=== PATIENT | female | born 1970 | race Caucasian/White ===

== ENCOUNTER 2017-05-25 14:56 | Emergency (ER) | payer MEDICARE, MEDICAID, SELFPAY ==
[2017-05-25 14:57] VITALS: BP 99/61; PULSE 74; RESP 14; TEMP 36.8; O2SAT 96; BMI 19.0
--- NOTE | 2017-05-25 15:33 | CT_ITS ---
STUDY: CT ABDOMEN AND PELVIS WITHOUT CONTRAST REASON FOR EXAM: Female, 46 years old. Constipation x1 week, neurogenic bladder RADIATION DOSAGE (If Supplied By Facility): CTDIvol = ( 9.38 ) mGy, DLP = ( 536.51 ) mGycm TECHNIQUE: Transaxial images were obtained from the dome of the diaphragm to the symphysis pubis without oral contrast, and without intravenous contrast. Sagittal and coronal images were reconstructed. Individualized dose optimization techniques were used for this CT. COMPARISON: Prior study of 02/29/2016 FINDINGS: There are gravity dependent atelectatic changes of the lung bases. The visualized portions of the heart are within normal limits. Normal liver. Normal gallbladder and extrahepatic biliary system. Normal spleen. Normal pancreas. Normal bilateral adrenal glands. There is a nonobstructing 3 mm calculus in lower pole of the right kidney. Normal left kidney. Normal visualized stomach. Normal small intestine. There is a large amount of gas and stool in the colon to the level of the rectosigmoid. There is non-visualization of the appendix. There are calcified plaques of the abdominal aorta. Normal inferior vena cava. Normal retroperitoneum. Normal urinary bladder. The uterus and adnexal structures are unremarkable. There is a small fat-containing helical hernia. Normal osseous structures. CT/Abdomen/Pelvis without Cont IMPRESSION: 1. There is a large amount of gas and stool in the colon to the level of the rectosigmoid. 2. Nonobstructing 3 mm calculus of the lower pole of the right kidney. 3. Small fat-containing umbilical hernia. 4. There is no evidence of free intra-abdominal or intrapelvic air, fluid, or inflammatory process. Electronically Signed: Deandre Peralta MD at 16:30 EDT , Service support ,
[2017-05-25] MEDS: Magnesium Citrate 300 ML PO (15:46)
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
[2017-05-25 18:05] VITALS: BP 98/64; PULSE 63; RESP 18; O2SAT 99
== END 2017-05-25 18:06 | disposition home or self-care (01) ==
PROVIDERS: Emergency Provider Emergency Medicine; Family Provider Family Medicine; PCP Family Medicine
DX: K59.09 Other constipation (principal); G81.00 Flaccid hemiplegia affecting unspecified side; K56.609 Unspecified intestinal obstruction, unspecified as to partial versus complete obstruction; Z87.820 Personal history of traumatic brain injury; Z79.891 Long term (current) use of opiate analgesic; Z79.02 Long term (current) use of antithrombotics/antiplatelets; Z79.899 Other long term (current) drug therapy
CPT/HCPCS: 74176; 99284

== ENCOUNTER 2017-06-02 10:19 | Day surgery (SDC) | payer MEDICARE, MEDICAID, SELFPAY ==
[2017-06-02] VITALS (8 sets, daily range): BP systolic 86–118; BP diastolic 59–74; PULSE 60–76; RESP 14–16; TEMP 36.4–36.8; O2SAT 97–100; BMI 23.6
--- NOTE | 2017-06-02 | IMM_PTH ---
PATIENT: JORDAN SCOTT LOC: EN U#:[id number] AGE/SX: 46/F ROOM: RE06/02/[address]: Dr. Oliverio Garcia MD : 1970 BED: DIS: 06/02/2017 SPEC #: [id number] RECD: 06/05/17 12:30 STATUS: CORRINE RERadha #: [id number] SANTI: 06/02/17 00:[address]: Oliverio Garcia DEPT: IMMUNOHISTOCHEMISTRY RECD BY: Adriana Kraft ENTERED: 06/05/17 12:31 SP TYPE: IMMUNO OTHR DR: Dr. Stu Calderon MD Tissues: Stomach, NOS Procedures: H Pylori (initial) PHYSICIAN & INSTITUTION [place] [id number] SPECIMEN INFORMATION: Tissue Source: Antrum biopsy Clinical Info: Iron deficiency anemia Specimen Number: [id number] CPT code: 34787 METHODOLOGY: Deparaffinized sections of prefer/formalin-fixed tissue or PAP/DQ stained slides are incubated with monoclonal/polyclonal antibodies/oligonucleotide probes. Localization is made via biotin free immunoperoxidase method. Appropriate controls are performed and reacted as expected. Results on target cell population are indicated in the following table: RESULTS: ANTIBODY / CLONE RESULT H Pylori (polyclonal) negative These tests were developed and their performance characteristics determined by [facility]. They may not have been cleared or approved by the U.S. Food and Drug Administration. The FDA has determined that such clearance or approval is not necessary. INTERPRETATION: Antrum, biopsy: Negative for Helicobacter pylori organisms. SJ:brandon 06/06/17
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
--- NOTE | 2017-06-02 11:48 | EGD_PTH ---
PATIENT: JORDAN SCOTT LOC: EN U#:[id number] AGE/SX: 46/F ROOM: RE06/02/[address]: Dr. Oliverio Garcia MD : 1970 BED: DIS: 06/02/2017 SPEC #: [id number] RECD: 06/02/17 13:15 STATUS: CORRINE JOAO #: [id number] SANTI: 06/02/17 11:[address]: Oliverio Garcia DEPT: SURGICAL PATHOLOGY RECD BY: Trev Pool ENTERED: 06/02/17 14:12 SP TYPE: EGD BIOPSY OTHR DR: Dr. Stu Calderon MD Tissues: Gastric mucous membrane Procedures: Surgery Specimen Level IV HEADER OPERATION: EGD with biopsy PRE-OP DIAGNOSIS: Iron deficiency anemia TISSUE SUBMITTED: Antrum biopsy for H. pylori and path MICROSCOPIC DIAGNOSIS Antral biopsy: Mild gastritis. SJ:brandon 06/05/17 COMMENT The results of immunohistochemistry for Helicobacter pylori will be reported separately ([id number]). MICROSCOPIC DESCRIPTION Slides are reviewed. The specimen shows fragments of gastric mucosa with chronic inflammatory cell infiltrates in the lamina propria consisting of lymphocytes and plasma cells, consistent with mild chronic gastritis. GROSS DESCRIPTION Received in fixative is one container labeled with the patient's name and designated antrum biopsy for H.?pylori and path. The specimen consists of one irregular fragment of light hudson soft tissue that measures 0.3 x 0.2 x 0.1 cm. The specimen is totally submitted in one cassette. / SJ:rg 06/02/17 TC:3 CPT: 97877
--- NOTE | 2017-06-02 14:03 | PCM.OPRPT ---
Report of Operation Date of Procedure: 06/02/17 Pre-Operative Diagnosis: anemia, constipation, black stools, fecal impaction, questionable Orlando syndrome Post-Operative Diagnosis: anemia, constipation, black stools, fecal impaction, questionable [place] syndrome - unremarkable upper endoscopy except for very mild gastritis, poor bowel prep with vegetable matter and very dark stools more consistent with iron, then melena Surgery/Procedure Performed:: EGD with biopsy, colonoscopy windlace machine operator: None Type of Anesthesia:: MAC Anesthesiologist: Navneet Hong - ASA3 Specimen's removed: gastric Description of Procedure: The patient was brought to the endoscopy suite. Sign in was performed verifying patient, site, planned procedure, critical nursing information, the patient was monitored with cardiac, pulse oximetric, and blood pressure monitoring devices. Monitored anesthetic care was provided for sedation. Following IV sedation and after the oropharynx was sprayed with Cetacaine spray, a video gastroscope was inserted in the oropharynx and advanced down the esophagus without difficulty. The scope was advanced through the stomach, through the pylorus through the duodenum to the proximal jejunum. the jejunum appeared unremarkable. The duodenum referred unremarkable. The stomach demonstrated very mild to minimal gastritis. A biopsy is taken for H. pylori and pathology. The scope was retroflexed. There were no proximal stomach abnormalities. As the scope was withdrawn, the esophagus appeared unremarkable. The patient was positioned for colonoscopy. A digital rectal exam was performed which revealedsignificant black liquid and vegetable matter material. This did not seem to be consistent with melena but more likely iron supplementation. A video colonoscope was inserted through dilated colon. The scope was advanced to 1.4 meters of some difficulty due to the degree of liquid and vegetable matter. As this was mostly liquid material. I attempted to aspirate as much as I could to try to complete the colonoscopy. spray, approximately 1.5 L of black liquid. I was unable to assure that I had debated to the cecal base. As the scope was withdrawn. No specific abnormalities were seen, but the endoscopist was quite limited. As much air and liquid was aspirated to hopefully help decompress the patient, who was still distended on a plain KUB from 3 days previously. The patient tolerated the procedure well and was brought to recovery in stable condition She was instructed to stay on a low residue diet to continue avoiding iron and calcium tablets. She is to follow-up with physician's medical billing assistant in 1 week with a KUB to see if she has decreased colonic distention and resolution of her previous fecal loading.
--- NOTE | 2017-06-02 14:09 | OP.PCM_ITS ---
Report of Operation Date of Procedure: 06/02/17 Pre-Operative Diagnosis: anemia, constipation, black stools, fecal impaction, questionable [place] syndrome Post-Operative Diagnosis: anemia, constipation, black stools, fecal impaction, questionable [place] syndrome - unremarkable upper endoscopy except for very mild gastritis, poor bowel prep with vegetable matter and very dark stools more consistent with iron, then melena Surgery/Procedure Performed:: EGD with biopsy, colonoscopy eyelet maker: None Type of Anesthesia:: MAC Anesthesiologist: Navneet Hong - ASA3 Specimen's removed: gastric Description of Procedure: The patient was brought to the endoscopy suite. Sign in was performed verifying patient, site, planned procedure, critical nursing information, the patient was monitored with cardiac, pulse oximetric, and blood pressure monitoring devices. Monitored anesthetic care was provided for sedation. Following IV sedation and after the oropharynx was sprayed with Cetacaine spray , a video gastroscope was inserted in the oropharynx and advanced down the esophagus without difficulty. The scope was advanced through the stomach, through the pylorus through the duodenum to the proximal jejunum. the jejunum appeared unremarkable. The duodenum referred unremarkable. The stomach demonstrated very mild to minimal gastritis. A biopsy is taken for H. pylori and pathology. The scope was retroflexed. There were no proximal stomach abnormalities. As the scope was withdrawn, the esophagus appeared unremarkable. The patient was positioned for colonoscopy. A digital rectal exam was performed which revealedsignificant black liquid and vegetable matter material. This did not seem to be consistent with melena but more likely iron supplementation. A video colonoscope was inserted through dilated colon. The scope was advanced to 1.4 meters of some difficulty due to the degree of liquid and vegetable matter. As this was mostly liquid material. I attempted to aspirate as much as I could to try to complete the colonoscopy. spray, approximately 1.5 L of black liquid. I was unable to assure that I had debated to the cecal base. As the scope was withdrawn. No specific abnormalities were seen, but the endoscopist was quite limited. As much air and liquid was aspirated to hopefully help decompress the patient, who was still distended on a plain KUB from 3 days previously. The patient tolerated the procedure well and was brought to recovery in stable condition She was instructed to stay on a low residue diet to continue avoiding iron and calcium tablets. She is to follow-up with physician's bilingual office assistant in 1 week with a KUB to see if she has decreased colonic distention and resolution of her previous fecal loading.
== END 2017-06-02 13:53 | disposition home or self-care (01) ==
LOC: EN 10:22 → AC 10:24
PROVIDERS: Family Provider Family Medicine; PCP Family Medicine; Visit Provider Surgery
PROC: 0DJD8ZZ Inspection of Lower Intestinal Tract, Via Natural or Artificial Opening Endoscopic (ICD-10-PCS; CPT 45378; principal; 2017-06-02 11:25)
DX: K29.70 Gastritis, unspecified, without bleeding (principal); D64.9 Anemia, unspecified; K59.00 Constipation, unspecified; K21.9 Gastro-esophageal reflux disease without esophagitis; F43.21 Adjustment disorder with depressed mood; F41.9 Anxiety disorder, unspecified; F10.11 Alcohol abuse, in remission; G81.00 Flaccid hemiplegia affecting unspecified side; N31.9 Neuromuscular dysfunction of bladder, unspecified; I10 Essential (primary) hypertension; E03.9 Hypothyroidism, unspecified; Z86.73 Personal history of transient ischemic attack (TIA), and cerebral infarction without residual deficits; Z79.02 Long term (current) use of antithrombotics/antiplatelets; Z79.891 Long term (current) use of opiate analgesic; Z79.899 Other long term (current) drug therapy; F17.210 Nicotine dependence, cigarettes, uncomplicated; Z86.718 Personal history of other venous thrombosis and embolism; Z86.711 Personal history of pulmonary embolism
CPT/HCPCS: 43239; 45378; 88305; 88342; J7120

== ENCOUNTER 2017-08-10 10:16 | Day surgery (SDC) | payer MEDICARE, MEDICAID, SELFPAY ==
[2017-08-10 10:31] VITALS: BP 91/56; PULSE 84; RESP 16; TEMP 36.7; O2SAT 100; BMI 22.4
--- NOTE | 2017-08-10 13:41 | OP.PCM_ITS ---
Report of Operation Date of Procedure: 08/10/17 Pre-Operative Diagnosis: anemia Post-Operative Diagnosis: grossly normal, limited prep Surgery/Procedure Performed:: colonoscopy hebrew teacher: None Type of Anesthesia:: MAC Anesthesiologist: Steve Rhodes - ASA3 Specimen's removed: none Description of Procedure: The patient was brought to the endoscopy suite. Sign in was performed verifying patient, site, planned procedure, critical nursing information, the patient was monitored with cardiac, pulse oximetric, and blood pressure monitoring devices. Monitored anesthetic care was provided for sedation. Following IV sedation the patient was positioned for colonoscopy. A digital rectal exam was performed which revealed The video colonoscope was inserted and advanced to the cecum as verified by the ileocecal valve, cecal base anatomic features and palpation. the prep was fair , much improved from last time. At the scope was withdrawn. There were a few small diverticula noted throughout the colon but no specific abnormalities. The scope was retroflexed and the internal anal verge appeared unremarkable. The patient tolerated the procedure well and was brought to recovery in stable condition
[2017-08-10 13:46] VITALS: BP 109/52; BP 91/56; PULSE 65; RESP 12; TEMP 36.6; O2SAT 100
[2017-08-10 13:51] VITALS: BP 91/56; BP 95/55; PULSE 62; RESP 14; O2SAT 100
[2017-08-10 13:56] VITALS: BP 91/56; BP 95/67; PULSE 65; RESP 16; O2SAT 98
[2017-08-10 14:02] VITALS: BP 91/56; BP 93/61; PULSE 59; RESP 16; TEMP 37.2; O2SAT 98
[2017-08-10 14:28] VITALS: BP 91/56
== END 2017-08-10 14:54 | disposition home or self-care (01) ==
LOC: EN 10:18 → ACINP 10:56 → AC 11:00
PROVIDERS: Family Provider Family Medicine; PCP Family Medicine; Visit Provider Surgery
PROC: 0DJD8ZZ Inspection of Lower Intestinal Tract, Via Natural or Artificial Opening Endoscopic (ICD-10-PCS; CPT 45378; principal; 2017-08-10 11:25)
DX: D50.9 Iron deficiency anemia, unspecified (principal); K21.9 Gastro-esophageal reflux disease without esophagitis; F17.200 Nicotine dependence, unspecified, uncomplicated; Z86.718 Personal history of other venous thrombosis and embolism; Z86.711 Personal history of pulmonary embolism
CPT/HCPCS: G0121; J7120

== ENCOUNTER 2018-02-15 11:31 | Emergency (ER) | payer MEDICARE, MEDICAID, SELFPAY ==
[2018-02-15 11:32] VITALS: BP 100/63; PULSE 80; RESP 18; TEMP 36.6; O2SAT 98; BMI 23.4
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
--- NOTE | 2018-02-15 13:08 | RAD_ITS ---
STUDY: X-RAY - ABDOMEN/PELVIS REASON FOR EXAM: Female, 47 years old. Abdominal pain and possible constipation. TECHNIQUE: Two AP supine views of the abdomen and pelvis. COMPARISON: Comparison is made with prior study dated March 07, 2016. FINDINGS: Normal visualized lung bases. There is an abundance of fecal material throughout the colon. The visualized liver, spleen and kidneys are grossly normal in size and morphology. There is evidence of prior tubal ligation. Normal visualized osseous structures. RAD/Abdomen Single View (Portable) IMPRESSION: Large amount of fecal material is seen in the colon. Electronically Signed: Fawad Bender MD at 13:33 EST Tel [phone], Service support ,
--- NOTE | 2018-02-15 14:26 | ED.DEP ---
ED Disposition - Plan for ED Patient: Disposition: Home or Assisted Living Chief Complaint: Abd Pain Instructions: ED Constipation Referrals: Stu Calderon MD [Primary Care Provider] - As Needed Additional Instructions: Drink all the magnesium citrate should have a bowel movement within 1-4 hours. Follow-up your doctor as needed.
[2018-02-15] MEDS: Magnesium Citrate 300 ML PO (14:33)
== END 2018-02-15 14:43 | disposition home or self-care (01) ==
PROVIDERS: Emergency Provider Emergency Medicine; Family Provider Family Medicine; PCP Family Medicine
DX: K59.00 Constipation, unspecified (principal); Z87.820 Personal history of traumatic brain injury; Z99.3 Dependence on wheelchair; Z72.0 Tobacco use; Z79.02 Long term (current) use of antithrombotics/antiplatelets; Z79.899 Other long term (current) drug therapy
CPT/HCPCS: 74018; 99282

== ENCOUNTER 2018-05-20 14:45 | Emergency (ER) | payer MEDICARE, MEDICAID, SELFPAY ==
[2018-05-20] VITALS (7 sets, daily range): BP systolic 90–112; BP diastolic 53–70; PULSE 52–69; RESP 16–18; TEMP 36.2–37; O2SAT 99–100; BMI 21.7
--- NOTE | 2018-05-20 15:31 | RAD_ITS ---
STUDY: X-RAY CHEST REASON FOR EXAM: Female, 47 years old. Cough TECHNIQUE: Frontal and lateral views of the chest COMPARISON: None. FINDINGS: The lungs are clear. There are no pleural effusions. There is no pneumothorax. The heart is normal in size. There is gaseous distention of the colon which is not significantly changed when compared with the abdominal radiograph dated 02/15/2018. The visualized osseous structures are within normal limits. RAD/Chest PA and Lateral IMPRESSION: No acute thoracic pathology. Electronically Signed: Mandeep Middleton, at 17:54 EDT Tel , Service support ,
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
[2018-05-20] MEDS: 0.9% Normal Saline 1,000 ML 1000 ML IV (16:10)
[2018-05-20 16:17] LABS: Absolute Lymphocyte Count 1.67 X10^3/ul (0.83-4.51); Absolute Neutrophil Count 3.3 X10^3/uL (2.0-7.7); Basophil# 0.01 X10^3/uL; Basophil% 0.2 % (0-1); Eosinophil# 0.15 X10^3/uL; Eosinophils% 2.6 % (0-5); Hematocrit 39.6 % (37-47); Hemoglobin 12.2 g/dl (12.0-15.0); Lymphocyte # 1.67 X10^3/ul (4.0); Lymphocyte % 29.3 % (19-41); Mean Corp Hgb Conc 30.8 g/gl (32-36); Mean Corpuscular Hgb 29.3 pg (27.0-32.0); Monocyte% 8.8 % (0-10); Neutrophil # 3.34 X10^3/uL (2.7-7.7); Neutrophil % 58.6 % (47-70); Platelet Count 296 K/mm3 (150-450); RBC Distribution Width CV 14.2 % (11.6-14.6); RBC Distribution Width SD 48.9 fl (35.1-43.9); Red Blood Count 4.17 M/mm3 (4.2-5.4); White Blood Count 5.7 K/mm3 (4.4-11.0)
[2018-05-20 16:18] LABS: POSITIVE COUNT NO; POSITIVE DIFFERENTIAL NO; POSITIVE MORPHOLOGY NO
[2018-05-20 16:35] LABS: ALB/GLOB Ratio 0.9 RATIO (0.9-2.4); AST(SGOT) 15 U/L (15-37); Alanine Aminotransfer ALT/SGPT 30 U/L (13-56); Albumin, Serum 3.6 g/dL (3.2-5.0); Alkaline Phosphatase 78 U/L (45-117); Anion Gap 6 (5-15); BUN 13 mg/dL (7-18); BUN/Creat Ratio 12.4 RATIO (10-20); CPK Total, Creatine Kinase 33 U/L (26-192); Calcium,Total 8.6 mg/dL (8.5-10.1); Chloride 115 mmol/L (98-107); Creatinine, Serum 1.05 mg/dL (0.55-1.02); EST Glomerular Filtration Rate 60 mL/min (>60); Est Glom Filt Rate - Afr Amer 72 mL/min (>60); Globulin 3.8 g/dL (2.2-4.2); Glucose 76 mg/dL (74-106); Potassium 3.8 mmol/L (3.5-5.1); Protein, Total 7.4 g/dL (6.4-8.2); Sodium Level 144 mmol/L (136-145)
[2018-05-20 16:49] LABS: Lactic Acid 1.7 mmol/L (0.4-2.0)
[2018-05-20 16:56] LABS: Bacteria 0 SEEN /hpf (None Seen); Mucous, Urine 0 SEEN /hpf (<or=2+); Red Blood Cells-Urine 0 SEEN /hpf (0-5); White Blood Cells 0 SEEN /hpf (0-5)
[2018-05-20 17:00] LABS: Color, Urine Yellow (Yellow); Glucose, Dipstick Normal (Normal); Ketone-Dipstick Negative (Negative); Leukocyte Esterase-Dipstick Negative /ul (Negative); Nitrite-Dipstick Negative (Negative); Occult Blood-Urine Negative /ul (Negative); Protein-Dipstick Negative (Negative); Urine Bilirubin Dipstick Negative (Negative); Urine Clarity Clear (Clear); Urine Urobilinogen Normal (Normal)
[2018-05-20 17:08] LABS: Squamous Epithelial Cells - UA 0-5 SEEN /hpf (5-10)
[2018-05-20 17:11] LABS: International Normalized Ratio 1.7; Prothrombin Time (Protime)PT. 19.9 SECONDS (11.7-14.9)
[2018-05-20 17:12] LABS: Partial Thromboplast Time 39.4 Seconds (24.1-36.2)
--- NOTE | 2018-05-20 18:21 | RAD_ITS ---
STUDY: X-RAY - ABDOMEN/PELVIS REASON FOR EXAM: Female, 47 years old. Abdominal distention TECHNIQUE: AP supine and decubitus views of the abdomen and pelvis. COMPARISON: CT dated 02/15/2018 FINDINGS: The small bowel is normal in caliber. There are multiple air-filled dilated loops of large bowel throughout the abdomen and pelvis. There is a large amount of stool, consistent with constipation. There is no definite free air. The visualized osseous structures are within normal limits. RAD/Abd Decub and/or Erect(Portabl IMPRESSION: No small bowel obstruction. Dilated large bowel with constipation. If indicated, further evaluation with CT can BE performed. No definite free air identified. Electronically Signed: Mandeep Middleton, at 19:27 EDT Tel , Service support ,
== END 2018-05-20 20:43 | disposition home or self-care (01) ==
PROVIDERS: Emergency Provider Emergency Medicine; Family Provider Family Medicine; PCP Family Medicine
DX: J22 Unspecified acute lower respiratory infection (principal); K59.00 Constipation, unspecified; R06.02 Shortness of breath; F17.200 Nicotine dependence, unspecified, uncomplicated; E03.9 Hypothyroidism, unspecified; Z87.820 Personal history of traumatic brain injury; Z99.3 Dependence on wheelchair; Z86.711 Personal history of pulmonary embolism; Z79.02 Long term (current) use of antithrombotics/antiplatelets; Z79.899 Other long term (current) drug therapy
CPT/HCPCS: 71046; 74019; 80053; 81001; 82550; 83605; 85025; 85610; 85730; 87040; 87086; 87088; 96360; 96361; 99283; J7030

== ENCOUNTER 2018-06-29 04:02 | Inpatient (IN) | payer MEDICARE, MEDICAID, SELFPAY ==
[2018-05-20 14:48] VITALS: BMI 21.7
[2018-06-29] VITALS (16 sets, daily range): BP systolic 95–129; BP diastolic 55–98; PULSE 65–85; RESP 16–22; TEMP 36.2–37.4; O2SAT 92–100; BMI 22.9; BMI 23.0
--- NOTE | 2018-06-29 | COL_PTH ---
PATIENT: JORDAN SCOTT LOC: MS3 U#:[id number] AGE/SX: 47/F ROOM: MS317 RE06/29/[address]: Dr. Theresa Soriano, : 1970 BED: 1 DIS: 07/03/2018 SPEC #: [id number] RECD: 06/29/18 13:35 STATUS: CORRINE RERadha #: [id number] SANTI: 06/29/18 00:[address]: Luz Hess DEPT: SURGICAL PATHOLOGY RECD BY: Cheng Orourke ENTERED: 06/29/18 13:35 SP TYPE: COLON OTHR DR: MD Dr. Stu Benoit MD Tissues: Colon, NOS Procedures: Surgery Specimen Level V HEADER OPERATION: Sigmoid colectomy, colostomy PRE-OP DIAGNOSIS: Sigmoid volvulus TISSUE SUBMITTED: Sigmoid colon MICROSCOPIC DIAGNOSIS Sigmoid colon, colectomy: Dilated and tortuous segment of colon, consistent with volvulus. Both segments of bowel (large and small) and one resection margin (largest segment of bowel) with mucosal ischemia, hemorrhage and transmural acute inflammation. One resection margin with focal hyperplastic polyp changes. JASWINDER:brandon 07/03/18 MICROSCOPIC DESCRIPTION Slides are reviewed. GROSS DESCRIPTION Received fresh in one container and then postfixed labeled with the patient's name is a specimen designated sigmoid colon. The specimen consists of a distended and tortuous large segment of colon measuring 86?cm in length and 9 cm in diameter. Both resection margins are stapled. The lumen contains blackish, liquified fecal material. The mucosa shows multiple areas of congestion. Mucosal folds are flattened. Also present in the container is a second segment of bowel measuring 3.5 cm in length and 5 cm in diameter. Both resection margins are stapled. The lumen contains hemorrhagic fecal material. No mucosal lesion is identified in both segments of colon. Sections will be submitted after overnight fixation. / JASWINDER:brandon 06/29/18 Sections of pericolonic adipose tissue do not reveal any obvious enlarged lymph nodes. Geric[employer] Aide Teacher sections are submitted in seven cassettes as follows: 1 & 2 - smaller segment of bowel, 3-7 - larger segment of bowel, sigmoid colon (3 - resection margin, 4 & 5 - congested mucosal area, 6 - other area of bowel, 7??pericolonic adipose tissue). / JASWINDER:brandon 07/02/18 TC:5 [facility]: [id number]
--- NOTE | 2018-06-29 04:36 | EKG12_ITS ---
Test Reason : Blood Pressure : / mmHG Vent. Rate : 088 BPM Atrial Rate : 088 BPM P-R Int : 158 ms QRS Dur : 082 ms QT Int : 368 ms P-R-T Axes : 047 -50 044 degrees QTc Int : 445 ms Normal sinus rhythm Possible Left atrial enlargement Left axis deviation Low voltage QRS Inferior infarct , age undetermined Poor R-Wave Progression Abnormal ECG Confirmed by JOCELYNE COREA, NESSA ([id number]), make up editor CORINNE MAC ([id number]) on 07/02/2018 10:38:20 AM Referred By: PETE Confirmed By:NESSA CASANOVA MD
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
[2018-06-29 05:14] LABS: Absolute Neutrophil Count 14.9 X10^3/uL (2.0-7.7); Hematocrit 40.4 % (37-47); Hemoglobin 13.1 g/dl (12.0-15.0); Lymphocyte % 4.1 % (19-41); Mean Corp Hgb Conc 32.4 g/gl (32-36); Mean Corpuscular Hgb 29.5 pg (27.0-32.0); Mean Platelet Vol. 9.3 fl (6.2-12.0); Monocyte# 1.45 X10^3/uL; Monocyte% 8.5 % (0-10); Neutrophil # 14.89 X10^3/uL (2.7-7.7); Neutrophil % 87.1 % (47-70); Platelet Count 194 K/mm3 (150-450); RBC Distribution Width CV 13.9 % (11.6-14.6); RBC Distribution Width SD 45.7 fl (35.1-43.9); Red Blood Count 4.44 M/mm3 (4.2-5.4); White Blood Count 17.1 K/mm3 (4.4-11.0)
[2018-06-29 05:15] LABS: POSITIVE COUNT NO; POSITIVE DIFFERENTIAL NO; POSITIVE MORPHOLOGY NO
--- NOTE | 2018-06-29 05:25 | RAD_ITS ---
HISTORY: altered LOC, patient unable to follow breathing instructions, Hx traumatic brain injury EXAM:XR Chest 1 View COMPARISON: 05/20/2018 FINDINGS: Marked distention of colon within the abdomen with secondary elevation of the right hemidiaphragm and bibasilar atelectatic changes, worse on the right. Normal heart size. No vascular congestion or definite pleural effusion. No pneumothorax. RAD/Chest 1 View (Portable) IMPRESSION: 1. Bibasilar atelectatic changes, worse on the right. 2. Pronounced distention of the colon within the upper abdomen and this appears the etiology for atelectasis. at 0605 Reported and signed by: Adan Chinchilla MD Electronically Signed: Adan Chinchilla, at 6:04 EDT Tel , Service support ,
[2018-06-29 05:37] LABS: AST(SGOT) 35 U/L (15-37); Alanine Aminotransfer ALT/SGPT 35 U/L (13-56); Albumin, Serum 3.6 g/dL (3.2-5.0); Alkaline Phosphatase 87 U/L (45-117); Anion Gap 7 (5-15); BUN 17 mg/dL (7-18); BUN/Creat Ratio 14.9 RATIO (10-20); Calcium,Total 8.6 mg/dL (8.5-10.1); Chloride 114 mmol/L (98-107); Creatinine, Serum 1.14 mg/dL (0.55-1.02); EST Glomerular Filtration Rate 54 mL/min (>60); Est Glom Filt Rate - Afr Amer 66 mL/min (>60); Estimated Creatinine Clearance 71.16 ml/min; Globulin 3.6 g/dL (2.2-4.2); Glucose 135 mg/dL (74-106); Lipase 88 U/L (73-393); Potassium 4.2 mmol/L (3.5-5.1); Protein, Total 7.2 g/dL (6.4-8.2); Sodium Level 141 mmol/L (136-145)
[2018-06-29 05:44] LABS: Mucous, Urine 0 SEEN /hpf (<or=2+); Red Blood Cells-Urine 0 SEEN /hpf (0-5)
[2018-06-29 05:57] LABS: Color, Urine Yellow (Yellow); Glucose, Dipstick Normal (Normal); Ketone-Dipstick 5 mg/dl (Negative); Leukocyte Esterase-Dipstick 100 /ul (Negative); Nitrite-Dipstick Negative (Negative); Occult Blood-Urine 50 /ul (Negative); Protein-Dipstick 30 mg/dl (Negative); Specific Gravity, Urine 1.015 (1.002-1.030); Urine Clarity Turbid (Clear); Urine Urobilinogen 1 mg/dl (Normal)
[2018-06-29 06:06] LABS: Urine Bilirubin Dipstick 1 mg/dL (Negative)
[2018-06-29 06:07] LABS: Amorphous Sediment 3+; Bacteria 2+ /hpf (None Seen)
[2018-06-29 06:08] LABS: Coarse Granular Cast 0-5 SEEN /lpf (0-5 /lpf); Squamous Epithelial Cells - UA 0-5 SEEN /hpf (5-10); Transitional Epithelial - Ur 0-5 SEEN /hpf (0-5); White Blood Cells 0-5 SEEN /hpf (0-5)
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
[2018-06-29] MEDS: Ondansetron 4 MG/2 ML Vial IV (06:22)
[2018-06-29] MEDS: Morphine 4 MG/ML Syringe IV ×3 (06:24→21:42)
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
[2018-06-29 08:01] LABS: Prothrombin Time Fingerstick 17.3 SEC (11.9-14.4)
--- NOTE | 2018-06-29 10:41 | OP.PCM_ITS ---
Report of Operation Date of Procedure: 06/29/18 Pre-Operative Diagnosis: sigmoid volvulus Post-Operative Diagnosis: same, sigmoid colon ischemic Surgery/Procedure Performed:: sigmoid colon resection, end descending colostomy Description of Surgical Findings:: twisted sigmoid colon at least two times at mesentery with ischemic appearing bowel, redundant sigmoid colon acquisitions analyst: Emily Zhou Type of Anesthesia:: General Anesthesiologist: Miriam Pulliam Specimen's removed: sigmoid colon Estimated Blood Loss (mL): 50 ml Fluids Replaced: see anesthesia note Description of Procedure: After informed consent was obtained, the patient was brought into the operating room and placed in the supine position on the operating table. Appropriate time out protocol was followed. The patient was then placed under general anesthesia. A Chappell catheter was placed using sterile technique. A nasogastric tube was placed. The patient?s abdomen was then prepped with a sterile surgical skin preparation and sterile surgical drapes were placed. A midline skin incision was made with a 10 blade scalpel and carried down to the fascia. Hemostasis was controlled with electrocautery. The fascia was divided along the lower midline and extended to the umbilical dimple. A Josesito retractor was placed for increased operative exposure. The sigmoid colon was noted - it was bluish in discoloration. It was redundant. The sigmoid colon was grossly distended and was twisted at its mesenteric base at least twice. The sigmoid colon was untwisted and bowel clamps were placed proximal and distal to the volvulus. The mesentery was incised and the vascular was clamped with hemostatic clamps. It was then incised and divided and the vasculature was ligated with 2-0 vicryl suture. The Covidien ligasure device was also used to divide the tissue. However, it was noted that the divided tissue continued to bleed (patient was on xarelto) and therefore suture ligature was used instead. A 75mm linear vasculature stapling device was fired across the proximal area of bowel to the volvulus and then at the distal aspect of the volvulus. Thus the entire sigmoid colon was and passed to the back table to be forwarded to pathology. Hemostasis was carefully checked. There was areas of oozing and these areas were controlled with vicryl figure-of-8 sutures that were placed. The rectal stump was marked with prolene suture at the corners. A colostomy site was chose in the left lower quadrant of the abdomen. A circular skin incision was made and a cruciate incision was made into the fascia within the left rectus abdominis musculature. The stapled end of the end descending colon was brought up through the ostomy opening. There was no tension noted on the end descending portion of the colon that was brought up through the abdominal wall opening. Once again, hemostasis was carefully checked and there was no evidence of active bleeding. The peritoneum was reapproximated with a running 3-0 vicryl suture. The fascia was reapproximated along the midline with a running #1 looped PDS suture. The wound was vigorously irrigated with normal saline. The incision was reapproximated with skin jayda. Sterile dressing was applied to the incisional wound. The colostomy was matured - the stapled end was excised sharply. The mucosa was then approximated to the circular skin opening using interrupted 3-0 vicryl suture. An ostomy appliance was fitted and placed over the colostomy. The patient was then extubated and brought to the Recovery Room in stable condition. - Complications none noted - Admit VTE Documentation VTE Present on Admission: Yes VTE Mechan Device Prophylaxis: SCD's
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
--- NOTE | 2018-06-29 13:40 | CASEMGMT ---
RN CM Face to Face with patient for initial transition planning/care coordination assessment. RN CM introduced self and role at [facility]. Patient lying in bed, sleeping, mother at bedside. Mother is patient's guardian and willing to participate in assessment and is able to answer all questions appropriately. Care providers, pharmacy, and demographics verified. Mother wishes to discharge home, may benefit from HHC at discharge. Mother states she has no further needs or concerns at this time. CM to follow for discharge planning needs that may arise. PCP: [facility] Specialists: [facility]; [place], BILL CLERK Preferred Pharmacy: [facility] Insurance: [email or web address] Prescription Benefit: yes Living Will/HPOA: None LNOK: Mother and father Living Arrangements: Patient lives alone in home with aide services setup through the [employer]. Aides services are from 9am-10pm 7 days per week [facility]: [facility] DME/HHC: Patient has shower chair, BSC, Raised toilet, hospital bed, grab bars, walker, w/c. Disposition Plan: Home with possible HHC, resumption of aides services, family support, and follow-up plans in place. Joana ALVARADON, RN, CM
[2018-06-29] MEDS: Lactated Ringers 1,000 ML 100 ML IV (17:59)
[2018-06-30] MEDS: Morphine 4 MG/ML Syringe IV ×7 (02:09→22:31)
[2018-06-30] MEDS: BENZOCAINE/MENTHOL 1 LOZENGE MUCOUS MEM ×5 (02:10→23:09)
[2018-06-30 02:11] VITALS: BP 115/63; PULSE 70; RESP 18; TEMP 36.8; O2SAT 96
[2018-06-30] MEDS: Lactated Ringers 1,000 ML 100 ML IV ×3 (04:01→23:51)
[2018-06-30] MEDS: guaiFENesin 10 ML UDC (200MG/10ML) PO (04:07)
[2018-06-30 08:00] VITALS: BP 104/71; PULSE 71; RESP 16; TEMP 36.8; O2SAT 96
[2018-06-30 08:17] LABS: Anion Gap 6 (5-15); BUN 16 mg/dL (7-18); BUN/Creat Ratio 18.4 RATIO (10-20); Calcium,Total 8.1 mg/dL (8.5-10.1); Chloride 117 mmol/L (98-107); Creatinine, Serum 0.87 mg/dL (0.55-1.02); EST Glomerular Filtration Rate 74 mL/min (>60); Est Glom Filt Rate - Afr Amer 90 mL/min (>60); Estimated Creatinine Clearance 93.24 ml/min; Glucose 83 mg/dL (74-106); Potassium 3.9 mmol/L (3.5-5.1); Sodium Level 143 mmol/L (136-145)
[2018-06-30 08:47] LABS: Absolute Lymphocyte Count 1.27 X10^3/ul (0.83-4.51); Absolute Neutrophil Count 12.4 X10^3/uL (2.0-7.7); Basophil# 0.01 X10^3/uL; Basophil% 0.1 % (0-1); Eosinophil# 0.02 X10^3/uL; Eosinophils% 0.1 % (0-5); Hematocrit 33.5 % (37-47); Hemoglobin 10.9 g/dl (12.0-15.0); Lymphocyte # 1.27 X10^3/ul (4.0); Lymphocyte % 8.5 % (19-41); Mean Corp Hgb Conc 32.5 g/gl (32-36); Mean Corpuscular Hgb 29.3 pg (27.0-32.0); Mean Corpuscular Volume 90.1 fL (81-99); Mean Platelet Vol. 9.8 fl (6.2-12.0); Monocyte% 7.4 % (0-10); Neutrophil # 12.42 X10^3/uL (2.7-7.7); Neutrophil % 83.6 % (47-70); Platelet Count 173 K/mm3 (150-450); RBC Distribution Width CV 14.3 % (11.6-14.6); RBC Distribution Width SD 45.8 fl (35.1-43.9); Red Blood Count 3.72 M/mm3 (4.2-5.4); White Blood Count 14.9 K/mm3 (4.4-11.0)
[2018-06-30 08:49] LABS: POSITIVE COUNT NO; POSITIVE DIFFERENTIAL NO; POSITIVE MORPHOLOGY NO
--- NOTE | 2018-06-30 09:41 | PN_ITS ---
Patient Problems: Active and Suspected Problems Sigmoid volvulus (Acute) Subjective: Chief complaint: Follow-up after consultation for postoperative medical management. Patient seen and examined. No acute events overnight. This morning, she is awake, using suction. Communication with the patient is limited because of her disability, not able to talk fluently. Her vitals are stable. - Physical Exam General: Alert, Cooperative, No apparent distress HEENT: Atraumatic, PERRLA, EOMI, Normocephalic Oral: Moist Mucosa, No Gingival or Mucosal Lesions/ Ulcerations Neck: Supple, No JVD, Negative Carotid Bruits, Trachea Midline, Thyroid Normal Size and Texture Lungs: Clear to auscultation, No rhonchi, No wheeze, No rales, Diminished Cardiovascular: Regular rate, Regular Rhythm, Normal S1, Normal S2, PMI Normal Abdomen: Bowel Sounds Present, Soft, No Hepato-splenomegaly, Distended, Tender, - - Colostomy bag in place. Extremities: No clubbing, No cyanosis, No edema Skin: No rashes, No breakdown Lymphatic: No Cervical, Supraclavicular, or Inguinal Adenopathy Neurological: Cranial nerves II-XII grossly intact, - - Paraplegia. Psych/Mental Status: Normal Affect, Appropriate Vital Signs Temp Pulse Resp BP Pulse Ox 98.3 F 70 18 115/63 96 06/30/18 02:11 06/30/18 02:11 06/30/18 02:11 06/30/18 02:11 06/30/18 02:11 Oxygen Flow Rate (L/min) 3 Oxygen Delivery Method Room Air Weight: 169 lb 5.04 oz Body Mass Index (BMI) 22.9 Intake and Output for Last 24 Hours 06/28/18 06/29/18 06/30/18 23:59 23:59 23:59 Intake Total 3162 / 3162 1299 / 1299 Output Total 725 / 725 450 / 450 Balance 2437 / 2437 849 / 849 Laboratory Tests Past 24 Hrs 06/30/18 06/30/18 06/30/18 07:25 07:25 08:25 WBC Cancelled 14.9 H Corrected WBC Cancelled RBC Cancelled 3.72 L Hgb Cancelled 10.9 L Hct Cancelled 33.5 L MCV Cancelled 90.1 MCH Cancelled 29.3 MCHC Cancelled 32.5 RDW Cancelled 14.3 RDW Differential Cancelled 45.8 H Plt Count Cancelled 173 MPV Cancelled 9.8 Immature Gran % (Auto) Cancelled 0.300 Neut % (Auto) Cancelled 83.6 H Lymph % (Auto) Cancelled 8.5 L [place] % (Auto) Cancelled 7.4 Eos % (Auto) Cancelled 0.1 Baso % (Auto) Cancelled 0.1 Absolute Neuts (auto) Cancelled 12.4 H Absolute Lymphs (auto) Cancelled 1.27 Total Counted Cancelled Not Reportable Neutrophils % (Manual) Cancelled Band Neutrophils % Cancelled Lymphocytes % (Manual) Cancelled Monocytes % (Manual) Cancelled Eosinophils % (Manual) Cancelled Basophils % (Manual) Cancelled Metamyelocytes % Cancelled Myelocytes % Cancelled Promyelocytes % Cancelled Blast Cells % Cancelled Plasma Cell % (Manual) Cancelled Other Cells % Cancelled Nucleated RBCs/100 WBC Cancelled Differential Comment Cancelled Diff Path Review Cancelled Hypersegmented Neuts Cancelled Atypical Lymphocytes Cancelled Reactive Lymphocytes Cancelled Smudge Cells Cancelled Toxic Granulation Cancelled Dohle Bodies Cancelled Idris Rods Cancelled Platelet Estimate Cancelled Plt Morphology Comment Cancelled RBC Morphology Cancelled Polychromasia Cancelled Hypochromasia Cancelled Poikilocytosis Cancelled Basophilic Stippling Cancelled Anisocytosis Cancelled Microcytosis Cancelled Macrocytosis Cancelled Spherocytes Cancelled Sickle Cells Cancelled Target Cells Cancelled Tear Drop Cells Cancelled Ovalocytes Cancelled Stomatocytes Cancelled [place] Bodies Cancelled Shelley Cells Cancelled Bite Cells Cancelled Acanthocytes (Spur) Cancelled Rouleaux Cancelled Schistocytes Cancelled Sodium 143 Potassium 3.9 Chloride 117 H Carbon Dioxide 20.0 L Anion Gap 6 BUN 16 Creatinine 0.87 Estim Creat Clear Calc 93.24 Est GFR (MDRD) Af Amer 90 Est GFR (MDRD) Non-Af 74 BUN/Creatinine Ratio 18.4 Glucose 83 Calcium 8.1 L Medical Necessity - Tobacco Use Tobacco Use: Non-smoker Assessment/Plan All Active Problems Sigmoid volvulus (Acute) This is a 47 years old female patient presented to the emergency room because of vague generalized pain, found to have sigmoid volvulus on CT scan abdomen and pelvis and she underwent urgent surgery with resection of the sigmoid colon and descending colostomy and I am seeing this patient in consultation for postoperative medical management. #1 sigmoid volvulus with ischemia: Status post sigmoid resection and end descending colostomy, postoperative day 2. Remains on n.p.o., on IV fluids. Hemodynamically stable. White blood cell count is trending down, hemoglobin is down to 10.9 g/dL which is likely because of hemodilution. BMP was unremarkable. General surgery on the case, plan to continue same treatment. #2 history of head injury/subdural hematoma/ paraplegia: Patient is bedridden for a long time, continue pain control and supportive measures. #3 hypothyroidism: Stable, continue levothyroxine. #4 history of pulmonary embolism: Patient has been on Xarelto which was held because of surgery. Xarelto held for surgery yesterday. Plan to restart Xarelto if patient allowed to take p.o. by surgery and if not, will start therapeutic Lovenox twice daily. #5 chronic back pain/chronic leg pain: Pain controlled with IV morphine. #6 DVT prophylaxis: SCDs. This note was generated with [employer] dictation software. It may contain incorrect words, spelling, and punctuation that were not noted in checking the note before signing. Code Visit Inpatient E&M: 15521 Subs Hosp L2
--- NOTE | 2018-06-30 12:07 | CASEMGMT ---
Dr Hess asked PAULA to talk with patient and her mom regarding SNF placement. PAULA spoke with patient's mom. Introduced self and role at [facility]. Discussed SNF and patient's mom was undecided. She did not know all the reasons the physician felt patient needs rehab. PAULA was able to bring Dr Hess back into the room and she answered questions. Patient's mom feels the aides would probably be able to care for the colostomy if they were trained. PAULA told them PAULA can call on Monday to make sure the aides can do this and if not we can look at SNF. Plan: If aides are able to be taught and can take care of colostomy for patient then patient's mom would prefer home. However, if this is not an option patient may need SNF. Nereyda BHAGAT MSW
--- NOTE | 2018-06-30 12:11 | PCM.PN.SRG ---
Patient Problems: Active and Suspected Problems Sigmoid volvulus (Acute) Subjective: patient under control with pain meds, notes no new problems - Physical Exam General: Alert Oral: Moist Mucosa Neck: Supple Abdomen: Bowel Sounds Present, Soft Vital Signs Temp Pulse Resp BP Pulse Ox 98.2 F 71 16 104/71 96 06/30/18 08:00 06/30/18 08:00 06/30/18 08:00 06/30/18 08:00 06/30/18 08:00 Oxygen Flow Rate (L/min) 3 Oxygen Delivery Method Room Air Weight: 76.8 kg Body Mass Index (BMI) 22.9 Intake and Output for Last 24 Hours 06/28/18 06/29/18 06/30/18 23:59 23:59 23:59 Intake Total 3162 / 3162 1329 / 1329 Output Total 725 / 725 450 / 450 Balance 2437 / 2437 879 / 879 Laboratory Tests Past 24 Hrs 06/30/18 06/30/18 06/30/18 07:25 07:25 08:25 WBC Cancelled 14.9 H Corrected WBC Cancelled RBC Cancelled 3.72 L Hgb Cancelled 10.9 L Hct Cancelled 33.5 L MCV Cancelled 90.1 MCH Cancelled 29.3 MCHC Cancelled 32.5 RDW Cancelled 14.3 RDW Differential Cancelled 45.8 H Plt Count Cancelled 173 MPV Cancelled 9.8 Immature Gran % (Auto) Cancelled 0.300 Neut % (Auto) Cancelled 83.6 H Lymph % (Auto) Cancelled 8.5 L [place] % (Auto) Cancelled 7.4 Eos % (Auto) Cancelled 0.1 Baso % (Auto) Cancelled 0.1 Absolute Neuts (auto) Cancelled 12.4 H Absolute Lymphs (auto) Cancelled 1.27 Total Counted Cancelled Not Reportable Neutrophils % (Manual) Cancelled Band Neutrophils % Cancelled Lymphocytes % (Manual) Cancelled Monocytes % (Manual) Cancelled Eosinophils % (Manual) Cancelled Basophils % (Manual) Cancelled Metamyelocytes % Cancelled Myelocytes % Cancelled Promyelocytes % Cancelled Blast Cells % Cancelled Plasma Cell % (Manual) Cancelled Other Cells % Cancelled Nucleated RBCs/100 WBC Cancelled Differential Comment Cancelled Diff Path Review Cancelled Hypersegmented Neuts Cancelled Atypical Lymphocytes Cancelled Reactive Lymphocytes Cancelled Smudge Cells Cancelled Toxic Granulation Cancelled Dohle Bodies Cancelled Idris Rods Cancelled Platelet Estimate Cancelled Plt Morphology Comment Cancelled RBC Morphology Cancelled Polychromasia Cancelled Hypochromasia Cancelled Poikilocytosis Cancelled Basophilic Stippling Cancelled Anisocytosis Cancelled Microcytosis Cancelled Macrocytosis Cancelled Spherocytes Cancelled Sickle Cells Cancelled Target Cells Cancelled Tear Drop Cells Cancelled Ovalocytes Cancelled Stomatocytes Cancelled [place] Bodies Cancelled [place] Cells Cancelled Bite Cells Cancelled Acanthocytes (Spur) Cancelled Rouleaux Cancelled Schistocytes Cancelled Sodium 143 Potassium 3.9 Chloride 117 H Carbon Dioxide 20.0 L Anion Gap 6 BUN 16 Creatinine 0.87 Estim Creat Clear Calc 93.24 Est GFR (MDRD) Af Amer 90 Est GFR (MDRD) Non-Af 74 BUN/Creatinine Ratio 18.4 Glucose 83 Calcium 8.1 L Medical Necessity - Tobacco Use Tobacco Use: Non-smoker Assessment/Plan All Active Problems Sigmoid volvulus (Acute) POD#1 s/p sigmoid resection for volvulus Plan: sips of clear liquids patient non ambulatory and has difficulty with IS Continue present care
[2018-06-30 14:00] VITALS: BP 109/70; PULSE 72; RESP 16; TEMP 36.9; O2SAT 94
[2018-06-30] MEDS: Gabapentin 300 MG Capsule PO (17:12)
[2018-06-30 20:24] VITALS: BP 118/74; PULSE 68; RESP 16; TEMP 37.4; O2SAT 96
[2018-06-30] MEDS: Topiramate 200 MG Tablet PO (21:07)
[2018-06-30] MEDS: Doxepin Hydrochloride 10 MG Capsule PO (21:07)
[2018-06-30] MEDS: fluvoxaMINE Maleate 50 MG Tablet PO (21:10)
[2018-06-30] MEDS: DiphenhydrAMINE 25 MG Capsule PO (23:10)
[2018-07-01] MEDS: BENZOCAINE/MENTHOL 1 LOZENGE MUCOUS MEM (02:00)
[2018-07-01 02:03] VITALS: BP 92/50; PULSE 64; RESP 16; TEMP 36.7; O2SAT 92
[2018-07-01] MEDS: Lactated Ringers 500 ML 999 ML IV (06:59)
[2018-07-01 08:14] VITALS: BP 110/64; PULSE 61; RESP 18; TEMP 37.1; O2SAT 95
[2018-07-01] MEDS: Rivaroxaban 20 MG Tablet PO (09:56)
[2018-07-01] MEDS: Gabapentin 300 MG Capsule PO ×3 (09:56→17:50)
[2018-07-01] MEDS: Loratadine 10 MG Tablet PO (09:56)
[2018-07-01] MEDS: Topiramate 200 MG Tablet PO ×2 (09:57→20:54)
[2018-07-01] MEDS: fluvoxaMINE Maleate 50 MG Tablet PO ×2 (10:02→20:53)
--- NOTE | 2018-07-01 10:51 | PCM.PN.SRG ---
Patient Problems: Active and Suspected Problems Sigmoid volvulus (Acute) Subjective: patient feeling well, feels hungry - Physical Exam General: Alert Oral: Moist Mucosa Neck: Supple Abdomen: Bowel Sounds Present, Soft, - - ostomy is pink and air and stool in bag Vital Signs Temp Pulse Resp BP Pulse Ox 98.8 F 61 18 110/64 95 07/01/18 08:14 07/01/18 08:14 07/01/18 08:14 07/01/18 08:14 07/01/18 08:14 Oxygen Flow Rate (L/min) 3 Oxygen Delivery Method Room Air Weight: 76.8 kg Body Mass Index (BMI) 22.9 Intake and Output for Last 24 Hours 06/29/18 06/30/18 07/01/18 23:59 23:59 23:59 Intake Total 3162 / 3162 2098 / 2098 652 / 652 Output Total 725 / 725 750 / 750 Balance 2437 / 2437 1348 / 1348 652 / 652 Microbiology Past 72 Hours 06/29/18 13:30 Urine Culture - Final Urine, Random Culture exhibits no growth. Medical Necessity - Tobacco Use Tobacco Use: Non-smoker Assessment/Plan All Active Problems Sigmoid volvulus (Acute) POD#2 s/p sigmoid resection for volvulus Plan: advance diet patient non ambulatory and has difficulty with IS Continue present care
--- NOTE | 2018-07-01 11:13 | PN_ITS ---
Patient Problems: Active and Suspected Problems Sigmoid volvulus (Acute) Subjective: Chief complaint: Follow-up after consultation for postoperative medical management. Patient seen and examined. No acute events overnight. She is feeling okay, no complaints. She has been passing gas. Her vital signs are stable. - Physical Exam General: Alert, Cooperative, No apparent distress HEENT: Atraumatic, PERRLA, EOMI, Normocephalic Oral: Moist Mucosa, No Gingival or Mucosal Lesions/ Ulcerations Neck: Supple, No JVD, Negative Carotid Bruits, Trachea Midline, Thyroid Normal Size and Texture Lungs: Clear to auscultation, No rhonchi, No wheeze, No rales, Diminished Cardiovascular: Regular rate, Regular Rhythm, Normal S1, Normal S2, PMI Normal Abdomen: Bowel Sounds Present, Soft, Non Tender, No Hepato-splenomegaly, Distended, - - Colostomy bag in place. Extremities: No clubbing, No cyanosis, No edema Skin: No rashes, No breakdown Lymphatic: No Cervical, Supraclavicular, or Inguinal Adenopathy Neurological: Cranial nerves II-XII grossly intact, - - Paraplegia. Psych/Mental Status: Normal Affect Vital Signs Temp Pulse Resp BP Pulse Ox 98.8 F 61 18 110/64 95 07/01/18 08:14 07/01/18 08:14 07/01/18 08:14 07/01/18 08:14 07/01/18 08:14 Oxygen Flow Rate (L/min) 3 Oxygen Delivery Method Room Air Weight: 169 lb 5.04 oz Body Mass Index (BMI) 22.9 Intake and Output for Last 24 Hours 06/29/18 06/30/18 07/01/18 23:59 23:59 23:59 Intake Total 3162 / 3162 2098 / 2098 652 / 652 Output Total 725 / 725 750 / 750 Balance 2437 / 2437 1348 / 1348 652 / 652 Microbiology Past 72 Hours 06/29/18 13:30 Urine Culture - Final Urine, Random Culture exhibits no growth. Medical Necessity - Tobacco Use Tobacco Use: Non-smoker Assessment/Plan All Active Problems Sigmoid volvulus (Acute) This is a 47 years old female patient presented to the emergency room because of vague generalized pain, found to have sigmoid volvulus on CT scan abdomen and pelvis and she underwent urgent surgery with resection of the sigmoid colon and descending colostomy and I am seeing this patient in consultation for postoperative medical management. #1 sigmoid volvulus with ischemia: Status post sigmoid resection and end descending colostomy, postoperative day 3. She is tolerating clear liquids.hemodynamically stable. She is passing gas. General surgery on the case. #2 history of head injury/subdural hematoma/ paraplegia: Patient is bedridden for a long time, continue pain control and supportive measures. #3 hypothyroidism: Stable, continue levothyroxine. #4 history of pulmonary embolism: Continue Xarelto. Respiratory status stable. #5 chronic back pain/chronic leg pain: Pain controlled with IV morphine. #6 DVT prophylaxis: SCDs. This note was generated with [employer] dictation software. It may contain incorrect words, spelling, and punctuation that were not noted in checking the note before signing. Code Visit Inpatient E&M: 74854 Subs Hosp L2
[2018-07-01] MEDS: Lactated Ringers 1,000 ML 100 ML IV ×2 (12:19→21:17)
[2018-07-01 14:04] VITALS: BP 100/61; PULSE 70; RESP 18; TEMP 37.1; O2SAT 94
[2018-07-01] MEDS: Morphine 4 MG/ML Syringe IV ×3 (14:11→20:55)
[2018-07-01 20:37] VITALS: BP 95/51; PULSE 68; RESP 16; TEMP 37.4; O2SAT 94
[2018-07-01] MEDS: Orphenadrine 100 MG Tablet PO (20:54)
[2018-07-01] MEDS: OLANZapine 2.5 MG Tablet 5 MG PO (20:54)
[2018-07-01] MEDS: Doxepin Hydrochloride 10 MG Capsule PO (20:54)
[2018-07-02 05:35] VITALS: BP 101/55; PULSE 58; RESP 14; TEMP 36.7; O2SAT 97
[2018-07-02 07:44] VITALS: BP 109/68; PULSE 71; RESP 18; TEMP 36.7; O2SAT 96
[2018-07-02] MEDS: Lactated Ringers 1,000 ML 100 ML IV ×2 (07:46→17:41)
[2018-07-02] MEDS: Gabapentin 300 MG Capsule PO ×3 (07:48→17:42)
[2018-07-02] MEDS: Rivaroxaban 20 MG Tablet PO (07:48)
[2018-07-02] MEDS: Topiramate 200 MG Tablet PO ×2 (07:48→22:00)
[2018-07-02] MEDS: fluvoxaMINE Maleate 50 MG Tablet PO ×2 (07:49→22:00)
[2018-07-02] MEDS: Fluticasone 0.05% 1 SPRAY NASAL.SRY 2 SPRAY NASAL (07:50)
[2018-07-02] MEDS: Pantoprazole Sodium 40 MG Tablet PO (07:50)
[2018-07-02] MEDS: Loratadine 10 MG Tablet PO (07:50)
[2018-07-02] MEDS: Pyridoxine HCl 100 MG Tablet PO (07:51)
[2018-07-02] MEDS: Orphenadrine 100 MG Tablet PO ×2 (07:51→22:00)
[2018-07-02 08:24] VITALS: PULSE 56
[2018-07-02] MEDS: Morphine 4 MG/ML Syringe IV ×3 (10:01→20:28)
[2018-07-02] MEDS: BENZOCAINE/MENTHOL 1 LOZENGE MUCOUS MEM ×2 (14:02→18:35)
[2018-07-02 14:05] VITALS: BP 106/66; PULSE 62; RESP 18; TEMP 36.9; O2SAT 97
--- NOTE | 2018-07-02 14:23 | CASEMGMT ---
Addendum entered by Joana Choi 07/02/18 16:46: PAULA spoke with RN TRUNG Bruno who states pt is able to go home with [facility] and nurses from [facility] will be able to assist aides with teaching and learning of Colostomy. NAVEED Jacobs also states that if a aide wants to come to [facility] tomorrow they are able to watch Arlene change Colostomy. PAULA placed a call to Toya Kc and updated her of this information. SW to continue to follow. Original Note: Social Work Note PAULA placed a call to [facility] and left message for Toya Kc ([phone]). PAULA placed a call to Toya and left message requesting to call this worker, PAULA provided direct number. PAULA received call from Toya Kc requesting documents be faxed [phone] including procedure that was done for pt, diagnosis, and training for Colostomy. Toya states she is trying to get Aides trained on how to assist with Colostomy. PAULA faxed documents to Toya Kc at [facility]. Joana Choi WATERWORKS CHIEF ENGINEER, BRAZING MACHINE TENDER
--- NOTE | 2018-07-02 18:43 | PCM.PROGNOTE ---
Patient Problems: Active and Suspected Problems Sigmoid volvulus (Acute) Subjective: There is gas and stool present in the colostomy today. She was advanced to a regular diet by Dr. Hess this morning. She is tolerating the advance without N/V/abd pain. She will be able to go home with aides to help with the colostomy once the aides have been trained. Afebrile Vital signs stable 96-97% saturated on room air Urine culture had no growth. - Physical Exam General: Alert, Cooperative, No apparent distress HEENT: Atraumatic, PERRLA, Normocephalic Oral: Moist Mucosa, No Gingival or Mucosal Lesions/ Ulcerations Neck: Supple, Trachea Midline Lungs: Clear to auscultation, Diminished Cardiovascular: Regular rate, Regular Rhythm, Normal S1, Normal S2, No Gallop Abdomen: Bowel Sounds Present, Soft, Non Tender Extremities: No clubbing, No cyanosis, No edema Skin: No rashes, No breakdown Neurological: Cranial nerves II-XII grossly intact, - - Paraplegic Psych/Mental Status: Normal Affect Vital Signs Temp Pulse Resp BP Pulse Ox 98.5 F 62 18 106/66 97 07/02/18 14:05 07/02/18 14:05 07/02/18 14:05 07/02/18 14:05 07/02/18 14:05 Oxygen Flow Rate (L/min) 3 Oxygen Delivery Method Room Air Weight: 169 lb 5.04 oz Body Mass Index (BMI) 22.9 Intake and Output for Last 24 Hours 06/30/18 07/01/18 07/02/18 23:59 23:59 23:59 Intake Total 2098 / 2098 3513 / 3513 1911 Output Total 750 / 750 Balance 1348 / 1348 3513 / 3513 1911 Microbiology Past 72 Hours 06/29/18 13:30 Urine Culture - Final Urine, Random Culture exhibits no growth. Medical Necessity - Tobacco Use Tobacco Use: Non-smoker Assessment/Plan All Active Problems Sigmoid volvulus (Acute) Impressions 1. Sigmoid volvulus-status post sigmoid resection colostomy -postop day #4. Advance to a regular diet and tolerating well. 2. History of head injury/subdural hematoma/paraplegia 3. Hypothyroidism 4. History of pulmonary embolus-on Xarelto 5. Chronic back pain/chronic leg pain Possible DC tomorrow if the arrangements for caretakers have been made Discussed with her mother Code Visit Inpatient E&M: 97379 Subs Hosp L2
[2018-07-02 20:05] VITALS: BP 101/62; PULSE 66; RESP 18; TEMP 37.2; O2SAT 100
[2018-07-02] MEDS: OLANZapine 2.5 MG Tablet 5 MG PO (22:00)
[2018-07-02] MEDS: Doxepin Hydrochloride 10 MG Capsule PO (22:00)
[2018-07-03] MEDS: Morphine 4 MG/ML Syringe IV (00:32)
[2018-07-03 02:30] VITALS: BP 101/63; PULSE 67; RESP 18; TEMP 37.2; O2SAT 96
[2018-07-03] MEDS: Lactated Ringers 1,000 ML 100 ML IV (05:31)
--- NOTE | 2018-07-03 08:51 | PCM.PN.SRG ---
Patient Problems: Active and Suspected Problems Sigmoid volvulus (Acute) Subjective: Patient doing well, awaiting disposition for discharge - Physical Exam General: Alert HEENT: Atraumatic Oral: Moist Mucosa Lungs: Normal air movement Abdomen: - - incision is dry and intact stoma site mucosa is viable Vital Signs Temp Pulse Resp BP Pulse Ox 98.9 F 67 18 101/63 96 07/03/18 02:30 07/03/18 02:30 07/03/18 02:30 07/03/18 02:30 07/03/18 02:30 Oxygen Flow Rate (L/min) 3 Oxygen Delivery Method Room Air Weight: 76.8 kg Body Mass Index (BMI) 22.9 Intake and Output for Last 24 Hours 07/01/18 07/02/18 07/03/18 23:59 23:59 23:59 Intake Total 3513 / 3513 1911 / 1911 1116 / 1116 Balance 3513 / 3513 1911 / 1911 1116 / 1116 Microbiology Past 72 Hours 06/29/18 13:30 Urine Culture - Final Urine, Random Culture exhibits no growth. Medical Necessity - Tobacco Use Tobacco Use: Non-smoker Assessment/Plan All Active Problems Sigmoid volvulus (Acute) POD#4 s/p sigmoid resection for volvulus Plan: tolerating diet patient non ambulatory and has difficulty with IS Continue present care awaiting discharge planning - probable d/c to home today.
[2018-07-03 09:27] VITALS: BP 104/67; PULSE 56; RESP 16; TEMP 37.2; O2SAT 94
[2018-07-03] MEDS: Rivaroxaban 20 MG Tablet PO (09:29)
[2018-07-03] MEDS: Orphenadrine 100 MG Tablet PO (09:29)
[2018-07-03] MEDS: Gabapentin 300 MG Capsule PO ×2 (09:29→13:14)
[2018-07-03] MEDS: Fluticasone 0.05% 1 SPRAY NASAL.SRY 2 SPRAY NASAL (09:30)
[2018-07-03] MEDS: Pantoprazole Sodium 40 MG Tablet PO (09:30)
[2018-07-03] MEDS: Loratadine 10 MG Tablet PO (09:30)
[2018-07-03] MEDS: fluvoxaMINE Maleate 50 MG Tablet PO (09:31)
[2018-07-03] MEDS: Pyridoxine HCl 100 MG Tablet PO (09:31)
[2018-07-03] MEDS: Topiramate 200 MG Tablet PO (09:31)
[2018-07-03 10:43] VITALS: BP 97/57; PULSE 72
--- NOTE | 2018-07-03 10:45 | CASEMGMT ---
Social Work Note SW received message from Toya Kc stating pt's aides Nereyda Perez and Jennifer Oconnor will be calling this worker to arrange training time for staff. PAULA spoke with Nereyda Perez ([phone]). Nereyda states she is unable to get aides out today for training and would like training to be arranged for 10:00am tomorrow. PAULA informed Nereyda that pt is medically ready for discharge and that they are holding up pt's discharge. PAULA explained that HHC can be out tomorrow for pt but not likely today. Nereyda again states she doesn't have any aides available today. PAULA placed a call to Toya Kc at [employer] and left message stating this worker spoke with Nereyda this morning who states they are unable to get aides to [facility] today. PAULA explained to Toya and Nereyda that not all of the aides have to be out today just a couple and then they can teach others. PAULA again reiterated that pt is medically ready for discharge today and that if possible, aides need to come to [facility] so pt is able to discharge today. PAULA waiting for call back from Toya. PAULA received call from Jennifer Oconnor asking for clarification about training. PAULA explained, again, that pt is medically cleared for discharge today and if possible an aide needs to come to [facility] today for teaching from RN. PAULA informed Jennifer that HHC will be out tomorrow to pt's house for additional training and teaching. PAULA explained that not every aide needs to come to [facility] and that the aide taking care of pt today should come to [facility] to watch RN and then that aide can teach others. Jennifer states she will call her staff to determine if anyone is able to come to [facility] today. PAULA informed Jennifer that RN leaves at 3:30pm today and an aide will need to be to [facility] before then. Per RN CM [facility]HC will be at pt's house tomorrow at 12:30pm DILIP Clifford
--- NOTE | 2018-07-03 11:18 | CASEMGMT ---
Social Work Note SW received call from Rogelio investigative administration at [facility], requesting discharge summary be faxed to [phone]. PAULA explained that discharge summary is not currently completed but once it is completed, this worker can fax documents. Rogelio states understanding. Joana hCoi HOOKER LASTER, ACTING MANAGER
--- NOTE | 2018-07-03 12:17 | PCM.DC.GS ---
Discharge Diet: No Restrictions - drink plenty of fluids Discharge Activity: Return to Normal Activity Call your doctor if your incision/area has: Continuous Slow Oozing Call your doctor if you observe: Fever of 101 or Higher Additional Dressing/Incision Instructions:: Sponge bathe only, avoid getting abdominal areas wet Allergies/Adverse Reactions: Allergies amoxicillin [Amoxicillin] Allergy (Verified 06/29/18 04:12) Unknown naproxen Allergy (Verified 06/29/18 04:12) Unknown NSAIDS (Non-Steroidal Anti-Inflamma Allergy (Verified 06/29/18 04:12) Unknown Penicillins Allergy (Verified 06/29/18 04:12) Unknown phenytoin Allergy (Verified 06/29/18 04:12) Unknown pineapple [Pineapple] Allergy (Verified 06/29/18 04:12) Unknown mold Allergy (Uncoded 06/29/18 04:12) Shortness of breath SEASONAL ALLERGIES Allergy (Uncoded 06/29/18 04:12) Unknown Medications to take at Discharge Cetirizine HCl [All Day Allergy] 10 mg PO DAILY 02/29/16 Docusate Sodium [Colace] 100 mg PO BID 02/29/16 Doxepin HCl 10 mg PO QHS 02/29/16 Fluticasone Propionate [Flonase Allergy Relief] 2 spray NS DAILY 02/29/16 Fluvoxamine Maleate [Luvox] 50 mg PO BID 02/29/16 Gabapentin [Neurontin] 300 mg PO TID 02/29/16 Levothyroxine [Synthroid] 137 mcg PO DAILY 02/29/16 Magnesium Oxide 400 mg PO DAILY 02/29/16 Olanzapine 5 mg PO QHS 02/29/16 Omeprazole [Prilosec] 40 mg PO DAILY 02/29/16 Orphenadrine [Norflex] 100 mg PO BID 02/29/16 proMETHazine tablet [Phenergan tablet] 12.5 mg PO BID PRN 02/29/16 Furosemide [Lasix] 20 mg PO DAILY 05/25/17 Iron Polysaccharide Complex [Ferrex 150] 150 mg PO BIDCM 05/25/17 Potassium Chloride [K-Dur] 20 meq PO 1600 05/25/17 Topiramate [Topamax] 200 mg PO BID 05/25/17 Lutein 6 mg PO DAILY 06/01/17 Multivitamin [Multiple Vitamins] 1 each PO DAILY 08/09/17 Rivaroxaban [Xarelto] 20 mg PO DAILY 08/09/17 Lactobacillus Acidophilus [Acidophilus] 1 tablet PO DAILY 02/15/18 Pyridoxine HCl [Vitamin B-6] 100 mg PO DAILY 02/15/18 Primary Care Physician: Stu Calderon MD [Primary Care Provider] - Test Results: Test results from this visit will be discussed in further detail at your follow-up appointment, if applicable. Please Follow Up With: Luz Hess MD - When: on July 06, at 2:20 pm
--- NOTE | 2018-07-03 12:20 | DCINST_ITS ---
Discharge Diet: No Restrictions - drink plenty of fluids Discharge Activity: Return to Normal Activity Call your doctor if your incision/area has: Continuous Slow Oozing Call your doctor if you observe: Fever of 101 or Higher Additional Dressing/Incision Instructions:: Sponge bathe only, avoid getting abdominal areas wet Allergies/Adverse Reactions: Allergies amoxicillin [Amoxicillin] Allergy (Verified 06/29/18 04:12) Unknown naproxen Allergy (Verified 06/29/18 04:12) Unknown NSAIDS (Non-Steroidal Anti-Inflamma Allergy (Verified 06/29/18 04:12) Unknown Penicillins Allergy (Verified 06/29/18 04:12) Unknown phenytoin Allergy (Verified 06/29/18 04:12) Unknown pineapple [Pineapple] Allergy (Verified 06/29/18 04:12) Unknown mold Allergy (Uncoded 06/29/18 04:12) Shortness of breath SEASONAL ALLERGIES Allergy (Uncoded 06/29/18 04:12) Unknown Medications to take at Discharge Cetirizine HCl [All Day Allergy] 10 mg PO DAILY 02/29/16 Docusate Sodium [Colace] 100 mg PO BID 02/29/16 Doxepin HCl 10 mg PO QHS 02/29/16 Fluticasone Propionate [Flonase Allergy Relief] 2 spray NS DAILY 02/29/16 Fluvoxamine Maleate [Luvox] 50 mg PO BID 02/29/16 Gabapentin [Neurontin] 300 mg PO TID 02/29/16 Levothyroxine [Synthroid] 137 mcg PO DAILY 02/29/16 Magnesium Oxide 400 mg PO DAILY 02/29/16 Olanzapine 5 mg PO QHS 02/29/16 Omeprazole [Prilosec] 40 mg PO DAILY 02/29/16 Orphenadrine [Norflex] 100 mg PO BID 02/29/16 proMETHazine tablet [Phenergan tablet] 12.5 mg PO BID PRN 02/29/16 Furosemide [Lasix] 20 mg PO DAILY 05/25/17 Iron Polysaccharide Complex [Ferrex 150] 150 mg PO BIDCM 05/25/17 Potassium Chloride [K-Dur] 20 meq PO 1600 05/25/17 Topiramate [Topamax] 200 mg PO BID 05/25/17 Lutein 6 mg PO DAILY 06/01/17 Multivitamin [Multiple Vitamins] 1 each PO DAILY 08/09/17 Rivaroxaban [Xarelto] 20 mg PO DAILY 08/09/17 Lactobacillus Acidophilus [Acidophilus] 1 tablet PO DAILY 02/15/18 Pyridoxine HCl [Vitamin B-6] 100 mg PO DAILY 02/15/18 Primary Care Physician: Stu Calderon MD [Primary Care Provider] - Test Results: Test results from this visit will be discussed in further detail at your follow- up appointment, if applicable. Please Follow Up With: Luz Hess MD - When: on July 06, at 2:20 pm
--- NOTE | 2018-07-03 12:21 | PCM.DC.BLA ---
Discharge Summary Date of Admission: 06/29/18 Date of Discharge: 07/03/18 Summary: Ofelia Bedoya is a 47 y/o WF with history of TBI, presents with sigmoid volvulus (has long history of constipation). Presented with acute abdomen and elevated WBC. Taken to OR for emergency surgery - sigmoid resection and end descending colostomy creation and Oneil's Patient tolerated procedure well. Return of bowel function within two days. Awaiting home health services planning for discharge. Discharged on POD#4, to be followed up as outpatient. Patient Problems: Active and Suspected Problems Sigmoid volvulus (Acute) - Physical Exam Vital Signs Temp Pulse Resp BP Pulse Ox 98.9 F 72 16 97/57 L 94 07/03/18 09:27 07/03/18 10:43 07/03/18 09:27 07/03/18 10:43 07/03/18 09:27 Oxygen Flow Rate (L/min) 3 Oxygen Delivery Method Room Air Weight: 76.8 kg Body Mass Index (BMI) 22.9 Intake and Output for Last 24 Hours 07/01/18 07/02/18 07/03/18 23:59 23:59 23:59 Intake Total 3513 / 3513 1911 1116 / 1116 Balance 3513 / 3513 1911 1116 / 1116 Microbiology Past 72 Hours 06/29/18 13:30 Urine Culture - Final Urine, Random Culture exhibits no growth.
--- NOTE | 2018-07-03 12:27 | PCM.PROGNOTE ---
Patient Problems: Active and Suspected Problems Sigmoid volvulus (Acute) Subjective: Afebrile Vital signs stable 94-96% saturated on room air Tolerating diet with no nausea/vomiting/increased abdominal pain There is gas and liquid stool in the colostomy bag. The aides came in today and were instructed by Arlene in how to care for the colostomy. Pt has not complaints. Her mother would like a note stating that Ofelia will need 24 hour supervision until the colostomy is reversed. Objective: - Physical Exam General: NAD, sleepy HEENT: Atraumatic, PERRLA, Normocephalic Oral: Moist Mucosa, No Gingival or Mucosal Lesions/ Ulcerations Neck: Supple, Trachea Midline Lungs: Clear to auscultation, Diminished Cardiovascular: Regular rate, Regular Rhythm, Normal S1, Normal S2, No Gallop Abdomen: Bowel Sounds Present, Soft, Non Tender Extremities: No clubbing, No cyanosis, No edema Skin: No rashes, No breakdown Neurological: Cranial nerves II-XII grossly intact, - - Paraplegic - Physical Exam Vital Signs Temp Pulse Resp BP Pulse Ox 98.9 F 72 16 97/57 L 94 07/03/18 09:27 07/03/18 10:43 07/03/18 09:27 07/03/18 10:43 07/03/18 09:27 Oxygen Flow Rate (L/min) 3 Oxygen Delivery Method Room Air Weight: 169 lb 5.04 oz Body Mass Index (BMI) 22.9 Intake and Output for Last 24 Hours 07/01/18 07/02/18 07/03/18 23:59 23:59 23:59 Intake Total 3513 / 3513 1911 1116 / 1116 Balance 3513 / 3513 1911 1116 / 1116 Microbiology Past 72 Hours 06/29/18 13:30 Urine Culture - Final Urine, Random Culture exhibits no growth. Medical Necessity - Tobacco Use Tobacco Use: Non-smoker Assessment/Plan All Active Problems Sigmoid volvulus (Acute) Impressions 1. Sigmoid volvulus-status post sigmoid resection colostomy -postop day #4. Advance to a regular diet and tolerating well. 2. History of head injury/subdural hematoma/paraplegia 3. Hypothyroidism 4. History of pulmonary embolus-on Xarelto 5. Chronic back pain/chronic leg pain The patient's mother was provided with a typed letter on hospital letterhead stating she needs 24 hour supervision until the colostomy is reversed. She is to be discharged today.
--- NOTE | 2018-07-03 13:08 | CASEMGMT ---
Social Work: Met with patient, patient's mother and patient's aides in room. Patient's aide states that a staff person from from [facility] will be transporting patient home. Patient's mother and aides state that all questions have been answered regarding colostomy care and they are aware that [facility] home health skilled nurse will be to patient's home tomorrow at 12:30. D/C summary faxed to Toya Kc at the [facility] board. PLAN: Patient to return to own home with 24 hour care and care home for colostomy teaching. DARRELL Jimenez
--- NOTE | 2018-07-03 13:11 | NURSING ---
In to do ostomy teaching with patient's mother and numerous caretakers. removed the ostomy appliance. there was an area of stool leakage on the midline abdominal dressing. the dressing was removed. incision is well approximated with jayda intact. minimal redness noted. no drainage noted. will leave LUPE. stoma sits just above skin level and measures approx 1 1/2. slightly edematous and pink. peristomal skin is intact. cleansed the skin with warm water. pat dry. reapplied a new flat 2 piece Fab appliance with a small amount of stoma paste. will send a [id number] instruction guide with patient as well as a few extra appliances until her supplies come in. supplies ordered through [employer]. Pt will also have Home health care for a while as well for further education for the caretakers. all very appreciative and deny further questions at this time.
[2018-07-03 13:24] VITALS: BP 102/59; PULSE 67; RESP 18; TEMP 37; O2SAT 96
[2018-07-03] MEDS: HYDROcodone Bitartrate/Apap 5/325 Tablet PO (13:26)
--- NOTE | 2018-07-04 16:33 | CASEMGMT ---
RN TRUNG Discharge Follow-Up Phone Call. Lace: 9 Strata: 3 Discharge Date: 07/03/18 Adm Dx: Colectomy w/Colostomy. Attempted discharge follow-up phone call to pt's parents. No answer. Message left for them to return call to MS3 NAVEED NINO if they have any questions about discharge instructions, medications, appts, or HHC. Phone number provided. Justice KRAUS RN CM
--- NOTE | 2018-09-18 14:04 | CASEMGMT ---
Chief Load Dispatcher: Met with patient and parents to discuss D/C planning. Patient lives in own home with 24 hour care provided by [facility]. Patient and parents verify that the plan will be for patient to return home with 24 hour care. Patient has all DME in the home already. Patient states that an aide from [employer] will transport patient home at D/C. PLAN: Patient to return home with 24 hour care at D/C. SW to follow to assist as needed with D/C planning. DARRELL Meléndez
== END 2018-07-03 14:40 | disposition home health service (06) | DRG 329 ==
LOC: ED 07:03 → SDC 07:09 → MS3 07:10 → SDC 10:31
PROVIDERS: Hospitalist; Admitting Provider Surgery; Emergency Provider Emergency Medicine; Family Provider Family Medicine; PCP Family Medicine; Visit Provider Internal Medicine
PROC: 0DTN0ZZ Resection of Sigmoid Colon, Open Approach (ICD-10-PCS; CPT 49000; principal; 2018-06-29 07:15)
DX: K56.2 Volvulus (principal); K55.039 Acute (reversible) ischemia of large intestine, extent unspecified; G82.20 Paraplegia, unspecified; K55.9 Vascular disorder of intestine, unspecified; Q43.8 Other specified congenital malformations of intestine; E03.9 Hypothyroidism, unspecified; N31.9 Neuromuscular dysfunction of bladder, unspecified; Z86.711 Personal history of pulmonary embolism; Z79.01 Long term (current) use of anticoagulants; Z74.01 Bed confinement status; G89.29 Other chronic pain; M54.9 Dorsalgia, unspecified; M79.606 Pain in leg, unspecified; Z87.820 Personal history of traumatic brain injury
CPT/HCPCS: 36415; 36416; 71045; 74176; 80048; 80053; 81001; 83690; 85025; 85610; 87086; 88307; 93005; 97163; 97166; 97530; 97802; 99285; J7030; J7120; P9612; A4216; J2405

== ENCOUNTER 2018-07-08 19:06 | Inpatient (IN) | payer MEDICARE, MEDICAID, SELFPAY ==
[2018-06-29 12:00] VITALS: BMI 22.9
[2018-07-08 19:08] VITALS: BP 108/63; PULSE 90; RESP 18; TEMP 36.8; O2SAT 96; BMI 20.3
[2018-07-08 20:09] VITALS: TEMP 37.2
--- NOTE | 2018-07-08 20:10 | RAD_ITS ---
STUDY: X-RAY - ACUTE ABDOMINAL SERIES REASON FOR EXAM: Female, 47 years old. Pain, nausea and vomiting. Recent colostomy. TECHNIQUE: Single view of the chest. Supine, and erect view(s) of the abdomen were obtained. COMPARISON: 06/29/2018. FINDINGS: The lungs are clear and expanded. Normal size heart. Normal mediastinum and glenis. Normal visualized pulmonary arteries. Normal visualized aortic arch and descending thoracic aorta. Surgical changes consistent with a left lower quadrant ostomy are seen. Air filled loops of large bowel are seen in the right upper quadrant, directly under the diaphragm, with some air-fluid levels. These loops are not distended beyond normal limits however. Additional air-filled loops of bowel in the midabdomen appear to represent combinations of small and large bowel and also are not distended. Fecal retention seen in the descending colon to the level of the ostomy bag. Findings are most suggestive of generalized ileus. The soft tissue structures of the abdomen and pelvis are unremarkable. Normal visualized osseous structures. RAD/Acute Abdomen Inc Chest IMPRESSION: No specific evidence for obstruction. No free air. Findings suggestive of generalized ileus. Electronically Signed: Perry Cuellar MD at 22:00 EDT , Service support ,
--- NOTE | 2018-07-08 20:36 | ED.VIS.GEN ---
History of Present Illness Chief Complaint: Nausea/Vomiting Informant: Patient, Family Onset: Today Context: Sudden Onset Quality: Abdominal bloating with emesis x1 Location: Generalized abdomen Current Severity: Mild Maximum Severity: Moderate Worsened by: Nothing Relieved by: Nothing Associated Symptoms: Nausea and vomiting x1 Narrative: Patient is postop day 10. She had a bowel obstruction. She has a colostomy. She emptied her colostomy bag at 1700. She had one episode of vomiting. There was no blood or coffee grounds in the emesis. 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 She spoke minimal. Family answered most questions for her. She had a document temperature 99.8. She did not have shaking chills. She denies ocular, visual auditory symptoms. She denies cardiac or respiratory symptoms. She denies urologic symptoms. Prior similar symptoms: No Recent Illness/Hospitalization: Yes - Past Medical History (1) Sigmoid volvulus Status: Acute (2) History of pulmonary embolism Status: Chronic (3) History of subdural hemorrhage Status: Chronic Comment: Following injury (4) Hypothyroidism Status: Chronic (5) Neurogenic bladder Status: Chronic (6) Tobacco abuse Status: Chronic Past Medical History - Allergies and Home Meds Allergies/Adverse Reactions: Allergies amoxicillin [Amoxicillin] Allergy (Verified 07/08/18 19:11) Unknown naproxen Allergy (Verified 07/08/18 19:11) Unknown NSAIDS (Non-Steroidal Anti-Inflamma Allergy (Verified 07/08/18 19:11) Unknown Penicillins Allergy (Verified 07/08/18 19:11) Unknown phenytoin Allergy (Verified 07/08/18 19:11) Unknown pineapple [Pineapple] Allergy (Verified 07/08/18 19:11) Unknown mold Allergy (Uncoded 07/08/18 19:11) Shortness of breath SEASONAL ALLERGIES Allergy (Uncoded 07/08/18 19:11) Unknown Primary Care Physician: Stu Calderon MD [Primary Care Provider] - Prior records reviewed: Yes Surgical History: - - hx of trach and peg, tubal ligation, RLQ baclofen pump placed and removed Lives: With Family Smoking Status: Current every day smoker Alcohol: None - Family History Paternal Family History: Reports: Stroke Maternal Family History: Reports: - - anemia Review of Systems General: Reports: Fever - 99.8 Eyes: Denies: Visual changes - bilaterally, Blurred Vision - bilaterally ENT: Denies: Bilateral ear pain, Rhinorrhea, Sore throat Cardiovascular: Denies: Chest pain, Palpitations, Heart racing, -, - Respiratory: Denies: Dyspnea, Cough, Dyspnea on exertion Gastrointestinal: Reports: Abdominal pain, Nausea, Vomiting. Denies: Diarrhea, Constipation, Melena, Hematochezia Genitourinary: Denies: Dysuria, Hematuria, Frequency Musculoskeletal: Denies: Myalgias, Arthralgias, Back pain, Extremity Pain Skin: Reports: - - Family reports drainage from inferior portion of incision site and increased redness.. Denies: Rash, Wounds Neurological: Denies: Headache, Weakness, Numbness Hematologic: Denies: Easy bruising, Easy bleeding Allergy: Denies: Uticaria Physical Exam Vital Signs/Narrative: Vital Signs Temp Pulse Resp BP Pulse Ox 07/08/18 20:09 99.0 F 07/08/18 19:08 98.3 F 90 18 108/63 96 General: Well nourished, Well developed, No Acute Distress Head: Normocephalic, Atraumatic Eyes: Perrl, EOMI ENT: No rhinorrhea Neck: Supple, Nontender Cardiovascular: Regular rate, Regular rhythm, No murmurs, Normal S1, Normal S2 Respiratory: No distress, CTA bilaterally, Chest nontender Abdomen: Soft, Nontender, No masses, Hypoactive bowel sounds - Abdomen is tympanitic to percussion., - - Dark green stool noted in colostomy bag. Incision site has appropriate redness near the jayda. There is minimal discharge from the inferior aspect of the wound i.e. last 2 jayda. Rectal: Deferred Back: Nontender, Normal Inspection Extremities: Nontender, No edema Skin: Normal color, No rash Neurological: Cranial nerves II-XII grossly intact, Normal Strength, Normal Sensation Psychological: Depressed Diagnostic/Tx/Re-eval Chest X-Ray - ED: Read by ED Physician, Read by Radiologist Impressions Acute Abdomen Series 07/08/18 20:10 IMPRESSION: No specific evidence for obstruction. No free air. Findings suggestive of generalized ileus. Electronically Signed: Perry Cuellar MD at 22:00 EDT , Service support , 07/08/18 20:10 Acute Abdomen Inc Chest [RAD] Stat Laboratory Results 07/08/18 07/08/18 20:44 21:00 WBC 11.9 H RBC 5.12 Hgb 14.8 Hct 45.3 MCV 88.5 MCH 28.9 MCHC 32.7 RDW 14.0 RDW Differential 45.6 H Plt Count 384 MPV 9.3 Immature Gran % (Auto) 0.400 Neut % (Auto) 90.1 H Lymph % (Auto) 5.0 L [place] % (Auto) 4.3 Eos % (Auto) 0.1 Baso % (Auto) 0.1 Absolute Neuts (auto) 10.8 H Absolute Lymphs (auto) 0.60 L Total Counted Not Reportable Differential Comment SCANNED Sodium 138 Potassium 3.8 Chloride 103 Carbon Dioxide 27.0 Anion Gap 8 BUN 14 Creatinine 1.30 H Estim Creat Clear Calc 58.08 Est GFR (MDRD) Af Amer 57 L Est GFR (MDRD) Non-Af 47 L BUN/Creatinine Ratio 10.8 Glucose 121 H Calcium 9.3 - Rhythm Strip Rhythm Strip: Sinus Rhythm Rate: 81 Ectopy: None - Medical Decision Making With complaint of abdominal distention nausea vomiting times once status post surgery for bowel obstruction will obtain abdominal film and appropriate blood work. She was treated with Zofran for her nausea. Patient's x-ray reveals evidence of ileus with significant amount of fecal material noted left side of the colon. Since she had surgery [address] Garcia was paged she is on-call for Dr. Luz Hess. He requested admission to medicine and he will follow in consultation. Will page hospitalist. ED Disposition - Plan for ED Patient: Disposition: Acute Care Hospital [facility] Diagnosis: Nausea & vomiting, Ileus following gastrointestinal surgery Referrals: Stu Calderon MD [Primary Care Provider] -
[2018-07-08 21:01] LABS: Absolute Neutrophil Count 10.8 X10^3/uL (2.0-7.7); Basophil# 0.01 X10^3/uL; Basophil% 0.1 % (0-1); Eosinophil# 0.01 X10^3/uL; Eosinophils% 0.1 % (0-5); Hematocrit 45.3 % (37-47); Hemoglobin 14.8 g/dl (12.0-15.0); Mean Corp Hgb Conc 32.7 g/gl (32-36); Mean Corpuscular Hgb 28.9 pg (27.0-32.0); Mean Corpuscular Volume 88.5 fL (81-99); Mean Platelet Vol. 9.3 fl (6.2-12.0); Monocyte# 0.51 X10^3/uL; Monocyte% 4.3 % (0-10); Neutrophil # 10.75 X10^3/uL (2.7-7.7); Neutrophil % 90.1 % (47-70); Platelet Count 384 K/mm3 (150-450); RBC Distribution Width SD 45.6 fl (35.1-43.9); Red Blood Count 5.12 M/mm3 (4.2-5.4); White Blood Count 11.9 K/mm3 (4.4-11.0)
[2018-07-08 21:02] LABS: Differential Indicated SCAN CRITERIA MET; POSITIVE COUNT NO; POSITIVE DIFFERENTIAL YES; POSITIVE MORPHOLOGY YES
[2018-07-08] MEDS: Ondansetron 4 MG/2 ML Vial IV (21:07)
[2018-07-08 21:18] LABS: Differential Comment SCANNED
[2018-07-08 21:19] LABS: Anion Gap 8 (5-15); BUN 14 mg/dL (7-18); BUN/Creat Ratio 10.8 RATIO (10-20); Calcium,Total 9.3 mg/dL (8.5-10.1); Chloride 103 mmol/L (98-107); EST Glomerular Filtration Rate 47 mL/min (>60); Est Glom Filt Rate - Afr Amer 57 mL/min (>60); Estimated Creatinine Clearance 58.08 ml/min; Glucose 121 mg/dL (74-106); Potassium 3.8 mmol/L (3.5-5.1); Sodium Level 138 mmol/L (136-145)
[2018-07-08 22:25] VITALS: BP 117/76; PULSE 85; RESP 17; O2SAT 97
--- NOTE | 2018-07-08 22:26 | ED.RN ---
COLOSTOMY CARE GIVEN.
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
[2018-07-08] MEDS: Metoclopramide 10 MG/2 ML Vial 5 MG IV (23:31)
[2018-07-08 23:35] VITALS: BP 111/76; TEMP 36.9
[2018-07-09] VITALS (7 sets, daily range): BP systolic 106–127; BP diastolic 58–78; PULSE 83–94; RESP 18; TEMP 37.3–38.2; O2SAT 93–95; BMI 20.3
[2018-07-09] MEDS: 0.9% NaCl Peripheral Flush Adult/Peds IV (00:55)
[2018-07-09] MEDS: proCHLORPERazine 10 MG/2 ML Vial 5 MG IV ×3 (00:56→15:25)
[2018-07-09] MEDS: 0.9% Normal Saline 1,000 ML 100 ML IV ×3 (00:56→23:46)
[2018-07-09] MEDS: Morphine 2 MG/ML Syringe IV ×6 (01:24→21:41)
[2018-07-09] MEDS: Ondansetron 4 MG/2 ML Vial IV ×4 (02:38→21:41)
[2018-07-09 06:22] LABS: Absolute Lymphocyte Count 1.05 X10^3/ul (0.83-4.51); Absolute Neutrophil Count 5.9 X10^3/uL (2.0-7.7); Basophil# 0.01 X10^3/uL; Basophil% 0.1 % (0-1); Eosinophil# 0.01 X10^3/uL; Eosinophils% 0.1 % (0-5); Hematocrit 40.1 % (37-47); Hemoglobin 13.3 g/dl (12.0-15.0); Lymphocyte # 1.05 X10^3/ul (4.0); Lymphocyte % 13.7 % (19-41); Mean Corp Hgb Conc 33.2 g/gl (32-36); Mean Corpuscular Hgb 28.9 pg (27.0-32.0); Mean Corpuscular Volume 87.2 fL (81-99); Mean Platelet Vol. 8.9 fl (6.2-12.0); Monocyte# 0.67 X10^3/uL; Monocyte% 8.8 % (0-10); Neutrophil # 5.88 X10^3/uL (2.7-7.7); Neutrophil % 76.9 % (47-70); Platelet Count 463 K/mm3 (150-450); RBC Distribution Width SD 44.8 fl (35.1-43.9); White Blood Count 7.7 K/mm3 (4.4-11.0)
[2018-07-09 06:26] LABS: Differential Indicated SCAN CRITERIA MET; POSITIVE COUNT NO; POSITIVE DIFFERENTIAL NO; POSITIVE MORPHOLOGY YES
[2018-07-09 06:29] LABS: Anion Gap 10 (5-15); BUN 18 mg/dL (7-18); BUN/Creat Ratio 14.9 RATIO (10-20); Calcium,Total 8.9 mg/dL (8.5-10.1); Chloride 102 mmol/L (98-107); Creatinine, Serum 1.21 mg/dL (0.55-1.02); EST Glomerular Filtration Rate 51 mL/min (>60); Est Glom Filt Rate - Afr Amer 61 mL/min (>60); Glucose 130 mg/dL (74-106); Sodium Level 142 mmol/L (136-145)
[2018-07-09 06:52] LABS: Differential Comment SCANNED; Toxic Granulation 2+
[2018-07-09 07:33] LABS: Magnesium 2.7 mg/dL (1.6-2.6); Phosphorus 4.5 mg/dL (2.5-4.9)
[2018-07-09] MEDS: Potassium Chloride 10mEq/100mL 10 MEQ/100 ML IV.SOLN. 100 MEQ IV BOLUS ×4 (07:47→14:32)
--- NOTE | 2018-07-09 08:29 | CT_ITS ---
STUDY: CT ABDOMEN AND PELVIS WITHOUT CONTRAST REASON FOR EXAM: Female, 47 years old. Neurogenic bladder. Spinal stimulator. History of traumatic brain injury. RADIATION DOSAGE (If Supplied By Facility): CTDIvol = ( 12.75 ) mGy, DLP = ( 761.61 ) mGycm TECHNIQUE: Transaxial images were obtained from the dome of the diaphragm to the symphysis pubis without oral contrast, and without intravenous contrast. Sagittal and coronal images were reconstructed. Individualized dose optimization techniques were used for this CT. COMPARISON: CT of the abdomen and pelvis, June 29, 2018. FINDINGS: There is atelectatic changes at the left lung base without acute infiltrate or mass. The visualized portions of the heart are within normal limits. Normal liver. And noncalcified gallstones dependently within the otherwise normal gallbladder. There is no biliary ductal dilatation. Normal spleen. Normal pancreas. Normal bilateral adrenal glands. There is a 1 mm calcification lower pole of an otherwise normal right kidney. Normal left kidney. There is no visualized ureteral dilatation. Stomach is markedly distended with fluid. There is fluid distention of the duodenum and multiple small bowel loops. Normal and is mildly distended with feces. There is no evidence of mass or stricture. There is no inflammatory change. There is evidence of a resection of the left colon with rectal stump and left lower quadrant colostomy. The appendix is visualized and appears normal. There is minimal atherosclerotic changes of the abdominal aorta without aneurysm. Normal inferior vena cava. Normal retroperitoneum. Normal urinary bladder. Normal uterus. There is an IUD in satisfactory position. There is evidence of tubal ligation. Normal adnexa. There is no pelvic lymphadenopathy. No free air seen within the abdominal cavity. Minimal free fluid in the right subphrenic space. There is midline surgical scar with overlying skin clips. There is a left lower quadrant colostomy. Normal osseous structures. CT/Abdomen/Pel W ORAL Cont Only IMPRESSION: 1. Dilatation of small bowel and colon markedly decreased when compared to the prior preop images. There is been interval left partial hemicolectomy with left lower quadrant colostomy. The dilatation on the current study may be residual from the marked dilatation on the prior study versus postop ileus. 2. Minimal free fluid in the right subphrenic space. 3. Dependent changes at both lung bases. 4. No other major interval change when compared to previous exam. Electronically Signed: Wilber William DO at 17:50 EDT Tel [phone], Service support ,
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
--- NOTE | 2018-07-09 09:54 | PN_ITS ---
Patient Problems: Active and Suspected Problems Nausea & vomiting (Acute) Ileus following gastrointestinal surgery (Acute) Subjective: Patient was seen and examined. She complained of abdominal discomfort as well as abdominal distension. She had a temperature 102.9 F last night. Vitals/I&O's: Vital Signs Temp Pulse Resp BP Pulse Ox 100.8 F H 91 18 106/58 L 95 07/09/18 04:43 07/09/18 04:43 07/09/18 04:43 07/09/18 04:43 07/09/18 04:43 Oxygen Delivery Method Room Air Weight: 68.039 kg Body Mass Index (BMI) 20.3 Intake and Output for Last 24 Hours 07/07/18 07/08/18 07/09/18 23:59 23:59 23:59 Intake Total 458 / 458 Output Total 450 / 450 Balance General: Alert, Oriented x3, Cooperative, - HEENT: Atraumatic, PERRLA, EOMI, Normocephalic Oral: Moist Mucosa - Mild discomforts, not on oxygen Neck: Supple Lungs: Clear to auscultation, Normal air movement Cardiovascular: Regular rate, Regular Rhythm, Normal S1, Normal S2, No murmurs Abdomen: Bowel Sounds Present, Soft, Distended, Tender, - - erythema at the incisional site with mucopurulent discharge at the lower end of incion, jayda in situ. Extremities: No edema, Capillary Refill Less than 3 Seconds Skin: - - surgical site infection Musculoskeletal: No Tenderness to Palpation of Joints or Extremities Lymphatic: No Cervical, Supraclavicular, or Inguinal Adenopathy Neurological: Cranial nerves II-XII grossly intact Psych/Mental Status: Normal Affect, Appropriate Laboratory Results 07/08/18 20:44: WBC 11.9 H, RBC 5.12, Hgb 14.8, Hct 45.3, MCV 88.5, MCH 28.9, MCHC 32.7, RDW 14.0, RDW Differential 45.6 H, Plt Count 384, MPV 9.3, Immature Gran % (Auto) 0.400, Neut % (Auto) 90.1 H, Lymph % (Auto) 5.0 L, [place] % (Auto) 4.3, Eos % (Auto) 0.1, Baso % (Auto) 0.1, Absolute Neuts (auto) 10.8 H, Absolute Lymphs (auto) 0.60 L, Total Counted Not Reportable, Differential Comment SCANNED 07/08/18 21:00: Sodium 138, Potassium 3.8, Chloride 103, Carbon Dioxide 27.0, Anion Gap 8, BUN 14, Creatinine 1.30 H, Estim Creat Clear Calc 58.08, Est GFR (MDRD) Af Amer 57 L, Est GFR (MDRD) Non-Af 47 L, BUN/Creatinine Ratio 10.8, Glucose 121 H, Calcium 9.3 07/09/18 05:30: WBC 7.7, RBC 4.60, Hgb 13.3, Hct 40.1, MCV 87.2, MCH 28.9, MCHC 33.2, RDW 14.0, RDW Differential 44.8 H, Plt Count 463 H, MPV 8.9, Immature Gran % (Auto) 0.400, Neut % (Auto) 76.9 H, Lymph % (Auto) 13.7 L, [place] % (Auto) 8.8, Eos % (Auto) 0.1, Baso % (Auto) 0.1, Absolute Neuts (auto) 5.9, Absolute Lymphs (auto) 1.05, Total Counted Not Reportable, Differential Comment SCANNED, Toxic Granulation 2+ 07/09/18 05:30: Sodium 142, Potassium 3.0 L, Chloride 102, Carbon Dioxide 30.0, Anion Gap 10, BUN 18, Creatinine 1.21 H, Estim Creat Clear Calc 62.40, Est GFR (MDRD) Af Amer 61, Est GFR (MDRD) Non-Af 51 L, BUN/Creatinine Ratio 14.9, Glucose 130 H, Calcium 8.9 07/09/18 05:30: Phosphorus 4.5, Magnesium 2.7 H Current Medications Doxepin HCl (Sinequan) 10 mg PO QHS [facility] Fluvoxamine Maleate (Luvox) 50 mg PO BID [facility] Gabapentin (Neurontin) 300 mg PO TID [facility] Last Admin: 07/09/18 05:17 Dose: Not Given Sodium Chloride () 1,000 mls @ 100 mls/hr IV .Q10H [facility] Last Admin: 07/09/18 00:56 Dose: 100 mls/hr Potassium Chloride () 10 meq in 100 mls @ 100 mls/hr IV BOLUS Q1H [facility] Stop: 07/09/18 10:59 Last Admin: 07/09/18 07:47 Dose: 100 mls/hr Levothyroxine Sodium (Synthroid) 137 mcg PO DAILY@0600 [facility] Last Admin: 07/09/18 05:17 Dose: Not Given Melatonin (Melatonin) 3 mg PO QHS PRN PRN PRN Reason: INSOMNIA Morphine Sulfate () 2 mg IV Q3H PRN PRN PRN Reason: SEVERE PAIN (6-10/10) Last Admin: 07/09/18 05:01 Dose: 2 mg Nicotine (Nicoderm Cq (Pbkc)) 14 mg TRANSDERM. DAILY [facility] Olanzapine (Zyprexa Zydis) 5 mg PO QHS [facility] Ondansetron HCl (Zofran) 4 mg IV Q8H PRN PRN PRN Reason: NAUSEA/VOMITING Last Admin: 07/09/18 02:38 Dose: 4 mg Orphenadrine Citrate (Norflex Er) 100 mg PO BID [facility] Pantoprazole Sodium (Protonix) 40 mg PO DAILY [facility] Polysaccharide Iron [facility] (Ferrex 150[facility] Last Admin: 07/09/18 07:23 Dose: Not Given Prochlorperazine Edisylate (Compazine Iv) 5 mg IV Q4H PRN PRN PRN Reason: Breakthrough nausea/vomiting Last Admin: 07/09/18 04:57 Dose: 5 mg Pyridoxine HCl (Vitamin B-6) 100 mg PO DAILY [facility] Rivaroxaban (Xarelto) 20 mg PO DAILY [facility] Sodium Chloride () 5 - 15 ml IV UD PRN PRN Reason: SALINE FLUSH Last Admin: 07/09/18 00:55 Dose: 10 ml Topiramate (Topamax) 200 mg PO BID [facility] Medical Necessity - Tobacco Use Smoking Status: Current every day smoker Tobacco Use: Cigarettes Assessment/Plan All Active Problems Nausea & vomiting (Acute) Ileus following gastrointestinal surgery (Acute) Sigmoid volvulus (Acute) 47-year-old female with past medical history of multiple comorbidities including closed head injury with hyperacusis syndrome, hypothyroidism, chronic back pain, neurogenic bladder, status post recent emergent exploratory laparotomy for sigmoid volvulus, with resultant sigmoid resection and descending colostomy comes in with abdominal pain, nausea, bloating 9 days post surgery. 1. Post-operative ileus versus bowel obstruction, status post recent sigmoid resection, colostomy for sigmoid volvulus Will be managed conservatively, good output from colostomy, general surgery following N.p.o.per General surgery Plan: Continue with n.p.o. status, IV fluids, continue per general surgery recommendations 2. Hypokalemia, replace, recheck in a.m. 3. Hypothyroidism, on replacement 4. History of traumatic brain injury/hyper acoustic syndrome/chronic back pain 5. Anxiety/depression, on doxepin, fluvoxamine, 6. History of PE, on Xarelto 7. GERD, on PPI 8. DVT PPx- On Xarelto Code Visit Inpatient E&M: 35720 Subs Hosp L2
--- NOTE | 2018-07-09 10:08 | NURSING ---
Pt is currently off the unit for CT scan. talked with mother who states that patient was having quite a bit of output from the colostomy. patinet was brought in d/t nausea and vomiting. will stop back in to assess stoma when patient returns from CT scan.
--- NOTE | 2018-07-09 12:01 | CASEMGMT ---
Social Work Note SW familiar with pt from previous visits. Pt was at [facility] 06/29/2018-07/03/2018. Pt has services through [facility] and has aide services. SW met with pt, pt soundly sleeping but pt's mother Leidy who is pt's guardian is present in room. PAULA introduced self and role at [facility]. Leidy states that pt will be returning home with her aide services. Leidy states that her aides were able to get training and has been doing really well with Colostomy for pt. Leidy denied any needs or concerns at this time. PAULA faxed updated clinicals to Toya Kc ([phone]) at [facility]. Plan: Pt to return home with aide services through [facility] Joana Choi [employer], COUNTERPERSON
--- NOTE | 2018-07-09 12:15 | CASEMGMT ---
NAVEED CM Readmission Note: Previous Admission: 06/29/18-07/03/18 Diagnosis: Sigmoid Volualus, sigmoid colon resection, end descending colostomy. DC Disposition: Home with Skilled Home care and resumption of Aide services Present Admission: 07/09/18 Diagnosis: Ileus following GI surgery SW referral: pt known to director social welfare, has aide services set up through the [facility], Mother is pt's guardian. DC PLAN: Return home with resumption of Home Health Services through [facility] and current aide services on dc. Nata ALVARADON RN ACM
[2018-07-09] MEDS: diazePAM 10 MG/2 ML Syringe 2 MG IV (14:10)
--- NOTE | 2018-07-09 14:33 | RAD_ITS ---
STUDY: X-RAY - ABDOMEN/PELVIS REASON FOR EXAM: Female, 47 years old. Nasogastric tube placement. TECHNIQUE: Single AP view of the abdomen / pelvis. COMPARISON: Comparison is made with prior examination dated July 08, 2018. FINDINGS: The tip of the nasogastric tube is in the body of the stomach. There are dilated loops of the small intestine with a non-distended colon consistent with a small bowel obstruction. RAD/Abdomen Single View (Portable) IMPRESSION: The tip of the nasogastric tube is in the body of the stomach. Electronically Signed: Fawad Bender, at 15:40 EDT , Service support ,
[2018-07-09] MEDS: Metoclopramide 10 MG/2 ML Vial 5 MG IV ×2 (18:00→23:43)
[2018-07-10] MEDS: Morphine 2 MG/ML Syringe IV ×3 (02:07→09:16)
[2018-07-10 02:16] VITALS: BP 108/49; PULSE 86; RESP 16; TEMP 37.5; O2SAT 94
--- NOTE | 2018-07-10 05:45 | RAD_ITS ---
STUDY: X-RAY - ABDOMEN/PELVIS REASON FOR EXAM: Female, 47 years old. Small bowel obstruction TECHNIQUE: AP supine and upright views of the abdomen and pelvis. COMPARISON: CT abdomen and pelvis July 09, 2018 FINDINGS: An NG tube is present the tip is in the stomach. There are multiple distended loops of small bowel present with a mild amount amount of stool within the visualized colon. There is postoperative change in the lower abdomen. There is a visualize IUD and tubal ligation clips. There is no demonstrated free abdominal air. Liver spleen and kidneys are obscured. RAD/Abd Decub and/or Erect(Portabl IMPRESSION: Findings are suspicious for small bowel obstruction. NG tube in satisfactory position.. Electronically Signed: Fiorella Yanez MD at 22:39 EDT Tel , Service support ,
[2018-07-10] MEDS: Metoclopramide 10 MG/2 ML Vial 5 MG IV ×4 (05:50→23:56)
[2018-07-10 07:09] LABS: Absolute Lymphocyte Count 0.94 X10^3/ul (0.83-4.51); Absolute Neutrophil Count 4.7 X10^3/uL (2.0-7.7); Basophil# 0.01 X10^3/uL; Basophil% 0.2 % (0-1); Eosinophil# 0.05 X10^3/uL; Eosinophils% 0.8 % (0-5); Hematocrit 39.7 % (37-47); Hemoglobin 12.5 g/dl (12.0-15.0); Lymphocyte # 0.94 X10^3/ul (4.0); Lymphocyte % 14.2 % (19-41); Mean Corp Hgb Conc 31.5 g/gl (32-36); Mean Corpuscular Hgb 27.7 pg (27.0-32.0); Mean Platelet Vol. 9.2 fl (6.2-12.0); Monocyte# 0.94 X10^3/uL; Monocyte% 14.2 % (0-10); Neutrophil # 4.65 X10^3/uL (2.7-7.7); Neutrophil % 70.1 % (47-70); Platelet Count 497 K/mm3 (150-450); RBC Distribution Width CV 14.2 % (11.6-14.6); RBC Distribution Width SD 45.3 fl (35.1-43.9); Red Blood Count 4.51 M/mm3 (4.2-5.4); White Blood Count 6.6 K/mm3 (4.4-11.0)
[2018-07-10 07:10] LABS: Differential Indicated SCAN CRITERIA MET; POSITIVE COUNT NO; POSITIVE DIFFERENTIAL NO; POSITIVE MORPHOLOGY YES
[2018-07-10 07:30] LABS: Anion Gap 10 (5-15); BUN 20 mg/dL (7-18); BUN/Creat Ratio 18.9 RATIO (10-20); Calcium,Total 8.4 mg/dL (8.5-10.1); Chloride 105 mmol/L (98-107); Creatinine, Serum 1.06 mg/dL (0.55-1.02); EST Glomerular Filtration Rate 59 mL/min (>60); Est Glom Filt Rate - Afr Amer 72 mL/min (>60); Estimated Creatinine Clearance 71.19 ml/min; Glucose 106 mg/dL (74-106); Potassium 2.8 mmol/L (3.5-5.1); Sodium Level 145 mmol/L (136-145)
[2018-07-10 07:35] LABS: Differential Comment SCANNED
[2018-07-10 08:00] VITALS: RESP 18; O2SAT 95
[2018-07-10] MEDS: 0.9% Normal Saline 1,000 ML 100 ML IV ×2 (08:14→16:50)
[2018-07-10 08:15] VITALS: BP 108/66; PULSE 74; RESP 18; TEMP 36.7; O2SAT 96
[2018-07-10] MEDS: Potassium Chloride 10mEq/100mL 10 MEQ/100 ML IV.SOLN. 100 MEQ IV BOLUS ×4 (08:27→11:23)
[2018-07-10 08:39] LABS: Magnesium 2.6 mg/dL (1.6-2.6)
--- NOTE | 2018-07-10 08:47 | PCM.PN.SRG ---
Patient Problems: Active and Suspected Problems Nausea & vomiting (Acute) Ileus following gastrointestinal surgery (Acute) Subjective: somewhat decreased abdominal discomfort, stool in bag - Physical Exam General: Alert, Oriented x3, Cooperative Lungs: Clear to auscultation, Normal air movement Cardiovascular: Regular rate, Regular Rhythm Abdomen: Bowel Sounds Present, Soft, Distended, Tender - mild diffusely tender Vital Signs Temp Pulse Resp BP Pulse Ox 98.1 F 74 18 108/66 96 07/10/18 08:15 07/10/18 08:15 07/10/18 08:15 07/10/18 08:15 07/10/18 08:15 Oxygen Delivery Method Room Air Weight: 68 kg Body Mass Index (BMI) 20.3 Intake and Output for Last 24 Hours 07/08/18 07/09/18 07/10/18 23:59 23:59 23:59 Intake Total 2295 / 2295 627 / 627 Output Total 4550 / 4550 725 / 725 Balance -2255 / -2255 -98 / -98 Laboratory Tests Past 24 Hrs 07/10/18 07/10/18 07/10/18 06:25 06:25 06:25 WBC 6.6 RBC 4.51 Hgb 12.5 Hct 39.7 MCV 88.0 MCH 27.7 MCHC 31.5 L RDW 14.2 RDW Differential 45.3 H Plt Count 497 H MPV 9.2 Immature Gran % (Auto) 0.500 Neut % (Auto) 70.1 H Lymph % (Auto) 14.2 L [place] % (Auto) 14.2 H Eos % (Auto) 0.8 Baso % (Auto) 0.2 Absolute Neuts (auto) 4.7 Absolute Lymphs (auto) 0.94 Total Counted Not Reportable Differential Comment SCANNED Sodium 145 Potassium 2.8 L Chloride 105 Carbon Dioxide 30.0 Anion Gap 10 BUN 20 H Creatinine 1.06 H Estim Creat Clear Calc 71.19 Est GFR (MDRD) Af Amer 72 Est GFR (MDRD) Non-Af 59 L BUN/Creatinine Ratio 18.9 Glucose 106 Calcium 8.4 L Magnesium 2.6 Medical Necessity - Tobacco Use Smoking Status: Current every day smoker Tobacco Use: Cigarettes Assessment/Plan All Active Problems Nausea & vomiting (Acute) Ileus following gastrointestinal surgery (Acute) Sigmoid volvulus (Acute) nausea, vomiting, abdominal pain 9 days status post sigmoid colectomy with end Oneil's for sigmoid volvulus Abdominal series was reviewed. yesterday. CT scan demonstrates more ileus than true obstructive picture with no signs of closed loop obstruction. CT scan reading was also equivocal. NG tube placed draining approximately 3+ liters of gastric contents. Patient's somewhat more comfortable today. Still stool in bag but not increasing flatus yet noted. KUB today demonstrates subjectively less air in small bowel and more air in colon. Hopefully this implies resolving ileus. We'll continue to watch the patient with serial exams and serial x-rays. Continue NG tube to suction.
--- NOTE | 2018-07-10 09:01 | PCM.PN.HOSP ---
Patient Problems: Active and Suspected Problems Nausea & vomiting (Acute) Ileus following gastrointestinal surgery (Acute) Subjective: Patient was seen and examined. Loss of GI output overnight. NG tube has coffee-ground to dark blood output, suggestive of possible GI bleed. Having a low-grade fever, no diarrhea, good output from colostomy. Objective: Physical exam: General: Alert, Oriented x3, Cooperative, non-verbal HEENT: Atraumatic, PERRLA, EOMI, Normocephalic, NG tube insitu, coffee grounds Oral: Moist Mucosa Neck: Supple Lungs: Clear to auscultation, Normal air movement Cardiovascular: Regular rate, Regular Rhythm, Normal S1, Normal S2, No murmurs Abdomen: Bowel Sounds Present, Soft, Distended, Tender, - - erythema at the incisional site with mucopurulent discharge at the lower end of incision, jayda in situ. Extremities: No edema, Capillary Refill Less than 3 Seconds Skin: - - surgical site infection Musculoskeletal: No Tenderness to Palpation of Joints or Extremities Lymphatic: No Cervical, Supraclavicular, or Inguinal Adenopathy Neurological: Cranial nerves II-XII grossly intact Psych/Mental Status: Normal Affect, Appropriate Vitals/I&O's: Vital Signs Temp Pulse Resp BP Pulse Ox 98.1 F 74 18 108/66 96 07/10/18 08:15 07/10/18 08:15 07/10/18 08:15 07/10/18 08:15 07/10/18 08:15 Oxygen Delivery Method Room Air Weight: 68 kg Body Mass Index (BMI) 20.3 Intake and Output for Last 24 Hours 07/08/18 07/09/18 07/10/18 23:59 23:59 23:59 Intake Total 2295 / 2295 627 / 627 Output Total 4550 / 4550 725 / 725 Balance -2255 / -2255 -98 / -98 Laboratory Results 07/10/18 06:25: Sodium 145, Potassium 2.8 L, Chloride 105, Carbon Dioxide 30.0, Anion Gap 10, BUN 20 H, Creatinine 1.06 H, Estim Creat Clear Calc 71.19, Est GFR (MDRD) Af Amer 72, Est GFR (MDRD) Non-Af 59 L, BUN/Creatinine Ratio 18.9, Glucose 106, Calcium 8.4 L 07/10/18 06:25: WBC 6.6, RBC 4.51, Hgb 12.5, Hct 39.7, MCV 88.0, MCH 27.7, MCHC 31.5 L, RDW 14.2, RDW Differential 45.3 H, Plt Count 497 H, MPV 9.2, Immature Gran % (Auto) 0.500, Neut % (Auto) 70.1 H, Lymph % (Auto) 14.2 L, [place] % (Auto) 14.2 H, Eos % (Auto) 0.8, Baso % (Auto) 0.2, Absolute Neuts (auto) 4.7, Absolute Lymphs (auto) 0.94, Total Counted Not Reportable, Differential Comment SCANNED 07/10/18 06:25: Magnesium 2.6 Current Medications Fluvoxamine Maleate (Luvox) 50 mg PO BID [facility] Last Admin: 07/10/18 08:15 Dose: Not Given Sodium Chloride () 1,000 mls @ 100 mls/hr IV .Q10H [facility] Last Admin: 07/10/18 08:14 Dose: 100 mls/hr Potassium Chloride () 10 meq in 100 mls @ 100 mls/hr IV BOLUS Q1H [facility] Stop: 07/10/18 12:29 Last Admin: 07/10/18 08:27 Dose: 100 mls/hr Levothyroxine Sodium (Synthroid) 137 mcg GT DAILY@0600 [facility] Metoclopramide HCl (Reglan) 5 mg IV Q6 [facility] Last Admin: 07/10/18 05:50 Dose: 5 mg Morphine Sulfate () 2 mg IV Q3H PRN PRN PRN Reason: SEVERE PAIN (6-10/10) Last Admin: 07/10/18 05:50 Dose: 2 mg Nicotine (Nicoderm Cq (Pbkc)) 14 mg TRANSDERM. DAILY [facility] Last Admin: 07/09/18 12:25 Dose: Not Given Olanzapine (Zyprexa Zydis) 5 mg PO QHS [facility] Ondansetron HCl (Zofran) 4 mg IV Q8H PRN PRN PRN Reason: NAUSEA/VOMITING Last Admin: 07/09/18 21:41 Dose: 4 mg Orphenadrine Citrate (Norflex Er) 100 mg PO BID [facility] Last Admin: 07/10/18 08:15 Dose: Not Given Prochlorperazine Edisylate (Compazine Iv) 5 mg IV Q4H PRN PRN PRN Reason: Breakthrough nausea/vomiting Last Admin: 07/09/18 15:25 Dose: 5 mg Pyridoxine HCl (Vitamin B-6) 100 mg PO DAILY [facility] Last Admin: 07/10/18 08:16 Dose: Not Given Rivaroxaban (Xarelto) 20 mg PO DAILY [facility] Last Admin: 07/10/18 08:16 Dose: Not Given Sodium Chloride () 5 - 15 ml IV UD PRN PRN Reason: SALINE FLUSH Last Admin: 07/09/18 00:55 Dose: 10 ml Topiramate (Topamax) 200 mg PO BID [facility] Last Admin: 07/10/18 08:15 Dose: Not Given Medical Necessity - Tobacco Use Smoking Status: Current every day smoker Tobacco Use: Cigarettes Assessment/Plan All Active Problems Nausea & vomiting (Acute) Ileus following gastrointestinal surgery (Acute) Sigmoid volvulus (Acute) 47-year-old female with past medical history of multiple comorbidities including 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 1. Acute GI bleed, likely upper GI bleed, coffee-ground NG aspirate, likely secondary to gastritis Switch p.o. pantoprazole to pantoprazole drip, type and cross against 2 units, H&H 2. Post-operative ileus versus bowel obstruction, status post recent sigmoid resection, colostomy for sigmoid volvulus Post NG tube, being managed conservatively, good output from colostomy, general surgery following Continue with IV fluids, continue per general surgery recommendations 2. Hypokalemia, replace, recheck in a.m. 3. Hypothyroidism, on replacement 4. History of traumatic brain injury/hyper acoustic syndrome/chronic back pain 5. Anxiety/depression, on doxepin, fluvoxamine, 6. History of PE, on Xarelto, will hold Xarelto because of GI Bleed 7. GERD, on PPI 8. DVT PPx- Xarelto on hold; pt refuses SCDS Code Visit Inpatient E&M: 78724 Subs Hosp L2
--- NOTE | 2018-07-10 09:07 | PN_ITS ---
Patient Problems: Active and Suspected Problems Nausea & vomiting (Acute) Ileus following gastrointestinal surgery (Acute) Subjective: Patient was seen and examined. Loss of GI output overnight. NG tube has coffee-ground to dark blood output, suggestive of possible GI bleed. Having a low-grade fever, no diarrhea, good output from colostomy. Objective: Physical exam: General: Alert, Oriented x3, Cooperative, non-verbal HEENT: Atraumatic, PERRLA, EOMI, Normocephalic, NG tube insitu, coffee grounds Oral: Moist Mucosa Neck: Supple Lungs: Clear to auscultation, Normal air movement Cardiovascular: Regular rate, Regular Rhythm, Normal S1, Normal S2, No murmurs Abdomen: Bowel Sounds Present, Soft, Distended, Tender, - - erythema at the incisional site with mucopurulent discharge at the lower end of incision, jayda in situ. Extremities: No edema, Capillary Refill Less than 3 Seconds Skin: - - surgical site infection Musculoskeletal: No Tenderness to Palpation of Joints or Extremities Lymphatic: No Cervical, Supraclavicular, or Inguinal Adenopathy Neurological: Cranial nerves II-XII grossly intact Psych/Mental Status: Normal Affect, Appropriate Vitals/I&O's: Vital Signs Temp Pulse Resp BP Pulse Ox 98.1 F 74 18 108/66 96 07/10/18 08:15 07/10/18 08:15 07/10/18 08:15 07/10/18 08:15 07/10/18 08:15 Oxygen Delivery Method Room Air Weight: 68 kg Body Mass Index (BMI) 20.3 Intake and Output for Last 24 Hours 07/08/18 07/09/18 07/10/18 23:59 23:59 23:59 Intake Total 2295 / 2295 627 / 627 Output Total 4550 / 4550 725 / 725 Balance -2255 / -2255 -98 / -98 Laboratory Results 07/10/18 06:25: Sodium 145, Potassium 2.8 L, Chloride 105, Carbon Dioxide 30.0, Anion Gap 10, BUN 20 H, Creatinine 1.06 H, Estim Creat Clear Calc 71.19, Est GFR (MDRD) Af Amer 72, Est GFR (MDRD) Non-Af 59 L, BUN/Creatinine Ratio 18.9, Glucose 106, Calcium 8.4 L 07/10/18 06:25: WBC 6.6, RBC 4.51, Hgb 12.5, Hct 39.7, MCV 88.0, MCH 27.7, MCHC 31.5 L, RDW 14.2, RDW Differential 45.3 H, Plt Count 497 H, MPV 9.2, Immature Gran % (Auto) 0.500, Neut % (Auto) 70.1 H, Lymph % (Auto) 14.2 L, [place] % (Auto) 14.2 H, Eos % (Auto) 0.8, Baso % (Auto) 0.2, Absolute Neuts (auto) 4.7, Absolute Lymphs (auto) 0.94, Total Counted Not Reportable, Differential Comment SCANNED 07/10/18 06:25: Magnesium 2.6 Current Medications Fluvoxamine Maleate (Luvox) 50 mg PO BID [facility] Last Admin: 07/10/18 08:15 Dose: Not Given Sodium Chloride () 1,000 mls @ 100 mls/hr IV .Q10H [facility] Last Admin: 07/10/18 08:14 Dose: 100 mls/hr Potassium Chloride () 10 meq in 100 mls @ 100 mls/hr IV BOLUS Q1H [facility] Stop: 07/10/18 12:29 Last Admin: 07/10/18 08:27 Dose: 100 mls/hr Levothyroxine Sodium (Synthroid) 137 mcg GT DAILY@0600 [facility] Metoclopramide HCl (Reglan) 5 mg IV Q6 [facility] Last Admin: 07/10/18 05:50 Dose: 5 mg Morphine Sulfate () 2 mg IV Q3H PRN PRN PRN Reason: SEVERE PAIN (6-10/10) Last Admin: 07/10/18 05:50 Dose: 2 mg Nicotine (Nicoderm Cq (Pbkc)) 14 mg TRANSDERM. DAILY [facility] Last Admin: 07/09/18 12:25 Dose: Not Given Olanzapine (Zyprexa Zydis) 5 mg PO QHS [facility] Ondansetron HCl (Zofran) 4 mg IV Q8H PRN PRN PRN Reason: NAUSEA/VOMITING Last Admin: 07/09/18 21:41 Dose: 4 mg Orphenadrine Citrate (Norflex Er) 100 mg PO BID [facility] Last Admin: 07/10/18 08:15 Dose: Not Given Prochlorperazine Edisylate (Compazine Iv) 5 mg IV Q4H PRN PRN PRN Reason: Breakthrough nausea/vomiting Last Admin: 07/09/18 15:25 Dose: 5 mg Pyridoxine HCl (Vitamin B-6) 100 mg PO DAILY [facility] Last Admin: 07/10/18 08:16 Dose: Not Given Rivaroxaban (Xarelto) 20 mg PO DAILY [facility] Last Admin: 07/10/18 08:16 Dose: Not Given Sodium Chloride () 5 - 15 ml IV UD PRN PRN Reason: SALINE FLUSH Last Admin: 07/09/18 00:55 Dose: 10 ml Topiramate (Topamax) 200 mg PO BID [facility] Last Admin: 07/10/18 08:15 Dose: Not Given Medical Necessity - Tobacco Use Smoking Status: Current every day smoker Tobacco Use: Cigarettes Assessment/Plan All Active Problems Nausea & vomiting (Acute) Ileus following gastrointestinal surgery (Acute) Sigmoid volvulus (Acute) 47-year-old female with past medical history of multiple comorbidities including 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 1. Acute GI bleed, likely upper GI bleed, coffee-ground NG aspirate, likely secondary to gastritis Switch p.o. pantoprazole to pantoprazole drip, type and cross against 2 units, H&H 2. Post-operative ileus versus bowel obstruction, status post recent sigmoid resection, colostomy for sigmoid volvulus Post NG tube, being managed conservatively, good output from colostomy, general surgery following Continue with IV fluids, continue per general surgery recommendations 2. Hypokalemia, replace, recheck in a.m. 3. Hypothyroidism, on replacement 4. History of traumatic brain injury/hyper acoustic syndrome/chronic back pain 5. Anxiety/depression, on doxepin, fluvoxamine, 6. History of PE, on Xarelto, will hold Xarelto because of GI Bleed 7. GERD, on PPI 8. DVT PPx- Xarelto on hold; pt refuses SCDS Code Visit Inpatient E&M: 67621 Subs Hosp L2
--- NOTE | 2018-07-10 09:08 | NURSING ---
called managing attorney for line placement. will call back with a time.
[2018-07-10] MEDS: proCHLORPERazine 10 MG/2 ML Vial 5 MG IV (09:17)
[2018-07-10 09:29] LABS: Hemoglobin 12.3 g/dl (12.0-15.0)
--- NOTE | 2018-07-10 11:38 | NURSING ---
In to assess abdominal incision and colostomy appliance. the midline abdominal incision is slightly reddened. jayda are in place. some drainage noted at the distal end. abdomen shearing machine tender. NG tube is in place. colostomy appliance is intact to the left lower abdomen. LILIYA Wilkerson states she just emptied the appliance for thick very dark brown/black stool. there is coffee ground appearing drainage from the NG tube. mother is present at bedside. will monitor. plan to change ostomy appliance tomorrow.
--- NOTE | 2018-07-10 12:47 | NURSING ---
CHG dressing applied, but became saturated with blood. removed it and replaced with gauze/pressure bandage. RN notified.
[2018-07-10 13:40] VITALS: BP 107/65; PULSE 72; RESP 18; TEMP 36.8; O2SAT 96
[2018-07-10 15:17] LABS: Hematocrit 37.3 % (37-47); Hemoglobin 11.8 g/dl (12.0-15.0)
[2018-07-10 20:06] VITALS: BP 104/49; PULSE 71; RESP 18; TEMP 37.8; O2SAT 94
--- NOTE | 2018-07-10 21:52 | RAD_ITS ---
STUDY: X-RAY - ABDOMEN/PELVIS REASON FOR EXAM: Female, 47 years old. NG tube placement. TECHNIQUE: A single AP semierect view of the lower chest and upper abdomen. COMPARISON: Abdomen, July 10, 2018) 0544 hours. FINDINGS: Normal visualized lung bases. There is now an NG tube with its tip overlying left upper quadrant in expected position of the stomach. There is a nonspecific bowel gas pattern. There is air in colon and small bowel although the small bowel dilatation appears decreased when compared to prior study. There is no demonstrated free abdominal air. The visualized liver, spleen and kidneys are grossly normal in size and morphology. No visualized osseous changes. RAD/Abdomen Single View (Portable) IMPRESSION: NG tube as described overall decreased small bowel dilatation when compared to prior study. Electronically Signed: Wilber William DO at 23:28 EDT Tel [phone], Service support ,
[2018-07-10] MEDS: Ondansetron 4 MG/2 ML Vial IV (22:13)
[2018-07-10] MEDS: 0.9% NaCl Peripheral Flush Adult/Peds IV (22:31)
[2018-07-10] MEDS: LORazepam 2 MG/ML Syringe 1 MG IV (22:31)
--- NOTE | 2018-07-10 23:13 | NURSING ---
xray notified ng is in and can come up to do placement xray
[2018-07-11] MEDS: Morphine 2 MG/ML Syringe IV (00:12)
--- NOTE | 2018-07-11 00:53 | NURSING ---
This RN was in room medicating patient. NG canister noted to be full. RN left to get new canister when returned pt had removed colostomy bag and smeared feces over bed and abdomen. NG canister exchanged. Abdomen wound clean along with patient and new colostomy appliance applied. IV in left upper arm noted to be striking into shoulder. IV removed. Pt tolerated well.
[2018-07-11 01:52] VITALS: BP 111/59; PULSE 81; RESP 18; TEMP 37.8; O2SAT 96
[2018-07-11] MEDS: 0.9% NaCl Peripheral Flush Adult/Peds IV ×2 (05:43→05:44)
[2018-07-11] MEDS: Metoclopramide 10 MG/2 ML Vial 5 MG IV ×2 (05:43→12:51)
[2018-07-11] MEDS: 0.9% Normal Saline 1,000 ML 100 ML IV (05:47)
[2018-07-11 06:06] LABS: Absolute Neutrophil Count 3.8 X10^3/uL (2.0-7.7); Basophil# 0.01 X10^3/uL; Basophil% 0.2 % (0-1); Eosinophil# 0.12 X10^3/uL; Eosinophils% 1.9 % (0-5); Hematocrit 32.9 % (37-47); Hemoglobin 10.1 g/dl (12.0-15.0); Lymphocyte % 19.4 % (19-41); Mean Corp Hgb Conc 30.7 g/gl (32-36); Mean Corpuscular Hgb 27.8 pg (27.0-32.0); Mean Corpuscular Volume 90.6 fL (81-99); Mean Platelet Vol. 8.6 fl (6.2-12.0); Monocyte# 0.99 X10^3/uL; Neutrophil # 3.84 X10^3/uL (2.7-7.7); Platelet Count 399 K/mm3 (150-450); RBC Distribution Width CV 14.3 % (11.6-14.6); RBC Distribution Width SD 46.1 fl (35.1-43.9); Red Blood Count 3.63 M/mm3 (4.2-5.4); White Blood Count 6.2 K/mm3 (4.4-11.0)
[2018-07-11 06:08] LABS: POSITIVE COUNT NO; POSITIVE DIFFERENTIAL NO; POSITIVE MORPHOLOGY NO
[2018-07-11 06:32] LABS: Anion Gap 7 (5-15); BUN 18 mg/dL (7-18); Calcium,Total 7.6 mg/dL (8.5-10.1); Chloride 116 mmol/L (98-107); Creatinine, Serum 0.69 mg/dL (0.55-1.02); EST Glomerular Filtration Rate 97 mL/min (>60); Est Glom Filt Rate - Afr Amer 117 mL/min (>60); Estimated Creatinine Clearance 109.36 ml/min; Glucose 76 mg/dL (74-106); Sodium Level 146 mmol/L (136-145)
[2018-07-11 07:22] VITALS: BP 112/64; PULSE 72; RESP 18; TEMP 35.9; O2SAT 96
--- NOTE | 2018-07-11 08:23 | PN_ITS ---
Patient Problems: Active and Suspected Problems Nausea & vomiting (Acute) Ileus following gastrointestinal surgery (Acute) Subjective: Patient was seen and examined. Pulled NG tube out and removed colostomy bag. Mother at the bedside. Having low-grade fevers. Objective: Physical exam: General: Alert, Oriented x3, Cooperative, non-verbal HEENT: Atraumatic, PERRLA, EOMI, Normocephalic Oral: Moist Mucosa Neck: Supple Lungs: Clear to auscultation, Normal air movement Cardiovascular: Regular rate, Regular Rhythm, Normal S1, Normal S2, No murmurs Abdomen: Bowel Sounds Present, Soft, Distended, Tender, - - erythema at the incisional site with mucopurulent discharge at the lower end of incision, jayda in situ. Extremities: No edema, Capillary Refill Less than 3 Seconds Skin: - - surgical site infection Musculoskeletal: No Tenderness to Palpation of Joints or Extremities Lymphatic: No Cervical, Supraclavicular, or Inguinal Adenopathy Neurological: Cranial nerves II-XII grossly intact Psych/Mental Status: Normal Affect, Appropriate Vitals/I&O's: Vital Signs Temp Pulse Resp BP Pulse Ox 96.6 F L 72 18 112/64 96 07/11/18 07:22 07/11/18 07:22 07/11/18 07:22 07/11/18 07:22 07/11/18 07:22 Oxygen Delivery Method Room Air Weight: 68 kg Body Mass Index (BMI) 20.3 Intake and Output for Last 24 Hours 07/09/18 07/10/18 07/11/18 23:59 23:59 23:59 Intake Total 2295 / 2295 2564 / 2564 1277 / 1277 Output Total 4550 / 4550 1800 / 1800 350 / 350 Balance -2255 / -2255 764 / 764 927 / 927 Laboratory Results 07/10/18 06:25: Magnesium 2.6 07/10/18 09:18: Blood Type O POSITIVE, Antibody Screen NEGATIVE, Crossmatch See Detail 07/10/18 09:18: Hgb 12.3, Hct 38.0 07/10/18 15:03: Hgb 11.8 L, Hct 37.3 07/11/18 05:25: WBC 6.2, RBC 3.63 L, Hgb 10.1 L, Hct 32.9 L, MCV 90.6, MCH 27.8, MCHC 30.7 L, RDW 14.3, RDW Differential 46.1 H, Plt Count 399, MPV 8.6, Immature Gran % (Auto) 0.500, Neut % (Auto) 62.0, Lymph % (Auto) 19.4, Garrett % (Auto) 16.0 H, Eos % (Auto) 1.9, Baso % (Auto) 0.2, Absolute Neuts (auto) 3.8, Absolute Lymphs (auto) 1.20, Total Counted Not Reportable 07/11/18 05:25: Sodium 146 H, Potassium 3.0 L, Chloride 116 H, Carbon Dioxide 23.0, Anion Gap 7, BUN 18, Creatinine 0.69, Estim Creat Clear Calc 109.36, Est GFR (MDRD) Af Amer 117, Est GFR (MDRD) Non-Af 97, BUN/Creatinine Ratio 26.0 H, Glucose 76, Calcium 7.6 L Current Medications Sodium Chloride () 1,000 mls @ 100 mls/hr IV .Q10H [facility] Last Admin: 07/11/18 05:47 Dose: 100 mls/hr Pantoprazole Sodium 80 mg/ (Sodium Chloride) 100 mls @ 10 mls/hr CONT INF Q10H [facility] Last Admin: 07/11/18 07:27 Dose: 10 mls/hr Levothyroxine Sodium (Synthroid) 137 mcg GT DAILY@0600 [facility] Last Admin: 07/11/18 01:56 Dose: Not Given Metoclopramide HCl (Reglan) 5 mg IV Q6 [facility] Last Admin: 07/11/18 05:43 Dose: 5 mg Morphine Sulfate () 2 mg IV Q3H PRN PRN PRN Reason: SEVERE PAIN (6-12/20) Last Admin: 07/11/18 00:12 Dose: 2 mg Nicotine (Nicoderm Cq (Pbkc)) 14 mg TRANSDERM. DAILY [facility] Last Admin: 07/11/18 07:26 Dose: Not Given Olanzapine (Zyprexa Zydis) 5 mg PO QHS [facility] Last Admin: 07/10/18 21:29 Dose: Not Given Ondansetron HCl (Zofran) 4 mg IV Q8H PRN PRN PRN Reason: NAUSEA/VOMITING Last Admin: 07/10/18 22:13 Dose: 4 mg Orphenadrine Citrate (Norflex Er) 100 mg PO BID [facility] Last Admin: 07/11/18 07:26 Dose: Not Given Prochlorperazine Edisylate (Compazine Iv) 5 mg IV Q4H PRN PRN PRN Reason: Breakthrough nausea/vomiting Last Admin: 07/10/18 09:17 Dose: 5 mg Pyridoxine HCl (Vitamin B-6) 100 mg PO DAILY [facility] Last Admin: 07/11/18 07:27 Dose: Not Given Sodium Chloride () 5 - 15 ml IV UD PRN PRN Reason: SALINE FLUSH Last Admin: 07/11/18 05:44 Dose: 10 ml Topiramate (Topamax) 200 mg PO BID [facility] Last Admin: 07/11/18 07:26 Dose: Not Given Medical Necessity - Tobacco Use Smoking Status: Current every day smoker Tobacco Use: Cigarettes Assessment/Plan All Active Problems Nausea & vomiting (Acute) Ileus following gastrointestinal surgery (Acute) Sigmoid volvulus (Acute) 47-year-old female with past medical history of multiple comorbidities including 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 1. Acute GI bleed, likely upper GI bleed, coffee-ground NG aspirate, likely secondary to gastritis, improving No drop in hemoglobin, will switch from pantoprazole drip to pantoprazole IV twice daily, continue to monitor 2. Post-operative ileus, status post recent sigmoid resection, colostomy for sigmoid volvulus Discussed with general surgery, will check abdominal KUB, possible start of liquid diet and advance 2. Hypokalemia, replace, recheck in a.m. 3. Hypothyroidism, on replacement 4. History of traumatic brain injury/hyper acoustic syndrome/chronic back pain 5. Anxiety/depression, on doxepin, fluvoxamine, 6. History of PE, on Xarelto, will still hold Xarelto because of GI Bleed 7. GERD, on PPI 8. DVT PPx- Xarelto on hold; pt refuses SCDS Code Visit Inpatient E&M: 09177 Subs Hosp L2
[2018-07-11] MEDS: Dext 5%-0.45% NS 1,000 ML 100 ML IV ×2 (09:03→20:11)
--- NOTE | 2018-07-11 09:19 | NURSING ---
Colostomy appliance is intact. appliance had been changed twice yesterday, once because patient had pulled appliance off. no signs of leakage at this time. there is a small amount of soft thick dark brown stool noted in the appliance.
[2018-07-11] MEDS: Potassium Chloride 10mEq/100mL 10 MEQ/100 ML IV.SOLN. 100 MEQ IV BOLUS ×4 (10:22→13:28)
--- NOTE | 2018-07-11 10:49 | PN.SURG_ITS ---
Patient Problems: Active and Suspected Problems Nausea & vomiting (Acute) Ileus following gastrointestinal surgery (Acute) Subjective: Patient pulled out NG tube last night, no emesis Will check KUB patient denies abdominal pain, stool coming out of stoma - Physical Exam General: Alert HEENT: Atraumatic Oral: Moist Mucosa Neck: Supple Abdomen: Soft, - - wound with erythema and drainage per lower aspect - but no induration Vital Signs Temp Pulse Resp BP Pulse Ox 96.6 F L 72 18 112/64 96 07/11/18 07:22 07/11/18 07:22 07/11/18 07:22 07/11/18 07:22 07/11/18 07:22 Oxygen Delivery Method Room Air Weight: 68 kg Body Mass Index (BMI) 20.3 Intake and Output for Last 24 Hours 07/09/18 07/10/18 07/11/18 23:59 23:59 23:59 Intake Total 2295 / 2295 2564 / 2564 1277 / 1277 Output Total 4550 / 4550 1800 / 1800 350 / 350 Balance -2255 / -2255 764 / 764 927 / 927 Laboratory Tests Past 24 Hrs 07/10/18 07/10/18 07/10/18 06:25 09:18 15:03 WBC RBC Hgb 11.8 L Hct 37.3 MCV MCH MCHC RDW RDW Differential Plt Count MPV Immature Gran % (Auto) Neut % (Auto) Lymph % (Auto) Sharkey % (Auto) Eos % (Auto) Baso % (Auto) Absolute Neuts (auto) Absolute Lymphs (auto) Total Counted Sodium Potassium Chloride Carbon Dioxide Anion Gap BUN Creatinine Estim Creat Clear Calc Est GFR (MDRD) Af Amer Est GFR (MDRD) Non-Af BUN/Creatinine Ratio Glucose Calcium Magnesium 2.6 Blood Type O POSITIVE Antibody Screen NEGATIVE Crossmatch See Detail 07/11/18 07/11/18 05:25 05:25 WBC 6.2 RBC 3.63 L Hgb 10.1 L Hct 32.9 L MCV 90.6 MCH 27.8 MCHC 30.7 L RDW 14.3 RDW Differential 46.1 H Plt Count 399 MPV 8.6 Immature Gran % (Auto) 0.500 Neut % (Auto) 62.0 Lymph % (Auto) 19.4 Sharkey % (Auto) 16.0 H Eos % (Auto) 1.9 Baso % (Auto) 0.2 Absolute Neuts (auto) 3.8 Absolute Lymphs (auto) 1.20 Total Counted Not Reportable Sodium 146 H Potassium 3.0 L Chloride 116 H Carbon Dioxide 23.0 Anion Gap 7 BUN 18 Creatinine 0.69 Estim Creat Clear Calc 109.36 Est GFR (MDRD) Af Amer 117 Est GFR (MDRD) Non-Af 97 BUN/Creatinine Ratio 26.0 H Glucose 76 Calcium 7.6 L Magnesium Blood Type Antibody Screen Crossmatch Medical Necessity - Tobacco Use Smoking Status: Current every day smoker Tobacco Use: Cigarettes Assessment/Plan All Active Problems Nausea & vomiting (Acute) Ileus following gastrointestinal surgery (Acute) Sigmoid volvulus (Acute) Impression: about two weeks s/p sigmoid resection and end colostomy for sigmoid volvulus Plan: will check KUB if OK will start clear liquids, and stop reglan
--- NOTE | 2018-07-11 10:52 | RAD_ITS ---
STUDY: X-RAY - ABDOMEN/PELVIS REASON FOR EXAM: Female, 47 years old. Vomiting. TECHNIQUE: Two AP supine views of the abdomen and pelvis. COMPARISON: July 10, 2018 and July 09, 2018. FINDINGS: Normal visualized lung bases. There is slight elevation right hemidiaphragm. The NG tube and the prior study is no longer present. There is distended small bowel loops in the mid abdomen is appear decreased from the July 09 exam. Minimal air is seen in the colon. There is no demonstrated free abdominal air. The visualized liver, spleen and kidneys are grossly normal in size and morphology. There is midline surgical clips over the palpable mass. An IUD is tubal ligation clips are also noted in the mid pelvis. No visualized osseous changes. RAD/Abdomen Single View IMPRESSION: 1. Removal of the NG tube seen on the earlier exam. 2. Decreasing small bowel dilatation with increasing colonic air suggesting resolving ileus. 3. Surgical clips in the lower midline abdomen. Electronically Signed: Wilber William DO at 16:51 EDT Tel [phone], Service support ,
--- NOTE | 2018-07-11 11:32 | CASEMGMT ---
Addendum entered by Marialuisa Moreno 07/11/18 12:16: MICHELLE faxed over the guardianship form for pt, showing her mother, Leidy Santoyo, is guardian. Form placed in chart. DARRELL Lora Original Note: LW/POA or guardianship papers not in chart. SW called [employer], they will look to see what papers they may have and will fax them over. DARRELL Lora
[2018-07-11 13:30] VITALS: BP 99/54; PULSE 76; RESP 16; TEMP 36.8; O2SAT 93
[2018-07-11 20:24] VITALS: BP 113/67; PULSE 65; RESP 18; TEMP 36.6; O2SAT 98
[2018-07-11] MEDS: Topiramate 200 MG Tablet PO (22:08)
[2018-07-11] MEDS: OLANZapine 5 MG/TAB TAB.RAPDIS PO (22:08)
[2018-07-11] MEDS: Orphenadrine 100 MG Tablet PO (22:08)
[2018-07-12 03:55] VITALS: BP 102/58; PULSE 66; RESP 16; TEMP 36.6; O2SAT 98
[2018-07-12] MEDS: Dext 5%-0.45% NS 1,000 ML 100 ML IV (05:28)
[2018-07-12] MEDS: Levothyroxine 137 MCG Tablet GT (05:29)
[2018-07-12 06:06] LABS: Anion Gap 6 (5-15); BUN 10 mg/dL (7-18); BUN/Creat Ratio 15.3 RATIO (10-20); Calcium,Total 7.6 mg/dL (8.5-10.1); Chloride 117 mmol/L (98-107); Creatinine, Serum 0.66 mg/dL (0.55-1.02); EST Glomerular Filtration Rate 103 mL/min (>60); Est Glom Filt Rate - Afr Amer 125 mL/min (>60); Estimated Creatinine Clearance 114.34 ml/min; Glucose 86 mg/dL (74-106); Potassium 3.1 mmol/L (3.5-5.1); Sodium Level 144 mmol/L (136-145)
--- NOTE | 2018-07-12 08:37 | PCM.PN.SRG ---
Patient Problems: Active and Suspected Problems Nausea & vomiting (Acute) Ileus following gastrointestinal surgery (Acute) Subjective: patient's ileus has resolved - Physical Exam General: Alert Oral: Moist Mucosa Neck: Supple Lungs: Normal air movement Abdomen: Bowel Sounds Present, Soft Vital Signs Temp Pulse Resp BP Pulse Ox 97.8 F 66 16 102/58 L 98 07/12/18 03:55 07/12/18 03:55 07/12/18 03:55 07/12/18 03:55 07/12/18 03:55 Oxygen Delivery Method Room Air Weight: 68 kg Body Mass Index (BMI) 20.3 Intake and Output for Last 24 Hours 07/10/18 07/11/18 07/12/18 23:59 23:59 23:59 Intake Total 2564 / 2564 2631 / 2631 1284 / 1284 Output Total 1800 / 1800 350 / 350 50 / 50 Balance 764 / 764 2281 / 2281 1234 / 1234 Microbiology Past 72 Hours 07/10/18 09:18 Blood Culture - Preliminary Blood Culture (Wb) - Left Wrist No growth in 48 hours. Laboratory Tests Past 24 Hrs 07/12/18 05:15 Sodium 144 Potassium 3.1 L Chloride 117 H Carbon Dioxide 21.0 Anion Gap 6 BUN 10 Creatinine 0.66 Estim Creat Clear Calc 114.34 Est GFR (MDRD) Af Amer 125 Est GFR (MDRD) Non-Af 103 BUN/Creatinine Ratio 15.3 Glucose 86 Calcium 7.6 L Medical Necessity - Tobacco Use Smoking Status: Current every day smoker Tobacco Use: Cigarettes Assessment/Plan All Active Problems Nausea & vomiting (Acute) Ileus following gastrointestinal surgery (Acute) Sigmoid volvulus (Acute) Impression: about two weeks s/p sigmoid resection and end colostomy for sigmoid volvulus - readmitted for ileus Plan: if OK will start regular diet - encourage ensure/boost, and stop reglan can be d/c'd to home
[2018-07-12 09:50] VITALS: BP 93/56; PULSE 65; RESP 16; TEMP 36.6; O2SAT 100
[2018-07-12] MEDS: Orphenadrine 100 MG Tablet PO (09:58)
[2018-07-12] MEDS: Pyridoxine HCl 100 MG Tablet PO (09:58)
[2018-07-12] MEDS: Topiramate 200 MG Tablet PO (09:59)
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
--- NOTE | 2018-07-12 10:32 | DCINST_ITS ---
- Discharge Diagnoses Current Active Problems: Current Active and Chronic Problems Nausea & vomiting (Acute) Ileus following gastrointestinal surgery (Acute) Reason(s) for Visit for Discharge Instructions: Abdominal pain You will use the following diet at home:: Regular Your food should be the consistency of: Regular Your liquids should be the consistency of: Regular/Thin Discharge Activity: Return to Normal Activity Call your doctor if you observe: Fever of 101 or Higher, Coldness, Increased Pain, Numbness or Tingling, Change in Color, Inability to have a bowel movement, Shortness of breath, Dizziness Allergies/Adverse Reactions: Allergies amoxicillin [Amoxicillin] Allergy (Verified 07/08/18 19:11) Unknown naproxen Allergy (Verified 07/08/18 19:11) Unknown NSAIDS (Non-Steroidal Anti-Inflamma Allergy (Verified 07/08/18 19:11) Unknown Penicillins Allergy (Verified 07/08/18 19:11) Unknown phenytoin Allergy (Verified 07/08/18 19:11) Unknown pineapple [Pineapple] Allergy (Verified 07/08/18 19:11) Unknown mold Allergy (Uncoded 07/08/18 19:11) Shortness of breath SEASONAL ALLERGIES Allergy (Uncoded 07/08/18 19:11) Unknown Medications to take at Discharge Cetirizine HCl [All Day Allergy] 10 mg PO DAILY 02/29/16 Docusate Sodium [Colace] 100 mg PO BID 02/29/16 Doxepin HCl 10 mg PO QHS 02/29/16 Fluticasone Propionate [Flonase Allergy Relief] 2 spray NS DAILY 02/29/16 Fluvoxamine Maleate [Luvox] 50 mg PO BID 02/29/16 Gabapentin [Neurontin] 300 mg PO TID 02/29/16 Levothyroxine [Synthroid] 137 mcg PO DAILY 02/29/16 Magnesium Oxide 400 mg PO DAILY 02/29/16 Olanzapine 5 mg PO QHS 02/29/16 Omeprazole [Prilosec] 40 mg PO DAILY 02/29/16 Orphenadrine [Norflex] 100 mg PO BID 02/29/16 proMETHazine tablet [Phenergan tablet] 12.5 mg PO BID PRN 02/29/16 Iron Polysaccharide Complex [Ferrex 150] 150 mg PO BIDCM 05/25/17 Potassium Chloride [K-Dur] 20 meq PO 1600 05/25/17 Topiramate [Topamax] 200 mg PO BID 05/25/17 Lutein 6 mg PO DAILY 06/01/17 Multivitamin [Multiple Vitamins] 1 each PO DAILY 08/09/17 Rivaroxaban [Xarelto] 20 mg PO DAILY 08/09/17 Lactobacillus Acidophilus [Acidophilus] 1 tablet PO DAILY 02/15/18 Pyridoxine HCl [Vitamin B-6] 100 mg PO DAILY 02/15/18 Ensure Enlive 120 ml PO 4X/DAY #120 liquid 07/12/18 The following prescriptions were given: Ensure Enlive 120 ml PO 4X/DAY #120 liquid Primary Care Physician: Stu Calderon MD [Primary Care Provider] - Please follow up with your Primary Care Physician in: within 2 weeks Test Results: Test results from this visit will be discussed in further detail at your follow- up appointment, if applicable. Please Follow Up With: Luz Hess MD When: on Monday as scheduled Proposed Discharge Date: 07/12/18
--- NOTE | 2018-07-12 10:39 | CASEMGMT ---
Pt is discharged home today. Order to resume home care has been placed, PAULA called [facility] and let Cassie know pt is going home today. PAULA called [facility]a [facility]c at [facility] , let her know pt is going home today, faxed her discharge instructions and summary. She or pt's mother will be in touch w/pt's aides. SW spoke w/pt's mother in the room, pt in wheelchair with a sheet over her head. Pt's mother states she is depressed, has been off of her antidepressants while here. She states she will start them again when home and it should take 4-5 days for the medication to have an effect. SW let pt's mother know that SW called [facility] as well as Toya Kc at the [employer] [facility] and let them know pt is going home today, and faxed instructions and summary to Toya. Pt's mother states her aide is coming to pick her up, no further needs anticipated. DARRELL Lora
[2018-07-12] MEDS: Potassium Chloride 10mEq/100mL 10 MEQ/100 ML IV.SOLN. 100 MEQ IV BOLUS ×2 (12:13→13:13)
== END 2018-07-12 15:40 | disposition home or self-care (01) | DRG 388 ==
LOC: ED 23:09 → MS2 23:36
PROVIDERS: Surgery; Admitting Provider Family Medicine; Emergency Provider Emergency Medicine; Family Provider Family Medicine; PCP Family Medicine; Visit Provider Internal Medicine
DX: K56.7 Ileus, unspecified (principal); K29.71 Gastritis, unspecified, with bleeding; E03.9 Hypothyroidism, unspecified; K21.9 Gastro-esophageal reflux disease without esophagitis; E87.6 Hypokalemia; N31.9 Neuromuscular dysfunction of bladder, unspecified; H93.239 Hyperacusis, unspecified ear; G89.29 Other chronic pain; Z93.3 Colostomy status; M54.9 Dorsalgia, unspecified; Z90.49 Acquired absence of other specified parts of digestive tract; F17.210 Nicotine dependence, cigarettes, uncomplicated; Z87.820 Personal history of traumatic brain injury; Z79.01 Long term (current) use of anticoagulants; Z86.711 Personal history of pulmonary embolism; F32.9 Major depressive disorder, single episode, unspecified; F41.9 Anxiety disorder, unspecified; V49.9XXS Car occupant (driver) (passenger) injured in unspecified traffic accident, sequela
CPT/HCPCS: 36415; 74018; 74019; 74022; 74176; 80048; 83735; 84100; 85014; 85018; 85025; 86850; 86900; 86920; 86922; 87040; 97162; 97166; 97530; 99284; J7030; A4216; J2405; J7799

== ENCOUNTER 2018-07-17 13:25 | Emergency (ER) | payer MEDICARE, MEDICAID, SELFPAY ==
[2018-07-09 00:09] VITALS: BMI 20.3
[2018-07-17 13:26] VITALS: BP 99/56; PULSE 72; RESP 18; TEMP 36.3; O2SAT 98; BMI 20.3
--- NOTE | 2018-07-17 13:54 | RAD_ITS ---
STUDY: X-RAY - ACUTE ABDOMINAL SERIES REASON FOR EXAM: Female, 47 years old. Constipation. Colostomy. TECHNIQUE: Single view of the chest. Supine, and decubitus view(s) of the abdomen were obtained. COMPARISON: Comparison is made with prior study dated July 11, 2018. FINDINGS: The lungs are clear and expanded. Normal size heart. Normal mediastinum and glenis. Normal visualized pulmonary arteries. Normal visualized aortic arch and descending thoracic aorta. There is an abundance of fecal material throughout the colon. The soft tissue structures of the abdomen and pelvis are unremarkable. There are degenerative changes of the visualized lumbar spine. A colostomy seen in the left upper quadrant. 9 as directed is seen within the pelvis and evidence of bilateral tubal ligation. RAD/Acute Abdomen Inc Chest IMPRESSION: Large amount of fecal material is seen in the colon. Electronically Signed: Fawad Bender, at 15:29 EDT , Service support ,
[2018-07-17 14:33] LABS: Differential Indicated MANUAL DIFF; Hematocrit 35.2 % (37-47); Hemoglobin 11.1 g/dl (12.0-15.0); Mean Corp Hgb Conc 31.5 g/gl (32-36); Mean Corpuscular Hgb 28.2 pg (27.0-32.0); Mean Corpuscular Volume 89.3 fL (81-99); Mean Platelet Vol. 8.9 fl (6.2-12.0); POSITIVE COUNT YES; POSITIVE DIFFERENTIAL NO; POSITIVE MORPHOLOGY YES; Platelet Count 409 K/mm3 (150-450); RBC Distribution Width CV 14.6 % (11.6-14.6); RBC Distribution Width SD 47.8 fl (35.1-43.9); Red Blood Count 3.94 M/mm3 (4.2-5.4); White Blood Count 8.5 K/mm3 (4.4-11.0)
[2018-07-17 14:40] LABS: Anion Gap 4 (5-15); BUN 13 mg/dL (7-18); BUN/Creat Ratio 14.3 RATIO (10-20); Chloride 109 mmol/L (98-107); Creatinine, Serum 0.91 mg/dL (0.55-1.02); EST Glomerular Filtration Rate 71 mL/min (>60); Est Glom Filt Rate - Afr Amer 86 mL/min (>60); Estimated Creatinine Clearance 82.97 ml/min; Glucose 86 mg/dL (74-106); Potassium 3.5 mmol/L (3.5-5.1); Sodium Level 140 mmol/L (136-145)
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
[2018-07-17 15:16] LABS: Eosinophil 6 % (0-5); Lymphocyte 35 % (19-41); Monocyte 7 % (0-10); Myelocyte 1 (0-0); Neutrophil-Band 2 % (0-5); Neutrophil-Segmented 49 % (47-70); Platelet Estimate ADEQUATE (ADEQ); Red Cell Morphology NORM C+C NORMAL (NORM C&C); Total Cells Counted 100 (MANUAL DIFF)
[2018-07-17 15:17] LABS: Absolute Neutrophil Count 4.3 X10^3/uL (2.0-7.7)
[2018-07-17 16:16] VITALS: BP 98/54; PULSE 67; RESP 14
== END 2018-07-17 16:17 | disposition home or self-care (01) ==
PROVIDERS: Emergency Provider Emergency Medicine; Family Provider Family Medicine; PCP Family Medicine
DX: K56.7 Ileus, unspecified (principal); Z90.49 Acquired absence of other specified parts of digestive tract; Z98.890 Other specified postprocedural states; Z86.711 Personal history of pulmonary embolism; F17.200 Nicotine dependence, unspecified, uncomplicated
CPT/HCPCS: 74022; 80048; 85025; 99284; A4216

== ENCOUNTER 2018-09-17 12:44 | Inpatient (IN) | payer MEDICARE, MEDICAID, SELFPAY ==
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
[2018-09-17] VITALS (9 sets, daily range): BP systolic 83–108; BP diastolic 47–71; PULSE 53–77; RESP 16; TEMP 35.6–37.1; O2SAT 94–100; BMI 21.5; BMI 22.3
[2018-09-17] MEDS: levoFLOXacin IV 500 MG/100 ML BAG 100 MG IV (14:05)
--- NOTE | 2018-09-17 14:35 | APP_PTH ---
PATIENT: JORDAN SCOTT LOC: MS3 U#:[id number] AGE/SX: 47/F ROOM: MS316 RE09/17/[address]: Dr. Flo Leon MD : 1970 BED: 1 DIS: 09/25/2018 SPEC #: [id number] RECD: 09/18/18 08:29 STATUS: CORRINE JOAO #: [id number] SANTI: 09/17/18 14:[address]: Oliverio Garcia DEPT: SURGICAL PATHOLOGY RECD BY: Thiago Fine ENTERED: 09/18/18 14:15 SP TYPE: APPENDIX OTHR DR: Dr. Stu Calderon MD Tissues: A - Appendix, NOS B - Descending colon C - Colon Donuts D - Colon Donuts Procedures: Surgery Specimen Level III Surgery Specimen Level IV HEADER OPERATION: Laparoscopic colostomy PRE-OP DIAGNOSIS: Sigmoid volvulus TISSUE SUBMITTED: A - Appendix, right ovary, rectal stump, B - Descending colon stump, C - Distal donut, D - Proximal donut MICROSCOPIC DIAGNOSIS A. Appendix, right ovary and rectal stump: Appendix - no pathologic diagnosis. - Periappendiceal adipose tissue with acute and chronic inflammation, congestion and hemorrhage. Ovary - hemorrhagic corpus luteal cyst (2 cm in greatest dimension). Rectal stump - pericolonic adipose tissue with congestion and hemorrhage. B. Descending colon stump: Consistent with colostomy stoma with chronic inflammation. C. Distal donut: Colonic donut with mucosal congestion and hemorrhage. D. Proximal donut: Colonic donut with pericolonic adipose tissue with congestion and hemorrhage. SJ:brandon 09/19/18 COMMENT Please make reference to previous specimen ([id number]) sigmoid colon, colectomy with diagnosis of consistent with volvulus. MICROSCOPIC DESCRIPTION Slides are reviewed. GROSS DESCRIPTION A - Received in fixative is one container labeled with the patient's name and designated appendix, right ovary, rectal stump. The specimen consists of an appendix, ovary and stump consistent with rectal stump. The appendix measures 6 cm in length and 0.6 cm in diameter. The attached periappendiceal adipose tissue measures up to 2 cm in width. No obvious perforation is identified. The appendicular lumen is pinpoint. No fecalith is identified. The serosa is focally congested. The ovary measures 3.5 x 3 x 1.5 cm. A hemorrhagic cyst is noted also protruding at the surface measuring 2 cm in greatest dimension. A few smaller cysts filled with clear fluid are also present. The colonic segment consistent with rectal stump measures 5 x 4 x 3 cm. One resection margin is stapled. No mucosal lesion is identified. Sutures are noted at the opposite resection margin. Learning Engineer sections are submitted in five cassettes as follows: 1 - appendix, 2 & 3 - ovary, 4 & 5 - rectal stump. B - Received in fixative is one container labeled with the patient's name and designated descending colon stump. The specimen consists of a segment of colon measuring 5 cm in length with attached pericolonic adipose tissue. A piece of skin is also noted at one resection margin. No jayda are noted at either end. No mucosal lesion is identified. Learning Engineer sections are submitted in two cassettes. C - Received in fixative is one container labeled with the patient's name and designated distal donut. The specimen consists of a donut-shaped piece of colonic tissue measuring 1.5 x 1.5 x 0.5 cm. The mucosa shows focal congestion. The entire specimen is submitted in one cassette. D - Received in fixative is one container labeled with the patient's name and designated proximal donut. The specimen consists of a donut-shaped piece of colonic tissue measuring 2 x 1.5 x 0.5 cm. Multiple sutures are noted. Learning Engineer sections are submitted in one cassette. / JASWINDER:brandon 09/18/18 TC:5 CPT: 09517, 35096 x5
[2018-09-17] MEDS: Bupivacaine 0.25% 30 ML Vial (19:20)
--- NOTE | 2018-09-17 19:30 | PCM.OPRPT ---
Report of Operation Date of Procedure: 09/17/18 Pre-Operative Diagnosis: colostomy following sigmoid volvulus Post-Operative Diagnosis: colostomy following sigmoid volvulus, right hemorrhagic ovarian cyst, normal appendix. intact anastomosis Surgery/Procedure Performed:: laparoscopic colostomy takedown with partial colectomy, laparoscpopic right oopherectomy, lapaorascopic appendectomy health center associate: Uday Lewis Type of Anesthesia:: General Anesthesiologist: Marcio Mi ASA3 Specimen's removed: right ovary, appendix, rectal stump, descending colon, proximal and distal donuts Drains: licona Estimated Blood Loss (mL): 100 Fluids Replaced: 1500 Description of Procedure: The patient was brought to the operating suite. Sign in was performed verifying patient, site, procedure, position, and DVT prophylaxis with SCDs. Patient received of a Brice-500 mg. Preoperative bowel prep of mechanical and antibiotic comprised of GoLYTELY and then neomycin and Flagyl 1 g 3 doses evening before was given. Following induction of general anesthetic, the patient was placed in a modified lithotomy position and care being taken to or by pressure points in the legs and arms. An upper body strap was placed and a upper body warmer was placed. A Licona catheter was placed. A rectal washout was performed with dilute Betadine solution. the stoma bag was removed. And the stoma oversewn with a running 0 Vicryl suture. The patient?s abdomen and perineal area were then prepped and draped in the usual fashion. Timeout was performed verifying patient, site, position. Local anesthetic was injected above the umbilicus. Incision made and dissection carried down to the umbilical root fascia. 2 stay sutures were placed. Incision made in the fascia, the peritoneum entered under direct visualization. A 10 mm Levy trocar was inserted and secured with the stay sutures. Pneumoperitoneum to 15 mmHg was insufflated. 2 5mm ports were placed in the upper and lower right paramedian position and a 10/12 port was later upsized in the right lower quadrant inferior laterally. Adhesions were taken down using Harmonic scalpel. Visual inspection revealed a normal-appearing liver with no significant abnormalities. the descending colon sigmoid junction was brought up in a well perfused colostomy. The rectal stump had Prolenes to andi the stump but had adhesions of loops of small bowel in the right and left tube and ovaries were both adherent to the rectal stump. Adhesions between the small bowel and the colon were taken down sharply initially using Metzenbaum scissors. These adhesions were taken down sharply and using the Harmonic scalpel. as the right ovary was removed from its adhesed portion there was noted to be a hemorrhagic ovarian cyst. As this was removed hemorrhagic cyst or history of bleeding. A right nephrectomy was then performed. Once the bowel was mobilized off of the rectal stump, a Harmonic scalpel was used to divide the mesentery for approximately 6 inches below the stapled anastomosis to have a clean staple margin. Once this was fully mobilized, an echelon 60 cm thick load stapler was used to transect to a shorter rectal stump. The appendix earlier been noted to be adherent to the rectal stump. I therefore elected to perform an appendectomy area did the mesenteric of the appendix was divided with Harmonic scalpel and the base of the appendix transected with an intestinal thickness echelon stapler. the descending colon and adhesions lateral to the stoma were mobilized sharply and using Harmonic scalpel. at this point, an elliptical incision was made around the stoma and the colon was dissected from the subcutaneous fat to the level of the fascial defect. Adhesions were taken down sharply and the colon was freed up circumferentially. Once the colon was fully freed, it was brought up through the stoma site further to a clean margin. At this point the colon was transected at an appropriate location. A 29 mm CEA circular stapler anvil was then placed in the descending colon region and a 2-0 Prolene pursestring suture was used to close the bowel around the anvil. the bowel was returned to the stoma site to the abdominal cavity. In attempting to mobilize the posterior sheath behind the rectus muscle, there was noted to be then bleeding from the inferior epigastric in the mid aspect of the stoma site. This was controlled with a 0 Vicryl [id number]-pi-[id number] suture. At this point the posterior sheath and rectum are closed in a running fashionwith 0 Vicryl in a craniocaudal direction. The anterior sheath closed with 0 PDS in a transverse fashion. At this point, I proceeded down to the rectum. Rigid proctoscopy was performed after flooding the pelvis with saline. Insufflation demonstrated no leak at the rectal staple line. The staple line was felt to be approximately 19 cm. Next the 29 CEA stapler was lubricated and placed through the rectum up to the staple line. The spike was then opened just anterior to the previous echelon stapler line and the anvil properly seated onto the stapler and brought down to mid gap. The stapler was fired released and withdrawn from the rectum. The proximal and distal doughnuts were noted to be intact. Repeat proctoscopy was again performed again with the pelvis being flooded with saline. Air left in the rectum with insufflation and there was no intra-abdominal leakage noted. Pneumoperitoneum was released and the umbilical and right lower quadrant incisions were closed with an 0 PDS [id number]-xa-[id number] suture. Visual inspection revealed no material adhered to the midline closure. The 5mm and 10mm ports were removed under direct visualization with no signs of bleeding. Pneumoperitoneum was released. Right lower quadrant fascial suture was secured. Subcutaneous tissue at the level of the umbilicus reapproximated with interrupted 3-0 Vicryl sutures. Skin was closed with interrupted and running 4-0 Monocryl subcuticular sutures. Steri-Strips and bandages were applied. the colostomy sites I was approximated with 3-0 Vicryl suture and closed with jayda The patient was taken from lithotomy position and placed in the standard supine position. The Licona was removed. All sponge and instrument counts were correct. The patient was extubated. The patient was brought to recovery room in stable condition.
[2018-09-17] MEDS: Ondansetron ODT 4 MG Tablet PO (21:32)
[2018-09-17] MEDS: Lactated Ringers 1,000 ML 40 ML IV (21:33)
[2018-09-17] MEDS: oxyCODONE 5 MG Tablet PO (22:49)
[2018-09-17] MEDS: Gabapentin 300 MG Capsule PO (22:52)
[2018-09-17] MEDS: Topiramate 200 MG Tablet PO (22:52)
[2018-09-17] MEDS: Orphenadrine 100 MG Tablet PO (22:52)
[2018-09-17] MEDS: OLANZapine 5 MG/TAB TAB.RAPDIS PO (22:53)
[2018-09-17] MEDS: Doxepin Hydrochloride 10 MG Capsule PO (22:53)
[2018-09-18 00:55] VITALS: BP 103/64; PULSE 72; RESP 17; TEMP 36.9; O2SAT 97
[2018-09-18] MEDS: Acetaminophen 500 MG Tablet 1000 MG PO ×4 (01:00→18:24)
[2018-09-18] MEDS: proMETHazine 25 MG Tablet 12.5 MG PO (01:10)
[2018-09-18] MEDS: Lactated Ringers 1,000 ML 75 ML IV ×2 (03:29→16:46)
[2018-09-18] MEDS: oxyCODONE 5 MG Tablet PO ×5 (03:40→22:18)
[2018-09-18 05:19] VITALS: BP 110/67; PULSE 79; RESP 18; TEMP 38; O2SAT 97
[2018-09-18] MEDS: Gabapentin 300 MG Capsule PO ×3 (05:27→22:14)
[2018-09-18] MEDS: Levothyroxine 137 MCG Tablet PO (05:27)
--- NOTE | 2018-09-18 05:43 | PCM.PN.SRG ---
Subjective: incisional pain - Physical Exam General: Alert, Oriented x3, Cooperative Lungs: Clear to auscultation, Normal air movement Cardiovascular: Regular rate, Regular Rhythm Abdomen: Soft, Hypoactive Bowel Sounds, Tender - at incisions Vital Signs Temp Pulse Resp BP Pulse Ox 100.4 F H 79 18 110/67 97 09/18/18 05:19 09/18/18 05:19 09/18/18 05:19 09/18/18 05:19 09/18/18 05:19 Oxygen Delivery Method Room Air Weight: 70.6 kg Body Mass Index (BMI) 22.3 Intake and Output for Last 24 Hours 09/16/18 09/17/18 09/18/18 23:59 23:59 23:59 Intake Total 1500 / 1659 480 / 480 Output Total 325 / 425 400 / 400 Balance 1175 / 1234 80 / 80 Laboratory Tests Past 24 Hrs 09/18/18 09/18/18 05:20 05:20 WBC Pending RBC Pending Hgb Pending Hct Pending MCV Pending MCH Pending MCHC Pending RDW Pending RDW Differential Pending Plt Count Pending Sodium Pending Potassium Pending Chloride Pending Carbon Dioxide Pending Anion Gap Pending BUN Pending Creatinine Pending Est GFR (MDRD) Af Amer Pending Est GFR (MDRD) Non-Af Pending BUN/Creatinine Ratio Pending Glucose Pending Calcium Pending Medical Necessity - Tobacco Use Smoking Status: Current every day smoker Assessment/Plan All Active Problems Nausea & vomiting (Acute) Ileus following gastrointestinal surgery (Acute) Sigmoid volvulus (Acute) POD # 1 s/p laparoscopic colostomy takedown with short segment resections of the proximal and distal margins OK with sips of clears until return of bowel function. SCD's encourage deep breathing will add lovenox
[2018-09-18 05:46] LABS: Hematocrit 39.8 % (37-47); Hemoglobin 12.4 g/dl (12.0-15.0); Mean Corp Hgb Conc 31.2 g/gl (32-36); Mean Corpuscular Hgb 28.5 pg (27.0-32.0); Mean Corpuscular Volume 91.5 fL (81-99); Platelet Count 169 K/mm3 (150-450); RBC Distribution Width CV 16.5 % (11.6-14.6); RBC Distribution Width SD 55.7 fl (35.1-43.9); Red Blood Count 4.35 M/mm3 (4.2-5.4); White Blood Count 8.7 K/mm3 (4.4-11.0)
[2018-09-18 05:53] LABS: Scan Indicated on CBC? Y/N NO
[2018-09-18 06:13] LABS: Anion Gap 7 (5-15); BUN 10 mg/dL (7-18); BUN/Creat Ratio 12.8 RATIO (10-20); Chloride 114 mmol/L (98-107); Creatinine, Serum 0.78 mg/dL (0.55-1.02); EST Glomerular Filtration Rate 84 mL/min (>60); Est Glom Filt Rate - Afr Amer 101 mL/min (>60); Estimated Creatinine Clearance 97.46 ml/min; Glucose 107 mg/dL (74-106); Potassium 3.8 mmol/L (3.5-5.1); Sodium Level 142 mmol/L (136-145)
[2018-09-18 10:08] VITALS: BP 101/61; PULSE 74; RESP 18; TEMP 37.7; O2SAT 95
--- NOTE | 2018-09-18 10:12 | CASEMGMT ---
RN CM Note: Intro role of CM to patient's mother in room. Pt is sleeping. Demographics verified, Pt does not have [facility] currently- they were active after past surgery. SW referral for dc planning. Pt is active with board of [facility]. Nata BSN RN ACM
[2018-09-18] MEDS: fluvoxaMINE Maleate 50 MG Tablet PO ×2 (10:21→22:14)
[2018-09-18] MEDS: Enoxaparin 40 MG/0.4 ML Syringe SC (10:22)
[2018-09-18] MEDS: Fluticasone 0.05% 1 SPRAY NASAL.SRY 2 SPRAY NASAL (10:22)
[2018-09-18] MEDS: Loratadine 10 MG Tablet PO (10:22)
[2018-09-18] MEDS: Docusate Sodium 100 MG Capsule PO ×2 (10:22→22:14)
[2018-09-18] MEDS: Pantoprazole Sodium 40 MG Tablet PO (10:23)
[2018-09-18] MEDS: Orphenadrine 100 MG Tablet PO ×2 (10:23→22:14)
[2018-09-18] MEDS: Topiramate 200 MG Tablet PO ×2 (10:23→22:14)
--- NOTE | 2018-09-18 15:07 | CHAPLAIN ---
patient was sleeping; family member in room and indicated that sleep was preferred
--- NOTE | 2018-09-18 15:40 | CASEMGMT ---
Social Work: TC to DILIP Winchester (patient's case finisher) at [facility] with patient's permission. Voice mail message left for Toya to return this SW call. to update Toya on D/C planning. DARRELL Meléndez
[2018-09-18 16:05] VITALS: BP 90/52; PULSE 70; RESP 18; TEMP 37.1; O2SAT 96
[2018-09-18 22:05] VITALS: BP 131/82; PULSE 78; RESP 16; TEMP 37.4; O2SAT 98
[2018-09-18] MEDS: OLANZapine 5 MG/TAB TAB.RAPDIS PO (22:13)
[2018-09-18] MEDS: Doxepin Hydrochloride 10 MG Capsule PO (22:14)
[2018-09-19] MEDS: Acetaminophen 500 MG Tablet 1000 MG PO ×4 (01:34→18:45)
[2018-09-19] MEDS: oxyCODONE 5 MG Tablet PO ×5 (02:22→19:32)
[2018-09-19 04:05] VITALS: BP 115/71; PULSE 77; RESP 16; TEMP 37.4; O2SAT 99
[2018-09-19] MEDS: Levothyroxine 137 MCG Tablet PO (06:47)
[2018-09-19] MEDS: Gabapentin 300 MG Capsule PO ×3 (06:47→20:02)
[2018-09-19 09:57] VITALS: BP 91/51; PULSE 67; RESP 18; TEMP 37.2; O2SAT 96
[2018-09-19] MEDS: Loratadine 10 MG Tablet PO (10:03)
[2018-09-19] MEDS: Enoxaparin 40 MG/0.4 ML Syringe SC (10:04)
[2018-09-19] MEDS: Docusate Sodium 100 MG Capsule PO ×2 (10:04→20:02)
[2018-09-19] MEDS: Fluticasone 0.05% 1 SPRAY NASAL.SRY 2 SPRAY NASAL (10:04)
[2018-09-19] MEDS: Orphenadrine 100 MG Tablet PO ×2 (10:05→20:02)
[2018-09-19] MEDS: fluvoxaMINE Maleate 50 MG Tablet PO ×2 (10:05→20:01)
[2018-09-19] MEDS: Pantoprazole Sodium 40 MG Tablet PO (10:05)
[2018-09-19] MEDS: Topiramate 200 MG Tablet PO ×2 (10:05→20:03)
--- NOTE | 2018-09-19 15:10 | CHAPLAIN ---
patient sleeping; family members say that they are doing fine and pt just needs rest; no concerns
[2018-09-19 15:28] VITALS: BP 103/58; PULSE 76; RESP 18; TEMP 37.2; O2SAT 94
--- NOTE | 2018-09-19 17:45 | PCM.PN.SRG ---
Subjective: complaint of abdominal pain - Physical Exam General: Cooperative Lungs: Clear to auscultation, Normal air movement Cardiovascular: Regular rate, Regular Rhythm Abdomen: Bowel Sounds Present, Soft, Hypoactive Bowel Sounds, Tender - that incisions, scant drainage from ostomy closure site Vital Signs Temp Pulse Resp BP Pulse Ox 99.0 F 76 18 103/58 L 94 09/19/18 15:28 09/19/18 15:28 09/19/18 15:28 09/19/18 15:28 09/19/18 15:28 Oxygen Delivery Method Room Air Weight: 70.6 kg Body Mass Index (BMI) 22.3 Intake and Output for Last 24 Hours 09/17/18 09/18/18 09/19/18 23:59 23:59 23:59 Intake Total 1500 / 1659 1751 / 2627 1743 / 1743 Output Total 325 / 425 750 / 750 Balance 1175 / 1234 1001 / 1877 1743 / 1743 Medical Necessity - Tobacco Use Smoking Status: Current every day smoker Assessment/Plan All Active Problems Nausea & vomiting (Acute) Ileus following gastrointestinal surgery (Acute) Sigmoid volvulus (Acute) POD # 2 s/p laparoscopic colostomy takedown with short segment resections of the proximal and distal margins OK with sips of clears until return of bowel function. SCD's encourage deep breathing will add lovenox
[2018-09-19] MEDS: Doxepin Hydrochloride 10 MG Capsule PO (20:01)
[2018-09-19] MEDS: OLANZapine 5 MG/TAB TAB.RAPDIS PO (20:02)
[2018-09-19 20:34] VITALS: BP 99/58; PULSE 88; RESP 16; TEMP 37.6; O2SAT 95
[2018-09-19 22:53] VITALS: TEMP 37.5
[2018-09-20] VITALS (9 sets, daily range): BP systolic 99–107; BP diastolic 58–62; PULSE 76–92; RESP 16–18; TEMP 36.3–37.6; O2SAT 85–97
[2018-09-20] MEDS: Acetaminophen 500 MG Tablet 1000 MG PO ×4 (01:45→23:03)
[2018-09-20] MEDS: oxyCODONE 5 MG Tablet PO ×4 (06:08→21:02)
[2018-09-20] MEDS: Levothyroxine 137 MCG Tablet PO (06:12)
[2018-09-20] MEDS: Gabapentin 300 MG Capsule PO ×3 (06:13→21:03)
--- NOTE | 2018-09-20 06:51 | PCM.PN.SRG ---
Subjective: no flatus, no nausea, coughing with phlegm per mother - Physical Exam General: Cooperative Lungs: Diminished, - - few coarse breath sounds bibasilarly Cardiovascular: Regular rate, Regular Rhythm Abdomen: Bowel Sounds Present, Soft, Non Tender, Hypoactive Bowel Sounds Vital Signs Temp Pulse Resp BP Pulse Ox 99.2 F H 80 16 107/62 96 09/20/18 03:28 09/20/18 03:28 09/20/18 03:28 09/20/18 03:28 09/20/18 03:28 Oxygen Delivery Method Room Air Weight: 70.6 kg Body Mass Index (BMI) 22.3 Intake and Output for Last 24 Hours 09/18/18 09/19/18 09/20/18 23:59 23:59 23:59 Intake Total 1751 / 2627 1982 340 / 340 Output Total 750 / 750 Balance 1001 / 1877 1982 340 / 340 Medical Necessity - Tobacco Use Smoking Status: Current every day smoker Assessment/Plan All Active Problems Nausea & vomiting (Acute) Ileus following gastrointestinal surgery (Acute) Sigmoid volvulus (Acute) POD # 3 s/p laparoscopic colostomy takedown with short segment resections of the proximal and distal margins OK with sips of clears until return of bowel function. SCD's encourage deep breathing will add lovenox we'll add nebulized treatments see if this improves her ability to clear her secretions. We'll plan to have her out of bed in chair.
[2018-09-20] MEDS: fluvoxaMINE Maleate 50 MG Tablet PO ×2 (10:57→21:03)
[2018-09-20] MEDS: Pantoprazole Sodium 40 MG Tablet PO (10:57)
[2018-09-20] MEDS: Docusate Sodium 100 MG Capsule PO ×2 (10:57→21:03)
[2018-09-20] MEDS: Orphenadrine 100 MG Tablet PO ×2 (10:57→21:02)
[2018-09-20] MEDS: Enoxaparin 40 MG/0.4 ML Syringe SC (10:58)
[2018-09-20] MEDS: Fluticasone 0.05% 1 SPRAY NASAL.SRY 2 SPRAY NASAL (10:58)
[2018-09-20] MEDS: Loratadine 10 MG Tablet PO (10:58)
[2018-09-20] MEDS: Topiramate 200 MG Tablet PO ×2 (10:58→21:03)
[2018-09-20] MEDS: BENZOCAINE/MENTHOL 1 LOZENGE MUCOUS MEM (12:36)
[2018-09-20] MEDS: Albuterol 2.5 MG/3 ML VIAL.NEB. INHALATION ×3 (15:02→23:16)
[2018-09-20] MEDS: Lactated Ringers 1,000 ML 60 ML IV (20:48)
[2018-09-20] MEDS: OLANZapine 5 MG/TAB TAB.RAPDIS PO (21:03)
[2018-09-20] MEDS: Doxepin Hydrochloride 10 MG Capsule PO (21:03)
--- NOTE | 2018-09-20 23:11 | NURSING ---
pt has not voided. pt straight cath for 275cc of dark chaka urine
--- NOTE | 2018-09-20 23:55 | RAD_ITS ---
STUDY: X-RAY CHEST REASON FOR EXAM: Female, 47 years old. Shortness of breath TECHNIQUE: Single AP portable view of the chest. COMPARISON: 06/29/2018 FINDINGS: There is persistent elevation of right hemidiaphragm with marked gaseous distention of the colon, unchanged from prior imaging. Bibasilar atelectasis versus infiltrate, unchanged. No pleural effusion or pneumothorax. Normal size heart. Normal mediastinum and glenis. Normal visualized pulmonary arteries. There is atherosclerotic calcification of the aortic arc . There are diffuse degenerative changes of the visualized thoracic spine. Normal visualized ribs, clavicles, and shoulders. There is no demonstrated abnormality of the visualized soft tissue structures of the upper abdomen. RAD/Chest 1 View (Portable) IMPRESSION: Bibasilar atelectasis versus infiltrate, unchanged. Electronically Signed: Cheng Carmen MD at 1:34 EDT Tel , Service support ,
[2018-09-21] VITALS (16 sets, daily range): BP systolic 105–114; BP diastolic 54–65; PULSE 76–103; RESP 16–24; TEMP 37.2–39.1; O2SAT 93–97
[2018-09-21] MEDS: Albuterol 2.5 MG/3 ML VIAL.NEB. INHALATION ×5 (00:53→19:14)
[2018-09-21] MEDS: Acetylcysteine 800 MG/4 ML VIAL.NEB. INHALATION (00:54)
[2018-09-21] MEDS: Ipratropium 0.5 MG/2.5 ML SOLUTION INHALATION (00:54)
[2018-09-21] MEDS: Morphine 2 MG/ML Syringe 1 MG IV ×5 (01:27→18:15)
[2018-09-21] MEDS: 0.9% NaCl Peripheral Flush Adult/Peds IV ×7 (01:27→18:15)
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
[2018-09-21] MEDS: 0.9% NaCl IVPB Med Flush (250 mL) 15 ML IV (06:43)
[2018-09-21] MEDS: Acetaminophen 650 MG/20 ML UDC PO (07:02)
--- NOTE | 2018-09-21 07:26 | PCM.PN.SRG ---
Subjective: no complaints - Physical Exam General: Cooperative Lungs: Diminished, - - bases Cardiovascular: Regular rate, Regular Rhythm Abdomen: Soft - mildly distended - tense, Hypoactive Bowel Sounds Vital Signs Temp Pulse Resp BP Pulse Ox 102.3 F H 99 20 H 113/65 93 09/21/18 07:01 09/21/18 07:01 09/21/18 07:01 09/21/18 07:01 09/21/18 07:01 Oxygen Flow Rate (L/min) 5 Oxygen Delivery Method Nasal Cannula Weight: 70.6 kg Body Mass Index (BMI) 22.3 Intake and Output for Last 24 Hours 09/19/18 09/20/18 09/21/18 23:59 23:59 23:59 Intake Total 1982 / 2092 142 / 142 Output Total 275 / 275 Balance 1982 1818 / 181 142 / 142 Medical Necessity - Tobacco Use Smoking Status: Current every day smoker Assessment/Plan All Active Problems Nausea & vomiting (Acute) Ileus following gastrointestinal surgery (Acute) Sigmoid volvulus (Acute) POD # 4 s/p laparoscopic colostomy takedown with short segment resections of the proximal and distal margins OK with sips of clears until return of bowel function. Will check abd multiview today SCD's Patient with decreased Sa02 overnight and fever to 101 - likely hypoventilation from colon distention and mucous plugging. Will start antibiotics, out of bed, in chair, mucomyst and percussion vest. encourage deep breathing will add lovenox
--- NOTE | 2018-09-21 08:16 | NURSING ---
pt off unit to radiology
--- NOTE | 2018-09-21 08:30 | RAD_ITS ---
STUDY: X-RAY - ABDOMEN/PELVIS REASON FOR EXAM: Female, 47 years old. Abdominal distention. TECHNIQUE: AP supine and decubitus views of the abdomen and pelvis. COMPARISON: None. FINDINGS: Elevation of the right hemidiaphragm. Increased markings at the lung bases suggestive of atelectasis and/or infiltrate. Surgical clips are seen in the left lower quadrant. There is gaseous distention of the colon. Small amount of bowel gas is seen in the small bowel. There is evidence of a small amount of free intra-abdominal air most likely secondary to the recent surgical intervention. The visualized liver, spleen and kidneys are grossly normal in size and morphology. An IUD is seen within the pelvis as well as tubal ligation clips. Normal visualized osseous structures. RAD/Abd Inc Decub and/or Erect IMPRESSION: Gaseous dilatation of the colon with small amount of air in the small bowel loops. Free intraperitoneal air most likely postsurgical in nature. Clinical correlation is recommended. Electronically Signed: Fawad Bender, at 12:39 EDT , Service support ,
[2018-09-21 08:37] LABS: Absolute Lymphocyte Count 0.45 X10^3/ul (0.83-4.51); Absolute Neutrophil Count 5.4 X10^3/uL (2.0-7.7); Eosinophil# 0.02 X10^3/uL; Eosinophils% 0.3 % (0-5); Hematocrit 37.9 % (37-47); Hemoglobin 11.8 g/dl (12.0-15.0); Lymphocyte # 0.45 X10^3/ul (4.0); Lymphocyte % 7.1 % (19-41); Mean Corp Hgb Conc 31.1 g/gl (32-36); Mean Corpuscular Hgb 28.5 pg (27.0-32.0); Mean Corpuscular Volume 91.5 fL (81-99); Mean Platelet Vol. 9.8 fl (6.2-12.0); Monocyte% 7.9 % (0-10); Neutrophil # 5.37 X10^3/uL (2.7-7.7); Neutrophil % 84.5 % (47-70); Platelet Count 146 K/mm3 (150-450); RBC Distribution Width CV 16.9 % (11.6-14.6); RBC Distribution Width SD 55.5 fl (35.1-43.9); Red Blood Count 4.14 M/mm3 (4.2-5.4); White Blood Count 6.4 K/mm3 (4.4-11.0)
[2018-09-21 08:40] LABS: ALB/GLOB Ratio 0.7 RATIO (0.9-2.4); AST(SGOT) 15 U/L (15-37); Alanine Aminotransfer ALT/SGPT 12 U/L (13-56); Albumin, Serum 2.7 g/dL (3.2-5.0); Alkaline Phosphatase 92 U/L (45-117); Anion Gap 5 (5-15); BUN 10 mg/dL (7-18); BUN/Creat Ratio 11.8 RATIO (10-20); Calcium,Total 8.3 mg/dL (8.5-10.1); Chloride 113 mmol/L (98-107); Creatinine, Serum 0.85 mg/dL (0.55-1.02); EST Glomerular Filtration Rate 76 mL/min (>60); Est Glom Filt Rate - Afr Amer 92 mL/min (>60); Estimated Creatinine Clearance 89.43 ml/min; Globulin 3.7 g/dL (2.2-4.2); Glucose 98 mg/dL (74-106); Protein, Total 6.4 g/dL (6.4-8.2); Sodium Level 140 mmol/L (136-145)
[2018-09-21 08:44] LABS: Differential Indicated SCAN CRITERIA MET; POSITIVE COUNT NO; POSITIVE DIFFERENTIAL YES; POSITIVE MORPHOLOGY YES
[2018-09-21 09:06] LABS: BNP,B-Type NATRIURETIC PEPTIDE 121.7 pg/mL (0-100)
[2018-09-21 09:29] LABS: Mucous, Urine 0 SEEN /hpf (<or=2+); White Blood Cells 0 SEEN /hpf (0-5)
[2018-09-21 10:01] LABS: Color, Urine Yellow (Yellow); Glucose, Dipstick Normal (Normal); Ketone-Dipstick Negative (Negative); Leukocyte Esterase-Dipstick Negative /ul (Negative); Nitrite-Dipstick Negative (Negative); Occult Blood-Urine 50 /ul (Negative); Protein-Dipstick 30 mg/dl (Negative); Specific Gravity, Urine 1.015 (1.002-1.030); Urine Bilirubin Dipstick Negative (Negative); Urine Clarity Cloudy (Clear); Urine Urobilinogen Normal (Normal)
[2018-09-21 10:07] LABS: Amorphous Sediment 3+ PHOS; Bacteria 1+ /hpf (None Seen); Red Blood Cells-Urine 0-5 SEEN /hpf (0-5); Squamous Epithelial Cells - UA 0-5 SEEN /hpf (5-10)
[2018-09-21] MEDS: Fluticasone 0.05% 1 SPRAY NASAL.SRY 2 SPRAY NASAL (11:06)
[2018-09-21] MEDS: Enoxaparin 40 MG/0.4 ML Syringe SC (11:06)
--- NOTE | 2018-09-21 11:18 | CASEMGMT ---
Social Work Note Green sheet placed on pt's chart with instructions to let Toya Kc at [facility] know when pt is being discharged. Plan: Home with resumption of aide services through [facility]. Joana Choi CARDIAC REHABILITATION PROGRAM DIRECTOR, HAND PLEATER
[2018-09-21] MEDS: fluvoxaMINE Maleate 50 MG Tablet PO ×2 (12:25→21:55)
[2018-09-21] MEDS: Orphenadrine 100 MG Tablet PO ×2 (12:25→21:53)
[2018-09-21] MEDS: Loratadine 10 MG Tablet PO (12:47)
[2018-09-21] MEDS: Acetaminophen 500 MG Tablet 1000 MG PO ×3 (12:47→23:05)
[2018-09-21] MEDS: Docusate Sodium 100 MG Capsule PO ×2 (12:48→21:53)
[2018-09-21] MEDS: Topiramate 200 MG Tablet PO ×2 (12:48→21:54)
[2018-09-21] MEDS: Pantoprazole Sodium 40 MG Tablet PO (12:52)
[2018-09-21] MEDS: Gabapentin 300 MG Capsule PO ×2 (12:53→21:54)
--- NOTE | 2018-09-21 12:54 | PN_ITS ---
Patient Problems: Active and Suspected Problems Sepsis (Acute) Aspiration pneumonia (Acute) Sigmoid volvulus (Acute) Subjective: Indicates she is still having abdominal pain. Vitals/I&O's: Vital Signs Temp Pulse Resp BP Pulse Ox 38.7 C H 88 18 105/54 L 93 09/21/18 09:23 09/21/18 11:23 09/21/18 11:23 09/21/18 09:23 09/21/18 11:23 Oxygen Flow Rate (L/min) 3 Oxygen Delivery Method Nasal Cannula Weight: 70.6 kg Body Mass Index (BMI) 22.3 Intake and Output for Last 24 Hours 09/19/18 09/20/18 09/21/18 23:59 23:59 23:59 Intake Total 1982 / 2092 142 / 142 Output Total 275 / 275 Balance 1982 1818 / 181 142 / 142 General: Alert, No apparent distress HEENT: Atraumatic, Normocephalic Oral: Moist Mucosa, No Gingival or Mucosal Lesions/ Ulcerations Neck: No Nodes, Thyroid Normal Size and Texture Lungs: Clear to auscultation, Normal air movement, No rhonchi, No wheeze, No rales Cardiovascular: Regular rate, Regular Rhythm, Normal S1, Normal S2 Abdomen: Hypoactive Bowel Sounds, Distended Extremities: No edema, No Calf Tenderness Psych/Mental Status: Normal Affect, Appropriate Laboratory Results 09/21/18 07:20: Sodium 140, Potassium 4.0, Chloride 113 H, Carbon Dioxide 22.0, Anion Gap 5, BUN 10, Creatinine 0.85, Estim Creat Clear Calc 89.43, Est GFR (MDRD) Af Amer 92, Est GFR (MDRD) Non-Af 76, BUN/Creatinine Ratio 11.8, Glucose 98, Calcium 8.3 L, Total Bilirubin 0.40, AST 15, ALT 12 L, Alkaline Phosphatase 92, Total Protein 6.4, Albumin 2.7 L, Globulin 3.7, Albumin/Globulin Ratio 0.7 L 09/21/18 07:43: WBC 6.4, RBC 4.14 L, Hgb 11.8 L, Hct 37.9, MCV 91.5, MCH 28.5, MCHC 31.1 L, RDW 16.9 H, RDW Differential 55.5 H, Plt Count 146 L, MPV 9.8, Immature Gran % (Auto) 0.200, Neut % (Auto) 84.5 H, Lymph % (Auto) 7.1 L, [place] % (Auto) 7.9, Eos % (Auto) 0.3, Baso % (Auto) 0.0, Absolute Neuts (auto) 5.4, Absolute Lymphs (auto) 0.45 L, Total Counted Not Reportable, Differential Comment COMMENT 09/21/18 07:43: B-Natriuretic Peptide 121.7 H 09/21/18 09:15: Urine Color Yellow, Urine Clarity Cloudy, Urine pH 8.0, Ur Specific [place] 1.015, Urine Protein 30 H, Urine Glucose (UA) Normal, Urine Ketones Negative, Urine Occult Blood 50 H, Urine Nitrite Negative, Urine Bilirubin Negative, Urine Urobilinogen Normal, Ur Leukocyte Esterase Negative, Urine RBC 0-5 SEEN, Urine WBC 0 SEEN, Ur Squamous Epith Cells 0-5 SEEN, Amorphous Sediment 3+ PHOS, Urine Bacteria 1+, Urine Mucus 0 SEEN Current Medications Acetaminophen (Tylenol) 1,000 mg PO Q6 [facility] Last Admin: 09/21/18 05:17 Dose: Not Given Documented by: Acetaminophen (Tylenol Liquid) 650 mg PO Q6H PRN PRN PRN Reason: FEVER Last Admin: 09/21/18 07:02 Dose: 650 mg Documented by: Albuterol Sulfate (Ventolin Aerosols) 2.5 mg INHALATION Q4HWA.RT [facility] Last Admin: 09/21/18 11:25 Dose: 2.5 mg Documented by: Docusate Sodium (Colace) 100 mg PO BID [facility] Last Admin: 09/20/18 21:03 Dose: 100 mg Documented by: Doxepin HCl (Sinequan) 10 mg PO QHS [facility] Last Admin: 09/20/18 21:03 Dose: 10 mg Documented by: Enoxaparin Sodium (Lovenox) 40 mg SC DAILY [facility] Last Admin: 09/21/18 11:06 Dose: 40 mg Documented by: Fluticasone Propionate (Flonase Nasal [place]) 2 spray NASAL DAILY [facility] Last Admin: 09/21/18 11:06 Dose: 2 spray Documented by: Fluvoxamine Maleate (Luvox) 50 mg PO BID [facility] Last Admin: 09/20/18 21:03 Dose: 50 mg Documented by: Gabapentin (Neurontin) 300 mg PO TID [facility] Last Admin: 09/21/18 05:16 Dose: Not Given Documented by: Sodium Chloride () 250 mls @ 15 mls/hr IV .[id number] PRN PRN Reason: SALINE FLUSH Last Admin: 09/21/18 06:43 Dose: 15 mls/hr Documented by: Lactated Ringer's () 1,000 mls @ 60 mls/hr IV .[id number] [facility] Last Admin: 09/20/18 20:48 Dose: 60 mls/hr Documented by: Piperacillin Sod/Tazobactam (Sod 3.375 gm/ Sodium Chloride) 50 mls @ 12.5 mls/hr IV Q8 [facility] Last Admin: 09/21/18 06:42 Dose: 12.5 mls/hr Documented by: Levothyroxine Sodium (Synthroid) 137 mcg PO DAILY@0600 [facility] Last Admin: 09/21/18 05:17 Dose: Not Given Documented by: Loratadine (Claritin) 10 mg PO DAILY [facility] Last Admin: 09/20/18 10:58 Dose: 10 mg Documented by: Magnesium Oxide (Mag-Ox 400) 400 mg PO DAILY PRN PRN PRN Reason: Constipation Metoclopramide HCl (Reglan) 10 mg IV Q6 [facility] Morphine Sulfate () 1 mg IV Q4H PRN PRN PRN Reason: SEVERE PAIN (6-10/10) Last Admin: 09/21/18 11:25 Dose: 1 mg Documented by: Nutritional Formula (Lactose Free) (Ensure Enlive) 120 ml PO 4X/DAY [facility] Last Admin: 09/20/18 20:50 Dose: 120 ml Documented by: Olanzapine (Zyprexa Zydis) 5 mg PO QHS [facility] Last Admin: 09/20/18 21:03 Dose: 5 mg Documented by: Ondansetron HCl (Zofran Odt) 4 mg PO Q6H PRN PRN PRN Reason: NAUSEA Last Admin: 09/17/18 21:32 Dose: 4 mg Documented by: Orphenadrine Citrate (Norflex Er) 100 mg PO BID [facility] Last Admin: 09/20/18 21:02 Dose: 100 mg Documented by: Oxycodone HCl (Oxyir) 5 - 10 mg PO Q4H PRN PRN PRN Reason: MOD-SEVERE PAIN (4-10) Last Admin: 09/20/18 21:02 Dose: 5 mg Documented by: Pantoprazole Sodium (Protonix) 40 mg PO DAILY [facility] Last Admin: 09/20/18 10:57 Dose: 40 mg Documented by: Potassium Chloride (K-Dur) 20 meq PO 1600 [facility] Last Admin: 09/20/18 17:03 Dose: 20 meq Documented by: Promethazine HCl (Phenergan Tablet) 12.5 mg PO BID PRN PRN Reason: NAUSEA Last Admin: 09/18/18 01:10 Dose: 12.5 mg Documented by: Sodium Chloride () 10 - 40 ml IV UD PRN PRN Reason: SALINE FLUSH Last Admin: 09/21/18 11:25 Dose: 10 ml Documented by: Throat Lozenges (Cepacol Sore Throat Lozenge) 1 - 2 lozenge MUCOUS MEM Q2H PRN PRN PRN Reason: SORE THROAT Last Admin: 09/20/18 12:36 Dose: 1 lozenge Documented by: Topiramate (Topamax) 200 mg PO BID [facility] Last Admin: 09/20/18 21:03 Dose: 200 mg Documented by: Medical Necessity - Tobacco Use Smoking Status: Current every day smoker Assessment/Plan All Active Problems Nausea & vomiting (Acute) Ileus following gastrointestinal surgery (Acute) Sepsis (Acute) Aspiration pneumonia (Acute) Sigmoid volvulus (Acute) 1. sepsis: * likely d/t aspiration pneumonia * follow up cultures 2. aspiration pneumonia * continue zosyn 3. volvulus * mgmt per general surgery. * s/sp colostomy 4. paraplegia/TBI * complicates care 5. VTE proph: LMWH. DW patient's mother at bedside Code Visit Inpatient E&M: 02904 Subs Hosp L2
--- NOTE | 2018-09-21 13:30 | NURSING ---
IV dressing changed do to leaking from site. flushed with 10cc more leaking noted. DC IV. Primary RN and cracking machine operator attempted IV starts. House charge called to attempt. Speech therapy evaluate pt swallowing, Oral pills given at this time. pt tolerated well.
[2018-09-21] MEDS: Metoclopramide 10 MG/2 ML Vial IV ×3 (13:50→23:05)
[2018-09-21] MEDS: BENZOCAINE/MENTHOL 1 LOZENGE MUCOUS MEM (21:50)
[2018-09-21] MEDS: Doxepin Hydrochloride 10 MG Capsule PO (21:52)
[2018-09-21] MEDS: OLANZapine 5 MG/TAB TAB.RAPDIS PO (21:55)
[2018-09-21] MEDS: Ondansetron ODT 4 MG Tablet PO (22:20)
[2018-09-22] VITALS (10 sets, daily range): BP systolic 97–109; BP diastolic 50–61; PULSE 70–82; RESP 16–20; TEMP 37.2–37.4; O2SAT 94–99
[2018-09-22] MEDS: Morphine 2 MG/ML Syringe 1 MG IV (02:37)
[2018-09-22] MEDS: Acetaminophen 500 MG Tablet 1000 MG PO ×3 (05:35→18:31)
[2018-09-22] MEDS: Metoclopramide 10 MG/2 ML Vial IV ×3 (05:36→18:32)
[2018-09-22] MEDS: Levothyroxine 137 MCG Tablet PO (05:36)
[2018-09-22] MEDS: Gabapentin 300 MG Capsule PO ×3 (05:37→21:51)
[2018-09-22] MEDS: oxyCODONE 5 MG Tablet PO ×4 (05:39→21:51)
[2018-09-22] MEDS: Albuterol 2.5 MG/3 ML VIAL.NEB. INHALATION ×3 (07:11→19:30)
[2018-09-22 07:22] LABS: Absolute Lymphocyte Count 0.83 X10^3/ul (0.83-4.51); Basophil# 0.01 X10^3/uL; Basophil% 0.1 % (0-1); Eosinophil# 0.27 X10^3/uL; Eosinophils% 3.1 % (0-5); Hematocrit 32.8 % (37-47); Hemoglobin 10.4 g/dl (12.0-15.0); Lymphocyte # 0.83 X10^3/ul (4.0); Lymphocyte % 9.5 % (19-41); Mean Corp Hgb Conc 31.7 g/gl (32-36); Mean Corpuscular Hgb 29.1 pg (27.0-32.0); Mean Corpuscular Volume 91.6 fL (81-99); Mean Platelet Vol. 9.2 fl (6.2-12.0); Monocyte# 0.63 X10^3/uL; Monocyte% 7.2 % (0-10); Neutrophil # 7.01 X10^3/uL (2.7-7.7); Platelet Count 148 K/mm3 (150-450); RBC Distribution Width CV 16.8 % (11.6-14.6); RBC Distribution Width SD 56.3 fl (35.1-43.9); Red Blood Count 3.58 M/mm3 (4.2-5.4); White Blood Count 8.8 K/mm3 (4.4-11.0)
[2018-09-22 07:23] LABS: Differential Indicated SCAN CRITERIA MET; POSITIVE COUNT NO; POSITIVE DIFFERENTIAL NO; POSITIVE MORPHOLOGY YES
[2018-09-22 07:40] LABS: Anion Gap 3 (5-15); BUN 17 mg/dL (7-18); BUN/Creat Ratio 21.7 RATIO (10-20); Chloride 114 mmol/L (98-107); Creatinine, Serum 0.78 mg/dL (0.55-1.02); EST Glomerular Filtration Rate 84 mL/min (>60); Est Glom Filt Rate - Afr Amer 101 mL/min (>60); Estimated Creatinine Clearance 97.46 ml/min; Glucose 108 mg/dL (74-106); Potassium 3.7 mmol/L (3.5-5.1); Sodium Level 142 mmol/L (136-145)
[2018-09-22] MEDS: Fluticasone 0.05% 1 SPRAY NASAL.SRY 2 SPRAY NASAL (09:49)
[2018-09-22] MEDS: Enoxaparin 40 MG/0.4 ML Syringe SC (09:52)
[2018-09-22] MEDS: Pantoprazole Sodium 40 MG Tablet PO (09:52)
[2018-09-22] MEDS: Orphenadrine 100 MG Tablet PO ×2 (09:52→21:51)
[2018-09-22] MEDS: Docusate Sodium 100 MG Capsule PO ×2 (09:53→21:51)
[2018-09-22] MEDS: fluvoxaMINE Maleate 50 MG Tablet PO ×2 (09:53→21:51)
[2018-09-22] MEDS: Loratadine 10 MG Tablet PO (09:53)
[2018-09-22] MEDS: Topiramate 200 MG Tablet PO ×2 (09:54→21:56)
--- NOTE | 2018-09-22 12:01 | PN_ITS ---
Patient Problems: Active and Suspected Problems Aspiration pneumonia (Acute) Sepsis (Acute) Sigmoid volvulus (Acute) Subjective: Feeling better. No further fever. Vitals/I&O's: Vital Signs Temp Pulse Resp BP Pulse Ox 37.2 C 78 18 99/50 L 98 09/22/18 09:40 09/22/18 10:43 09/22/18 10:43 09/22/18 09:40 09/22/18 09:40 Oxygen Flow Rate (L/min) 1 Oxygen Delivery Method Room Air Weight: 70.6 kg Body Mass Index (BMI) 22.3 Intake and Output for Last 24 Hours 09/20/18 09/21/18 09/22/18 23:59 23:59 23:59 Intake Total 2093 / 2093 342 / 542 277 / 277 Output Total 275 / 275 Balance 1818 / 1818 342 / 542 277 / 277 General: Alert, - - non-verbal. communicates minimal with hand gestures. HEENT: Atraumatic, Normocephalic Oral: Moist Mucosa, No Gingival or Mucosal Lesions/ Ulcerations Neck: No Nodes, Thyroid Normal Size and Texture Lungs: Clear to auscultation, Normal air movement, No rhonchi, No wheeze, No rales, Diminished Cardiovascular: Regular rate, Regular Rhythm, Normal S1, Normal S2, No murmurs Abdomen: Bowel Sounds Present, Soft, Non Tender, Non-Distended, No Hepato- splenomegaly Extremities: No edema, No Calf Tenderness Skin: No rashes, No breakdown Psych/Mental Status: Normal Affect, Appropriate Laboratory Results 09/22/18 06:50: WBC 8.8, RBC 3.58 L, Hgb 10.4 L, Hct 32.8 L, MCV 91.6, MCH 29.1, MCHC 31.7 L, RDW 16.8 H, RDW Differential 56.3 H, Plt Count 148 L, MPV 9.2, Immature Gran % (Auto) 0.100, Neut % (Auto) 80.0 H, Lymph % (Auto) 9.5 L, [place] % (Auto) 7.2, Eos % (Auto) 3.1, Baso % (Auto) 0.1, Absolute Neuts (auto) 7.0, Abso lute Lymphs (auto) 0.83, Total Counted Not Reportable 09/22/18 06:50: Sodium 142, Potassium 3.7, Chloride 114 H, Carbon Dioxide 25.0, Anion Gap 3 L, BUN 17, Creatinine 0.78, Estim Creat Clear Calc 97.46, Est GFR (MDRD) Af Amer 101, Est GFR (MDRD) Non-Af 84, BUN/Creatinine Ratio 21.7 H, Glucose 108 H, Calcium 8.0 L Current Medications Acetaminophen (Tylenol) 1,000 mg PO Q6 [facility] Last Admin: 09/22/18 05:35 Dose: 1,000 mg Documented by: Acetaminophen (Tylenol Liquid) 650 mg PO Q6H PRN PRN PRN Reason: FEVER Last Admin: 09/21/18 07:02 Dose: 650 mg Documented by: Albuterol Sulfate (Ventolin Aerosols) 2.5 mg INHALATION Q4HWA.RT [facility] Last Admin: 09/22/18 10:43 Dose: 2.5 mg Documented by: Docusate Sodium (Colace) 100 mg PO BID [facility] Last Admin: 09/22/18 09:53 Dose: 100 mg Documented by: Doxepin HCl (Sinequan) 10 mg PO QHS [facility] Last Admin: 09/21/18 21:52 Dose: 10 mg Documented by: Enoxaparin Sodium (Lovenox) 40 mg SC DAILY [facility] Last Admin: 09/22/18 09:52 Dose: 40 mg Documented by: Fluticasone Propionate (Flonase Nasal [place]) 2 spray NASAL DAILY [facility] Last Admin: 09/22/18 09:49 Dose: 2 spray Documented by: Fluvoxamine Maleate (Luvox) 50 mg PO BID [facility] Last Admin: 09/22/18 09:53 Dose: 50 mg Documented by: Gabapentin (Neurontin) 300 mg PO TID [facility] Last Admin: 09/22/18 05:37 Dose: 300 mg Documented by: Sodium Chloride () 250 mls @ 15 mls/hr IV .[id number] PRN PRN Reason: SALINE FLUSH Last Admin: 09/21/18 06:43 Dose: 15 mls/hr Documented by: Lactated Ringer's () 1,000 mls @ 60 mls/hr IV .[id number] [facility] Last Admin: 09/20/18 20:48 Dose: 60 mls/hr Documented by: Piperacillin Sod/Tazobactam (Sod 3.375 gm/ Sodium Chloride) 50 mls @ 12.5 mls/hr IV Q8 [facility] Last Admin: 09/22/18 05:36 Dose: 12.5 mls/hr Documented by: Levothyroxine Sodium (Synthroid) 137 mcg PO DAILY@0600 [facility] Last Admin: 09/22/18 05:36 Dose: 137 mcg Documented by: Loratadine (Claritin) 10 mg PO DAILY [facility] Last Admin: 09/22/18 09:53 Dose: 10 mg Documented by: Magnesium Oxide (Mag-Ox 400) 400 mg PO DAILY PRN PRN PRN Reason: Constipation Metoclopramide HCl (Reglan) 10 mg IV Q6 [facility] Last Admin: 09/22/18 05:36 Dose: 10 mg Documented by: Morphine Sulfate () 1 mg IV Q4H PRN PRN PRN Reason: SEVERE PAIN (6-1010) Last Admin: 09/22/18 02:37 Dose: 1 mg Documented by: Nutritional Formula (Lactose Free) (Ensure Enlive) 120 ml PO 4X/DAY [facility] Last Admin: 09/22/18 09:53 Dose: Not Given Documented by: Olanzapine (Zyprexa Zydis) 5 mg PO QHS [facility] Last Admin: 09/21/18 21:55 Dose: 5 mg Documented by: Ondansetron HCl (Zofran Odt) 4 mg PO Q6H PRN PRN PRN Reason: NAUSEA Last Admin: 09/21/18 22:20 Dose: 4 mg Documented by: Orphenadrine Citrate (Norflex Er) 100 mg PO BID [facility] Last Admin: 09/22/18 09:52 Dose: 100 mg Documented by: Oxycodone HCl (Oxyir) 5 - 10 mg PO Q4H PRN PRN PRN Reason: MOD-SEVERE PAIN (4-1010) Last Admin: 09/22/18 10:09 Dose: 5 mg Documented by: Pantoprazole Sodium (Protonix) 40 mg PO DAILY [facility] Last Admin: 09/22/18 09:52 Dose: 40 mg Documented by: Potassium Chloride (K-Dur) 20 meq PO 1600 [facility] Last Admin: 09/21/18 16:51 Dose: 20 meq Documented by: Promethazine HCl (Phenergan Tablet) 12.5 mg PO BID PRN PRN Reason: NAUSEA Last Admin: 09/18/18 01:10 Dose: 12.5 mg Documented by: Sodium Chloride () 10 - 40 ml IV UD PRN PRN Reason: SALINE FLUSH Last Admin: 09/21/18 18:15 Dose: 10 ml Documented by: Throat Lozenges (Cepacol Sore Throat Lozenge) 1 - 2 lozenge MUCOUS MEM Q2H PRN PRN PRN Reason: SORE THROAT Last Admin: 09/21/18 21:50 Dose: 1 lozenge Documented by: Topiramate (Topamax) 200 mg PO BID [facility] Last Admin: 09/22/18 09:54 Dose: 200 mg Documented by: Medical Necessity - Tobacco Use Smoking Status: Current every day smoker Assessment/Plan All Active Problems Aspiration pneumonia (Acute) Sepsis (Acute) Nausea & vomiting (Acute) Ileus following gastrointestinal surgery (Acute) Sigmoid volvulus (Acute) 1. sepsis: * improved * likely d/t aspiration pneumonia * follow up cultures, so far negative 2. aspiration pneumonia * DC Zosyn and change to amp/sulbactam 3. volvulus * mgmt per general surgery. * s/sp colostomy * on CLD 4. paraplegia/TBI * complicates care 5. VTE proph: LMWH. DW patient's mother at bedside Code Visit Inpatient E&M: 82067 Subs Hosp L2
--- NOTE | 2018-09-22 14:23 | PCM.PN.SRG ---
Subjective: Patient with less pain today, feeling improved passing flatus, no bowel movement - Physical Exam General: Alert, Oriented x3 Oral: Moist Mucosa Neck: Supple Lungs: Normal air movement Abdomen: Soft, - - dressings intact, minimal seepage Vital Signs Temp Pulse Resp BP Pulse Ox 98.9 F 78 18 99/50 L 98 09/22/18 09:40 09/22/18 10:43 09/22/18 10:43 09/22/18 09:40 09/22/18 09:40 Oxygen Flow Rate (L/min) 1 Oxygen Delivery Method Room Air Weight: 70.6 kg Body Mass Index (BMI) 22.3 Intake and Output for Last 24 Hours 09/20/18 09/21/18 09/22/18 23:59 23:59 23:59 Intake Total 2093 / 2093 342 / 542 725 / 725 Output Total 275 / 275 Balance 1818 / 1818 342 / 542 725 / 725 Laboratory Tests Past 24 Hrs 09/22/18 09/22/18 06:50 06:50 WBC 8.8 RBC 3.58 L Hgb 10.4 L Hct 32.8 L MCV 91.6 MCH 29.1 MCHC 31.7 L RDW 16.8 H RDW Differential 56.3 H Plt Count 148 L MPV 9.2 Immature Gran % (Auto) 0.100 Neut % (Auto) 80.0 H Lymph % (Auto) 9.5 L [place] % (Auto) 7.2 Eos % (Auto) 3.1 Baso % (Auto) 0.1 Absolute Neuts (auto) 7.0 Absolute Lymphs (auto) 0.83 Total Counted Not Reportable Sodium 142 Potassium 3.7 Chloride 114 H Carbon Dioxide 25.0 Anion Gap 3 L BUN 17 Creatinine 0.78 Estim Creat Clear Calc 97.46 Est GFR (MDRD) Af Amer 101 Est GFR (MDRD) Non-Af 84 BUN/Creatinine Ratio 21.7 H Glucose 108 H Calcium 8.0 L Medical Necessity - Tobacco Use Smoking Status: Current every day smoker Assessment/Plan All Active Problems Aspiration pneumonia (Acute) Sepsis (Acute) Nausea & vomiting (Acute) Ileus following gastrointestinal surgery (Acute) Sigmoid volvulus (Acute) Impression: POD#5 s/p colostomy take down Plan: continue present therapy fever curve is decreasing, and left shift of differential is less patient is clinically improving
[2018-09-22] MEDS: Ondansetron ODT 4 MG Tablet PO (15:14)
[2018-09-22] MEDS: Doxepin Hydrochloride 10 MG Capsule PO (21:51)
[2018-09-22] MEDS: OLANZapine 5 MG/TAB TAB.RAPDIS PO (21:55)
[2018-09-23] VITALS (7 sets, daily range): BP systolic 93–113; BP diastolic 50–60; PULSE 66–77; RESP 16–18; TEMP 36.7–37; O2SAT 93–97
[2018-09-23] MEDS: 0.9% NaCl Peripheral Flush Adult/Peds IV ×3 (00:55→11:16)
[2018-09-23] MEDS: Metoclopramide 10 MG/2 ML Vial IV ×4 (00:55→16:57)
[2018-09-23] MEDS: Acetaminophen 500 MG Tablet 1000 MG PO ×3 (00:57→13:30)
[2018-09-23] MEDS: Levothyroxine 137 MCG Tablet PO (06:37)
[2018-09-23] MEDS: Gabapentin 300 MG Capsule PO ×3 (06:37→22:31)
[2018-09-23] MEDS: Albuterol 2.5 MG/3 ML VIAL.NEB. INHALATION ×3 (07:17→19:09)
--- NOTE | 2018-09-23 10:06 | PN_ITS ---
Patient Problems: Active and Suspected Problems Aspiration pneumonia (Acute) Sepsis (Acute) Sigmoid volvulus (Acute) Subjective: No further fevers. No abdominal pain. Vitals/I&O's: Vital Signs Temp Pulse Resp BP Pulse Ox 36.9 C 66 16 93/50 L 96 09/23/18 03:00 09/23/18 07:17 09/23/18 07:17 09/23/18 03:00 09/23/18 07:17 Oxygen Flow Rate (L/min) 1 Oxygen Delivery Method Room Air Weight: 70.6 kg Body Mass Index (BMI) 22.3 Intake and Output for Last 24 Hours 09/21/18 09/22/18 09/23/18 23:59 23:59 23:59 Intake Total 342 / 542 725 / 1272 735 / 735 Balance 342 / 542 725 / 1272 735 / 735 General: Alert, - - aphasic. nontoxic. afebrile. HEENT: Atraumatic, Normocephalic Oral: Moist Mucosa, No Gingival or Mucosal Lesions/ Ulcerations Neck: No Nodes, Thyroid Normal Size and Texture Lungs: Clear to auscultation, Normal air movement, No rhonchi, No wheeze, No rales Cardiovascular: Regular rate, Regular Rhythm, Normal S1, Normal S2, No murmurs Abdomen: Bowel Sounds Present, Soft, Non Tender, Non-Distended, No Hepato- splenomegaly Extremities: No edema, No Calf Tenderness Skin: No rashes, No breakdown Current Medications Acetaminophen (Tylenol) 1,000 mg PO Q6 [facility] Last Admin: 09/23/18 06:45 Dose: 1,000 mg Documented by: Acetaminophen (Tylenol Liquid) 650 mg PO Q6H PRN PRN PRN Reason: FEVER Last Admin: 09/21/18 07:02 Dose: 650 mg Documented by: Albuterol Sulfate (Ventolin Aerosols) 2.5 mg INHALATION Q4HWA.RT [facility] Last Admin: 09/23/18 07:17 Dose: 2.5 mg Documented by: Docusate Sodium (Colace) 100 mg PO BID [facility] Last Admin: 09/22/18 21:51 Dose: 100 mg Documented by: Doxepin HCl (Sinequan) 10 mg PO QHS [facility] Last Admin: 09/22/18 21:51 Dose: 10 mg Documented by: Enoxaparin Sodium (Lovenox) 40 mg SC DAILY [facility] Last Admin: 09/22/18 09:52 Dose: 40 mg Documented by: Fluticasone Propionate (Flonase Nasal [place]) 2 spray NASAL DAILY [facility] Last Admin: 09/22/18 09:49 Dose: 2 spray Documented by: Fluvoxamine Maleate (Luvox) 50 mg PO BID [facility] Last Admin: 09/22/18 21:51 Dose: 50 mg Documented by: Gabapentin (Neurontin) 300 mg PO TID [facility] Last Admin: 09/23/18 06:37 Dose: 300 mg Documented by: Sodium Chloride () 250 mls @ 15 mls/hr IV .[id number] PRN PRN Reason: SALINE FLUSH Last Admin: 09/21/18 06:43 Dose: 15 mls/hr Documented by: Lactated Ringer's () 1,000 mls @ 60 mls/hr IV .[id number] [facility] Last Admin: 09/20/18 20:48 Dose: 60 mls/hr Documented by: Ampicillin Sodium/Sulbactam (Sodium 3 gm/ Sodium Chloride) 112 mls @ 150 mls/hr IV Q8 [facility] Last Admin: 09/23/18 06:38 Dose: 150 mls/hr Documented by: Levothyroxine Sodium (Synthroid) 137 mcg PO DAILY@0600 [facility] Last Admin: 09/23/18 06:37 Dose: 137 mcg Documented by: Loratadine (Claritin) 10 mg PO DAILY [facility] Last Admin: 09/22/18 09:53 Dose: 10 mg Documented by: Magnesium Oxide (Mag-Ox 400) 400 mg PO DAILY PRN PRN PRN Reason: Constipation Metoclopramide HCl (Reglan) 10 mg IV Q6 [facility] Last Admin: 09/23/18 06:37 Dose: 10 mg Documented by: Morphine Sulfate () 1 mg IV Q4H PRN PRN PRN Reason: SEVERE PAIN (6-10/10) Last Admin: 09/22/18 02:37 Dose: 1 mg Documented by: Nutritional Formula (Lactose Free) (Ensure Enlive) 120 ml PO 4X/DAY [facility] Last Admin: 09/22/18 22:01 Dose: Not Given Documented by: Olanzapine (Zyprexa Zydis) 5 mg PO QHS [facility] Last Admin: 09/22/18 21:55 Dose: 5 mg Documented by: Ondansetron HCl (Zofran Odt) 4 mg PO Q6H PRN PRN PRN Reason: NAUSEA Last Admin: 09/22/18 15:14 Dose: 4 mg Documented by: Orphenadrine Citrate (Norflex Er) 100 mg PO BID [facility] Last Admin: 09/22/18 21:51 Dose: 100 mg Documented by: Oxycodone HCl (Oxyir) 5 - 10 mg PO Q4H PRN PRN PRN Reason: MOD-SEVERE PAIN (4-10/10) Last Admin: 09/22/18 21:51 Dose: 10 mg Documented by: Pantoprazole Sodium (Protonix) 40 mg PO DAILY [facility] Last Admin: 09/22/18 09:52 Dose: 40 mg Documented by: Potassium Chloride (K-Dur) 20 meq PO 1600 [facility] Last Admin: 09/22/18 17:41 Dose: 20 meq Documented by: Promethazine HCl (Phenergan Tablet) 12.5 mg PO BID PRN PRN Reason: NAUSEA Last Admin: 09/18/18 01:10 Dose: 12.5 mg Documented by: Sodium Chloride () 10 - 40 ml IV UD PRN PRN Reason: SALINE FLUSH Last Admin: 09/23/18 06:38 Dose: 10 ml Documented by: Throat Lozenges (Cepacol Sore Throat Lozenge) 1 - 2 lozenge MUCOUS MEM Q2H PRN PRN PRN Reason: SORE THROAT Last Admin: 09/21/18 21:50 Dose: 1 lozenge Documented by: Topiramate (Topamax) 200 mg PO BID [facility] Last Admin: 09/22/18 21:56 Dose: 200 mg Documented by: Medical Necessity - Tobacco Use Smoking Status: Current every day smoker Assessment/Plan All Active Problems Aspiration pneumonia (Acute) Sepsis (Acute) Nausea & vomiting (Acute) Ileus following gastrointestinal surgery (Acute) Sigmoid volvulus (Acute) 1. sepsis: * resolved * likely d/t aspiration pneumonia * cultures so far negative 2. aspiration pneumonia * DC Zosyn and change to amp/sulbactam * can change to amox/clauv acid when taking more adequate PO, would treat through the . 3. volvulus * mgmt per general surgery. * s/sp colostomy * on CLD 4. paraplegia/TBI * complicates care 5. VTE proph: LMWH. DW patient's mother at bedside Code Visit Inpatient E&M: [id number] Subs Hosp L2
[2018-09-23] MEDS: Enoxaparin 40 MG/0.4 ML Syringe SC (11:14)
[2018-09-23] MEDS: Orphenadrine 100 MG Tablet PO ×2 (11:14→22:31)
[2018-09-23] MEDS: Topiramate 200 MG Tablet PO ×2 (11:14→22:43)
[2018-09-23] MEDS: Pantoprazole Sodium 40 MG Tablet PO (11:14)
[2018-09-23] MEDS: Loratadine 10 MG Tablet PO (11:15)
[2018-09-23] MEDS: Docusate Sodium 100 MG Capsule PO ×2 (11:15→22:31)
[2018-09-23] MEDS: Fluticasone 0.05% 1 SPRAY NASAL.SRY 2 SPRAY NASAL (11:15)
[2018-09-23] MEDS: oxyCODONE 5 MG Tablet PO ×2 (11:46→16:55)
--- NOTE | 2018-09-23 11:50 | NURSING ---
feli in pharmacy aware luvox med is not on unit
[2018-09-23] MEDS: fluvoxaMINE Maleate 50 MG Tablet PO ×2 (11:59→22:31)
--- NOTE | 2018-09-23 13:32 | PCM.PN.SRG ---
Subjective: patient complaint of left side abdominal pain and flank pain remains afebrile, she states that she is passing flatus, but no BM - Physical Exam General: Alert, Oriented x3 Oral: Moist Mucosa Neck: Supple Abdomen: Soft - dressings intact Vital Signs Temp Pulse Resp BP Pulse Ox 98.5 F 66 16 93/50 L 96 09/23/18 03:00 09/23/18 11:08 09/23/18 11:08 09/23/18 03:00 09/23/18 07:17 Oxygen Flow Rate (L/min) 1 Oxygen Delivery Method Room Air Weight: 70.6 kg Body Mass Index (BMI) 22.3 Intake and Output for Last 24 Hours 09/21/18 09/22/18 09/23/18 23:59 23:59 23:59 Intake Total 342 / 542 725 / 1272 735 / 735 Balance 342 / 542 725 / 1272 735 / 735 Microbiology Past 72 Hours 09/21/18 07:43 Blood Culture - Preliminary Blood Culture (Wb) - Left Wrist No growth in 48 hours. 09/21/18 07:28 Blood Culture - Preliminary Blood Culture (Wb) - Anticubital Right No growth in 48 hours. 09/21/18 09:15 Urine Culture - Preliminary Urine Catheter - Catheter Gram positive ivy Medical Necessity - Tobacco Use Smoking Status: Current every day smoker Assessment/Plan All Active Problems Aspiration pneumonia (Acute) Sepsis (Acute) Nausea & vomiting (Acute) Ileus following gastrointestinal surgery (Acute) Sigmoid volvulus (Acute) Impression: POD#6 s/p colostomy take down Plan: continue present therapy will obtain KUB for am pain may be due gas pain/distention
[2018-09-23] MEDS: Magnesium Oxide 400 MG Tablet PO (16:55)
--- NOTE | 2018-09-23 18:45 | NURSING ---
MOM CALLED IN AROUND 1500ISH TO CHECK ON PT. TOLD HER ABOUT NEW C/O LT FLANK PAIN, DR HUDSON IS AWARE AND GLENYS ORDERED FOR AM. MOM STATES THIS IS NOT NEW FOR PT, PROBABLY NEW FOR THE NURSES BECAUSE SHE HASNT SAID ANYTHING TO THE NURSES BEFORE.
[2018-09-23] MEDS: OLANZapine 5 MG/TAB TAB.RAPDIS PO (22:31)
[2018-09-23] MEDS: Doxepin Hydrochloride 10 MG Capsule PO (22:31)
[2018-09-23] MEDS: 0.9% NaCl IVPB Med Flush (250 mL) 15 ML IV (22:44)
[2018-09-24] VITALS (8 sets, daily range): BP systolic 94–119; BP diastolic 49–82; PULSE 65–78; RESP 16–18; TEMP 36.5–37.1; O2SAT 93–99
[2018-09-24] MEDS: 0.9% NaCl Peripheral Flush Adult/Peds IV ×2 (00:31→06:03)
[2018-09-24] MEDS: Metoclopramide 10 MG/2 ML Vial IV ×5 (00:32→23:54)
[2018-09-24] MEDS: Acetaminophen 500 MG Tablet 1000 MG PO ×4 (00:35→17:09)
[2018-09-24] MEDS: Gabapentin 300 MG Capsule PO ×3 (05:50→21:23)
[2018-09-24] MEDS: Levothyroxine 137 MCG Tablet PO (05:50)
--- NOTE | 2018-09-24 05:55 | RAD_ITS ---
STUDY: X-RAY - ABDOMEN/PELVIS REASON FOR EXAM: Female, 47 years old. Colostomy takedown. TECHNIQUE: AP supine and decubitus views of the abdomen and pelvis. COMPARISON: None. FINDINGS: Increased markings at the lung bases suggestive of atelectasis with elevation of the right hemidiaphragm. There is gaseous distention of the colon, most compatible with a colonic ileus. There is no demonstrated free abdominal air. The visualized liver, spleen and kidneys are grossly normal in size and morphology. Surgical clips are seen in the left lower quadrant. Evidence of prior bilateral tubal ligation. Normal visualized osseous structures. RAD/Abdomen Single View IMPRESSION: Findings suggestive of a colonic ileus. Electronically Signed: Fawad Bender, at 10:22 EDT , Service support ,
[2018-09-24] MEDS: Albuterol 2.5 MG/3 ML VIAL.NEB. INHALATION ×3 (07:14→15:03)
[2018-09-24] MEDS: Ensure Clear 120 ML Liquid PO ×3 (09:00→17:07)
[2018-09-24] MEDS: Loratadine 10 MG Tablet PO (09:01)
[2018-09-24] MEDS: Docusate Sodium 100 MG Capsule PO ×2 (09:01→21:22)
[2018-09-24] MEDS: Fluticasone 0.05% 1 SPRAY NASAL.SRY 2 SPRAY NASAL (09:01)
[2018-09-24] MEDS: fluvoxaMINE Maleate 50 MG Tablet PO ×2 (09:02→21:21)
[2018-09-24] MEDS: Pantoprazole Sodium 40 MG Tablet PO (09:02)
[2018-09-24] MEDS: Enoxaparin 40 MG/0.4 ML Syringe SC (09:02)
[2018-09-24] MEDS: Topiramate 200 MG Tablet PO ×2 (09:03→21:21)
[2018-09-24] MEDS: Orphenadrine 100 MG Tablet PO ×2 (09:03→21:32)
[2018-09-24] MEDS: oxyCODONE 5 MG Tablet PO ×2 (09:14→21:21)
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
--- NOTE | 2018-09-24 13:30 | RAD_ITS ---
STUDY: SWALLOWING STUDY REASON FOR EXAM: Female, 47 years old. Dysphagia. TECHNIQUE: The examination was performed with Speech Pathology in attendance. Under fluoroscopic observation, the patient ingested thin barium, thick barium, barium pudding, and barium coated cracker. FLUOROSCOPY TIME: 3:13 minutes/seconds. 1939 images were obtained. RADIOLOGIST INVOLVEMENT: Radiologist was present and providing direct supervision. COMPARISON: None. FINDINGS: The following was observed during swallowing of the various mixtures of barium: Thin Barium: Aspiration with ingestion of thin liquids. Thick Barium: There was no evidence of aspiration or laryngeal penetration. Barium Pudding: There was no evidence of aspiration or laryngeal penetration. Barium Coated Cracker: There was no evidence of aspiration or laryngeal penetration. RAD/Swallowing Function w/Video IMPRESSION: Aspiration with ingestion of thin liquids. The swallow study findings were discussed with the patient by the speech pathologist at the conclusion of the examination. Please see speech pathology report for more information and recommendations. Electronically Signed: Fawad Bender, at 15:12 EDT , Service support ,
[2018-09-24] MEDS: Ondansetron ODT 4 MG Tablet PO (17:07)
[2018-09-24] MEDS: OLANZapine 5 MG/TAB TAB.RAPDIS PO (21:21)
[2018-09-24] MEDS: Doxepin Hydrochloride 10 MG Capsule PO (21:21)
[2018-09-24] MEDS: Nystatin Powder 15gm Bottle 1 APPLIC TOPICAL (21:22)
[2018-09-24] MEDS: 0.9% NaCl IVPB Med Flush (250 mL) 15 ML IV (23:54)
[2018-09-25] MEDS: Levothyroxine 137 MCG Tablet PO (05:42)
[2018-09-25] MEDS: Acetaminophen 500 MG Tablet 1000 MG PO ×2 (05:43→12:40)
[2018-09-25] MEDS: Gabapentin 300 MG Capsule PO (05:43)
[2018-09-25] MEDS: Metoclopramide 10 MG/2 ML Vial IV ×2 (05:43→12:38)
--- NOTE | 2018-09-25 06:58 | DCINST_ITS ---
Discharge Diet: - - recommended diet Discharge Activity: May Not Drive - for 1 week or while taking narcotic pain meds. May shower in (days): 1 Lifting Restrictions: 10 pounds Call your doctor if your incision/area has: Continuous Slow Oozing, Sudden Increased Bleeding, Increased Pain/ Swelling, Increased Redness, Foul Smelling Discharge Call your doctor if you observe: Fever of 101 or Higher Suture Line Care: Avoid Pulling/Pushing, Avoid Pinching/Bending Additional Dressing/Incision Instructions:: Change or remove dressing in 4 days. Leave steri-strips in place for 1 week. Allergies/Adverse Reactions: Allergies amoxicillin [Amoxicillin] Allergy (Verified 09/17/18 13:37) Unknown naproxen Allergy (Verified 09/17/18 13:37) Unknown NSAIDS (Non-Steroidal Anti-Inflamma Allergy (Verified 09/17/18 13:37) Unknown phenytoin Allergy (Verified 09/17/18 13:37) Unknown pineapple [Pineapple] Allergy (Verified 09/17/18 13:37) Unknown mold Allergy (Uncoded 09/17/18 13:37) Shortness of breath SEASONAL ALLERGIES Allergy (Uncoded 09/17/18 13:37) Unknown Medications to take at Discharge Cetirizine HCl [All Day Allergy] 10 mg PO DAILY 02/29/16 Docusate Sodium [Colace] 100 mg PO BID PRN 02/29/16 Doxepin HCl 10 mg PO QHS 02/29/16 Fluvoxamine Maleate [Luvox] 50 mg PO BID 02/29/16 Gabapentin [Neurontin] 300 mg PO TID 02/29/16 Levothyroxine [Synthroid] 137 mcg PO DAILY 02/29/16 Magnesium Oxide 400 mg PO DAILY 02/29/16 Olanzapine 5 mg PO QHS 02/29/16 Omeprazole [Prilosec] 40 mg PO DAILY 02/29/16 Orphenadrine [Norflex] 100 mg PO BID 02/29/16 Iron Polysaccharide Complex [Ferrex 150] 150 mg PO BIDCM 05/25/17 Potassium Chloride [K-Dur] 20 meq PO 1600 05/25/17 Topiramate [Topamax] 200 mg PO BID 05/25/17 Lutein 6 mg PO DAILY 06/01/17 Multivitamin [Multiple Vitamins] 1 each PO DAILY 05/30/18 Rivaroxaban [Xarelto] 20 mg PO DAILY 08/09/17 Lactobacillus Acidophilus [Acidophilus] 1 tablet PO DAILY 02/15/18 Pyridoxine HCl [Vitamin B-6] 100 mg PO DAILY 02/15/18 Ensure Enlive 120 ml PO 4X/DAY #120 liquid 07/12/18 Acetaminophen Liquid [Tylenol Liquid] 650 mg PO Q6H PRN PRN udc 09/25/18 Acetaminophen [Tylenol] 1,000 mg PO Q6 tab 09/25/18 Docusate Sodium [Colace] 100 mg PO BID cap 09/25/18 Fluticasone 0.05% [Flonase Nasal [place]] 2 spray NASAL DAILY nasal.sry 09/25/18 Magnesium Oxide [Mag-Ox 400] 400 mg PO DAILY PRN PRN tab 09/25/18 Nystatin Powder [Mycostatin Powder] 1 applic TOPICAL BID bottle 09/25/18 Primary Care Physician: Stu Calderon MD [Primary Care Provider] - Test Results: Test results from this visit will be discussed in further detail at your follow- up appointment, if applicable. Please Follow Up With: Oliverio Garcia MD - [phone] When: Call to make an appointment to be seen in about 7-10 days.
[2018-09-25 07:10] LABS: Anion Gap 5 (5-15); BUN 11 mg/dL (7-18); Chloride 116 mmol/L (98-107); Creatinine, Serum 0.69 mg/dL (0.55-1.02); EST Glomerular Filtration Rate 97 mL/min (>60); Est Glom Filt Rate - Afr Amer 118 mL/min (>60); Estimated Creatinine Clearance 110.17 ml/min; Glucose 87 mg/dL (74-106); Potassium 3.9 mmol/L (3.5-5.1); Sodium Level 141 mmol/L (136-145)
[2018-09-25 07:11] VITALS: PULSE 64; RESP 20; O2SAT 92
[2018-09-25] MEDS: Albuterol 2.5 MG/3 ML VIAL.NEB. INHALATION ×2 (07:11→11:03)
[2018-09-25 08:19] VITALS: BP 95/54; PULSE 63; RESP 16; TEMP 37.1; O2SAT 92
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
[2018-09-25 09:32] LABS: Hematocrit 33.6 % (37-47); Hemoglobin 10.5 g/dL (12.0-15.0); Lymphocyte % 27.3 % (19-41); Mean Corp Hgb Conc 31.3 g/gl (32-36); Mean Corpuscular Hgb 28.7 pg (27.0-32.0); Mean Corpuscular Volume 91.8 fL (81-99); Mean Platelet Vol. 11.2 fl (6.2-12.0); Monocyte% 9.8 % (0-10); Neutrophil % 54.9 % (47-70); Platelet Count 136 K/mm3 (150-450); RBC Distribution Width CV 17.2 % (11.6-14.6); RBC Distribution Width SD 58.4 fl (35.1-43.9); Red Blood Count 3.66 M/mm3 (4.2-5.4); White Blood Count 4.1 K/mm3 (4.4-11.0)
[2018-09-25 09:33] LABS: Absolute Lymphocyte Count 1.11 X10^3/ul (0.83-4.51); Absolute Neutrophil Count 2.2 X10^3/uL (2.0-7.7); Basophil# 0.03 X10^3/uL; Basophil% 0.7 % (0-1); Differential Indicated SCAN CRITERIA MET; Eosinophil# 0.27 X10^3/uL; Eosinophils% 6.6 % (0-5); Lymphocyte # 1.11 X10^3/ul (4.0); POSITIVE COUNT YES; POSITIVE DIFFERENTIAL NO; POSITIVE MORPHOLOGY YES
[2018-09-25] MEDS: Orphenadrine 100 MG Tablet PO (10:22)
[2018-09-25] MEDS: Loratadine 10 MG Tablet PO (10:22)
[2018-09-25] MEDS: Pantoprazole Sodium 40 MG Tablet PO (10:22)
[2018-09-25] MEDS: fluvoxaMINE Maleate 50 MG Tablet PO (10:22)
[2018-09-25] MEDS: Fluticasone 0.05% 1 SPRAY NASAL.SRY 2 SPRAY NASAL (10:22)
[2018-09-25] MEDS: Topiramate 200 MG Tablet PO (10:22)
[2018-09-25] MEDS: Enoxaparin 40 MG/0.4 ML Syringe SC (10:22)
[2018-09-25] MEDS: Docusate Sodium 100 MG Capsule PO (10:22)
[2018-09-25] MEDS: Nystatin Powder 15gm Bottle 1 APPLIC TOPICAL (10:23)
[2018-09-25 10:25] VITALS: PULSE 68
[2018-09-25 11:03] VITALS: RESP 18
--- NOTE | 2018-09-25 12:04 | PN.SURG_ITS ---
Subjective: some distention, passing flatus - Physical Exam General: Cooperative Lungs: - - decreased bases Cardiovascular: Regular rate, Regular Rhythm Abdomen: Bowel Sounds Present, Soft, - - mildly distended Vital Signs Temp Pulse Resp BP Pulse Ox 98.7 F 68 18 95/54 L 92 09/25/18 08:19 09/25/18 10:25 09/25/18 11:03 09/25/18 08:19 09/25/18 08:19 Oxygen Flow Rate (L/min) 1 Oxygen Delivery Method Room Air Weight: 70.6 kg Body Mass Index (BMI) 22.3 Intake and Output for Last 24 Hours 09/23/18 09/24/18 09/25/18 23:59 23:59 23:59 Intake Total 1035 / 1749 1602 / 1602 86 / 86 Output Total 275 / 275 Balance 1035 / 1749 1327 / 1327 86 / 86 Microbiology Past 72 Hours 09/21/18 09:15 Urine Culture - Final Urine Catheter - Catheter Turicella otitidis 09/21/18 07:43 Blood Culture - Preliminary Blood Culture (Wb) - Left Wrist No growth in 48 hours. 09/21/18 07:28 Blood Culture - Preliminary Blood Culture (Wb) - Anticubital Right No growth in 48 hours. Laboratory Tests Past 24 Hrs 09/25/18 09/25/18 09/25/18 06:23 06:23 08:30 WBC Cancelled 4.1 L Corrected WBC Cancelled RBC Cancelled 3.66 L Hgb Cancelled 10.5 L Hct Cancelled 33.6 L MCV Cancelled 91.8 MCH Cancelled 28.7 MCHC Cancelled 31.3 L RDW Pending RDW Differential Pending RDW Std Deviation Cancelled 58.4 H RDW Coeff of Tracy Cancelled 17.2 H Plt Count Cancelled 136 L MPV Cancelled 11.2 Immature Gran % (Auto) Cancelled 0.500 Neut % (Auto) Cancelled 54.9 Lymph % (Auto) Cancelled 27.3 [place] % (Auto) Cancelled 9.8 Eos % (Auto) Cancelled 6.6 H Baso % (Auto) Cancelled 0.7 Absolute Neuts (auto) Cancelled 2.2 Absolute Lymphs (auto) Cancelled 1.11 Total Counted Cancelled Neutrophils % (Manual) Cancelled Band Neutrophils % Cancelled Lymphocytes % (Manual) Cancelled Monocytes % (Manual) Cancelled Eosinophils % (Manual) Cancelled Basophils % (Manual) Cancelled Metamyelocytes % Cancelled Myelocytes % Cancelled Promyelocytes % Cancelled Blast Cells % Cancelled Plasma Cell % (Manual) Cancelled Other Cells % Cancelled Nucleated RBCs/100 WBC Cancelled Differential Comment Cancelled COMMENT Diff Path Review Cancelled Hypersegmented Neuts Cancelled Atypical Lymphocytes Cancelled Reactive Lymphocytes Cancelled Smudge Cells Cancelled Toxic Granulation Cancelled Toxic Vacuolation Cancelled Dohle Bodies Cancelled Idris Rods Cancelled Platelet Estimate Cancelled Plt Morphology Comment Cancelled RBC Morphology Cancelled Polychromasia Cancelled Hypochromasia Cancelled Poikilocytosis Cancelled Basophilic Stippling Cancelled Anisocytosis Cancelled Microcytosis Cancelled Macrocytosis Cancelled Spherocytes Cancelled Sickle Cells Cancelled Target Cells Cancelled Tear Drop Cells Cancelled Ovalocytes Cancelled Stomatocytes Cancelled [place] Bodies Cancelled [place] Cells Cancelled Bite Cells Cancelled Crenated Cell Cancelled Acanthocytes (Spur) Cancelled Rouleaux Cancelled Schistocytes Cancelled Sodium 141 Potassium 3.9 Chloride 116 H Carbon Dioxide 20.0 L Anion Gap 5 BUN 11 Creatinine 0.69 Estim Creat Clear Calc 110.17 Est GFR (MDRD) Af Amer 118 Est GFR (MDRD) Non-Af 97 BUN/Creatinine Ratio 16.0 Glucose 87 Calcium 8.0 L Medical Necessity - Tobacco Use Smoking Status: Current every day smoker Assessment/Plan All Active Problems Aspiration pneumonia (Acute) Sepsis (Acute) Nausea & vomiting (Acute) Ileus following gastrointestinal surgery (Acute) Sigmoid volvulus (Acute) POD # 7 s/p laparoscopic colostomy takedown with short segment resections of the proximal and distal margins patient for swallowing study today. SCD's Patient with decreased Sa02 overnight and fever to 101 - likely hypoventilation from colon distention and mucous plugging. Will start antibiotics, out of bed, in chair, mucomyst and percussion vest.- pulmonary status improving. flatus and bowel movement. Last but still mildly distended. encourage deep breathing will add lovenox
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
[2018-09-25 12:46] VITALS: BP 90/45; PULSE 70; RESP 16; TEMP 36.8; O2SAT 98
--- NOTE | 2018-09-26 08:05 | CASEMGMT ---
Social Work: TC to Toya Kc at the [employer] ext# [phone]. Toya aware of patient D/C yesterday back home with continued aid services. DARRELL Turcios
== END 2018-09-25 13:30 | disposition home or self-care (01) | DRG 330 ==
LOC: ACINP 15:48 → MS2 20:51 → MS3 09-22 14:07
PROVIDERS: Internal Medicine; Admitting Provider Surgery; Family Provider Family Medicine; PCP Family Medicine; Referring Provider Surgery; Visit Provider Family Medicine
PROC: 0D1E4Z4 Bypass Large Intestine to Cutaneous, Percutaneous Endoscopic Approach (ICD-10-PCS; CPT 44188; principal; 2018-09-17 14:15)
DX: Z43.3 Encounter for attention to colostomy (principal); G82.20 Paraplegia, unspecified; K56.7 Ileus, unspecified; N83.201 Unspecified ovarian cyst, right side; E03.9 Hypothyroidism, unspecified; N31.9 Neuromuscular dysfunction of bladder, unspecified; D50.9 Iron deficiency anemia, unspecified; Z86.711 Personal history of pulmonary embolism; Z79.01 Long term (current) use of anticoagulants; S09.90XS Unspecified injury of head, sequela; V89.2XXS Person injured in unspecified motor-vehicle accident, traffic, sequela; M54.9 Dorsalgia, unspecified; G89.29 Other chronic pain; M79.606 Pain in leg, unspecified
CPT/HCPCS: 36415; 71045; 74018; 74019; 74230; 80048; 80053; 81001; 83880; 85025; 85027; 87040; 87077; 87086; 87088; 88304; 88305; 92526; 92610; 92611; 94640; 94667; 94668; 94762; 97110; 97162; 97165; 97530; 97803; J7050; J7120; A4216; J0295; J2405

== ENCOUNTER 2018-10-08 17:52 | Emergency (ER) | payer MEDICARE, MEDICAID, SELFPAY ==
[2018-09-17 20:55] VITALS: BMI 22.3
[2018-10-08 17:55] VITALS: BP 101/54; PULSE 84; RESP 16; TEMP 36.9; O2SAT 98; BMI 22.3
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
[2018-10-08] MEDS: Morphine 4 MG/ML Syringe IV ×2 (18:48→21:28)
[2018-10-08] MEDS: Ondansetron 4 MG/2 ML Vial IV (18:48)
[2018-10-08] MEDS: 0.9% Normal Saline 1,000 ML 1000 ML IV (18:48)
--- NOTE | 2018-10-08 18:50 | RAD_ITS ---
STUDY: X-RAY - ABDOMEN/PELVIS REASON FOR EXAM: Female, 47 years old. Pain TECHNIQUE: Frontal views of the abdomen obtained COMPARISON: X-ray abdomen September 24, 2017 FINDINGS: There is no bowel obstruction. There is moderate gaseous distention of the small and large bowel. There is air and stool to the level of the rectum. The visualized osseous structures are within normal limits. An IUD is noted. RAD/Abdomen Single View (Portable) IMPRESSION: No bowel obstruction. Gaseous distention of the small and large bowel, suggesting ileus. Electronically Signed: Ildefonso Abdi, at 19:12 EDT Tel , Service support ,
[2018-10-08 18:57] LABS: Absolute Lymphocyte Count 1.11 X10^3/uL (0.83-4.51); Absolute Neutrophil Count 8.3 X10^3/uL (2.0-7.7); Basophil# 0.03 X10^3/uL; Basophil% 0.3 % (0-1); Eosinophil# 0.04 X10^3/uL; Eosinophils% 0.4 % (0-5); Hematocrit 39.7 % (37-47); Hemoglobin 12.5 g/dL (12.0-15.0); Lymphocyte # 1.11 X10^3/ul (4.0); Mean Corp Hgb Conc 31.5 g/dL (32-36); Mean Corpuscular Hgb 29.6 pg (27.0-32.0); Mean Corpuscular Volume 94.1 fL (81-99); Mean Platelet Vol. 9.8 fl (6.2-12.0); Monocyte# 1.57 X10^3/uL; Monocyte% 14.2 % (0-10); NRBC Flagged by Analyzer 0 % (0-5); Neutrophil # 8.27 X10^3/uL (2.7-7.7); Neutrophil % 74.6 % (47-70); POSITIVE DIFFERENTIAL YES; Platelet Count 322 K/mm3 (150-450); RBC Distribution Width CV 17.1 % (11.6-14.6); RBC Distribution Width SD 59.4 fl (35.1-43.9); Red Blood Count 4.22 M/mm3 (4.2-5.4); White Blood Count 11.1 K/mm3 (4.4-11.0)
[2018-10-08 19:05] LABS: Differential Indicated SCAN CRITERIA MET
[2018-10-08 19:08] LABS: Internal QC Validated? YES +Cl - CLEAR BKGD; Pregnancy, Serum, hCG Quali. NEGATIVE Negative
[2018-10-08 19:24] LABS: Anisocytosis 1+; Macrocytosis 1+; Platelet Estimate ADEQUATE (ADEQ)
[2018-10-08 19:29] LABS: AST(SGOT) 59 U/L (15-37); Alanine Aminotransfer ALT/SGPT 85 U/L (13-56); Albumin, Serum 3.4 g/dL (3.2-5.0); Alkaline Phosphatase 121 U/L (45-117); Anion Gap 9 (5-15); BUN 17 mg/dL (7-18); Bilirubin, Direct 0.22 mg/dL (0.00-0.30); Calcium,Total 8.8 mg/dL (8.5-10.1); Chloride 107 mmol/L (98-107); Creatinine, Serum 1.06 mg/dL (0.55-1.02); EST Glomerular Filtration Rate 59 mL/min (>60); Est Glom Filt Rate - Afr Amer 72 mL/min (>60); Estimated Creatinine Clearance 74.12 ml/min; Globulin 4.3 g/dL (2.2-4.2); Glucose 98 mg/dL (74-106); Lipase 85 U/L (73-393); Potassium 3.6 mmol/L (3.5-5.1); Protein, Total 7.7 g/dL (6.4-8.2); Sodium Level 141 mmol/L (136-145)
[2018-10-08 19:47] LABS: Bacteria 0 SEEN /hpf (None Seen); Mucous, Urine 0 SEEN /hpf (<or=2+); Squamous Epithelial Cells - UA 0 SEEN /hpf (5-10); White Blood Cells 0 SEEN /hpf (0-5)
[2018-10-08 20:44] LABS: Color, Urine Yellow (Yellow); Glucose, Dipstick Normal (Normal); Ketone-Dipstick Negative (Negative); Leukocyte Esterase-Dipstick 25 /ul (Negative); Nitrite-Dipstick Negative (Negative); Occult Blood-Urine 10 /ul (Negative); Protein-Dipstick Negative (Negative); Specific Gravity, Urine 1.015 (1.002-1.030); Urine Bilirubin Dipstick Negative (Negative); Urine Clarity Clear (Clear); Urine Urobilinogen Normal (Normal)
[2018-10-08 20:48] LABS: Amorphous Sediment 1+; Red Blood Cells-Urine 0-5 SEEN /hpf (0-5)
--- NOTE | 2018-10-08 21:18 | ED.DEP ---
ED Disposition - Plan for ED Patient: Disposition: Home or Assisted Living Instructions: ABDOMINAL PAIN, Unknown Cause, (Female) Prescriptions: Simethicone [Gas-X] 125 mg PO 4X/DAY PRN PRN #20 tab.chew PRN Reason: Gas Prescription Printed Referrals: Stu Calderon MD [Primary Care Provider] - 3-5 Days if not improving Additional Instructions: Follow-up with primary care physician. Gas-X as needed for excessive gas. Return for fever, intractable vomiting or worsening
[2018-10-08 21:32] VITALS: PULSE 82; RESP 18; O2SAT 92
[2018-10-08 21:33] VITALS: BP 92/58; PULSE 81; RESP 18; O2SAT 92
[2018-10-10 15:41] LABS: Pathologist Review Reviewed
== END 2018-10-08 21:34 | disposition home or self-care (01) ==
PROVIDERS: Emergency Provider Emergency Medicine; Family Provider Family Medicine; PCP Family Medicine
DX: R14.1 Gas pain (principal); R10.9 Unspecified abdominal pain; D64.9 Anemia, unspecified; Z87.820 Personal history of traumatic brain injury; Z86.718 Personal history of other venous thrombosis and embolism; Z79.02 Long term (current) use of antithrombotics/antiplatelets; Z72.0 Tobacco use; Z79.899 Other long term (current) drug therapy
CPT/HCPCS: 74018; 80048; 80076; 81001; 83690; 84703; 85025; 96361; 96374; 96375; 96376; 99285; J7030; P9612; A4216; J2405

== ENCOUNTER 2018-10-13 23:27 | Emergency (ER) | payer MEDICARE, MEDICAID, SELFPAY ==
[2018-10-13 23:30] VITALS: BP 105/71; PULSE 56; RESP 14; TEMP 36.9; O2SAT 98; BMI 21.4
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
[2018-10-14 00:22] LABS: Absolute Lymphocyte Count 2.04 X10^3/uL (0.83-4.51); Basophil# 0.02 X10^3/uL; Basophil% 0.3 % (0-1); Eosinophil# 0.39 X10^3/uL; Eosinophils% 6.3 % (0-5); Hematocrit 35.6 % (37-47); Hemoglobin 11.5 g/dL (12.0-15.0); Lymphocyte # 2.04 X10^3/ul (4.0); Lymphocyte % 32.8 % (19-41); Mean Corp Hgb Conc 32.3 g/dL (32-36); Mean Corpuscular Hgb 29.6 pg (27.0-32.0); Mean Corpuscular Volume 91.5 fL (81-99); Mean Platelet Vol. 9.2 fl (6.2-12.0); Monocyte# 0.71 X10^3/uL; Monocyte% 11.4 % (0-10); NRBC Flagged by Analyzer 0 % (0-5); Neutrophil # 3.04 X10^3/uL (2.7-7.7); Neutrophil % 48.9 % (47-70); Platelet Count 231 K/mm3 (150-450); RBC Distribution Width SD 54.1 fl (35.1-43.9); Red Blood Count 3.89 M/mm3 (4.2-5.4); White Blood Count 6.2 K/mm3 (4.4-11.0)
[2018-10-14 00:41] LABS: ALB/GLOB Ratio 0.7 RATIO (0.9-2.4); AST(SGOT) 77 U/L (15-37); Alanine Aminotransfer ALT/SGPT 140 U/L (13-56); Albumin, Serum 2.8 g/dL (3.2-5.0); Alkaline Phosphatase 108 U/L (45-117); Anion Gap 6 (5-15); BUN 13 mg/dL (7-18); BUN/Creat Ratio 16.3 RATIO (10-20); CPK Total, Creatine Kinase 20 U/L (26-192); Calcium,Total 8.5 mg/dL (8.5-10.1); Chloride 113 mmol/L (98-107); EST Glomerular Filtration Rate 82 mL/min (>60); Est Glom Filt Rate - Afr Amer 100 mL/min (>60); Estimated Creatinine Clearance 99.41 ml/min; Globulin 4.2 g/dL (2.2-4.2); Glucose 93 mg/dL (74-106); Potassium 3.5 mmol/L (3.5-5.1); Sodium Level 141 mmol/L (136-145)
--- NOTE | 2018-10-14 00:54 | ED.DEP ---
ED Disposition - Plan for ED Patient: Instructions: ED Chronic Pain Referrals: Stu Calderon MD [Primary Care Provider] -
[2018-10-14 01:10] VITALS: BP 111/75; PULSE 50; RESP 15; O2SAT 95
[2018-10-14 01:43] VITALS: BP 111/75; PULSE 50; RESP 15; O2SAT 95
== END 2018-10-14 01:44 | disposition home or self-care (01) ==
PROVIDERS: Emergency Provider Emergency Medicine; Family Provider Family Medicine; PCP Family Medicine
DX: G89.29 Other chronic pain (principal); Z87.820 Personal history of traumatic brain injury
CPT/HCPCS: 36415; 80053; 82550; 85025; 99283

== ENCOUNTER 2018-12-17 09:54 | Day surgery (SDC) | payer MEDICARE, MEDICAID, SELFPAY ==
[2018-12-17] VITALS (7 sets, daily range): BP systolic 85–98; BP diastolic 55–67; PULSE 48–52; RESP 16–18; TEMP 36.2–36.7; O2SAT 98–100; BMI 20.9
[2018-12-17] MEDS: Lactated Ringers 1,000 ML 100 ML IV (10:44)
--- NOTE | 2018-12-17 11:10 | RAD_ITS ---
PROCEDURE: DATE OF EXAMINATION: 12/17/2018 INDICATION: Female, 48 years old. PHYSICIAN: Jhonatan FLUOROSCOPY TIME (if supplied): (0:29) minutes/seconds RADIATION DOSAGE (If Supplied By Facility): CTDIvol = ( 3.66 ) mGy, DLP = ( ) mGycm 3 fluoroscopic images were taken RAD/Fluor Guidance for Spine Inj IMPRESSION: 3 fluoroscopic images were obtained Electronically Signed: Josh Chandra, at 14:21 EDT Tel , Service support ,
[2018-12-17] MEDS: Bupivacaine 0.25% 30 ML Vial (11:11)
[2018-12-17] MEDS: MethylPREDNISolone Acetate 80 MG/ML Vial (11:11)
--- NOTE | 2018-12-17 12:37 | PCM.OPRPT ---
Report of Operation Date of Procedure: 12/17/18 Description of Surgical Findings:: PREOPERATIVE DIAGNOSIS: Lumbosacral radiculopathy, lumbosacral degenerative disc disease, lumbosacral spinal stenosis POSTOPERATIVE DIAGNOSIS: Lumbar sacral radiculopathy, lumbosacral degenerative disc disease, lumbosacral spinal stenosis PROCEDURE PERFORMED: Diagnostic/therapeutic caudal epidural steroid injection. ANESTHESIA: MAC. BLOOD LOSS: Minimal. COMPLICATIONS: None. DESCRIPTION OF PROCEDURE: History and physical of today was reviewed. Risks and benefits of the procedure were explained. The patient understood and agreed to proceed. Informed consent was obtained. IV inserted per routine protocol. The patient was taken to the operating room and placed in the prone position with a pillow positioned underneath the abdomen. The lower back and tailbone area was prepped and draped in a sterile fashion using iodine x3. Under fluoroscopy guidance on a lateral view, the caudal space was identified. The skin and subcutaneous tissue was anesthetized with approximately 3 mL of 1% lidocaine using a 25-gauge regular needle. Under direct visualization with fluoroscopy, using a 22-gauge 3-1/2-inch spinal needle, the needle was advanced via the skin through the sacral hiatus. The tip of the needle was passed through the sacrococcygeal ligament and advanced to approximately S4 area. After negative aspiration of blood or CSF, a total of 3 mL of contrast was injected to confirm correct placement of the needle as well as cephalad spread. The spread was followed to approximately L5 area. After confirmation on AP as well as lateral view and repeated negative aspiration, a total of 15 mL of preservative-free 0.125% Marcaine with 80 mg of Depo-Medrol was injected easily. The needle was then removed intact. The patient experienced no sign or symptoms of intrathecal or intravascular injection. The patient experienced no paresthesia. The procedure was completed without any apparent difficulty or any complications. The patient appeared to tolerate it well. ASSESSMENT AND PLAN: This is an 48-year-old female with lumbosacral radiculopathy, lumbosacral degenerative disc disease, lumbosacral spinal stenosis status post diagnostic/therapeutic caudal epidural steroid injection patient will continue her current medications patient found approximately 2 weeks for reevaluation.
== END 2018-12-17 12:49 | disposition home or self-care (01) ==
LOC: SDC 09:55 → AC 09:57
PROVIDERS: Family Provider Family Medicine; PCP Family Medicine; Referring Provider Anesthesiology Pain Medicine; Visit Provider Anesthesiology Pain Medicine
PROC: 3E0S3BZ Introduction of Anesthetic Agent into Epidural Space, Percutaneous Approach (ICD-10-PCS; CPT 62282; principal; 2018-12-17 11:05)
DX: M48.07 Spinal stenosis, lumbosacral region (principal); M51.17 Intervertebral disc disorders with radiculopathy, lumbosacral region; M96.1 Postlaminectomy syndrome, not elsewhere classified; E03.9 Hypothyroidism, unspecified; D64.9 Anemia, unspecified; M19.90 Unspecified osteoarthritis, unspecified site; F42.9 Obsessive-compulsive disorder, unspecified; K29.70 Gastritis, unspecified, without bleeding; F10.11 Alcohol abuse, in remission; G81.01 Flaccid hemiplegia affecting right dominant side; K21.9 Gastro-esophageal reflux disease without esophagitis; E78.00 Pure hypercholesterolemia, unspecified; F41.9 Anxiety disorder, unspecified; F32.9 Major depressive disorder, single episode, unspecified; F17.210 Nicotine dependence, cigarettes, uncomplicated; Z87.820 Personal history of traumatic brain injury; Z86.711 Personal history of pulmonary embolism; Z86.718 Personal history of other venous thrombosis and embolism; Z79.02 Long term (current) use of antithrombotics/antiplatelets; Z79.899 Other long term (current) drug therapy; Z79.891 Long term (current) use of opiate analgesic; R07.9 Chest pain, unspecified
CPT/HCPCS: 01992; 62323; 64520; 36415; 64483; 71046; 77003; 80048; 84484; 85025; 93005; 96361; 96374; J7040; J7120; A4216; J3490

== ENCOUNTER 2018-12-17 23:49 | Emergency (ER) | payer MEDICARE, MEDICAID, SELFPAY ==
[2018-12-17 10:28] VITALS: BMI 20.9
[2018-12-17 23:50] VITALS: BP 88/55; PULSE 61; RESP 14; TEMP 36.8; O2SAT 98; BMI 34.0
--- NOTE | 2018-12-18 00:16 | EKG12_ITS ---
Test Reason : DYSRHYTHMIA Blood Pressure : / mmHG Vent. Rate : 059 BPM Atrial Rate : 059 BPM P-R Int : 160 ms QRS Dur : 082 ms QT Int : 442 ms P-R-T Axes : 046 -24 019 degrees QTc Int : 437 ms Sinus bradycardia Inferior infarct (cited on or before 29-JUN-2018) Cannot rule out Anterior infarct , age undetermined Abnormal ECG Confirmed by JOCELYNE COREA, NESSA ([id number]), graphic editor RY BURCIAGA ([id number]) on 12/19/2018 1:35:46 PM Referred By: MANA Confirmed By:NESSA CASANOVA MD
--- NOTE | 2018-12-18 00:16 | RAD_ITS ---
STUDY: X-RAY CHEST REASON FOR EXAM: Female, 48 years old. Chest pain TECHNIQUE: 1 view COMPARISON: September 20, 2018 FINDINGS: There is a thoracic scoliosis with convexity to the right. The heart is at the upper limits of normal in size. The lungs are clear. Normal visualized thoracic spine. Normal visualized ribs, clavicles, and shoulders. The splenic flexure is moderately distended RAD/Chest PA and Lateral IMPRESSION: No acute findings in the lungs. A slightly distended splenic flexure Electronically Signed: Hadley Otto MD at 0:47 EDT Tel , Service support ,
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
[2018-12-18 00:35] VITALS: O2SAT 97
[2018-12-18 00:40] LABS: Anion Gap 6 (5-15); BUN 15 mg/dL (7-18); BUN/Creat Ratio 16.3 RATIO (10-20); Chloride 113 mmol/L (98-107); Creatinine, Serum 0.92 mg/dL (0.55-1.02); EST Glomerular Filtration Rate 70 mL/min (>60); Est Glom Filt Rate - Afr Amer 84 mL/min (>60); Estimated Creatinine Clearance 73.51 ml/min; Glucose 100 mg/dL (74-106); Potassium 3.8 mmol/L (3.5-5.1); Sodium Level 144 mmol/L (136-145)
[2018-12-18 00:46] LABS: Absolute Lymphocyte Count 2.13 X10^3/uL (0.83-4.51); Absolute Neutrophil Count 4.3 X10^3/uL (2.0-7.7); Basophil# 0.02 X10^3/uL; Basophil% 0.3 % (0-1); Eosinophil# 0.14 X10^3/uL; Hemoglobin 14.1 g/dL (12.0-15.0); Lymphocyte # 2.13 X10^3/ul (4.0); Lymphocyte % 30.4 % (19-41); Mean Corpuscular Hgb 29.9 pg (27.0-32.0); Mean Corpuscular Volume 93.2 fL (81-99); Monocyte# 0.45 X10^3/uL; Monocyte% 6.4 % (0-10); NRBC Flagged by Analyzer 0 % (0-5); Neutrophil # 4.25 X10^3/uL (2.7-7.7); Neutrophil % 60.6 % (47-70); Platelet Count 220 K/mm3 (150-450); RBC Distribution Width CV 14.3 % (11.6-14.6); RBC Distribution Width SD 49.1 fl (35.1-43.9); Red Blood Count 4.72 M/mm3 (4.2-5.4)
[2018-12-18] MEDS: fentaNYL 100 MCG/2 ML Ampul 25 MCG IV (00:52)
[2018-12-18 00:53] VITALS: BP 89/54; PULSE 52; RESP 13; O2SAT 93
[2018-12-18 02:06] VITALS: BP 83/50; PULSE 51; RESP 13
[2018-12-18 02:57] VITALS: BP 88/57; PULSE 52; RESP 12; O2SAT 95
--- NOTE | 2018-12-18 02:58 | ED.RN ---
DR ESCALERA MADE AWARE OF PATIENT'S BP RUNNING LOW SINCE SHE HAS BEEN HERE. LAST BP OF 88/57. HE ORDERED A 500 CC'S BOLUS WHICH THIS NURSE HUNG.
[2018-12-18 03:50] VITALS: BP 83/49; PULSE 50; RESP 13; O2SAT 94
--- NOTE | 2018-12-18 03:51 | ED.RN ---
DR. ESCALERA IS OK FOR PATIENT TO BE DISCHARGED HOME WITH A BP OF 83/49 AND A PULSE OF 50. IN PATIENT' PREVIOUS VISITS HER BP AND PULSE WERE ABOUT IN THIS RANGE WHEN DR. ESCALERA LOOKED IN HER RECORDS. PATIENT IS TO BE DISCHARGED HOME WITH [facility].
--- NOTE | 2018-12-18 04:22 | ED.RN ---
INCONTINENCE CARE DONE PRIOR TO PATIENT BEING DISCHARGED. SHE WAS COMPLETELY DRESSED PRIOR TO DISCHARGE. JUSTIN TORREZ TOOK HER BACK HOME.
== END 2018-12-18 04:20 | disposition home or self-care (01) ==
PROVIDERS: Emergency Provider Emergency Medicine; Family Provider Family Medicine; PCP Family Medicine
DX: R07.9 Chest pain, unspecified (principal); F17.200 Nicotine dependence, unspecified, uncomplicated; Z86.711 Personal history of pulmonary embolism; Z87.820 Personal history of traumatic brain injury; Z79.02 Long term (current) use of antithrombotics/antiplatelets
CPT/HCPCS: 36415; 71046; 80048; 84484; 85025; 93005; 99285; J7040; A4216

== ENCOUNTER 2019-01-14 07:05 | Day surgery (SDC) | payer MEDICARE, MEDICAID, SELFPAY ==
[2019-01-14] VITALS (7 sets, daily range): BP systolic 91–96; BP diastolic 54–65; PULSE 51–56; RESP 16–18; TEMP 36.4–36.8; O2SAT 96–100; BMI 24.0
[2019-01-14] MEDS: Lactated Ringers 1,000 ML 100 ML IV (07:45)
[2019-01-14] MEDS: Bupivacaine 0.25% 30 ML Vial (08:36)
[2019-01-14] MEDS: MethylPREDNISolone Acetate 80 MG/ML Vial (08:36)
--- NOTE | 2019-01-14 08:40 | RAD_ITS ---
STUDY: LUMBAR FACET BLOCK REASON FOR EXAM: Female, 48 years old. Chronic low back pain. FLUOROSCOPY TIME (if supplied): ( 16.2 seconds ) minutes/seconds. 6 images were obtained. TECHNIQUE: Intraoperative imaging provided for bilateral L4-S1 lumbar facet joint injection. COMPARISON: None. FINDINGS: Intraoperative imaging provided for bilateral L4-S1 facet joint injection. RAD/L/S Spine Min 4 Views IMPRESSION: Intraoperative fluoroscopic services provided for bilateral L4-S1 facet joint injection. Electronically Signed: Fawad Bender, at 10:17 EST , Service support ,
--- NOTE | 2019-01-14 09:09 | PCM.OPRPT ---
Report of Operation Date of Procedure: 01/14/19 Description of Surgical Findings:: PREOPERATIVE DIAGNOSIS: Lumbosacral spondylosis, lumbosacral degenerative disc disease, and lumbar facet arthropathy POSTOPERATIVE DIAGNOSIS: Lumbosacral spondylosis, lumbosacral degenerative disc disease, and lumbar facet arthropathy PROCEDURE PERFORMED: Bilateral lumbar facet steroid injection, L4, L5, and S1. ANESTHESIA: MAC. BLOOD LOSS: Minimal. COMPLICATIONS: None. DESCRIPTION OF PROCEDURE: History and physical of today was reviewed. Risks and benefits of the procedure were explained. The patient understood and agreed to proceed. Informed consent was obtained. IV inserted per routine protocol. The patient was taken to the operating room and placed in the prone position with a pillow positioned underneath the abdomen. The lower back area was prepped and draped in a sterile fashion using iodine x3. Under fluoroscopy guidance on AP view, the L4 through S1 vertebral bodies were visualized. The skin and subcutaneous tissue was anesthetized with approximately 5 mL of 1% lidocaine using a 25-gauge regular needle. Under direct visualization with fluoroscopy, at approximately 25-degree angle, starting on the left L4, ending on the right L4, passing through the L5 and S1 bilaterally, using a 22-gauge 3-1/2-inch spinal needle, the needle was advanced via the skin. The tip of the needle was maneuvered and directed towards the superior medial gutter of the transverse process at the vicinity of the medial branch. Once tip of the needle was in contact with the bone, the needle was pulled approximately 2 mm off the bone. After negative aspiration for blood or CSF and confirmation on AP, oblique as well as lateral view, a total of 12 mL of preservative-free 0.25% Marcaine with 80 mg of Depo-Medrol was injected in divided doses between those six levels. The needles were then removed intact. The patient experienced no sign or symptoms of intrathecal or intravascular injection. The patient experienced no paresthesia. The procedure was completed without any apparent difficulty or any complications. The patient appeared to tolerate it well. ASSESSMENT AND PLAN: This is a 48-year-old Female with lumbosacral spondylosis, lumbosacral degenerative disc disease, and lumbar facet arthropathy, status post bilateral lumbar facet steroid injection L4 through S1. The patient will continue her current medications. The patient will follow in approximately 2 weeks for evaluation.
== END 2019-01-14 09:55 | disposition home or self-care (01) ==
LOC: SDC 07:06 → AC 07:07
PROVIDERS: Family Provider Family Medicine; PCP Family Medicine; Referring Provider Anesthesiology Pain Medicine; Visit Provider Anesthesiology Pain Medicine
PROC: 3E0T3BZ Introduction of Anesthetic Agent into Peripheral Nerves and Plexi, Percutaneous Approach (ICD-10-PCS; CPT 64493; principal; 2019-01-14 08:35)
DX: M47.27 Other spondylosis with radiculopathy, lumbosacral region (principal); M51.17 Intervertebral disc disorders with radiculopathy, lumbosacral region; M96.1 Postlaminectomy syndrome, not elsewhere classified; F32.9 Major depressive disorder, single episode, unspecified; G81.01 Flaccid hemiplegia affecting right dominant side; E03.9 Hypothyroidism, unspecified; D64.9 Anemia, unspecified; M19.90 Unspecified osteoarthritis, unspecified site; F17.200 Nicotine dependence, unspecified, uncomplicated; K21.9 Gastro-esophageal reflux disease without esophagitis; E78.5 Hyperlipidemia, unspecified; F41.9 Anxiety disorder, unspecified; Z86.718 Personal history of other venous thrombosis and embolism; Z87.820 Personal history of traumatic brain injury; Z86.711 Personal history of pulmonary embolism; Z99.3 Dependence on wheelchair; Z79.02 Long term (current) use of antithrombotics/antiplatelets; Z79.891 Long term (current) use of opiate analgesic; Z79.899 Other long term (current) drug therapy
CPT/HCPCS: 64493; 64494; 64483; 72110; J7120

== ENCOUNTER 2019-02-11 07:08 | Day surgery (SDC) | payer MEDICARE, MEDICAID, SELFPAY ==
[2019-01-14 07:36] VITALS: BMI 24.0
[2019-02-11] VITALS (9 sets, daily range): BP systolic 84–100; BP diastolic 56–66; PULSE 50–56; RESP 14–16; TEMP 36.6–37.6; O2SAT 95–99; BMI 24.0
[2019-02-11] MEDS: Lactated Ringers 1,000 ML 100 ML IV (07:54)
--- NOTE | 2019-02-11 08:52 | RAD_ITS ---
PROCEDURE: Left L3-S1 facet joint block. DATE OF EXAMINATION: February 11, 2019. INDICATION: Female, 48 years old. Chronic low back pain. FLUOROSCOPY TIME (if supplied): (15.3 seconds) minutes/seconds. 4 images. Intraoperative imaging was provided for left L3-S1 facet block. RAD/L/S Spine Min 4 Views IMPRESSION: Intraoperative imaging was provided for left L3-S1 facet block. Electronically Signed: Fawad Bender, at 15:30 EST , Service support ,
[2019-02-11] MEDS: Bupivacaine 0.25% 30 ML Vial (09:02)
[2019-02-11] MEDS: MethylPREDNISolone Acetate 80 MG/ML Vial (09:02)
--- NOTE | 2019-02-11 11:07 | OP.PCM_ITS ---
Report of Operation Date of Procedure: 02/11/19 Description of Surgical Findings:: PROCEDURE: Left-sided lumbar facet steroid injection L3, L4, L5, S1 PREOPERATIVE DIAGNOSIS: Lumbosacral spondylosis, lumbosacral degenerative disc disease, and lumbar facet arthropathy POSTOPERATIVE DIAGNOSIS: Lumbosacral spondylosis, lumbosacral degenerative disc disease, and lumbar facet arthropathy ANESTHESIA: MAC COMPLICATIONS: None BLOOD LOSS: Minimal PROCEDURE IN DETAIL: History and physical today was reviewed. Risks and benefits of the procedure were explained. The patient understood, agreed to our procedure, and informed consent was obtained. IV inserted per routine protocol. The patient was taken to the operating room, placed in a prone position with a pillow positioned underneath the abdomen. The left side of the lower back was prepped and draped in a sterile fashion using iodine x3. Under fluoroscopy guidance, on AP view, L3 through S1 vertebral bodies were visualized. Skin and subcutaneous tissues were anesthetized with approximately 5 mL of 1% lidocaine using a 25-gauge regular needle. Under direct visualization with fluoroscopy at approximately 25-degree angle, starting on the left L3, ending on the left S1, passing through the L4-L5 using a 22-gauge 3 1/2-inch spinal needle, the needle was advanced via the skin. The tip of the needle was maneuvered and directed towards the superior and medial gutter of the transverse process at the vicinity of the medial branch. Once the tip of the needle was in contact with the bone, the needle pulled approximately 2 mm off the bone. After negative aspiration of blood with CSF and confirmation of AP as well as oblique view, a total of 8 mL of preservative-free 0.25% Marcaine with 80 mg of Depo- Medrol was injection in divided doses between those 4 levels. The needles were then removed intact. The patient experienced no signs or symptoms intrathecal, intravascular injection. The patient experienced no paraesthesia. The procedure was completed without any apparent difficult, any complication. The patient appeared to tolerate well. ASSESSMENT AND PLAN: This is a 48-year-old Female with Lumbosacral spondylosis, lumbosacral degenerative disc disease, and lumbar facet arthropathy, status post left-sided lumbar facet steroid injection L3 through S1. The patient will continue her current medications. The patient will follow in approximately 2 weeks for reevaluation.
== END 2019-02-11 11:07 | disposition home or self-care (01) ==
LOC: SDC 07:09 → AC 07:10
PROVIDERS: Family Provider Family Medicine; PCP Family Medicine; Referring Provider Anesthesiology Pain Medicine; Visit Provider Anesthesiology Pain Medicine
PROC: 3E0T3BZ Introduction of Anesthetic Agent into Peripheral Nerves and Plexi, Percutaneous Approach (ICD-10-PCS; CPT 64493; principal; 2019-02-11 08:35)
DX: M47.27 Other spondylosis with radiculopathy, lumbosacral region (principal); M51.17 Intervertebral disc disorders with radiculopathy, lumbosacral region; M96.1 Postlaminectomy syndrome, not elsewhere classified; F32.9 Major depressive disorder, single episode, unspecified; G81.01 Flaccid hemiplegia affecting right dominant side; E03.9 Hypothyroidism, unspecified; Z87.820 Personal history of traumatic brain injury; D64.9 Anemia, unspecified; R13.10 Dysphagia, unspecified; K21.9 Gastro-esophageal reflux disease without esophagitis; E78.00 Pure hypercholesterolemia, unspecified; F41.9 Anxiety disorder, unspecified; Z86.711 Personal history of pulmonary embolism; Z86.718 Personal history of other venous thrombosis and embolism; F17.200 Nicotine dependence, unspecified, uncomplicated; Z79.02 Long term (current) use of antithrombotics/antiplatelets; Z79.891 Long term (current) use of opiate analgesic; Z79.899 Other long term (current) drug therapy
CPT/HCPCS: 64493; 64494; 64483; 72110; J7120

== ENCOUNTER 2019-03-18 07:20 | Day surgery (SDC) | payer MEDICARE, MEDICAID, SELFPAY ==
[2019-02-11 07:32] VITALS: BMI 24.0
[2019-03-18] VITALS (8 sets, daily range): BP systolic 89–100; BP diastolic 57–70; PULSE 51–61; RESP 15–16; TEMP 36.5–37.1; O2SAT 98–99; BMI 24.0
[2019-03-18] MEDS: Lactated Ringers 1,000 ML 100 ML IV (07:58)
--- NOTE | 2019-03-18 08:45 | RAD_ITS ---
STUDY: X-RAY - LUMBAR SPINE REASON FOR EXAM: Female, 48 years old. RADIO FREQ ABLATION L3-S1 TECHNIQUE: 6 coned-down intraoperative view(s) of the lumbar spine were obtained. COMPARISON: None FINDINGS: Intraoperative imaging provided for left L3-S1 facet joint block. RAD/Lumbar Spine 2 or 3 Views IMPRESSION: Intraoperative imaging provided for left L3-S1 radiofrequency ablation. Electronically Signed: Fawad Bender, at 11:13 EST , Service support ,
[2019-03-18] MEDS: Bupivacaine 0.25% 30 ML Vial (08:54)
[2019-03-18] MEDS: MethylPREDNISolone Acetate 80 MG/ML Vial (08:55)
--- NOTE | 2019-03-18 09:15 | PCM.OPRPT ---
Report of Operation Date of Procedure: 03/18/19 Description of Surgical Findings:: PROCEDURE: Left-sided radiofrequency ablation of the medial branch L3, L4, L5, S1 PREOPERATIVE DIAGNOSES: Lumbosacral spondylosis, lumbosacral degenerative disc disease, lumbar facet arthropathy POSTOPERATIVE DIAGNOSES: Lumbosacral spondylosis, lumbosacral degenerative disc disease, lumbar facet arthropathy ANESTHESIA: MAC COMPLICATIONS: None BLOOD LOSS: Minimal PROCEDURE IN DETAIL: History and physical today was reviewed. Risks and benefits of procedure explained. The patient understood, agreed to the procedure and informed consent was obtained. IV inserted per routine protocol. The patient was taken to the operating room, placed in the prone position with a pillow positioned underneath the abdomen. The left side of the lower back was prepped and draped in a sterile fashion using iodine x 3. Under fluoroscopy guidance, on an oblique view, the L3 through S1 vertebral bodies were visualized. The skin and subcutaneous tissue was anesthetized with approximately 10 mL of 1% lidocaine using a 25-gauge regular needle. Under direct visualization with fluoroscopy at approximately 25-degree angle, starting on the left L3, ending on the left S1 passing through the L4-L5 using a 20-gauge 15 cm with a 10 mm curved active tip radiofrequency ablation needle the needle passed through the skin. The tip of the needle was maneuvered and directed towards the superior and medial gutter of the transverse process at the vicinity of the medial branch. Once the tip of the needle was in contact with the bone, the needle pulled approximately 2 mm up the bone. The stylet of each needle was then removed. After negative aspiration of blood with CSF and confirmation of AP as well as oblique view, radiofrequency ablation probe was then inserted at each level. Impedance was then recorded at L3 to be 330, at L4 246, at L5 216, at S1 268 ohm. Motor-evoked potential was then initiated to 1.5 volt without any motor response at each corresponding level. The probe was then removed intact and a total of 6 mL preservative-free 1% lidocaine was injected in divided doses between those 4 levels after negative aspiration of blood with CSF. The radiofrequency ablation probe was then reinserted after confirmation of AP, oblique as well as lateral view. Radiofrequency ablation was then initiated to 80 degrees Celsius for 90 seconds at each level. Once concluded, the probe was then removed intact and a total of 6 mL of preservative-free 0.25% Marcaine with 40 mg Depo-Medrol was injected in divided doses between those 4 levels. The needles were then removed intact. The patient experienced no signs or symptoms of intrathecal, intravascular injection. The patient experienced no paraesthesia. The procedure was completed without any apparent difficulty, any complication. The patient appeared to tolerate well. Sensory as well as motor exam was unchanged from prior to procedure. ASSESSMENT AND PLAN: This is a 48-year-old female with lumbosacral spondylosis, lumbosacral degenerative disc disease, lumbar facet arthropathy, status post left-sided radiofrequency ablation of the medial branch L3 through S1. The patient will continue her current medications. The patient will follow up in approximately 2 weeks for reevaluation.
== END 2019-03-18 10:32 | disposition home or self-care (01) ==
LOC: SDC 07:23 → AC 07:24
PROVIDERS: Family Provider Family Medicine; PCP Family Medicine; Referring Provider Anesthesiology Pain Medicine; Visit Provider Anesthesiology Pain Medicine
PROC: (CPT 64635; principal; 2019-03-18 08:35)
DX: M47.27 Other spondylosis with radiculopathy, lumbosacral region (principal); M51.17 Intervertebral disc disorders with radiculopathy, lumbosacral region; M96.1 Postlaminectomy syndrome, not elsewhere classified; F32.9 Major depressive disorder, single episode, unspecified; D64.9 Anemia, unspecified; E03.9 Hypothyroidism, unspecified; K21.9 Gastro-esophageal reflux disease without esophagitis; E78.00 Pure hypercholesterolemia, unspecified; F41.9 Anxiety disorder, unspecified; F17.200 Nicotine dependence, unspecified, uncomplicated; Z86.711 Personal history of pulmonary embolism; Z86.718 Personal history of other venous thrombosis and embolism; Z87.820 Personal history of traumatic brain injury; Z79.02 Long term (current) use of antithrombotics/antiplatelets; Z79.891 Long term (current) use of opiate analgesic; Z79.899 Other long term (current) drug therapy
CPT/HCPCS: 64635; 64636; 72100; 72110; 76000; J7120

== ENCOUNTER 2019-07-15 10:01 | Emergency (ER) | payer MEDICARE, MEDICAID, SELFPAY ==
[2019-03-18 07:47] VITALS: BMI 24.0
[2019-07-15 10:02] VITALS: BP 115/81; PULSE 55; RESP 16; TEMP 36.4; O2SAT 97; BMI 20.3
--- NOTE | 2019-07-15 10:04 | EKG12_ITS ---
Test Reason : Blood Pressure : / mmHG Vent. Rate : 051 BPM Atrial Rate : 051 BPM P-R Int : 162 ms QRS Dur : 082 ms QT Int : 466 ms P-R-T Axes : 048 -55 021 degrees QTc Int : 429 ms Sinus bradycardia Left axis deviation Inferior infarct (cited on or before 29-JUN-2018) Abnormal ECG Confirmed by RAHEEM WORTHY ([id number]), staff editor RY BURCIAGA ([id number]) on 07/18/2019 3:10:42 PM Referred By: MARILY Confirmed By:RAHEEM WORTHY
--- NOTE | 2019-07-15 10:04 | CT_ITS ---
STUDY: CT BRAIN WITHOUT CONTRAST REASON FOR EXAM: Female, 48 years old. CONFUSION/AGITATION -- HX-TBI,SDH -- ON XARELTO RADIATION DOSAGE (If Supplied By Facility): CTDIvol = ( 44.99 ) mGy, DLP = ( 779.24 ) mGycm TECHNIQUE: Transaxial CT imaging of the brain was performed without administration of intravenous contrast material. Individualized dose optimization techniques were used for this CT. COMPARISON: Comparison is made with prior study dated April 14, 2014. FINDINGS: Normal soft tissue structures. Prior left parietal craniotomy. There is mild cerebral atrophy with widening of the extra-axial spaces and ventricular dilatation. There is evidence of a encephalomalacia in the convexity of the left frontal parietal lobes. This is unchanged. There is also evidence of encephalomalacia in the posterior right occipital lobe. Normal basal ganglia and thalami. Normal brainstem. There is mild cerebellar atrophy. There is no intracranial hemorrhage. There are no findings of an acute ischemic infarction. Normal visualized paranasal sinuses. CT/Brain/Head without Contrast IMPRESSION: Stable examination. Electronically Signed: Fawad Bender, at 11:22 EDT , Service support ,
--- NOTE | 2019-07-15 10:12 | ED.VIS.GEN ---
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 Care provider at the bedside states that over the past 3 days, she has been more agitated than her baseline. She is still eating and drinking without issue. She has not been overly violent. She is not had fever or chills. They were concerned that she may have an infection that is causing her to act different than her normal. She has been compliant with her medications. She is otherwise been in her normal state of health. Prior similar symptoms: No Recent Illness/Hospitalization: No Past Medical History - Allergies and Home Meds Allergies/Adverse Reactions: Allergies amoxicillin [Amoxicillin] Allergy (Verified 07/15/19 10:08) Unknown naproxen Allergy (Verified 07/15/19 10:08) Unknown NSAIDS (Non-Steroidal Anti-Inflamma Allergy (Verified 07/15/19 10:08) Unknown phenytoin Allergy (Verified 07/15/19 10:08) Unknown pineapple [Pineapple] Allergy (Verified 07/15/19 10:08) Unknown mold Allergy (Uncoded 07/15/19 10:08) Shortness of breath SEASONAL ALLERGIES Allergy (Uncoded 07/15/19 10:08) Unknown Primary Care Physician: Stu Calderon MD [Primary Care Provider] - Prior records reviewed: Yes Past Medical History: - - Prior stroke with TBI, behavioral disturbance Surgical History: colectomy - 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, - - hx of trach and peg, tubal ligation, RLQ baclofen pump placed and removed Smoking Status: Current every day smoker - Family History Paternal Family History: Reports: Stroke Maternal Family History: Reports: - - anemia Review of Systems General: Denies: Chills, Fever, Sweats Eyes: Denies: Visual changes - bilaterally, Diplopia ENT: Denies: Rhinorrhea, Sore throat Cardiovascular: Denies: Chest pain, Palpitations Respiratory: Denies: Dyspnea, Cough, Dyspnea on exertion Gastrointestinal: Denies: Abdominal pain, Nausea, Vomiting, Diarrhea, Melena, Hematochezia Genitourinary: Denies: Dysuria, Hematuria, Frequency Musculoskeletal: Denies: Back pain, Extremity Pain Skin: Denies: Rash, Wounds Neurological: Denies: Headache, Weakness, Numbness Physical Exam Vital Signs/Narrative: Vital Signs Temp Pulse Resp BP Pulse Ox 07/15/19 10:02 97.6 F L 55 L 16 115/81 H 97 Inital Vital Signs reviewed: Yes General: Well nourished, Well developed, No Acute Distress Head: Normocephalic, Atraumatic Eyes: Perrl, EOMI ENT: Moist mucous membranes, No rhinorrhea Neck: Supple, Nontender Cardiovascular: Regular rate, Regular rhythm, No murmurs Respiratory: No distress, CTA bilaterally, Chest nontender Abdomen: Soft, Nontender, Nondistended, Normal bowel sounds Back: Nontender, Normal Inspection Extremities: Nontender, No edema Skin: Normal color, No rash Neurological: Alert, Cranial nerves II-XII grossly intact, Normal Strength, Normal Sensation Psychological: Normal affect, Normal Mood Diagnostic/Tx/Re-eval Clinical Impression(s) from Imaging Studies Brain CT 07/15/19 10:04 IMPRESSION: Stable examination. Electronically Signed: Fawad Bender, at 11:22 EDT , Service support , Abnormal Lab Results 07/15/19 07/15/19 07/15/19 11:25 11:25 12:30 WBC 4.3 L RBC 4.65 Hgb 14.2 Hct 45.8 MCV 98.5 MCH 30.5 MCHC 31.0 L RDW Std Deviation 50.4 H RDW Coeff of [place] 13.9 Plt Count 152 MPV 9.4 Immature Gran % (Auto) 0.500 Neut % (Auto) 49.9 Lymph % (Auto) 37.2 [place] % (Auto) 8.6 Eos % (Auto) 3.3 Baso % (Auto) 0.5 Absolute Neuts (auto) 2.2 Absolute Lymphs (auto) 1.60 Nucleated RBC % 0 Sodium 143 Potassium 3.9 Chloride 115 H Carbon Dioxide 26.0 Anion Gap 2 L BUN 20 H Creatinine 1.02 Estim Creat Clear Calc 73.19 Est GFR (MDRD) Af Amer 75 Est GFR (MDRD) Non-Af 62 BUN/Creatinine Ratio 19.6 Glucose 77 Calcium 8.9 Urine Color Yellow Urine Clarity Cloudy Urine pH 7.0 Ur Specific [place] 1.010 Urine Protein 15 H Urine Glucose (UA) Normal Urine Ketones Negative Urine Occult Blood 250 H Urine Nitrite Negative Urine Bilirubin Negative Urine Urobilinogen Normal Ur Leukocyte Esterase 25 H Urine RBC 50-100 SEEN Urine WBC 0-5 SEEN Ur Squamous Epith Cells 5-10 SEEN Urine Bacteria 2+ Urine Mucus 0 SEEN - Medical Decision Making The patient presents with increasing agitation over her baseline. She is alert and does answer some questions appropriately. She is in no distress. She is not combative or agitated here in the emergency department. Metabolic work-up was pursued. Head CT was unchanged. Labs are unremarkable. Urine does show some evidence of hemorrhagic cystitis. Culture was added. I do feel that the patient is safe for discharge back to her facility. She will be started on Bactrim. Impression 1. Cystitis ED Disposition - Plan for ED Patient: Instructions: ED CYSTITIS Female Adult Prescriptions: Smz/Tmp Ds [Bactrim Ds] 1 tab PO BID #14 tab Prescription Printed Referrals: Stu Calderon MD [Primary Care Provider] -
[2019-07-15 11:35] LABS: Absolute Neutrophil Count 2.2 X10^3/uL (2.0-7.7); Basophil# 0.02 X10^3/uL; Basophil% 0.5 % (0-1); Eosinophil# 0.14 X10^3/uL; Eosinophils% 3.3 % (0-5); Hematocrit 45.8 % (37-47); Hemoglobin 14.2 g/dL (12.0-15.0); Lymphocyte % 37.2 % (19-41); Mean Corpuscular Hgb 30.5 pg (27.0-32.0); Mean Corpuscular Volume 98.5 fL (81-99); Mean Platelet Vol. 9.4 fl (6.2-12.0); Monocyte# 0.37 X10^3/uL; Monocyte% 8.6 % (0-10); NRBC Flagged by Analyzer 0 % (0-5); Neutrophil # 2.15 X10^3/uL (2.7-7.7); Neutrophil % 49.9 % (47-70); Platelet Count 152 K/mm3 (150-450); RBC Distribution Width CV 13.9 % (11.6-14.6); RBC Distribution Width SD 50.4 fl (35.1-43.9); Red Blood Count 4.65 M/mm3 (4.2-5.4); White Blood Count 4.3 K/mm3 (4.4-11.0)
[2019-07-15 11:47] LABS: Anion Gap 2 (5-15); BUN 20 mg/dL (7-18); BUN/Creat Ratio 19.6 RATIO (10-20); Calcium,Total 8.9 mg/dL (8.5-10.1); Chloride 115 mmol/L (98-107); Creatinine, Serum 1.02 mg/dL (0.55-1.02); EST Glomerular Filtration Rate 62 mL/min (>60); Est Glom Filt Rate - Afr Amer 75 mL/min (>60); Estimated Creatinine Clearance 73.19 ml/min; Glucose 77 mg/dL (74-106); Potassium 3.9 mmol/L (3.5-5.1); Sodium Level 143 mmol/L (136-145)
[2019-07-15 12:37] VITALS: BP 125/71; PULSE 50; RESP 12; O2SAT 98
[2019-07-15 12:39] LABS: Mucous, Urine 0 SEEN /hpf (<or=2+)
[2019-07-15 12:43] LABS: Color, Urine Yellow (Yellow); Glucose, Dipstick Normal (Normal); Ketone-Dipstick Negative (Negative); Leukocyte Esterase-Dipstick 25 /ul (Negative); Nitrite-Dipstick Negative (Negative); Occult Blood-Urine 250 /ul (Negative); Protein-Dipstick 15 mg/dl (Negative); Urine Bilirubin Dipstick Negative (Negative); Urine Clarity Cloudy (Clear); Urine Urobilinogen Normal (Normal)
[2019-07-15 12:55] LABS: Bacteria 2+ /hpf (None Seen); Red Blood Cells-Urine 50-100 SEEN /hpf (0-5); Squamous Epithelial Cells - UA 5-10 SEEN /hpf (5-10); White Blood Cells 0-5 SEEN /hpf (0-5)
[2019-07-15 13:41] VITALS: BP 111/69; PULSE 54; RESP 14; O2SAT 95
== END 2019-07-15 13:59 | disposition home or self-care (01) ==
PROVIDERS: Emergency Provider Emergency Medicine; PCP Family Medicine
DX: N30.90 Cystitis, unspecified without hematuria (principal); F17.200 Nicotine dependence, unspecified, uncomplicated; Z86.73 Personal history of transient ischemic attack (TIA), and cerebral infarction without residual deficits
CPT/HCPCS: 36415; 70450; 80048; 81001; 85025; 87077; 87086; 87088; 87186; 93005; 99285

== ENCOUNTER 2019-08-03 05:31 | Emergency (ER) | payer MEDICARE, MEDICAID, SELFPAY ==
[2019-08-03 05:38] VITALS: BP 106/51; PULSE 54; RESP 15; TEMP 36.4; O2SAT 96; BMI 21.4
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
[2019-08-03 05:57] LABS: Absolute Lymphocyte Count 2.09 X10^3/uL (0.83-4.51); Basophil# 0.01 X10^3/uL; Basophil% 0.2 % (0-1); Eosinophil# 0.19 X10^3/uL; Eosinophils% 3.3 % (0-5); Hematocrit 41.3 % (37-47); Hemoglobin 13.7 g/dL (12.0-15.0); Lymphocyte # 2.09 X10^3/ul (4.0); Lymphocyte % 36.3 % (19-41); Mean Corp Hgb Conc 33.2 g/dL (32-36); Mean Corpuscular Hgb 31.1 pg (27.0-32.0); Mean Corpuscular Volume 93.9 fL (81-99); Mean Platelet Vol. 9.5 fl (6.2-12.0); Monocyte# 0.49 X10^3/uL; Monocyte% 8.5 % (0-10); NRBC Flagged by Analyzer 0 % (0-5); Neutrophil # 2.96 X10^3/uL (2.7-7.7); Neutrophil % 51.4 % (47-70); Platelet Count 178 K/mm3 (150-450); RBC Distribution Width CV 13.4 % (11.6-14.6); White Blood Count 5.8 K/mm3 (4.4-11.0)
[2019-08-03] MEDS: 0.9% Normal Saline 1,000 ML 1000 ML IV (05:57)
[2019-08-03] MEDS: Ondansetron 4 MG/2 ML Vial IV ×2 (05:59→08:07)
[2019-08-03] MEDS: Morphine 4 MG/ML Syringe IV (06:00)
[2019-08-03 06:11] LABS: Internal QC Validated? YES +Cl - CLEAR BKGD; Pregnancy, Serum, hCG Quali. NEGATIVE Negative
--- NOTE | 2019-08-03 06:15 | RAD_ITS ---
STUDY: X-RAY - ACUTE ABDOMINAL SERIES REASON FOR EXAM: Female, 48 years old. ABD PAIN, CONSTIPATION TECHNIQUE: Single view of the chest. Supine, 3 view(s) of the abdomen were obtained. COMPARISON: 09/24/2018 FINDINGS: There are infiltrates at the RIGHT lung base. There are NO effusions or pneumothoraces. Normal size heart. Normal mediastinum and glenis. Normal visualized pulmonary arteries. Normal visualized aortic arch and descending thoracic aorta. There is a large amount of stool in the colon. There is NO obstruction or bowel wall thickening. There is NO pneumoperitoneum. The soft tissue structures of the abdomen and pelvis are unremarkable. There is an IUD in uterus. There are bilateral tubal ligation clips. Bony structures are intact. RAD/Acute Abdomen Inc Chest IMPRESSION: There are infiltrates at the RIGHT lung base. There are NO effusions or pneumothoraces. Normal size heart. There is a large amount of stool in the colon. There is NO obstruction or bowel wall thickening. Electronically Signed: Felipe Mehta MD at 6:52 EDT , Service support ,
[2019-08-03 06:19] LABS: ALB/GLOB Ratio 1.1 RATIO (0.9-2.4); AST(SGOT) 13 U/L (15-37); Alanine Aminotransfer ALT/SGPT 22 U/L (13-56); Albumin, Serum 3.6 g/dL (3.2-5.0); Alkaline Phosphatase 74 U/L (45-117); Anion Gap 5 (5-15); BUN 22 mg/dL (7-18); BUN/Creat Ratio 21.6 RATIO (10-20); Calcium,Total 8.8 mg/dL (8.5-10.1); Chloride 112 mmol/L (98-107); Creatinine, Serum 1.02 mg/dL (0.55-1.02); EST Glomerular Filtration Rate 62 mL/min (>60); Est Glom Filt Rate - Afr Amer 75 mL/min (>60); Estimated Creatinine Clearance 70.72 ml/min; Globulin 3.2 g/dL (2.2-4.2); Glucose 91 mg/dL (74-106); Lipase 172 U/L (73-393); Potassium 3.7 mmol/L (3.5-5.1); Protein, Total 6.8 g/dL (6.4-8.2); Sodium Level 143 mmol/L (136-145)
--- NOTE | 2019-08-03 07:45 | NURSING ---
[id number] CALLED [facility] FOR TRANSPORT, NO AVAILABLITY CALLED [facility], NONE AVAILABLE CALLED [facility], ETA IS 2 HRS
--- NOTE | 2019-08-03 09:46 | ED.DCSUM_ITS ---
- ER Visit Summary Date of Service: 08/03/19 Chief Complaint: [] History of Present Illness: The patient is a 48 F [] Physical Examination: [] Test Results: [] Emergency Department Course and Treatment: [] Treatment Plan: [] Disposition: [] Impression: [] Patient was seen and evaluated by Dr. Barfield. She was waiting for a ride home. Dr. Barfield. regarding left the patient is requesting a prescription for Pepcid. Patient is on Pepcid but needs a new prescription. She is given this prescription per her request. She is discharged home per initial plan with Dr. Barfield. This note was generated with [employer] dictation software. It may contain incorrect words, spelling, and punctuation that were not noted in review of the chart prior to signing ED Disposition - Plan for ED Patient: Disposition: Home or Assisted Living Diagnosis: Abdominal pain Instructions: ED Abdominal Pain Unkn Cause Fem Prescriptions: Famotidine [Pepcid] 20 mg PO DAILY #30 tab Prescription Printed Ondansetron [Zofran Odt] 8 mg PO Q8H PRN PRN #20 tab PRN Reason: Nausea Prescription Printed Referrals: Stu Calderon MD [Primary Care Provider] -
[2019-08-03 09:59] VITALS: BP 110/76; PULSE 69; RESP 18; O2SAT 98
--- NOTE | 2019-08-03 09:59 | ED.RN ---
THIS NURSE REVIEWED D/C INSTRUCTIONS WITH PT AND HOME HEALTH STAFF. PT AND STAFF VERBALIZED UNDERSTANDING OF INSTRUCTIONS. PT REQUESTED SOMETHING FOR THE PAIN IN HER STOMACH. DR ZHENG WROTE A PRESCRIPTION FOR PEPCID. IV D/C. IV CATHETER INTACT. PT TOLERATED WELL. PT AND WORKER DENY FURTHER NEEDS OR QUESTIONS AT THIS TIME
== END 2019-08-03 10:07 | disposition home or self-care (01) ==
PROVIDERS: Emergency Provider Emergency Medicine; PCP Family Medicine
DX: R10.9 Unspecified abdominal pain (principal); R11.2 Nausea with vomiting, unspecified; E03.9 Hypothyroidism, unspecified; N31.9 Neuromuscular dysfunction of bladder, unspecified; F17.210 Nicotine dependence, cigarettes, uncomplicated
CPT/HCPCS: 74022; 80053; 83690; 84703; 85025; 96361; 96374; 96375; 96376; 99284; J7030; A4216; J2405

== ENCOUNTER 2019-10-14 10:31 | Day surgery (SDC) | payer MEDICARE, MEDICAID, SELFPAY ==
[2019-10-14] VITALS (7 sets, daily range): BP systolic 74–105; BP diastolic 40–74; PULSE 50–63; RESP 15–16; TEMP 36.3–36.8; O2SAT 97–100; BMI 20.3
[2019-10-14] MEDS: Lactated Ringers 1,000 ML 100 ML IV (11:18)
--- NOTE | 2019-10-14 11:25 | RAD_ITS ---
STUDY: CAUDAL BLOCK. REASON FOR EXAM: Female, 48 years old. CAUDAL BLOCK FLUOROSCOPY TIME (if supplied): ( 12.7 seconds ) minutes/seconds. 2 intraoperative images were obtained. TECHNIQUE: Caudal block was performed. COMPARISON: None. FINDINGS: Spinal needle is seen within the mid posterior aspect of the sacrum. RAD/OR-Steroi/Epid Inj/Lum Sac/1st IMPRESSION: Intraoperative imaging provided for caudal block. Electronically Signed: Fawad Bender, at 13:15 EDT , Service support ,
[2019-10-14] MEDS: 0.9% Normal Saline (Pres. free 10 ML Vial (11:30)
[2019-10-14] MEDS: Bupivacaine 0.25% 30 ML Vial (11:30)
[2019-10-14] MEDS: MethylPREDNISolone Acetate 80 MG/ML Vial (11:30)
--- NOTE | 2019-10-14 15:18 | PCM.OPRPT ---
Report of Operation Date of Procedure: 10/14/19 Description of Surgical Findings:: PREOPERATIVE DIAGNOSIS: Lumbosacral radiculopathy, lumbosacral degenerative disc disease, lumbosacral spinal stenosis POSTOPERATIVE DIAGNOSIS: Lumbosacral radiculopathy, lumbosacral degenerative disc disease, lumbosacral spinal stenosis PROCEDURE PERFORMED: Caudal epidural steroid injection. ANESTHESIA: MAC. BLOOD LOSS: Minimal. COMPLICATIONS: None. DESCRIPTION OF PROCEDURE: History and physical of today was reviewed. Risks and benefits of the procedure were explained. The patient understood and agreed to proceed. Informed consent was obtained. IV inserted per routine protocol. The patient was taken to the operating room and placed in the prone position with a pillow positioned underneath the abdomen. The lower back and tailbone area was prepped and draped in a sterile fashion using iodine x3. Under fluoroscopy guidance on a lateral view, the caudal space was identified. The skin and subcutaneous tissue was anesthetized with approximately 3 mL of 1% lidocaine using a 25-gauge regular needle. Under direct visualization with fluoroscopy, using a 22-gauge 3-1/2-inch spinal needle, the needle was advanced via the skin through the sacral hiatus. The tip of the needle was passed through the sacrococcygeal ligament and advanced to approximately S4 area. After negative aspiration of blood or CSF, a total of 3 mL of contrast was injected to confirm correct placement of the needle as well as cephalad spread. The spread was followed to approximately L5 area. After confirmation on AP as well as lateral view and repeated negative aspiration, a total of 15 mL of preservative-free 0.125% Marcaine with 80 mg of Depo-Medrol was injected easily. The needle was then removed intact. The patient experienced no sign or symptoms of intrathecal or intravascular injection. The patient experienced no paresthesia. The procedure was completed without any apparent difficulty or any complications. The patient appeared to tolerate it well. ASSESSMENT AND PLAN: This is a 48-year-old female with lumbosacral radiculopathy, lumbosacral disc disease, lumbosacral spinal stenosis status post caudal flow steroid injection patient will continue current medications patient found approximately 2 weeks for reevaluation.
== END 2019-10-14 12:59 | disposition home or self-care (01) ==
LOC: SDC 10:32 → AC 10:34
PROVIDERS: PCP Family Medicine; Referring Provider Anesthesiology Pain Medicine; Visit Provider Anesthesiology Pain Medicine
PROC: 3E0S3BZ Introduction of Anesthetic Agent into Epidural Space, Percutaneous Approach (ICD-10-PCS; CPT 62282; principal; 2019-10-14 11:35)
DX: M51.17 Intervertebral disc disorders with radiculopathy, lumbosacral region (principal); M48.07 Spinal stenosis, lumbosacral region; M47.27 Other spondylosis with radiculopathy, lumbosacral region; M96.1 Postlaminectomy syndrome, not elsewhere classified; G81.01 Flaccid hemiplegia affecting right dominant side; D64.9 Anemia, unspecified; E03.9 Hypothyroidism, unspecified; Z87.820 Personal history of traumatic brain injury; Z86.711 Personal history of pulmonary embolism; Z79.02 Long term (current) use of antithrombotics/antiplatelets; Z79.891 Long term (current) use of opiate analgesic; Z79.899 Other long term (current) drug therapy
CPT/HCPCS: 01992; 62323; 64520; 64483; J7120; J3490

== ENCOUNTER 2019-10-19 12:15 | Emergency (ER) | payer MEDICARE, MEDICAID, SELFPAY ==
[2019-10-14 11:11] VITALS: BMI 20.3
[2019-10-19 12:16] VITALS: BP 100/57; PULSE 92; RESP 16; TEMP 36.1; O2SAT 97; BMI 20.3
--- NOTE | 2019-10-19 12:24 | ED.DCSUM_ITS ---
History of Present Illness Chief Complaint: Rash Narrative: 48-year-old female presenting with her caregiver who states that she had a rash on her leg earlier which resolved on its own. She states she had the rash last week on her face. She describes it as red with multiple lines of locations. She states that the only thing that coincides with the 2 rashes is cinnamon and she thinks she may have food allergies. The patient states it is because she slaps herself in those places demonstrates this will I am interviewing her. Patient also complains of a mild headache, nausea, abdominal pain. She is unsure when this started. She is not had any diarrhea but has had some constipation. There is been no fevers noted. Caregiver then stated that she thought that the patient was more congested than usual. She noted that she did not have any COVID?19 exposure or any other exposure to ill people. She has not been short of breath or coughing. Past Medical History - Allergies and Home Meds Allergies/Adverse Reactions: Allergies amoxicillin [Amoxicillin] Allergy (Verified 10/14/19 10:46) Unknown naproxen Allergy (Verified 10/14/19 10:46) Unknown NSAIDS (Non-Steroidal Anti-Inflamma Allergy (Verified 10/14/19 10:46) Unknown phenytoin Allergy (Verified 10/14/19 10:46) Unknown pineapple [Pineapple] Allergy (Verified 10/14/19 10:46) Unknown mold Allergy (Uncoded 10/14/19 10:46) Shortness of breath SEASONAL ALLERGIES Allergy (Uncoded 10/14/19 10:46) Unknown Primary Care Physician: Stu Calderon MD [Primary Care Provider] - Prior records reviewed: Yes Surgical History: colectomy - 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, - - hx of trach and peg, tubal ligation, RLQ baclofen pump placed and removed Lives: [place] Smoking Status: Unknown if ever smoked - Family History Paternal Family History: Reports: Stroke Maternal Family History: Reports: - - anemia Review of Systems General: Denies: Chills, Fever, Sweats Eyes: Denies: Visual changes - bilaterally, Diplopia ENT: Reports: - - No congestion Cardiovascular: Denies: Chest pain Respiratory: Denies: Dyspnea, Cough Gastrointestinal: Reports: Abdominal pain, Nausea Genitourinary: Denies: Dysuria Musculoskeletal: Denies: Myalgias Skin: Reports: Rash Neurological: Reports: Headache Psych: Reports: Depression Physical Exam Vital Signs/Narrative: Vital Signs Temp Pulse Resp BP Pulse Ox 10/19/19 12:16 97 F L 92 16 100/57 L 97 General: No Acute Distress Head: Normocephalic Eyes: Perrl, EOMI ENT: Moist mucous membranes, No rhinorrhea Cardiovascular: Regular rate, Regular rhythm Respiratory: No distress Extremities: Nontender, No edema Skin: - - No visualized rash in the portion of the leg previously noted to have a rash. Neurological: Alert Diagnostic/Tx/Re-eval Clinical Impression(s) from Imaging Studies Chest X-Ray 10/19/19 12:30 IMPRESSION: Increased left lung opacity, nonspecific, possibly atelectatic and artifactual. Recommend repeating with improved technique. Electronically Signed: Mahi Almendarez, at 14:22 EDT Tel , Service support , Abdomen/Pelvis CT 10/19/19 12:41 IMPRESSION: 1. Bladder lesion, urology and cystoscopy referral are advised. 2. Massive amount of colonic stool without intestinal obstruction. Electronically Signed: Mahi Almendarez, at 14:19 EDT Tel , Service support , Chest X-Ray 10/19/19 16:30 IMPRESSION: Left lower lobe atelectasis. Electronically Signed: Mahi Almendarez at 16:52 EDT Tel , Service support , Laboratory Data 10/19/19 10/19/19 10/19/19 11:50 12:50 15:20 WBC 10.8 RBC 4.17 L Hgb 13.2 Hct 41.5 MCV 99.5 H MCH 31.7 MCHC 31.8 L RDW Std Deviation 53.1 H RDW Coeff of [place] 14.6 Plt Count 191 MPV 10.1 Immature Gran % (Auto) 0.400 Neut % (Auto) 67.2 Lymph % (Auto) 19.7 [place] % (Auto) 10.8 H Eos % (Auto) 1.6 Baso % (Auto) 0.3 Absolute Neuts (auto) 7.3 Absolute Lymphs (auto) 2.12 Nucleated RBC % 0 Sodium 147 H Potassium 3.5 Chloride 120 H Carbon Dioxide 24.0 Anion Gap 3 L BUN 13 Creatinine 1.01 Estim Creat Clear Calc 73.96 Est GFR (MDRD) Af Amer 75 Est GFR (MDRD) Non-Af 62 BUN/Creatinine Ratio 12.9 Glucose 57 L Calcium 8.2 L Total Bilirubin 0.20 AST 13 L ALT 26 Alkaline Phosphatase 73 Total Protein 6.5 Albumin 3.5 Globulin 3.0 Albumin/Globulin Ratio 1.2 Urine Color Yellow Urine Clarity Clear Urine pH 7.0 Ur Specific [place] 1.010 Urine Protein Negative Urine Glucose (UA) Normal Urine Ketones Negative Urine Occult Blood Negative Urine Nitrite Negative Urine Bilirubin Negative Urine Urobilinogen Normal Ur Leukocyte Esterase 100 H Urine RBC 0 SEEN Urine WBC 5-10 SEEN Ur Squamous Epith Cells 0-5 SEEN Urine Bacteria RARE Urine Mucus 0 SEEN - Medical Decision Making Seen and evaluated on arrival initially for a rash which is resolved. I am unsure if this is allergic in nature or not. She was complaining of headache, nausea, abdominal pain. I did obtain lab work which was fairly normal with exception of her urinalysis which is slightly contaminated but given that she has nausea and abdominal pain as well as a headache I will treat it. CT abdomen pelvis does not show any acute process however it does show severe constipation. Patient's caregiver is counseled to give her laxatives when she gets home for the next 3 days. Does identify also a bladder lesion which I do not think the patient needs to be admitted for. They will follow-up outpatient with urology for evaluation of this. Urine culture was sent. Keflex was given in the ED. Chest x-ray initially showed concern for abnormality and the radiologist requested repeat chest x-ray which then demonstrated just atelectasis. The patient's vital signs are stable and she is afebrile. I feel she is safe to be discharged home. They are counseled on follow-up and return precautions. Impression: 1. Rash resolved on arrival 2. Abdominal pain 3. Constipation 4. Lesion on bladder 5. UTI 6. Headache ED Disposition - Plan for ED Patient: Disposition: Home or Assisted Living Instructions: Understanding Urinary Tract Infections (UTIs), ED Constipation, ED Erythema Prescriptions: Cephalexin [Keflex] 500 mg PO Q6 #40 cap Cephalexin [Keflex] 500 mg PO Q12 #14 cap Transmission Status: Received by [facility] Cephalexin [Keflex] 500 mg PO Q12 #14 cap Prescription Printed Referrals: Stu Calderon MD [Primary Care Provider] -
--- NOTE | 2019-10-19 12:30 | RAD_ITS ---
STUDY: X-RAY CHEST REASON FOR EXAM: Female, 48 years old. CONGESTION. PT IS WHEELCHAIR BOUND. HX OF TRAUMATIC BRAIN INJURY 1991 TECHNIQUE: Frontal view of the chest COMPARISON: September 20 2018, December 18, 2018 FINDINGS: Examination is moderately technically suboptimal due to patient rotation to the left. There is diffuse increased left lung opacity, possibly artifactual. Right lung is clear. There is no pneumothorax, pulmonary edema or pleural effusions. Cardiac size is normal. Osseous structures are intact. RAD/Chest 1 View (Portable) IMPRESSION: Increased left lung opacity, nonspecific, possibly atelectatic and artifactual. Recommend repeating with improved technique. Electronically Signed: Mahi Almendarez, at 14:22 EDT Tel , Service support ,
[2019-10-19 12:31] VITALS: TEMP 37.2
--- NOTE | 2019-10-19 12:41 | CT_ITS ---
STUDY: CT ABDOMEN AND PELVIS WITH CONTRAST REASON FOR EXAM: Female, 48 years old. Abdominal pain, neurogenic bladder spinal stimulator device RADIATION DOSAGE (If Supplied By Facility): CTDIvol = ( 18.44 ) mGy, DLP = ( 805.78 ) mGycm TECHNIQUE: CT images were obtained from the dome of the diaphragm to the symphysis pubis without oral contrast. IV 100mL Isovue-300 was administered. Sagittal and coronal images were reconstructed. Individualized dose optimization techniques were used for this CT. COMPARISON: June 30 FINDINGS: There are presumed bilateral atelectatic opacities. Inferior mediastinum is normal. Solid organs are normal. There is no intestinal obstruction. There is massive amount of colonic stool. There is a hyperdense, possibly enhancing focus in the posterior bladder wall/base. There are no urinary calculi. Uterus contains an IUD and fallopian tubes are surgically occluded. Osseous structures are intact. Canal is widely patent. CT/Abdomen/Pelvis W IV Cont ONLY IMPRESSION: 1. Bladder lesion, urology and cystoscopy referral are advised. 2. Massive amount of colonic stool without intestinal obstruction. Electronically Signed: Mahi Amlendarez, at 14:19 EDT Tel , Service support ,
[2019-10-19 13:15] LABS: ALB/GLOB Ratio 1.2 RATIO (0.9-2.4); AST(SGOT) 13 U/L (15-37); Alanine Aminotransfer ALT/SGPT 26 U/L (13-56); Albumin, Serum 3.5 g/dL (3.2-5.0); Alkaline Phosphatase 73 U/L (45-117); Anion Gap 3 (5-15); BUN 13 mg/dL (7-18); BUN/Creat Ratio 12.9 RATIO (10-20); Calcium,Total 8.2 mg/dL (8.5-10.1); Chloride 120 mmol/L (98-107); Creatinine, Serum 1.01 mg/dL (0.55-1.02); EST Glomerular Filtration Rate 62 mL/min (>60); Est Glom Filt Rate - Afr Amer 75 mL/min (>60); Estimated Creatinine Clearance 73.96 ml/min; Glucose 57 mg/dL (74-106); Potassium 3.5 mmol/L (3.5-5.1); Protein, Total 6.5 g/dL (6.4-8.2); Sodium Level 147 mmol/L (136-145)
[2019-10-19 15:04] LABS: Absolute Lymphocyte Count 2.12 X10^3/uL (0.83-4.51); Absolute Neutrophil Count 7.3 X10^3/uL (2.0-7.7); Basophil# 0.03 X10^3/uL; Basophil% 0.3 % (0-1); Eosinophil# 0.17 X10^3/uL; Eosinophils% 1.6 % (0-5); Hematocrit 41.5 % (37-47); Hemoglobin 13.2 g/dL (12.0-15.0); Lymphocyte # 2.12 X10^3/ul (4.0); Lymphocyte % 19.7 % (19-41); Mean Corp Hgb Conc 31.8 g/dL (32-36); Mean Corpuscular Hgb 31.7 pg (27.0-32.0); Mean Corpuscular Volume 99.5 fL (81-99); Mean Platelet Vol. 10.1 fl (6.2-12.0); Monocyte# 1.16 X10^3/uL; Monocyte% 10.8 % (0-10); NRBC Flagged by Analyzer 0 % (0-5); Neutrophil # 7.25 X10^3/uL (2.7-7.7); Neutrophil % 67.2 % (47-70); Platelet Count 191 K/mm3 (150-450); RBC Distribution Width CV 14.6 % (11.6-14.6); RBC Distribution Width SD 53.1 fl (35.1-43.9); Red Blood Count 4.17 M/mm3 (4.2-5.4); White Blood Count 10.8 K/mm3 (4.4-11.0)
[2019-10-19 15:29] LABS: Mucous, Urine 0 SEEN /hpf (<or=2+); Red Blood Cells-Urine 0 SEEN /hpf (0-5)
[2019-10-19 15:31] LABS: Glucose, Dipstick Normal (Normal); Ketone-Dipstick Negative (Negative); Leukocyte Esterase-Dipstick 100 /ul (Negative); Nitrite-Dipstick Negative (Negative); Occult Blood-Urine Negative /ul (Negative); Protein-Dipstick Negative (Negative); Urine Bilirubin Dipstick Negative (Negative); Urine Urobilinogen Normal (Normal)
[2019-10-19 15:34] LABS: Color, Urine Yellow (Yellow); Urine Clarity Clear (Clear)
[2019-10-19 15:44] LABS: White Blood Cells 5-10 SEEN /hpf (0-5)
[2019-10-19 15:45] LABS: Bacteria RARE /hpf (None Seen); Squamous Epithelial Cells - UA 0-5 SEEN /hpf (5-10)
[2019-10-19] MEDS: Cephalexin 250 MG Capsule 500 MG PO (16:30)
--- NOTE | 2019-10-19 16:30 | RAD_ITS ---
STUDY: X-RAY CHEST REASON FOR EXAM: Female, 48 years old. RASH, CHEST PAIN AND ABD PAIN TECHNIQUE: Frontal and lateral views of the chest COMPARISON: Chest x-ray earlier same day, 18 December 2018 FINDINGS: Lateral view is nondiagnostic. There is ill-defined left lower lobe opacity with elevation of the left hemidiaphragm, likely scarring and atelectasis. Right lung is clear. There is no pneumothorax, pulmonary edema or pleural effusions. Cardiac size is normal. RAD/Chest PA and Lateral IMPRESSION: Left lower lobe atelectasis. Electronically Signed: Mahi Almendarez, at 16:52 EDT Tel , Service support ,
[2019-10-19] MEDS: Rivaroxaban 20 MG Tablet PO (16:36)
[2019-10-19] MEDS: Gabapentin 600 MG Tablet PO (16:36)
[2019-10-19 16:41] VITALS: BP 103/69; PULSE 54; RESP 18; O2SAT 99
== END 2019-10-19 17:25 | disposition home or self-care (01) ==
PROVIDERS: Emergency Provider Student in an Organized Health Care Education/Training Program; PCP Family Medicine
DX: R21 Rash and other nonspecific skin eruption (principal); R10.9 Unspecified abdominal pain; K59.00 Constipation, unspecified; N32.9 Bladder disorder, unspecified; N39.0 Urinary tract infection, site not specified; R51 Headache; Z79.899 Other long term (current) drug therapy
CPT/HCPCS: 71045; 71046; 74177; 80048; 80053; 81001; 85025; 87086; 96361; 96374; 99285; J7030; P9612; Q9967; A4216

== ENCOUNTER 2019-12-30 09:13 | Day surgery (SDC) | payer MEDICARE, MEDICAID, SELFPAY ==
[2019-12-30] VITALS (7 sets, daily range): BP systolic 96–120; BP diastolic 55–78; PULSE 47–56; RESP 16; TEMP 36.6; O2SAT 94–98; BMI 20.3
[2019-12-30] MEDS: Lactated Ringers 1,000 ML 100 ML IV (10:27)
--- NOTE | 2019-12-30 10:38 | RAD_ITS ---
PROCEDURE: Caudal block. DATE OF EXAMINATION: 12/30/2019. INDICATION: Female, 49 years old. Low back pain. FLUOROSCOPY TIME (if supplied): (4 seconds) minutes/seconds. 2 images were provided. Intraoperative imaging provided for caudal block. RAD/Fluor Guidance for Spine Inj IMPRESSION: Intraoperative imaging provided for caudal block. Electronically Signed: Fawad Bender, at 14:22 EDT , Service support ,
[2019-12-30] MEDS: Bupivacaine 0.25% 30 ML Vial (10:42)
[2019-12-30] MEDS: MethylPREDNISolone Acetate 80 MG/ML Vial (10:42)
[2019-12-30] MEDS: 0.9% Normal Saline (Pres. free 10 ML Vial (10:42)
--- NOTE | 2019-12-30 16:35 | PCM.OPRPT ---
Report of Operation Date of Procedure: 12/30/19 Description of Surgical Findings:: PREOPERATIVE DIAGNOSIS: Lumbosacral radiculopathy, lumbosacral degenerative disc disease, lumbosacral spinal stenosis POSTOPERATIVE DIAGNOSIS: Lumbosacral radiculopathy, lumbosacral degenerative disc disease, lumbosacral spinal stenosis PROCEDURE PERFORMED: Caudal epidural steroid injection. ANESTHESIA: MAC. BLOOD LOSS: Minimal. COMPLICATIONS: None. DESCRIPTION OF PROCEDURE: History and physical of today was reviewed. Risks and benefits of the procedure were explained. The patient understood and agreed to proceed. Informed consent was obtained. IV inserted per routine protocol. The patient was taken to the operating room and placed in the prone position with a pillow positioned underneath the abdomen. The lower back and tailbone area was prepped and draped in a sterile fashion using iodine x3. Under fluoroscopy guidance on a lateral view, the caudal space was identified. The skin and subcutaneous tissue was anesthetized with approximately 3 mL of 1% lidocaine using a 25-gauge regular needle. Under direct visualization with fluoroscopy, using a 22-gauge 3-1/2-inch spinal needle, the needle was advanced via the skin through the sacral hiatus. The tip of the needle was passed through the sacrococcygeal ligament and advanced to approximately S4 area. After negative aspiration of blood or CSF, a total of 3 mL of contrast was injected to confirm correct placement of the needle as well as cephalad spread. The spread was followed to approximately L5 area. After confirmation on AP as well as lateral view and repeated negative aspiration, a total of 15 mL of preservative-free 0.125% Marcaine with 80 mg of Depo-Medrol was injected easily. The needle was then removed intact. The patient experienced no sign or symptoms of intrathecal or intravascular injection. The patient experienced no paresthesia. The procedure was completed without any apparent difficulty or any complications. The patient appeared to tolerate it well. ASSESSMENT AND PLAN: This is a 49-year-old female with lumbosacral radiculopathy, lumbosacral disc disease, lumbosacral spinal stenosis status post caudal flow steroid injection patient will continue current medications patient found approximately 2 weeks for reevaluation.
== END 2019-12-30 12:02 | disposition home or self-care (01) ==
LOC: SDC 09:13 → AC 09:34
PROVIDERS: PCP Family Medicine; Referring Provider Anesthesiology Pain Medicine; Visit Provider Anesthesiology Pain Medicine
PROC: 3E0S3BZ Introduction of Anesthetic Agent into Epidural Space, Percutaneous Approach (ICD-10-PCS; CPT 62282; principal; 2019-12-30 10:35)
DX: M51.17 Intervertebral disc disorders with radiculopathy, lumbosacral region (principal); M48.07 Spinal stenosis, lumbosacral region; M96.1 Postlaminectomy syndrome, not elsewhere classified; M47.27 Other spondylosis with radiculopathy, lumbosacral region; F32.9 Major depressive disorder, single episode, unspecified; E03.9 Hypothyroidism, unspecified; D64.9 Anemia, unspecified; F17.200 Nicotine dependence, unspecified, uncomplicated; G83.9 Paralytic syndrome, unspecified; K21.9 Gastro-esophageal reflux disease without esophagitis; E78.00 Pure hypercholesterolemia, unspecified; F41.9 Anxiety disorder, unspecified; Z86.718 Personal history of other venous thrombosis and embolism; Z86.711 Personal history of pulmonary embolism; Z79.891 Long term (current) use of opiate analgesic; Z79.899 Other long term (current) drug therapy
CPT/HCPCS: 01992; 62323; 64520; 64483; 77003; J7120; J3490

== ENCOUNTER 2020-05-25 10:54 | Day surgery (SDC) | payer MEDICARE, MEDICAID, SELFPAY ==
[2019-12-30 10:07] VITALS: BMI 20.3
[2020-05-25] VITALS (8 sets, daily range): BP systolic 99–122; BP diastolic 53–73; PULSE 47–109; RESP 16; TEMP 36.2–36.5; O2SAT 99–100; BMI 20.3
[2020-05-25] MEDS: Lactated Ringers 1,000 ML 100 ML IV (12:29)
--- NOTE | 2020-05-25 12:55 | RAD_ITS ---
PROCEDURE: Caudal block. DATE OF EXAMINATION: 05/25/2020. INDICATION: Female, 49 years old. Chronic low back pain. FLUOROSCOPY TIME (if supplied): (5 seconds) minutes/seconds. Single lateral view was obtained. RAD/Fluor Guidance for Spine Inj IMPRESSION: Intraoperative images are provided for caudal block. Electronically Signed: Fawad Bender MD at 15:36 EDT , Service support ,
--- NOTE | 2020-05-25 12:55 | PCM.OPRPT ---
Report of Operation Date of Procedure: 05/25/20 Description of Surgical Findings:: PREOPERATIVE DIAGNOSIS: Lumbosacral radiculopathy, lumbosacral degenerative disc disease, lumbosacral spinal stenosis POSTOPERATIVE DIAGNOSIS: Lumbosacral radiculopathy, lumbosacral degenerative disc disease, lumbosacral spinal stenosis PROCEDURE PERFORMED: Diagnostic/therapeutic caudal epidural steroid injection. ANESTHESIA: MAC. BLOOD LOSS: Minimal. COMPLICATIONS: None. DESCRIPTION OF PROCEDURE: History and physical of today was reviewed. Risks and benefits of the procedure were explained. The patient understood and agreed to proceed. Informed consent was obtained. IV inserted per routine protocol. The patient was taken to the operating room and placed in the prone position with a pillow positioned underneath the abdomen. The lower back and tailbone area was prepped and draped in a sterile fashion using iodine x3. Under fluoroscopy guidance on a lateral view, the caudal space was identified. The skin and subcutaneous tissue was anesthetized with approximately 3 mL of 1% lidocaine using a 25-gauge regular needle. Under direct visualization with fluoroscopy, using a 22-gauge 3-1/2-inch spinal needle, the needle was advanced via the skin through the sacral hiatus. The tip of the needle was passed through the sacrococcygeal ligament and advanced to approximately S4 area. After negative aspiration of blood or CSF, a total of 3 mL of contrast was injected to confirm correct placement of the needle as well as cephalad spread. The spread was followed to approximately L5 area. After confirmation on AP as well as lateral view and repeated negative aspiration, a total of 15 mL of preservative-free 0.125% Marcaine with 80 mg of Depo-Medrol was injected easily. The needle was then removed intact. The patient experienced no sign or symptoms of intrathecal or intravascular injection. The patient experienced no paresthesia. The procedure was completed without any apparent difficulty or any complications. The patient appeared to tolerate it well. ASSESSMENT AND PLAN: This is a 49-year-old female with lumbosacral radiculopathy, lumbosacral degenerative disc disease, lumbosacral spinal stenosis status post diagnostic/therapeutic caudal epidural steroid injection patient will continue her current medications, patient will follow in approximately 2 weeks for reevaluation.
[2020-05-25] MEDS: 0.9% Normal Saline (Pres. free 10 ML Vial (13:01)
[2020-05-25] MEDS: MethylPREDNISolone Acetate 80 MG/ML Vial (13:01)
[2020-05-25] MEDS: Lidocaine 1% (5 ml sdv) 5 ML Vial (13:01)
[2020-05-25] MEDS: Bupivacaine 0.25% 30 ML Vial (13:01)
== END 2020-05-25 14:56 | disposition home or self-care (01) ==
LOC: SDC 10:57 → AC 10:57
PROVIDERS: PCP Family Medicine; Referring Provider Anesthesiology Pain Medicine; Visit Provider Anesthesiology Pain Medicine
PROC: 3E0S3BZ Introduction of Anesthetic Agent into Epidural Space, Percutaneous Approach (ICD-10-PCS; CPT 62282; principal; 2020-05-25 12:05)
DX: M51.17 Intervertebral disc disorders with radiculopathy, lumbosacral region (principal); M48.07 Spinal stenosis, lumbosacral region; M47.27 Other spondylosis with radiculopathy, lumbosacral region; F32.9 Major depressive disorder, single episode, unspecified; E03.9 Hypothyroidism, unspecified; D64.9 Anemia, unspecified; Z86.711 Personal history of pulmonary embolism; F17.200 Nicotine dependence, unspecified, uncomplicated; Z79.899 Other long term (current) drug therapy; Z79.891 Long term (current) use of opiate analgesic
CPT/HCPCS: 62323; 64520; 64483; 77003; J7120; J3490

== ENCOUNTER 2020-08-04 22:25 | Inpatient (IN) | payer MEDICARE, MEDICAID, SELFPAY ==
[2020-05-25 11:57] VITALS: BMI 20.3
[2020-08-04 22:27] VITALS: BP 89/65; PULSE 55; RESP 18; TEMP 36.6; O2SAT 97; BMI 21.6
--- NOTE | 2020-08-04 22:45 | ED.RN ---
PER PATIENT, IT IS OK TO GIVE MOTHER TAMAR JOHN PAUL [phone], MEDICAL INFORMATION OVER THE PHONE
--- NOTE | 2020-08-04 22:49 | EDS_ITS ---
HPI History of Present Illness Chief Complaint: Back Informant: patient and EMS Narrative Narrative: 49-year-old female presenting with back and leg pain. Patient has a history of chronic back and leg pain. She is in pain management. She has a aircraft motor mechanic who gave her a muscle relaxer this evening. She has a history of traumatic brain injury. She denies recent injury or fall. She also complains of headache. No fever. Prior similar symptoms: Yes Recent Illness/Hospitalization: No PFSH PFS Medical History (Updated 08/05/20 @ 01:[address] Trinity Albrecht MD) Arthritis TBI (traumatic brain injury) Home Medications cetirizine [All Day Allergy (cetirizine)] 10 mg PO DAILY 02/29/16 [History Last Taken Unknown] docusate sodium [DOK] 100 mg PO BID PRN 02/29/16 [History Last Taken Unknown] fluvoxamine 50 mg PO BID 02/29/16 [History Last Taken Unknown] gabapentin [Neurontin] 300 mg PO TID 02/29/16 [History Last Taken 12/17/18 09:00] levothyroxine 137 mcg PO DAILY 02/29/16 [History Last Taken 12/17/18 09:00] magnesium oxide 400 mg PO DAILY 02/29/16 [History Last Taken Unknown] olanzapine 5 mg PO QHS 02/29/16 [History Last Taken Unknown] orphenadrine citrate 100 mg PO BID 02/29/16 [History Last Taken Unknown] potassium chloride [Klor-Con M20] 20 meq PO 1600 05/25/17 [History Last Taken Unknown] topiramate 200 mg PO BID 05/25/17 [History Last Taken 12/17/18 09:00] multivitamin [Multiple Vitamins] 1 ea PO DAILY 08/09/17 [History Last Taken Unknown] rivaroxaban [Xarelto] 20 mg PO DAILY 08/09/17 [History Last Taken 05/22/20] acidophilus-pectin, citrus 1 tab PO DAILY 02/15/18 [History Last Taken Unknown] famotidine 20 mg PO DAILY 12/14/18 [History Last Taken 12/17/18 09:00] furosemide 20 mg PO DAILY 12/14/18 [History Last Taken Unknown] polyethylene glycol 3350 17 gm PO DAILY 12/14/18 [History Last Taken Unknown] polysaccharide iron complex 150 mg PO BID 12/14/18 [History Last Taken Unknown] ondansetron 8 mg PO Q8H PRN PRN #20 tab 08/03/19 [Rx Last Taken Unknown] acetaminophen 325 mg PO Q6H PRN 10/19/19 [History Last Taken Unknown] clonidine HCl 0.1 mg PO DAILY 12/30/19 [History Last Taken Unknown] omeprazole 40 mg PO DAILY 05/25/20 [History Last Taken Unknown] Allergy/AdvReac Type Severity Reaction Status Date / Time amoxicillin [Amoxicillin] Allergy Unknown Verified 08/04/20 22:27 naproxen Allergy Unknown Verified 08/04/20 22:27 NSAIDS (Non-Steroidal Allergy Unknown Verified 08/04/20 22:27 Anti-Inflamma phenytoin Allergy Unknown Verified 08/04/20 22:27 pineapple [Pineapple] Allergy Unknown Verified 08/04/20 22:27 mold Allergy Shortness Uncoded 08/04/20 22:27 of breath SEASONAL ALLERGIES Allergy Unknown Uncoded 08/04/20 22:27 Social History Smoking Status: Current every day smoker tobacco type: cigarettes ROS ROS ED Constitutional Constitutional ED: Denies fever(s) Eyes Eyes: Denies change in vision ENT ENT ED: Denies rhinorrhea or sore throat Cardiovascular Cardiovascular: Denies chest pain or palpitations Respiratory/Chest Respiratory/Chest: Denies cough or dyspnea Gastrointestinal Gastrointestinal: Denies abdominal pain, diarrhea, nausea or vomiting Genitourinary Genitourinary ED: Denies dysuria Musculoskeletal Musculoskeletal: Reports back pain; Denies myalgias Integumentary Denies rash Neurologic Neurologic: Reports headache(s) Psychiatric Psychiatric: Denies suicidal thoughts EXAM Physical Exam Const Vital Signs: 08/04/20 22:27 08/04/20 23:00 08/04/20 23:22 Temperature 98 F Temperature Source Temporal Pulse Rate 55 L 47 L Respiratory Rate 18 Blood Pressure 89/65 L 90/62 93/61 Blood Pressure Mean 73 71 71 Pulse Ox 97 Oxygen Delivery Method Room Air 08/05/20 00:02 08/05/20 00:20 Temperature Temperature Source Pulse Rate 49 L Respiratory Rate 10 L Blood Pressure 101/56 L 94/60 Blood Pressure Mean 71 71 Pulse Ox 95 Oxygen Delivery Method Room Air Positive well nourished and well developed General Appearance ED: well developed HEENT Reports normocephalic and head/scalp atraumatic Eyes PERRL and EOMs intact bilaterally Neck supple General: Negative for tenderness Chest Wall inspection of chest normal Resp normal respiratory effort and clear to auscultation bilaterally Cardio regular rate and regular rhythm GI non-tender and non-distended Palpation: soft; Negative for guarding or rebound tenderness present no CVA tenderness Extremity normal to inspection Neuro Neuro Narrative: moves all extremities, chronic speech difficulty Sensorium / Orientation: alert Psych mental status grossly normal Skin no rashes or lesions noted MDM MDM MDM Narrative Medical decision making narrative: Covid negative. Lumbar spine xray read by myself and radiology shows mild degenerative changes with scoliosis. She was initially hypotensive and was given IV fluids, Fentanyl, Zofran IV. Repeat BP 94/60. Patient continues to complain of significant low back pain. She has a caregiver who stays with her for a few hours per day. Discussed with hospitalist for admission. Lab Data Attestation: I reviewed the patient's lab results. Labs: Laboratory Results - last 24 hr 08/04/20 08/04/20 08/04/20 23:00 23:00 23:43 WBC 6.4 RBC 4.35 Hgb 13.7 Hct 42.3 MCV 97.2 MCH 31.5 MCHC 32.4 RDW Std Deviation 47.9 H RDW Coeff of [place] 13.4 Plt Count 170 MPV 9.9 Immature Gran % (Auto) 0.300 Neut % (Auto) 50.7 Lymph % (Auto) 37.1 [place] % (Auto) 9.1 Eos % (Auto) 2.5 Baso % (Auto) 0.3 Absolute Neuts (auto) 3.2 Absolute Lymphs (auto) 2.36 Nucleated RBC % 0 Sodium 142 Potassium 3.4 L Chloride 113 H Carbon Dioxide 25.0 Anion Gap 4 L BUN 17 Creatinine 1.02 Estim Creat Clear Calc 72.73 Est GFR (MDRD) Af Amer 74 Est GFR (MDRD) Non-Af 61 BUN/Creatinine Ratio 16.7 Glucose 95 Lactic Acid 0.7 Calcium 8.4 L Total Bilirubin 0.20 AST 13 L ALT 29 Alkaline Phosphatase 78 Total Protein 6.7 Albumin 3.6 Globulin 3.1 Albumin/Globulin Ratio 1.2 Urine Color Urine Clarity Urine pH Ur Specific [place] Urine Protein Urine Glucose (UA) Urine Ketones Urine Occult Blood Urine Nitrite Urine Bilirubin Urine Urobilinogen Ur Leukocyte Esterase Urine RBC Urine WBC Ur Squamous Epith Cells Amorphous Sediment Urine Bacteria Urine Mucus 08/04/20 23:58 WBC RBC Hgb Hct MCV MCH MCHC RDW Std Deviation RDW Coeff of [place] Plt Count MPV Immature Gran % (Auto) Neut % (Auto) Lymph % (Auto) [place] % (Auto) Eos % (Auto) Baso % (Auto) Absolute Neuts (auto) Absolute Lymphs (auto) Nucleated RBC % Sodium Potassium Chloride Carbon Dioxide Anion Gap BUN Creatinine Estim Creat Clear Calc Est GFR (MDRD) Af Amer Est GFR (MDRD) Non-Af BUN/Creatinine Ratio Glucose Lactic Acid Calcium Total Bilirubin AST ALT Alkaline Phosphatase Total Protein Albumin Globulin Albumin/Globulin Ratio Urine Color Yellow Urine Clarity Sl. Cloudy Urine pH 7.0 Ur Specific [place] 1.015 Urine Protein 15 H Urine Glucose (UA) Normal Urine Ketones Negative Urine Occult Blood 10 H Urine Nitrite Negative Urine Bilirubin Negative Urine Urobilinogen Normal Ur Leukocyte Esterase 25 H Urine RBC 0 SEEN Urine WBC 0-5 SEEN Ur Squamous Epith Cells 0 SEEN Amorphous Sediment 1+ Urine Bacteria 2+ Urine Mucus 0 SEEN Radiography Chest X-Ray - ED: 1 View, Read by ED Physician and Read by Radiologist Diagnostic Testing: Radiology Impression Brain CT 08/04/20 23:14 IMPRESSION: No acute intracranial pathology. 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 Electronically Signed: Salbador Thomas DO at 23:45 EDT Tel , Service support , Lumbar Spine X-Ray 08/04/20 23:14 IMPRESSION: Mild degenerative changes with scoliosis. Electronically Signed: Salbador Thomas DO at 23:45 EDT Tel , Service support , Chest X-Ray 08/04/20 23:15 IMPRESSION: Normal x-ray examination of the chest. Electronically Signed: Salbador Thomas DO at 23:44 EDT Tel , Service support , Discharge Plan Triage Chief Complaint: Back ED Provider: Trinity Albrecht Dx/Rx/DC Orders Clinical Impression: Intractable back pain Prescriptions: No Action olanzapine 5 MG tablet 5 mg PO QHS RF: 0 levothyroxine 100 MCG tablet 137 mcg PO DAILY RF: 0 magnesium oxide 400 MG tablet 400 mg PO DAILY RF: 0 orphenadrine citrate 100 MG tablet 100 mg PO BID RF: 0 docusate sodium [DOK] 100 MG capsule 100 mg PO BID PRN (Reason: stool softener) RF: 0 gabapentin [Neurontin] 300 MG capsule 300 mg PO TID RF: 0 fluvoxamine 50 MG tablet 50 mg PO BID RF: 0 cetirizine [All Day Allergy (cetirizine)] 10 MG capsule 10 mg PO DAILY RF: 0 potassium chloride [Klor-Con M20] 20 MEQ tablet 20 meq PO 1600 RF: 0 topiramate 200 MG tablet 200 mg PO BID RF: 0 multivitamin [Multiple Vitamins] 1 EACH tablet 1 ea PO DAILY RF: 0 rivaroxaban [Xarelto] 20 MG tablet 20 mg PO DAILY RF: 0 acidophilus-pectin, citrus 1 TABLET tablet 1 tab PO DAILY RF: 0 polysaccharide iron complex 150 MG capsule 150 mg PO BID RF: 0 famotidine 20 MG tablet 20 mg PO DAILY RF: 0 furosemide 20 MG tablet 20 mg PO DAILY RF: 0 polyethylene glycol 3350 238 GM powder 17 gm PO DAILY RF: 0 ondansetron 4 MG tablet 8 mg PO Q8H PRN PRN (Reason: Nausea) Qty: 20 RF: 0 acetaminophen 325 MG tablet 325 mg PO Q6H PRN (Reason: Pain Or Fever) RF: 0 clonidine HCl 0.1 MG tablet 0.1 mg PO DAILY RF: 0 omeprazole 40 MG capsule,delayed release(DR/EC) 40 mg PO DAILY RF: 0 Primary Care Provider: Stu Calderon Referrals: Stu Calderon MD [Primary Care Provider] - Disposition Disposition: Acute Care Hospital [facility]
[2020-08-04 23:00] VITALS: BP 90/62
[2020-08-04] MEDS: 0.9% Normal Saline 1,000 ML 1000 ML IV (23:02)
--- NOTE | 2020-08-04 23:14 | RAD_ITS ---
STUDY: X-RAY - LUMBAR SPINE REASON FOR EXAM: Female, 49 years old. pain TECHNIQUE: 4 view(s) of the lumbar spine were obtained. COMPARISON: None FINDINGS: Normal lumbar lordosis. There is a dextroscoliosis of the lumbar spine. There is a normal alignment of the vertebrae. There is multilevel endplate spondylosis of the lumbar vertebrae. There is multi-level degenerative disc disease with multi-level disc space narrowing. There is no demonstrated fracture. The soft tissue structures are unremarkable. RAD/Lumbar Spine 2 or 3 Views IMPRESSION: Mild degenerative changes with scoliosis. Electronically Signed: Salbador Thomas DO at 23:45 EDT Tel , Service support ,
--- NOTE | 2020-08-04 23:14 | CT_ITS ---
STUDY: CT BRAIN WITHOUT CONTRAST REASON FOR EXAM: Female, 49 years old. headache RADIATION DOSAGE (If Supplied By Facility): CTDIvol = ( 44.99 ) mGy, DLP = ( 846.73 ) mGycm TECHNIQUE: Transaxial CT imaging of the brain was performed without administration of intravenous contrast material. Individualized dose optimization techniques were used for this CT. COMPARISON: 07/15/2019 FINDINGS: Normal soft tissue structures. There is mild cerebral atrophy with widening of the extra-axial spaces and ventricular dilatation. There are areas of decreased attenuation within the white matter tracts of the supratentorial brain, consistent with microvascular disease changes. Normal basal ganglia and thalami. Normal brainstem. Normal cerebellum. Stable encephalomalacia in the left cerebral hemisphere with left craniotomy. There is no intracranial hemorrhage. There are no findings of an acute ischemic infarction. Normal visualized paranasal sinuses. CT/Brain/Head without Contrast IMPRESSION: No acute intracranial pathology. 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 Electronically Signed: Salbador Thomas DO at 23:45 EDT Tel , Service support ,
--- NOTE | 2020-08-04 23:15 | RAD_ITS ---
STUDY: X-RAY CHEST REASON FOR EXAM: Female, 49 years old. back and leg pain TECHNIQUE: Single AP portable view of the chest. COMPARISON: 10/19/2019 FINDINGS: The lungs are clear and expanded. There is no demonstrated pleural abnormality. Normal size heart. Normal mediastinum and glenis. Normal visualized pulmonary arteries. Normal visualized aortic arch and descending thoracic aorta. Normal visualized thoracic spine. Normal visualized ribs, clavicles, and shoulders. There is no demonstrated abnormality of the visualized soft tissue structures of the upper abdomen. RAD/Chest 1 View (Portable) IMPRESSION: Normal x-ray examination of the chest. Electronically Signed: Salbador Thomas DO at 23:44 EDT Tel , Service support ,
[2020-08-04 23:22] VITALS: BP 93/61; PULSE 47
[2020-08-04 23:23] LABS: ALB/GLOB Ratio 1.2 RATIO (0.9-2.4); AST(SGOT) 13 U/L (15-37); Alanine Aminotransfer ALT/SGPT 29 U/L (13-56); Albumin, Serum 3.6 g/dL (3.2-5.0); Alkaline Phosphatase 78 U/L (45-117); Anion Gap 4 (5-15); BUN 17 mg/dL (7-18); BUN/Creat Ratio 16.7 RATIO (10-20); Calcium,Total 8.4 mg/dL (8.5-10.1); Chloride 113 mmol/L (98-107); Creatinine, Serum 1.02 mg/dL (0.55-1.02); EST Glomerular Filtration Rate 61 mL/min (>60); Est Glom Filt Rate - Afr Amer 74 mL/min (>60); Estimated Creatinine Clearance 72.73 ml/min; Globulin 3.1 g/dL (2.2-4.2); Glucose 95 mg/dL (74-106); Potassium 3.4 mmol/L (3.5-5.1); Protein, Total 6.7 g/dL (6.4-8.2); Sodium Level 142 mmol/L (136-145)
[2020-08-04 23:24] LABS: Absolute Lymphocyte Count 2.36 X10^3/uL (0.83-4.51); Absolute Neutrophil Count 3.2 X10^3/uL (2.0-7.7); Basophil# 0.02 X10^3/uL; Basophil% 0.3 % (0-1); Eosinophil# 0.16 X10^3/uL; Eosinophils% 2.5 % (0-5); Hematocrit 42.3 % (37-47); Hemoglobin 13.7 g/dL (12.0-15.0); Lymphocyte # 2.36 X10^3/ul (0.83-4.51); Lymphocyte % 37.1 % (19-41); Mean Corp Hgb Conc 32.4 g/dL (32-36); Mean Corpuscular Hgb 31.5 pg (27.0-32.0); Mean Corpuscular Volume 97.2 fL (81-99); Mean Platelet Vol. 9.9 fl (6.2-12.0); Monocyte# 0.58 X10^3/uL; Monocyte% 9.1 % (0-10); NRBC Flagged by Analyzer 0 % (0-5); Neutrophil # 3.22 X10^3/uL (2.7-7.7); Neutrophil % 50.7 % (47-70); Platelet Count 170 K/mm3 (150-450); RBC Distribution Width CV 13.4 % (11.6-14.6); RBC Distribution Width SD 47.9 fl (35.1-43.9); Red Blood Count 4.35 M/mm3 (4.2-5.4); White Blood Count 6.4 K/mm3 (4.4-11.0)
[2020-08-04] MEDS: fentaNYL 100 MCG/2 ML Ampul 50 MCG IV (23:47)
[2020-08-04] MEDS: Ondansetron 4 MG/2 ML Vial IV (23:47)
[2020-08-05] VITALS (15 sets, daily range): BP systolic 90–101; BP diastolic 43–60; PULSE 40–69; RESP 10–18; TEMP 36.1–36.9; O2SAT 95–100; BMI 19.6
[2020-08-05 00:04] LABS: Mucous, Urine 0 SEEN /hpf (<or=2+); Red Blood Cells-Urine 0 SEEN /hpf (0-5); Squamous Epithelial Cells - UA 0 SEEN /hpf (5-10)
[2020-08-05 00:05] LABS: Color, Urine Yellow (Yellow); Glucose, Dipstick Normal (Normal); Ketone-Dipstick Negative (Negative); Leukocyte Esterase-Dipstick 25 /ul (Negative); Nitrite-Dipstick Negative (Negative); Occult Blood-Urine 10 /ul (Negative); Protein-Dipstick 15 mg/dl (Negative); Specific Gravity, Urine 1.015 (1.002-1.030); Urine Bilirubin Dipstick Negative (Negative); Urine Clarity Sl. Cloudy (Clear); Urine Urobilinogen Normal (Normal)
[2020-08-05 00:11] LABS: Lactic Acid 0.7 mmol/L (0.4-1.9)
[2020-08-05 00:17] LABS: Amorphous Sediment 1+; Bacteria 2+ /hpf (None Seen); White Blood Cells 0-5 SEEN /hpf (0-5)
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
[2020-08-05] MEDS: 0.9% Normal Saline 1,000 ML 75 ML IV (03:24)
--- NOTE | 2020-08-05 09:15 | CASEMGMT ---
Addendum entered by Monica Verdugo 08/05/20 14:24: Dr Leon made aware of pt's current home/living situation as stated below. Dr Leon also made aware that pt's mother is pt's legal guardian and that message has been left w/her today for return call, but she has not called back to this RN CM yet. Dr Leon inquiring if shelter may be an option for pt. , Joana Reyes, made aware. Addendum entered by Monica Vedrugo 08/05/20 10:37: Call received from Noemi Oconnor, Director of Care Services through [employer]. She confirms pt has caregivers through [employer] from 9 AM until 10PM and then pt is alone during the night. She confirms pt is active w/[place] [facility] and that the state is who has determined pt does not need overnight services. Per Noemi, it is not unusual for pt to call 911 after the caregivers have left for the day and states, This is her usual behavior. She states pt's legal guardian is her mother, Leidy Santoyo. (Copy of legal guardianship is on e-file @ [facility]). Chino Santoyo, also listed on demographics, is pt's step-father. Noemi was made aware that pt told this RN CM that she would like a new bed. Per Noemi, pt has a brand new W/C and a brand new bed and states it is common for pt to request this and states, I can guarantee you she has everything she needs. Noemi Oconnor: Director of Care Services @ [employer] DDS: [phone]. She requests that she be contacted when pt is ready for discharge and she will make arrangements for pt to be transported home. Call placed to pt's mom/legal guardian, Leidy,@ [phone] at this time. No answer. VM left for Leidy to return call to this RN CM. Original Note: RN CM NOTE: Call received from Anders, who states she is an aide through [employer]. She states pt Has caregivers from 9AM through 10 PM daily who do ADL's and IADL's for pt. She states they assist pt to bed prior to leaving @ [address] pt's phone beside her to call for help if needed through the night. She states pt typically sleeps most of the night and then they get her back up in the morning when they arrive @ 9AM. She states pt is W/C bound. Anders states it will either be herself or pt's health professional development manager, Nereyda, who will take pt home @ discharge and provided their contact #'s as follows: Anders: [phone] (she will be available to take pt home until 3 PM today if pt is d/c'd by then). Nereyda: Health Molder Machine Tender/caregiver through [employer]: [phone] (will be available tomorrow 08/06 to transport pt home) [employer] DDS: [phone]. RN CM to room to talk w/pt. Pt resting in bed. Awake/alert. Pt states she wishes to return home @ discharge w/resumption of caregivers she currently has. Pt did state she would like a new bed and states she has informed her caregivers of same. Justice KRAUS RN CM
[2020-08-05] MEDS: Potassium Chloride Oral Tablet 20 MEQ 40 MEQ PO (09:29)
[2020-08-05] MEDS: dexAMETHasone 4 MG Tablet PO ×2 (09:29→16:34)
--- NOTE | 2020-08-05 09:53 | CASEMGMT ---
Addendum entered by Joana Choi 08/05/20 14:17: SW received call from Toya De stating she is still pt's CM through [facility] of [facility]. Toya confirms pt has services through [facility] and coordinator is Noemi Oconnor. Toya states to just have staff call Noemi when pt is medically ready for discharge and they will send someone to [facility] to transport pt. Toya states she doesn't need to be called when pt is discharged, just requests discharge paperwork to be faxed to her ([phone]). Toya also confirms pt has legal guardian, pt's mother Leidy. Original Note: Social Work Note SW reviewed chart. Pt with CM Toya De ( ext# [phone]) through [facility] of DD. SW placed a call to Toya and left message. Joana Choi AIRCRAFT COMMUNICATOR, BUSINESS ADVISOR
[2020-08-05] MEDS: cycloBENZAPRine HCl 5 MG TABLET PO (13:54)
--- NOTE | 2020-08-05 14:30 | CASEMGMT ---
Addendum entered by Joana Choi 08/05/20 16:51: SW received message from Toya Kc stating Detention has been discussed with pt's family and pt and at this time, pt and pt's family are not agreeable to Detention placement. Toya states pt has been made aware she can call her providers at night for any issues. Toya states pt probably didn't like the answers that the providers gave her and that is why she called the squad. Original Note: Social Work Note SW updated that physician is inquiring if pt is appropriate for half-way. Pt is already active with Board of DD who arranges Detention placements. SW unable to arrange Detention placements. SW placed a call to pt's CM Toya Kc through [facility] of DD and left message inquiring if pt has been evaluated for a Detention or if a Detention has been discussed for pt. SW waiting for call back. Joana Choi BARRATTE OPERATOR, SERVICE INSPECTOR
[2020-08-05] MEDS: oxyCODONE 5 MG Tablet PO ×2 (16:34→21:33)
[2020-08-05] MEDS: Iron Polysaccharide Complex 150 MG CAPSULE PO (21:21)
[2020-08-05] MEDS: fluvoxaMINE Maleate 50 MG Tablet PO (21:21)
[2020-08-05] MEDS: OLANZapine 5 MG/TAB TAB.RAPDIS PO (21:21)
[2020-08-05] MEDS: Orphenadrine 100 MG Tablet PO (21:21)
[2020-08-05] MEDS: Doxepin Hydrochloride 10 MG Capsule PO (21:21)
[2020-08-05] MEDS: Gabapentin 300 MG Capsule PO (21:22)
[2020-08-05] MEDS: guaiFENesin 1,200 MG Tablet 1200 MG PO (21:22)
[2020-08-05] MEDS: Topiramate 200 MG Tablet PO (21:22)
[2020-08-05] MEDS: MELATONIN 3 MG TABLET PO (23:16)
[2020-08-06] VITALS (8 sets, daily range): BP systolic 86–101; BP diastolic 49–58; PULSE 48–65; RESP 16–18; TEMP 36.1–37; O2SAT 94–97
[2020-08-06] MEDS: Levothyroxine 137 MCG Tablet PO (06:11)
[2020-08-06] MEDS: Gabapentin 300 MG Capsule PO ×2 (06:11→13:48)
[2020-08-06 07:29] LABS: Anion Gap 6 (5-15); BUN 18 mg/dL (7-18); Calcium,Total 8.3 mg/dL (8.5-10.1); Chloride 117 mmol/L (98-107); Creatinine, Serum 0.82 mg/dL (0.55-1.02); EST Glomerular Filtration Rate 79 mL/min (>60); Est Glom Filt Rate - Afr Amer 96 mL/min (>60); Estimated Creatinine Clearance 82.25 ml/min; Glucose 126 mg/dL (74-106); Potassium 4.1 mmol/L (3.5-5.1); Sodium Level 143 mmol/L (136-145)
[2020-08-06] MEDS: Magnesium Chloride 64 MG Delay Rel.Tablet 128 MG PO (09:23)
[2020-08-06] MEDS: Loratadine 10 MG Tablet PO (09:24)
[2020-08-06] MEDS: Orphenadrine 100 MG Tablet PO (09:24)
[2020-08-06] MEDS: fluvoxaMINE Maleate 50 MG Tablet PO (09:25)
[2020-08-06] MEDS: Pantoprazole Sodium 40 MG Tablet PO (09:25)
[2020-08-06] MEDS: guaiFENesin 1,200 MG Tablet 1200 MG PO (09:25)
[2020-08-06] MEDS: Fluticasone 0.05% 1 SPRAY NASAL.SRY 2 SPRAY NASAL (09:25)
[2020-08-06] MEDS: Calcium Carb/Vitamin D 1 TABLET Tablet PO (09:25)
[2020-08-06] MEDS: Famotidine 20 MG Tablet PO (09:25)
[2020-08-06] MEDS: Iron Polysaccharide Complex 150 MG CAPSULE PO (09:25)
[2020-08-06] MEDS: Topiramate 200 MG Tablet PO (09:27)
[2020-08-06] MEDS: Multivitamins,Ther W-Minerals Tablet 1 TABLET PO (09:27)
[2020-08-06] MEDS: Acetaminophen 325 MG Tablet 650 MG PO (09:42)
[2020-08-06] MEDS: dexAMETHasone 4 MG Tablet PO (09:47)
--- NOTE | 2020-08-06 09:53 | CASEMGMT ---
Addendum entered by Joana Choi 08/06/20 15:15: PAULA faxed discharge paperwork to Toya Kc at [facility]. Addendum entered by Joana Choi 08/06/20 14:32: PAULA placed a call to Noemi Elvin and updated her that pt is discharging home today. Noemi states she will send someone to [facility] to transport pt home today. PAULA updated RN. Original Note: Social Work Note Pt to likely discharge home today. PAULA placed a call to pt's mother and guardian Leidy. Leidy confirms plan is for pt to return home with resumption of her aide services at discharge. Leidy confirms to call Noemi Oconnor who will arrange transportation home for pt. Leidy states Noemi will just call her when pt is returned home, states she doesn't need to be called by SW when pt leaves [facility]. Joana Choi CASE MONITOR, IN FLIGHT REFUELING SYSTEM REPAIRER
--- NOTE | 2020-08-06 13:52 | DCINST_ITS ---
Discharge Instructions Diet Discharge Diet: No restrictions Activity Discharge Activity: Return to Normal Activity Dressing / Incision Call your doctor if you observe: Fever of 101 or Higher, Shortness of breath, Dizziness, Fainting spells, Swelling in the ankles, Chest pain and Increased palpitations (irregular heartbeat) Follow Up Care Test Results: Test results from this visit will be discussed in further detail at your follow-up appointment, if applicable. Discharge Plan Admission Admit Date/Time: 08/05/20 15:30 Attending Provider: Flo Leon Primary Care Provider: Stu Calderon Instructions Patient Instructions: Causes of Lumbar (Low Back) Pain, ED Back Pain (Acute or Chronic) Discharge Orders/Prescriptions Prescriptions: Continued olanzapine 5 MG tablet 5 mg PO QHS RF: 0 levothyroxine 100 MCG tablet 137 mcg PO DAILY RF: 0 magnesium oxide 400 MG tablet 400 mg PO DAILY RF: 0 orphenadrine citrate 100 MG tablet 100 mg PO BID RF: 0 docusate sodium [DOK] 100 MG capsule 100 mg PO BID PRN (Reason: stool softener) RF: 0 gabapentin [Neurontin] 300 MG capsule 300 mg PO TID RF: 0 fluvoxamine 50 MG tablet 50 mg PO BID RF: 0 All Day Allergy (cetirizine) 10 MG capsule 10 mg PO DAILY RF: 0 potassium chloride [Klor-Con M20] 20 MEQ tablet 20 meq PO 1600 RF: 0 topiramate 200 MG tablet 200 mg PO BID RF: 0 multivitamin [Multiple Vitamins] 1 EACH tablet 1 ea PO DAILY RF: 0 Xarelto 20 MG tablet 20 mg PO DAILY RF: 0 acidophilus-pectin, citrus 1 TABLET tablet 1 tab PO DAILY RF: 0 polysaccharide iron complex 150 MG capsule 150 mg PO BID RF: 0 famotidine 20 MG tablet 20 mg PO DAILY RF: 0 furosemide 20 MG tablet 20 mg PO DAILY RF: 0 polyethylene glycol 3350 238 GM powder 17 gm PO DAILY PRN (Reason: Constipation) RF: 0 ondansetron 4 MG tablet 8 mg PO Q8H PRN PRN (Reason: Nausea) Qty: 20 RF: 0 acetaminophen 325 MG tablet 325 mg PO Q6H PRN (Reason: Pain Or Fever) RF: 0 clonidine HCl 0.1 MG tablet 0.1 mg PO DAILY RF: 0 omeprazole 40 MG capsule,delayed release(DR/EC) 40 mg PO DAILY RF: 0 doxepin 10 mg Capsule 10 mg PO QHS RF: 0 fluticasone propionate 50 mcg/actuation [place],Suspension 2 spray INTRANASAL DAILY RF: 0 guaifenesin 600 mg Tablet Extended Release 12hr 1,200 mg PO BID RF: 0 calcium carbonate-vitamin D3 [Calcium 600 + D(3)] 600 mg(1,500mg) -200 unit Tablet 1 tab PO BID RF: 0 simethicone [Gas Relief (simethicone)] 125 mg Capsule 125 mg PO ACHS RF: 0 CertaVite Senior 0.4-300-250 mg-mcg-mcg Tablet 1 tab PO DAILY RF: 0 Referrals / Follow Up: Jori Israel DO [NON-STAFF] - Within 3 Months Sut Calderon MD [Primary Care Provider] - Within 2 Weeks Disposition Disposition (needs filled in before D/C Order can be placed): Home, self care
[2020-08-06] MEDS: oxyCODONE 5 MG Tablet PO (13:57)
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
== END 2020-08-06 14:55 | disposition home or self-care (01) | DRG 552 ==
LOC: ED 08-05 01:10 → MS3 08-05 01:32
PROVIDERS: Admitting Provider Hospitalist; Emergency Provider Emergency Medicine; PCP Family Medicine; Visit Provider Family Medicine
DX: M54.5 Low back pain (principal); G81.01 Flaccid hemiplegia affecting right dominant side; M48.07 Spinal stenosis, lumbosacral region; R07.9 Chest pain, unspecified; M54.17 Radiculopathy, lumbosacral region; E03.9 Hypothyroidism, unspecified; Z86.711 Personal history of pulmonary embolism; F17.210 Nicotine dependence, cigarettes, uncomplicated; S06.5X9S Traumatic subdural hemorrhage with loss of consciousness of unspecified duration, sequela; F79 Unspecified intellectual disabilities; V89.2XXS Person injured in unspecified motor-vehicle accident, traffic, sequela
CPT/HCPCS: 36415; 70450; 71045; 72100; 80048; 80053; 81001; 83605; 84484; 85025; 87426; 97162; 97166; 97802; 99285; J7030; P9612; J2405

== ENCOUNTER 2020-10-26 09:07 | Day surgery (SDC) | payer MEDICARE, MEDICAID, SELFPAY ==
[2020-08-05 02:10] VITALS: BMI 19.6
[2020-10-26] VITALS (9 sets, daily range): BP systolic 88–113; BP diastolic 45–69; PULSE 44–55; RESP 16; TEMP 36.6–36.8; O2SAT 98–100; BMI 20.3
--- NOTE | 2020-10-26 10:30 | RAD_ITS ---
PROCEDURE: Caudal block. DATE OF EXAMINATION: 10/26/2020. INDICATION: Female, 49 years old. Chronic low back pain. FLUOROSCOPY TIME (if supplied): (1 seconds) minutes/seconds. One image was submitted. RAD/Fluor Guidance for Spine Inj IMPRESSION: Intraoperative imaging provided for caudal block. Electronically Signed: Fawad Bender MD at 15:54 EDT , Service support ,
[2020-10-26] MEDS: Lactated Ringers 1,000 ML 100 ML IV (10:35)
--- NOTE | 2020-10-26 12:25 | OP.PCM_ITS ---
Report of Operation Date of Procedure: 10/26/20 Pre-Operative Diagnosis: Lumbosacral radiculopathy, lumbosacral degenerative di sc disease, lumbosacral spinal stenosis Post-Operative Diagnosis: Lumbosacral radiculopathy, lumbosacral degenerative disc disease, lumbosacral spinal stenosis Surgery/Procedure Performed:: Caudal epidural steroid injection under fluoroscopic guidance Type of Anesthesia: MAC Estimated Blood Loss (mL): Minimal Description of Procedure: DESCRIPTION OF PROCEDURE: History and physical of today was reviewed. Risks and benefits of the procedure were explained. The patient understood and agreed to proceed. Informed consent was obtained. IV inserted per routine protocol. The patient was taken to the operating room and placed in the prone position with a pillow positioned underneath the abdomen. The lower back and tailbone area was prepped and draped in a sterile fashion using iodine x3. Under fluoroscopy guidance on a lateral view, the caudal space was identified. The skin and subcutaneous tissue was anesthetized with approximately 3 mL of 1% lidocaine using a 25-gauge regular needle. Under direct visualization with fluoroscopy, using a 22-gauge 3-1/2-inch spinal needle, the needle was advanced via the skin through the sacral hiatus. The tip of the needle was passed through the sacrococcygeal ligament and advanced to approximately S4 area. After negative aspiration of blood or CSF, a total of 3 mL of contrast was injected to confirm correct placement of the needle as well as cephalad spread. The spread was followed to approximately L5 area. After confirmation on AP as well as lateral view and repeated negative aspiration, a total of 15 mL of preservative-free 0.125% Marcaine with 80 mg of Depo-Medrol was injected easily. The needle was then removed intact. The patient experienced no sign or symptoms of intrathecal or intravascular injection. The patient experienced no paresthesia. The procedure was completed without any apparent difficulty or any complications. The patient appeared to tolerate it well. ASSESSMENT AND PLAN: This is a 49-year-old female with lumbosacral radiculopathy, lumbosacral degenerative disc disease, lumbosacral spinal stenosis status post caudal epidural steroid injection, patient will continue her current medications, patient will follow in approximately 2 weeks for reevaluation. Complications None
== END 2020-10-26 13:20 | disposition home or self-care (01) ==
LOC: SDC 09:10 → AC 10:13
PROVIDERS: PCP Family Medicine; Referring Provider Anesthesiology Pain Medicine; Visit Provider Anesthesiology Pain Medicine
PROC: 3E0S3BZ Introduction of Anesthetic Agent into Epidural Space, Percutaneous Approach (ICD-10-PCS; CPT 62282; principal; 2020-10-26 10:25)
DX: M51.17 Intervertebral disc disorders with radiculopathy, lumbosacral region (principal); M48.07 Spinal stenosis, lumbosacral region; F32.9 Major depressive disorder, single episode, unspecified; E03.9 Hypothyroidism, unspecified; F17.200 Nicotine dependence, unspecified, uncomplicated; Z79.899 Other long term (current) drug therapy
CPT/HCPCS: 62323; 64520; 64483; 77003; J7120; J3490

== ENCOUNTER → 2021-01-23 11:17 | Outpatient (CLI) | payer MEDICARE, MEDICAID, SELFPAY ==
--- NOTE | 2021-01-23 11:21 | RAD_ITS ---
STUDY: X-RAY - CERVICAL SPINE REASON FOR EXAM: Female, 50 years old. PAIN TECHNIQUE: 5 view(s) of the cervical spine were obtained. COMPARISON: None FINDINGS: Normal anterior atlantoaxial articulation. Normal odontoid process. Normal cervical lordosis. There is multi-level endplate spondylosis. There is multi-level degenerative disc disease with multilevel disc space narrowing. Moderate facet arthropathy. No significant foraminal narrowing. The soft tissue structures are unremarkable. RAD/Cerv Spine 4 or 5 Views IMPRESSION: Degenerative disc disease with spondylosis and facet arthropathy. No significant foraminal stenosis identified. Electronically Signed: Ranjeet Monzon MD ([place]) at 21:09 EST , Service support ,
== END ==
PROVIDERS: PCP Family Medicine; Visit Provider Nurse Practitioner Family
DX: M54.2 Cervicalgia (principal)
CPT/HCPCS: 72050

== ENCOUNTER 2021-02-15 07:39 | Day surgery (SDC) | payer MEDICARE, MEDICAID, SELFPAY ==
[2021-02-15] VITALS (7 sets, daily range): BP systolic 90–103; BP diastolic 45–71; PULSE 45–52; RESP 16; TEMP 36.1–36.6; O2SAT 96–100; BMI 20.3
--- NOTE | 2021-02-15 09:15 | RAD_ITS ---
STUDY: X-RAY - CERVICAL SPINE REASON FOR EXAM: Female, 50 years old. MEDIAL BRANCH NERVE BLOCK, C4-C7, LEFT TECHNIQUE: 5 view(s) of the cervical spine were obtained. COMPARISON: None FINDINGS: Fluoroscopy the cervical spine was utilized in operating room during nerve block.. RAD/Cerv Spine 2 or 3 Views IMPRESSION: Fluoroscopy during cervical spine nerve block. Electronically Signed: Oliverio Javier MD at 16:48 EST Tel , Service support ,
[2021-02-15] MEDS: Bupivacaine 0.25% 30 ML Vial (09:18)
[2021-02-15] MEDS: MethylPREDNISolone Acetate 80 MG/ML Vial (09:18)
--- NOTE | 2021-02-15 09:48 | OP.PCM_ITS ---
Report of Operation Date of Procedure: 02/15/21 Pre-Operative Diagnosis: Cervical spondylosis, cervical degenerative disc disea se, cervical facet arthropathy Post-Operative Diagnosis: Cervical spondylosis, cervical degenerative disc disease, cervical facet arthropathy Surgery/Procedure Performed:: Left-sided cervical medial branch block at C4, C5, C6, C7 Type of Anesthesia: MAC Estimated Blood Loss (mL): Minimal Description of Procedure: DESCRIPTION OF PROCEDURE: History and physical of today was reviewed. Risks and benefits of the procedure were explained. The patient understood and agreed to proceed. Informed consent was obtained. IV inserted per routine protocol. The patient was taken to the operating room and placed in the prone position with a pillow positioned underneath the chest. The neck area was prepped and draped in a sterile fashion using iodine x3. Under fluoroscopy guidance on an AP view, the C4 through C7 vertebral bodies were visualized at approximately 10-degree angle, starting on the left C4, ending on the left C7, passing through the C5 and C6. Using a 25-gauge 3-1/2-inch spinal needle, the needle was advanced via the skin. The tip of the needle was maneuvered and directed towards the epiphyseal junction of each corresponding vertebra. Once the tip of the needle was at the vicinity of the medial branch, the needle was pulled approximately 2 mm off the bone. After negative aspiration of blood or CSF and confirmation on AP, oblique as well as lateral view, a total of 4 mL of preservative-free 0.25% Marcaine with 80 mg of Depo- Medrol was injected in divided doses between those four levels. The needles were then removed intact. The patient experienced no sign or symptoms of intrathecal or intravascular injection. The patient experienced no paresthesia. The procedure was completed without any apparent difficulty or any complications. The patient appeared to tolerate it well. ASSESSMENT AND PLAN: This is a 50-year-old female with cervical spondylosis, cervical degenerative disc disease, cervical facet arthropathy status post left-sided cervical medial branch block at C4-C7, patient will continue her current medications, patient will follow in approximately 2 weeks for reevaluation. Complications None
== END 2021-02-15 10:51 | disposition home or self-care (01) ==
LOC: SDC 07:42 → AC 07:43
PROVIDERS: PCP Family Medicine; Visit Provider Anesthesiology Pain Medicine
PROC: 3E0U3BZ Introduction of Anesthetic Agent into Joints, Percutaneous Approach (ICD-10-PCS; CPT 64490; principal; 2021-02-15 09:15)
DX: M47.812 Spondylosis without myelopathy or radiculopathy, cervical region (principal); M50.321 Other cervical disc degeneration at C4-C5 level; F32.A Depression, unspecified; E03.9 Hypothyroidism, unspecified; G81.01 Flaccid hemiplegia affecting right dominant side; F17.210 Nicotine dependence, cigarettes, uncomplicated; Z79.891 Long term (current) use of opiate analgesic; Z79.899 Other long term (current) drug therapy
CPT/HCPCS: 64491; 64490; 72040; J7120

== ENCOUNTER 2021-05-27 12:37 | Outpatient (CLI) | payer MEDICARE, MEDICAID, SELFPAY | END 2021-05-27 23:59 | disposition home or self-care (01) | LOC: SDC 12:37 | PROVIDERS: PCP Family Medicine; Visit Provider Anesthesiology Pain Medicine | DX: M47.812 Spondylosis without myelopathy or radiculopathy, cervical region (principal); M54.2 Cervicalgia; M51.37 Other intervertebral disc degeneration, lumbosacral region; M47.817 Spondylosis without myelopathy or radiculopathy, lumbosacral region; Z79.891 Long term (current) use of opiate analgesic; M96.1 Postlaminectomy syndrome, not elsewhere classified; Z53.9 Procedure and treatment not carried out, unspecified reason ==

== ENCOUNTER 2021-10-11 08:32 | Day surgery (SDC) | payer MEDICARE, MEDICAID, SELFPAY ==
[2021-10-11] VITALS (7 sets, daily range): BP systolic 98–108; BP diastolic 55–64; PULSE 47–53; RESP 16; TEMP 35.9–36.6; O2SAT 95–100; BMI 17.6
[2021-10-11] MEDS: Lactated Ringers 1,000 ML 15 ML IV (09:24)
[2021-10-11] MEDS: 0.9% Normal Saline (Pres. free 10 ML Vial (09:56)
--- NOTE | 2021-10-11 10:00 | RAD_ITS ---
PROCEDURE: CAUDAL BLOCK INDICATION: 50-year-old female with low back pain. EXAMINATION/TECHNIQUE: X-RAY - IR Fluoro Guide Injection Spine COMPARISON: None. FLUOROSCOPY time: 0:07 minutes/seconds FINDINGS: 3 spot fluoroscopic images were obtained intraoperatively. Lateral view of the sacrum and coccyx was obtained demonstrating demonstrate the needle placement and contrast injection. No radiologist was present for the procedure, please refer to operative report for details. RAD/Fluor Guidance for Spine Inj IMPRESSION: Please refer to operative report for details. Electronically Signed: Bolivar Byers MD at 14:30 EDT ,
[2021-10-11] MEDS: MethylPREDNISolone Acetate 80 MG/ML Vial (10:04)
[2021-10-11] MEDS: Lidocaine 1% (5 ml sdv) 5 ML Vial (10:04)
[2021-10-11] MEDS: Bupivacaine 0.25% 30 ML Vial (10:04)
--- NOTE | 2021-10-11 15:42 | OP.PCM_ITS ---
Report of Operation Date of Procedure: 10/11/21 Pre-Operative Diagnosis: Lumbosacral radiculopathy, lumbosacral degenerative di sc disease, lumbosacral spinal stenosis Post-Operative Diagnosis: Lumbosacral radiculopathy, lumbosacral degenerative disc disease, lumbosacral spinal stenosis Surgery/Procedure Performed:: Caudal epidural steroid injection under fluoroscopic guidance Type of Anesthesia: MAC Estimated Blood Loss (mL): Minimal Description of Procedure: DESCRIPTION OF PROCEDURE: History and physical of today was reviewed. Risks and benefits of the procedure were explained. The patient understood and agreed to proceed. Informed consent was obtained. IV inserted per routine protocol. The patient was taken to the operating room and placed in the prone position with a pillow positioned underneath the abdomen. The lower back and tailbone area was prepped and draped in a sterile fashion using iodine x3. Under fluoroscopy guidance on a lateral view, the caudal space was identified. The skin and subcutaneous tissue was anesthetized with approximately 3 mL of 1% lidocaine using a 25-gauge regular needle. Under direct visualization with fluoroscopy, using a 22-gauge 3-1/2-inch spinal needle, the needle was advanced via the skin through the sacral hiatus. The tip of the needle was passed through the sacrococcygeal ligament and advanced to approximately S4 area. After negative aspiration of blood or CSF, a total of 3 mL of contrast was injected to confirm correct placement of the needle as well as cephalad spread. The spread was followed to approximately L5 area. After confirmation on AP as well as lateral view and repeated negative aspiration, a total of 15 mL of preservative-free 0.125% Marcaine with 80 mg of Depo-Medrol was injected easily. The needle was then removed intact. The patient experienced no sign or symptoms of intrathecal or intravascular injection. The patient experienced no paresthesia. The procedure was completed without any apparent difficulty or any complications. The patient appeared to tolerate it well. ASSESSMENT AND PLAN: This is a 50-year-old female with lumbosacral radiculopathy, lumbosacral degenerative disc disease, lumbosacral spinal stenosis status post caudal epidural steroid injection, patient will continue her current medications, patient will follow in approximately 2 weeks for reevaluation. Complications None
== END 2021-10-11 11:35 | disposition home or self-care (01) ==
LOC: SDC 08:34 → AC 08:39
PROVIDERS: PCP Family Medicine; Referring Provider Anesthesiology Pain Medicine; Visit Provider Anesthesiology Pain Medicine
PROC: 3E0S3BZ Introduction of Anesthetic Agent into Epidural Space, Percutaneous Approach (ICD-10-PCS; CPT 62282; principal; 2021-10-11 09:55)
DX: M51.17 Intervertebral disc disorders with radiculopathy, lumbosacral region (principal); M48.07 Spinal stenosis, lumbosacral region; F32.A Depression, unspecified; Z87.19 Personal history of other diseases of the digestive system; E03.9 Hypothyroidism, unspecified; Z86.711 Personal history of pulmonary embolism; F42.9 Obsessive-compulsive disorder, unspecified; F17.200 Nicotine dependence, unspecified, uncomplicated; Z79.899 Other long term (current) drug therapy; M96.1 Postlaminectomy syndrome, not elsewhere classified; M47.27 Other spondylosis with radiculopathy, lumbosacral region; M47.812 Spondylosis without myelopathy or radiculopathy, cervical region; K21.9 Gastro-esophageal reflux disease without esophagitis; Z86.718 Personal history of other venous thrombosis and embolism
CPT/HCPCS: 62323; 64483; 77003; J7120; J3490

== ENCOUNTER 2022-05-02 10:57 | Day surgery (SDC) | payer MEDICARE, MEDICAID, SELFPAY ==
[2022-05-02] VITALS (11 sets, daily range): BP systolic 92–116; BP diastolic 51–65; PULSE 41–55; RESP 16; TEMP 36.4–37.7; O2SAT 96–98; BMI 19.3
[2022-05-02] MEDS: Lactated Ringers 1,000 ML 15 ML IV ×2 (12:04→13:31)
[2022-05-02] MEDS: MethylPREDNISolone Acetate 80 MG/ML Vial (12:36)
[2022-05-02] MEDS: Lidocaine 1% (5 ml sdv) 5 ML Vial (12:36)
[2022-05-02] MEDS: 0.9% Normal Saline (Pres. free 10 ML Vial (12:36)
[2022-05-02] MEDS: Bupivacaine 0.25% 30 ML Vial (12:36)
--- NOTE | 2022-05-02 12:40 | RAD_ITS ---
PROCEDURE: Caudal block. DATE OF EXAMINATION: 05/02/2022. INDICATION: Female, 51 years old. Chronic low back pain. FLUOROSCOPY TIME (if supplied): (6.4 seconds) minutes/seconds. 1.57 mGy. 2 images were submitted. RAD/Fluor Guidance for Spine Inj IMPRESSION: Intraoperative imaging provided for caudal block. Electronically Signed: Fawad Bender MD at 10:07 [facility] ,
--- NOTE | 2022-05-02 12:40 | OP.PCM_ITS ---
Report of Operation Date of Procedure: 05/02/22 Pre-Operative Diagnosis: Lumbosacral radiculopathy, lumbosacral degenerative di sc disease, lumbosacral spinal stenosis Post-Operative Diagnosis: Lumbosacral radiculopathy, lumbosacral degenerative disc disease, lumbosacral spinal stenosis Surgery/Procedure Performed:: Caudal epidural steroid injection under fluoroscopic guidance Type of Anesthesia: MAC Estimated Blood Loss (mL): Minimal Description of Procedure: DESCRIPTION OF PROCEDURE: History and physical of today was reviewed. Risks and benefits of the procedure were explained. The patient understood and agreed to proceed. Informed consent was obtained. IV inserted per routine protocol. The patient was taken to the operating room and placed in the prone position with a pillow positioned underneath the abdomen. The lower back and tailbone area was prepped and draped in a sterile fashion using iodine x3. Under fluoroscopy guidance on a lateral view, the caudal space was identified. The skin and subcutaneous tissue was anesthetized with approximately 3 mL of 1% lidocaine using a 25-gauge regular needle. Under direct visualization with fluoroscopy, using a 22-gauge 3-1/2-inch spinal needle, the needle was advanced via the skin through the sacral hiatus. The tip of the needle was passed through the sacrococcygeal ligament and advanced to approximately S4 area. After negative aspiration of blood or CSF, a total of 3 mL of contrast was injected to confirm correct placement of the needle as well as cephalad spread. The spread was followed to approximately L5 area. After confirmation on AP as well as lateral view and repeated negative aspiration, a total of 15 mL of preservative-free 0.125% Marcaine with 80 mg of Depo-Medrol was injected easily. The needle was then removed intact. The patient experienced no sign or symptoms of intrathecal or intravascular injection. The patient experienced no paresthesia. The procedure was completed without any apparent difficulty or any complications. The patient appeared to tolerate it well. ASSESSMENT AND PLAN: This is a 51-year-old female with lumbosacral radiculopathy, lumbosacral degenerative disc disease, lumbosacral spinal stenosis status post caudal epidural steroid injection, patient will continue her current medications, patient will follow in approximately 2 weeks for reevaluation. Complications None
== END 2022-05-02 14:18 | disposition home or self-care (01) ==
LOC: SDC 10:58 → AC 11:33
PROVIDERS: PCP Family Medicine; Referring Provider Anesthesiology Pain Medicine; Visit Provider Anesthesiology Pain Medicine
PROC: 3E0S3BZ Introduction of Anesthetic Agent into Epidural Space, Percutaneous Approach (ICD-10-PCS; CPT 62282; principal; 2022-05-02 12:25)
DX: M51.17 Intervertebral disc disorders with radiculopathy, lumbosacral region (principal); M48.07 Spinal stenosis, lumbosacral region; K21.9 Gastro-esophageal reflux disease without esophagitis; Z79.01 Long term (current) use of anticoagulants; Z79.890 Hormone replacement therapy; Z79.899 Other long term (current) drug therapy
CPT/HCPCS: 62323; 01992; 64483; 77003; J7120; J3490

== ENCOUNTER 2022-06-06 15:00 | Outpatient (RCR) | payer MEDICARE, MEDICAID, SELFPAY ==
--- NOTE | 2022-05-04 09:33 | HP.PTEVAL ---
Patient's Visit Information JORDAN SCOTT is a 51 year old F referred to Physical Therapy by Dr. Stu Calderon MD with a diagnosis of R Hemiplegia. Date of Evaluation: 04/25/22 Physical Therapist: Mika Sheehan DPT - Visit Plan Frequency: 1x/Week Duration: 6 Weeks Plan: Start with transfer training/repetition, gait with platform walking, standing tolerance and progress HEP for LE strengthening. - Subjective Pt. is here today for her initial evaluation with diagnosis of hemiplegia on dominant side, R side. Occurred from a TBI several years prior. Pt. arrives in WC with caregiver. Pt. has assistance throughout the majority of the day, but is alone at night. Pt. is able to communicate, but difficulty doing so. Caregiver reports she is only walking ~1 per week due to needing several people to do so. Pt. uses a platform walker at home with platform on R side, but is able to walk ~10-15'. Pt. transfers without AD with aid assistance. Pt. was very concerned about shoes throughout PT this date. She was wearing hiking style of boots, but reports wanting high boots, pt. had a hard time focusing on anything other than this. Pt. reports no pain today. She is sitting a lot at home. Only leaves for appointments as well. Pt. reports wanting to have her legs a little stronger and walk better. - Objective POSTURE: Very flexed posture, improves with VCing, but does not maintain. PALPATION: no marked pain or edema in either LE. NEURO: Pt. had marked decreased DTR of BLEs. Decreased sensation on R side, hard for patient to respond to questioning. ROM: Pt. has tight B hamstrings. Pt. has tight B calves as well. MMT: RLE: ankle minimal volitional movement; knee: ext 3/5, flexion minimal movement; hip: flexion 3-/5. LLE: ankle 3+/5, throughout; knee: ext 3+/5, flexion 3+/5; hip: flexion 3/5. Core strength- poor+. Transfers: Pt. is able to stand pivot with mod A to complete. She did a little bit better with use of platform walker, but had a hard time to getting RUE into walking. GAIT: Pt. was able to ambulate 21' with platform walking on R side. Pt. has marked difficulty advancing RLE and never achieved TKE on R side. She had flexed posture throughout and MODA to maintain upright posture. Pt. fatigue rapidly as well and needed to sit urgently at end of walking. Pt. is very impulsive with all mobility as well. - Balance/Special Test Scores Lower Extremity Functional Score: 0 - Goals Goal 1:: LTG: Pt. to be I with HEP for LE strengthening. Goal Time Frame: 4-6 Weeks Goal 2:: LTG: pt. to stand for 2 minutes with walker prior to needing to sit down. Goal Time Frame: 4-6 Weeks Goal 3:: LTG: Pt. to complete transfers with STEPHANIA allowing for increased caregiver ease. Goal Time Frame: 4-6 Weeks Goal 4:: LTG: Pt. to ambulate with platform walker 50' allowing for increased ambulation in home with aides. Goal Time Frame: 4-6 Weeks - Rehabilitation Potential Physical Therapy Diagnosis: Pt. has signs and symptoms consistent with R hemiplegia. Pt. has marked loss of strength on her R side with difficulty with any movement on that side. Pt. was able to do some mobility, but requires assistance with all mobility at this point in time. Pt. would benefit from PT to work on transfers, BLE strengthening and gait progression to decrease caregiver assistance at home. Rehabilitation Potential: Fair - Anticipated Interventions Thank you for the opportunity to evaluate your patient. For Medicare and Medicare HMO plans, please review the plan of care and approve it. It will need to be FAXED BACK to us at [phone] for Medicare purposes. For Medicare only, by signing this I certify the plan of care. Please let me know if there are questions or concerns regarding this plan of care. Physician Signature: Date:
== END 2022-06-06 19:00 | disposition home or self-care (01) ==
LOC: PT 15:00
PROVIDERS: PCP Family Medicine; Referring Provider Family Medicine; Visit Provider Family Medicine
DX: G81.00 Flaccid hemiplegia affecting unspecified side (principal); R27.0 Ataxia, unspecified
CPT/HCPCS: 97110; 97162

== ENCOUNTER 2022-06-23 15:18 | Emergency (ER) | payer MEDICARE, MEDICAID, SELFPAY ==
[2022-06-23 15:20] VITALS: BP 99/63; PULSE 66; RESP 16; TEMP 36.9; O2SAT 97; BMI 21.0
--- NOTE | 2022-06-23 15:40 | VDLE_ITS ---
Reason For Study: Pain Procedure LEFT This is a venous duplex using B-mode, color GSV is normal. flow and spectral Doppler. CFV is compressible, spontaneous, phasic, Exam performed in department. competent, and demonstrates normal A preliminary report was called and/or faxed augmentation. to ED RN. FV is compressible, spontaneous, phasic, competent and demonstrates normal augmentation. POP V is compressible, spontaneous, phasic, competent and demonstrates normal augmentation. T/P Trunk is compressible. PTV is compressible. LT PerV is compressible. VL/Venous Duplex US, Unilateral Interpretation Summary There is no evidence of left lower extremity deep vein thrombosis. Left great s aphenous vein appears patent and compressible segmentally. Ordering Physician: Derrick Aguero Referring Physician: Stu Calderon Performed By: Joana Overton RVT
--- NOTE | 2022-06-23 15:41 | EDS_ITS ---
HPI History of Present Illness Chief Complaint: Lower Extremity Injury Narrative Narrative: Presents with pain in the left hip and left leg. She points a lot to the greater trochanteric area. But also states that sore down near the knee laterally. History take some time as the patient speaks very slowly due to prior head injury. But she does state that she has back pain all the time and it seems to be at baseline. She states she has leg pains all the time but normally her right leg hurts more than her left and over the last 24 hours the left leg seems to be hurting more than the right. She is on Xarelto and is taking it for history of DVT and what sounds like a PE also. But she is not having any pulmonary or chest symptoms. She has no headache. She is denying abdominal pain or urinary symptoms. She reports no trauma but does have small bruises about the knee. She is in a wheelchair. She denies having any fevers or feeling ill other than this left leg hurting more than the right 1. [facility] Medical History Arthritis Back pain DVT (deep venous thrombosis) Gastric reflux Pulmonary embolism Smoker TBI (traumatic brain injury) Uses wheelchair Home Medications docusate sodium 100 mg capsule (DOK) 100 mg PO BID PRN stool softener 02/29/16 [History Last Taken Unknown] fluvoxamine 50 mg tablet 50 mg PO BID depression 02/29/16 [History Last Taken Unknown] gabapentin 300 mg capsule (Neurontin) 300 mg PO TID nerve pain 02/29/16 [History Last Taken 12/17/18 09:00] levothyroxine 100 mcg tablet 137 mcg PO DAILY thyroid 02/29/16 [History Last Taken 12/17/18 09:00] magnesium oxide 400 mg (241.3 mg magnesium) tablet 400 mg PO DAILY vitamin 02/29/16 [History Last Taken Unknown] olanzapine 5 mg tablet 5 mg PO QHS depression 02/29/16 [History Last Taken Unknown] orphenadrine citrate 100 mg tablet,extended release 100 mg PO BID muscle spasms 02/29/16 [History Last Taken Unknown] potassium chloride 20 mEq tablet,extended release(part/cryst) (Klor-Con M) 20 meq PO 1600 vitamin 05/25/17 [History Last Taken Unknown] topiramate 200 mg tablet 200 mg PO BID nerve pain/ migraines 05/25/17 [History Last Taken 12/17/18 09:00] multivitamin (Multiple Vitamins tablet) 1 ea PO DAILY 08/09/17 [History Last Taken Unknown] rivaroxaban 20 mg tablet (Xarelto) 20 mg PO DAILY blood thinner 08/09/17 [History Last Taken 04/29/22 16:00] acidophilus 25 million cell-pectin, citrus 100 mg tablet 1 tab PO DAILY probiotic 02/15/18 [History Last Taken Unknown] famotidine 20 mg tablet 20 mg PO DAILY 12/14/18 [History Last Taken 12/17/18 09:00] furosemide 20 mg tablet 20 mg PO DAILY 12/14/18 [History Last Taken Unknown] polyethylene glycol 3350 17 gram/dose oral powder 17 gm PO DAILY PRN Consti pation 12/14/18 [History Last Taken Unknown] polysaccharide iron complex 150 mg iron capsule 150 mg PO BID 12/14/18 [History Last Taken Unknown] acetaminophen 325 mg tablet 325 mg PO Q6H PRN Pain Or Fever 10/19/19 [History Last Taken Unknown] clonidine HCl 0.1 mg tablet 0.1 mg PO QHS 12/30/19 [History Last Taken Unknown] omeprazole 40 mg capsule,delayed release 40 mg PO DAILY 05/25/20 [History Last Taken Unknown] rseiprsy-egw-myoju acid 0.4 mg-lycopene 300 mcg-lutein 250 mcg tablet (CertaVite Senior) 1 tab PO DAILY 08/05/20 [History Last Taken Unknown] cetirizine 10 mg tablet (Zyrtec) 10 mg PO DAILY 10/07/21 [History Last Taken Unknown] Allergy/AdvReac Type Severity Reaction Status Date / Time amoxicillin [Amoxicillin] Allergy Unknown Verified 06/23/22 15:26 mold Allergy Shortness Verified 06/23/22 15:26 of breath naproxen Allergy Unknown Verified 06/23/22 15:26 NSAIDS (Non-Steroidal Allergy Unknown Verified 06/23/22 15:26 Anti-Inflamma phenytoin Allergy Unknown Verified 06/23/22 15:26 pineapple [Pineapple] Allergy Unknown Verified 06/23/22 15:26 Surgical History Hx of surgical procedure Hx of tubal ligation Social History Smoking Status: Current every day smoker tobacco type: cigarettes ROS ROS ED Constitutional Constitutional ED: Denies chills or fever(s) Cardiovascular Cardiovascular: Denies chest pain or palpitations Respiratory/Chest Respiratory/Chest: Denies cough or dyspnea Gastrointestinal Gastrointestinal: Denies abdominal pain, diarrhea, nausea or vomiting Genitourinary Genitourinary ED: Denies dysuria Musculoskeletal Musculoskeletal: Reports arthralgias, back pain, myalgias and other Details: See history of present illness. ; Denies neck pain Integumentary Denies rash Neurologic Neurologic: Denies headache(s) Hematologic/Lymphatic Hematologic/Lymphatic: Reports easy bleeding and easy bruising Allergic/Immunologic Allergic/Immunologic ED: Denies urticaria EXAM Physical Exam Narrative Exam Narrative: Patient is wide awake alert pleasant and conversant. It does take her a bit of time to explain situations though. HEENT shows some mildly dry mucous membranes but no trauma. Eyes show no acute process or trauma. Neck is supple Heart is regular. Rate is about 70. I hear no murmur. There is no chest wall tenderness Lungs are clear bilaterally. Saturations are normal at 97% on room air Abdomen is soft and completely nontender Patient does have a diaper on but there is no malodorous urine. Extremities do show tenderness over at the greater trochanter on the left. There is a little bit of bruising around the left knee and a small amount on the right. But there is no effusion. The leg was fully undressed and looked at circumferentially. There is no erythema. There is no large area of swelling or deformity. No warmth. No distended veins. Clinically I see a small bruising only. No sign of involvement of the feet or toes. Patient is able to lift this leg fully up off the bed. Const Vital Signs: 06/23/22 15:20 Temperature 98.4 F Temperature Source Temporal Pulse Rate 66 Respiratory Rate 16 Blood Pressure 99/63 Blood Pressure Mean 75 Pulse Ox 97 Oxygen Delivery Method Room Air MDM MDM MDM Narrative Medical decision making narrative: Patient's ultrasound is negative for any DVT. My independent interpretation of her pelvis and left hip left femur x-ray showed no acute fracture or dislocation. These are also read negative by radiology but they do note increased stool. I talked with the patient's aide and the patient again. She does have a history of constipation this is a chronic issue. She moves her bowels about every 2 days and that has been going on normally. She is not having symptoms of abdominal pain nausea vomiting obstruction. I explained that this certainly could contribute to some pain near the left hip but not likely in the legs. They can increase the stool softener slightly. Patient's CBC shows normal white count hemoglobin platelets. Electrolytes show no marked abnormalities. She does have mild increased creatinine but this can be treated with increased fluids at home. The aide verifies that the patient does have chronic pains in her legs. Just since she was complaining more about the left than the right this time they chose to have this evaluated. Patient is currently asleep and comfortable. She is on gabapentin for some of phonic wounds. Lab Data Labs: Laboratory Results - last 24 hr 06/23/22 06/23/22 16:05 16:05 WBC 9.0 RBC 4.50 Hgb 14.0 Hct 45.0 MCV 100.0 H MCH 31.1 MCHC 31.1 L RDW Std Deviation 51.4 H RDW Coeff of [place] 14.0 Plt Count 164 MPV 9.8 Immature Gran % (Auto) 0.200 Neut % (Auto) 70.0 Lymph % (Auto) 19.5 [place] % (Auto) 8.9 Eos % (Auto) 1.2 Baso % (Auto) 0.2 Absolute Neuts (auto) 6.3 Absolute Lymphs (auto) 1.76 Nucleated RBC % 0 Sodium 142 Potassium 3.8 Chloride 114 H Carbon Dioxide 25.0 Anion Gap 3 L BUN 17 Creatinine 1.11 H Estim Creat Clear Calc 63.82 Est GFR (MDRD) Af Amer 67 Est GFR (MDRD) Non-Af 55 L BUN/Creatinine Ratio 15.3 Glucose 94 Calcium 8.6 Radiography Diagnostic Testing: Clinical Impression(s) from Imaging Studies Femur X-Ray 06/23/22 16:15 IMPRESSION: Negative. Electronically Signed: Ronen Bennett MD at 16:49 EDT , Pelvis X-Ray 06/23/22 16:15 IMPRESSION: No evidence of displaced pelvic or hip fracture. Copious stool projects over the pelvis. Electronically Signed: Ronen Bennett MD at 16:48 EDT , Discharge Plan Triage Chief Complaint: Lower Extremity Injury ED Provider: Derrick Aguero Dx/Rx/DC Orders Clinical Impression: Left leg pain, Chronic constipation Instructions: ED Pain, Acute, Uncertain Cause Prescriptions: No Action olanzapine 5 MG tablet 5 mg PO QHS Label Comments: antipsychotic levothyroxine 100 MCG tablet 137 mcg PO DAILY Label Comments: THYROID magnesium oxide 400 MG tablet 400 mg PO DAILY Label Comments: SUPPLEMENT orphenadrine citrate 100 MG tablet 100 mg PO BID Label Comments: muscle relaxer docusate sodium [DOK] 100 MG capsule 100 mg PO BID PRN (Reason: stool softener) Label Comments: STOOL SOFTENER gabapentin [Neurontin] 300 MG capsule 300 mg PO TID Label Comments: NERVE PAIN fluvoxamine 50 MG tablet 50 mg PO BID Label Comments: DEPRESSION/ANXIETY potassium chloride [Klor-Con M20] 20 MEQ tablet 20 meq PO 1600 topiramate 200 MG tablet 200 mg PO BID multivitamin [Multiple Vitamins] 1 EACH tablet 1 ea PO DAILY Xarelto 20 MG tablet 20 mg PO DAILY Label Comments: LAST DOSE 10/08/21 acidophilus-pectin, citrus 1 TABLET tablet 1 tab PO DAILY polysaccharide iron complex 150 MG capsule 150 mg PO BID famotidine 20 MG tablet 20 mg PO DAILY furosemide 20 MG tablet 20 mg PO DAILY polyethylene glycol 3350 238 GM powder 17 gm PO DAILY PRN (Reason: Constipation) acetaminophen 325 MG tablet 325 mg PO Q6H PRN (Reason: Pain Or Fever) clonidine HCl 0.1 MG tablet 0.1 mg PO QHS omeprazole 40 MG capsule,delayed release(DR/EC) 40 mg PO DAILY CertaVite Senior 0.4-300-250 mg-mcg-mcg Tablet 1 tab PO DAILY cetirizine [Zyrtec] 10 mg Tablet 10 mg PO DAILY Primary Care Provider: Stu Calderon Referrals: Stu Calderon MD [Primary Care Provider] - 3-5 Days if not improving Disposition Disposition: Home, Self Care
--- NOTE | 2022-06-23 16:15 | RAD_ITS ---
INDICATION: Left leg pain EXAMINATION/TECHNIQUE: X-RAY - LEFT XR Femur Min 2 Views 4 VIEWS COMPARISON: None. FINDINGS: SOFT TISSUES: No soft tissue swelling or gas. No radiopaque foreign body. BONES/JOINTS: No acute fracture or subluxation. Normal alignment. Preservation of the joint spaces. No sclerotic or destructive changes observed. RAD/Femur Min 2 Views IMPRESSION: Negative. Electronically Signed: Ronen Bennett MD at 16:49 EDT ,
--- NOTE | 2022-06-23 16:15 | RAD_ITS ---
INDICATION: Hip pain EXAMINATION/TECHNIQUE: X-RAY - XR Pelvis 1 or 2 Views COMPARISON: 10/19/2019 CT FINDINGS: PELVIC BONES: No displaced fracture, destructive or sclerotic lesions. Note that overlapping bowel shadows may however obscure fine detail. Sacroiliac joints are unremarkable. No widening of the pubic symphysis. HIPS: The articular structures are unremarkable. No displaced fracture seen in this frontal view. SOFT TISSUES: Copious stool projects over the pelvis. RAD/Pelvis 1 or 2 Views IMPRESSION: No evidence of displaced pelvic or hip fracture. Copious stool projects over the pelvis. Electronically Signed: Ronen Bennett MD at 16:48 EDT ,
[2022-06-23 16:21] LABS: Absolute Lymphocyte Count 1.76 X10^3/uL (0.83-4.51); Absolute Neutrophil Count 6.3 X10^3/uL (2.0-7.7); Basophil# 0.02 X10^3/uL; Basophil% 0.2 % (0-1); Eosinophil# 0.11 X10^3/uL; Eosinophils% 1.2 % (0-5); Lymphocyte # 1.76 X10^3/ul (0.83-4.51); Lymphocyte % 19.5 % (19-41); Mean Corp Hgb Conc 31.1 g/dL (32-36); Mean Corpuscular Hgb 31.1 pg (27.0-32.0); Mean Platelet Vol. 9.8 fl (6.2-12.0); Monocyte% 8.9 % (0-10); NRBC Flagged by Analyzer 0 % (0-5); Neutrophil # 6.32 X10^3/uL (2.7-7.7); Platelet Count 164 K/mm3 (150-450); RBC Distribution Width SD 51.4 fl (35.1-43.9)
[2022-06-23 16:40] LABS: Anion Gap 3 (5-15); BUN 17 mg/dL (7-18); BUN/Creat Ratio 15.3 RATIO (10-20); Calcium,Total 8.6 mg/dL (8.5-10.1); Chloride 114 mmol/L (98-107); Creatinine, Serum 1.11 mg/dL (0.55-1.02); EST Glomerular Filtration Rate 55 mL/min (>60); Est Glom Filt Rate - Afr Amer 67 mL/min (>60); Estimated Creatinine Clearance 63.82 ml/min; Glucose 94 mg/dL (74-106); Potassium 3.8 mmol/L (3.5-5.1); Sodium Level 142 mmol/L (136-145)
[2022-06-23 17:45] VITALS: BP 102/66; PULSE 74; RESP 16; O2SAT 97
--- NOTE | 2022-06-23 19:37 | ED.RN ---
Caregiver expressed concerns to this RN about waiting for transport another 90 min- 2hrs. Caregiver stated per her facility policy she was permitted to take pt home. Pt able to move lower extremity, placed into wheelchair and sent home with caregiver.
== END 2022-06-23 19:42 | disposition home or self-care (01) ==
PROVIDERS: Emergency Provider Emergency Medicine; PCP Family Medicine; Visit Provider Emergency Medicine
DX: M79.605 Pain in left leg (principal); K59.09 Other constipation; G89.29 Other chronic pain; M25.552 Pain in left hip; M54.9 Dorsalgia, unspecified; F17.210 Nicotine dependence, cigarettes, uncomplicated; Z79.01 Long term (current) use of anticoagulants; Z86.718 Personal history of other venous thrombosis and embolism
CPT/HCPCS: 72170; 73552; 80048; 85025; 93971; 99285; A4216

== ENCOUNTER 2022-10-06 16:19 | Emergency (ER) | payer MEDICARE, MEDICAID, SELFPAY ==
[2022-10-06 16:34] VITALS: BP 100/65; PULSE 62; RESP 18; TEMP 36.8; O2SAT 93; BMI 21.3
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
[2022-10-06 17:35] LABS: Absolute Lymphocyte Count 1.73 X10^3/uL (0.83-4.51); Absolute Neutrophil Count 3.4 X10^3/uL (2.0-7.7); Basophil# 0.02 X10^3/uL; Basophil% 0.4 % (0-1); Eosinophils% 1.8 % (0-5); Hematocrit 43.6 % (37-47); Hemoglobin 13.8 g/dL (12.0-15.0); Lymphocyte # 1.73 X10^3/ul (0.83-4.51); Lymphocyte % 31.1 % (19-41); Mean Corp Hgb Conc 31.7 g/dL (32-36); Mean Platelet Vol. 9.8 fl (6.2-12.0); Monocyte# 0.32 X10^3/uL; Monocyte% 5.8 % (0-10); NRBC Flagged by Analyzer 0 % (0-5); Neutrophil # 3.38 X10^3/uL (2.7-7.7); Neutrophil % 60.7 % (47-70); Platelet Count 161 K/mm3 (150-450); RBC Distribution Width CV 13.2 % (11.6-14.6); RBC Distribution Width SD 48.3 fl (35.1-43.9); Red Blood Count 4.45 M/mm3 (4.2-5.4); White Blood Count 5.6 K/mm3 (4.4-11.0)
[2022-10-06 17:56] LABS: Anion Gap 7 (5-15); BUN 14 mg/dL (7-18); BUN/Creat Ratio 12.7 RATIO (10-20); Chloride 112 mmol/L (98-107); EST Glomerular Filtration Rate 56 mL/min (>60); Est Glom Filt Rate - Afr Amer 67 mL/min (>60); Glucose 81 mg/dL (74-106); Potassium 3.6 mmol/L (3.5-5.1); Sodium Level 145 mmol/L (136-145)
[2022-10-06 18:21] VITALS: BP 133/65; PULSE 52; RESP 16; O2SAT 97
[2022-10-06 18:24] LABS: Bacteria 0 SEEN /hpf (None Seen); Mucous, Urine 0 SEEN /hpf (<or=2+); Red Blood Cells-Urine 0 SEEN /hpf (0-5); Squamous Epithelial Cells - UA 0 SEEN /hpf (5-10); White Blood Cells 0 SEEN /hpf (0-5)
[2022-10-06 18:27] LABS: Color, Urine Yellow (Yellow); Glucose, Dipstick Normal (Normal); Ketone-Dipstick Negative (Negative); Leukocyte Esterase-Dipstick 25 /ul (Negative); Nitrite-Dipstick Negative (Negative); Occult Blood-Urine Negative /ul (Negative); Protein-Dipstick Negative (Negative); Urine Bilirubin Dipstick Negative (Negative); Urine Clarity Sl. Cloudy (Clear); Urine Urobilinogen Normal (Normal)
[2022-10-06 18:34] LABS: Amorphous Sediment 1+
[2022-10-06 20:09] VITALS: PULSE 49; RESP 16; O2SAT 98
== END 2022-10-06 20:10 | disposition home or self-care (01) ==
PROVIDERS: Physician Assistant; Emergency Provider Emergency Medicine; PCP Family Medicine; Visit Provider Emergency Medicine
DX: G40.909 Epilepsy, unspecified, not intractable, without status epilepticus (principal); F17.210 Nicotine dependence, cigarettes, uncomplicated; R41.0 Disorientation, unspecified
CPT/HCPCS: 80048; 81001; 85025; 99284; A4216

== ENCOUNTER 2023-05-02 07:13 | Emergency (ER) | payer MEDICARE, MEDICAID, SELFPAY ==
[2023-05-02 07:16] VITALS: BP 103/56; PULSE 56; RESP 16; TEMP 36.6; O2SAT 95; BMI 18.1
--- NOTE | 2023-05-02 07:34 | EKG12_ITS ---
Test Reason : GENERAL Blood Pressure : / mmHG Vent. 

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
--- NOTE | 2023-05-02 08:11 | RAD_ITS ---
STUDY: X-RAY CHEST REASON FOR EXAM: Female, 52 years old. Chest pain. TECHNIQUE: Single AP portable view of the chest. COMPARISON: Comparison is made with prior study October 19, 2019. FINDINGS: EKG electrodes are seen. The lungs are clear and expanded. There is no demonstrated pleural abnormality. There is borderline cardiomegaly. Normal mediastinum and glenis. Normal visualized pulmonary arteries. Normal visualized aortic arch and descending thoracic aorta. Normal visualized thoracic spine. Normal visualized ribs, clavicles, and shoulders. There is no demonstrated abnormality of the visualized soft tissue structures of the upper abdomen. RAD/Chest 1 View (Portable) IMPRESSION: Borderline cardiomegaly. The lungs are clear. Electronically Signed: Fawad Bender MD at 8:43 EST ,
[2023-05-02 08:17] LABS: Absolute Lymphocyte Count 1.47 X10^3/uL (0.83-4.51); Absolute Neutrophil Count 1.6 X10^3/uL (2.0-7.7); Basophil# 0.02 X10^3/uL; Basophil% 0.6 % (0-1); Eosinophil# 0.12 X10^3/uL; Eosinophils% 3.4 % (0-5); Lymphocyte # 1.47 X10^3/ul (0.83-4.51); Lymphocyte % 41.6 % (19-41); Mean Corp Hgb Conc 30.8 g/dL (32-36); Mean Corpuscular Hgb 29.7 pg (27.0-32.0); Mean Corpuscular Volume 96.5 fL (81-99); Monocyte# 0.28 X10^3/uL; Monocyte% 7.9 % (0-10); NRBC Flagged by Analyzer 0 % (0-5); Neutrophil # 1.64 X10^3/uL (2.7-7.7); Neutrophil % 46.5 % (47-70); Platelet Count 155 K/mm3 (150-450); RBC Distribution Width CV 13.9 % (11.6-14.6); RBC Distribution Width SD 49.4 fl (35.1-43.9); Red Blood Count 4.04 M/mm3 (4.2-5.4); White Blood Count 3.5 K/mm3 (4.4-11.0)
[2023-05-02 08:37] LABS: ALB/GLOB Ratio 1.1 RATIO (0.9-2.4); AST(SGOT) 17 U/L (15-37); Alanine Aminotransfer ALT/SGPT 29 U/L (13-56); Albumin, Serum 3.2 g/dL (3.2-5.0); Alkaline Phosphatase 97 U/L (45-117); Anion Gap 1 (5-15); BUN 15 mg/dL (7-18); BUN/Creat Ratio 12.8 RATIO (10-20); Calcium,Total 8.5 mg/dL (8.5-10.1); Chloride 119 mmol/L (98-107); Creatinine, Serum 1.17 mg/dL (0.55-1.02); EST Glomerular Filtration Rate 52 mL/min (>60); Est Glom Filt Rate - Afr Amer 63 mL/min (>60); Estimated Creatinine Clearance 54.51 ml/min; Globulin 2.9 g/dL (2.2-4.2); Glucose 77 mg/dL (74-106); Lipase 29 U/L (13-75); Magnesium 2.3 mg/dL (1.6-2.6); Protein, Total 6.1 g/dL (6.4-8.2); Sodium Level 143 mmol/L (136-145); Troponin-I HS 8 pg/mL (3.0-54.0)
[2023-05-02 08:51] VITALS: BP 94/55; PULSE 49; RESP 16; TEMP 36.6; O2SAT 98
[2023-05-02 08:54] LABS: Mucous, Urine 0 SEEN /hpf (<or=2+); Red Blood Cells-Urine 0 SEEN /hpf (0-5)
[2023-05-02] MEDS: 0.9% Normal Saline (500mL Bag) 500 ML 999 ML IV (08:56)
[2023-05-02 09:04] LABS: Color, Urine Yellow (Yellow); Glucose, Dipstick Normal (Normal); Ketone-Dipstick Negative (Negative); Leukocyte Esterase-Dipstick 100 /ul (Negative); Nitrite-Dipstick Negative (Negative); Occult Blood-Urine 10 /ul (Negative); Protein-Dipstick 15 mg/dl (Negative); Urine Bilirubin Dipstick Negative (Negative); Urine Clarity Cloudy (Clear); Urine Urobilinogen Normal (Normal)
[2023-05-02 09:12] LABS: Amorphous Sediment 3+; Calcium Oxalate Crystals Ur 0 SEEN /hpf (<or=2+); Coarse Granular Cast 0 SEEN /lpf (0-5 /lpf); Fine Granular Cast- Urine 0 SEEN /lpf (0-5); Hyaline Cast 0 SEEN /lpf (0-5); Other Crystals-Urine 0 SEEN /hpf (None Seen); Red Cell Cast 0 SEEN /lpf (None Seen); Renal Epithelial Cells 0 SEEN /hpf (0-5); Transitional Epithelial - Ur 0 SEEN /hpf (0-5); Trichomonas 0 SEEN /hpf (None Seen); Triple Phosphate Crystals Ur 0 SEEN /hpf (<or=1+); Uric Acid Crystals Ur 0 SEEN /hpf (<or=1+); Waxy Cast-Urine 0 SEEN /lpf (None Seen); White Cell Cast 0 SEEN /lpf (None Seen)
[2023-05-02 09:13] LABS: Bacteria 1+ /hpf (None Seen); Squamous Epithelial Cells - UA 5-10 SEEN /hpf (5-10); White Blood Cells 5-10 SEEN /hpf (0-5)
== END 2023-05-02 10:13 | disposition home or self-care (01) ==
PROVIDERS: Emergency Provider Emergency Medicine; PCP Family Medicine; Visit Provider Emergency Medicine
DX: G89.29 Other chronic pain (principal); R00.1 Bradycardia, unspecified; F17.210 Nicotine dependence, cigarettes, uncomplicated; M54.9 Dorsalgia, unspecified; K21.9 Gastro-esophageal reflux disease without esophagitis; Z79.899 Other long term (current) drug therapy; M79.606 Pain in leg, unspecified; M25.50 Pain in unspecified joint; Z87.820 Personal history of traumatic brain injury
CPT/HCPCS: 71045; 80053; 81001; 83690; 83735; 84484; 85025; 87086; 87631; 93005; 96360; 99284; P9612; A4216

== ENCOUNTER 2023-06-11 22:48 | Emergency (ER) | payer MEDICARE, MEDICAID, SELFPAY ==
[2023-06-11 22:49] VITALS: BP 96/80; PULSE 68; RESP 17; TEMP 36.4; O2SAT 92; BMI 16.7
--- NOTE | 2023-06-11 23:37 | CT_ITS ---
INDICATION: headache EXAMINATION: CT BRAIN - CT Head or Brain W/O Contrast Injection TECHNIQUE: Multiple axial images were obtained of the head without intravenous contrast. A radiation dose optimization technique was used for this scan. IV Contrast dosage and agent: None. RADIATION DOSAGE (If Supplied By Facility): CTDIvol = ( 44.99 ) mGy, DLP = ( 812.98 ) mGycm COMPARISON: 08/04/2020 FINDINGS: HEMISPHERES: 1. Postoperative changes of prior LEFT parietal craniotomy. 2. The cerebral parenchyma, ventricular system and gyral pattern are unchanged in appearance. There is moderate encephalomalacic change along the LEFT parietal lobe and medial aspect of the LEFT frontal lobe without change. Additional area of encephalomalacic along the anterior aspect of the RIGHT frontal lobe, as well as the ventral aspect of the RIGHT occipital and temporal lobe along the fusiform gyrus. Additional remote lacunar infarct in the anterior aspect of the LEFT thalamus. Findings are stable. 3. There is normal scruggs/white differentiation. No midline shift.. 4. No intraparenchymal mass, hemorrhage, or acute territorial infarct. CEREBELLUM - BRAINSTEM: The cerebellum, brainstem, basilar and suprasellar cisterns have normal appearance. No Chiari malformation. PITUITARY: Infundibulum and pituitary have normal configuration. Midline structures appear normal. CSF SPACES: Appropriate for age. No hydrocephalus. Basal cisterns are patent. VESSELS: 1. No significant vascular calcifications in the cavernous carotid vessels. 2. No hyperdense vascular signs noted.. ORBITS AND PARANASAL SINUSES: 1. Normal appearance of the bony orbits. Normal appearance of the globes and retrobulbar soft tissues.. 2. Paranasal sinuses are clear with the exception of mild mucosal thickening in the RIGHT maxillary antrum.. BONY ELEMENTS: Bony elements of the cranial vault, facial skeleton and skull base have normal appearance. SCALP AND SOFT TISSUES: Normal appearance of the soft tissues of the scalp and the visualized face OTHER: None ASPECTS Score for Acute Strokes: 10 CT/Brain/Head without Contrast IMPRESSION: 1. Stable exam 2. Remote LEFT parietal craniotomy, and areas of encephalomalacia status post remote bilateral infarcts. 3. No intracranial mass, hemorrhage or acute territorial infarct. 4. No radiographically significant sinus disease.. Electronically Signed: Oliverio Cobb MD at 0:45 EDT ,
--- NOTE | 2023-06-11 23:40 | ED.RN ---
Spoke to legal guardian Leidy, mother of pt, via phone call to obtain consent to treat. Marianne Singh second witness for treatment consent.
[2023-06-12] MEDS: 0.9% Normal Saline (1000mL) 1,000 ML 999 ML IV
[2023-06-12] MEDS: DiphenhydrAMINE 50 MG/ML Syringe 25 MG IV
[2023-06-12] MEDS: Haloperidol Lactate 5 MG/ML Vial IV
[2023-06-12 00:32] LABS: Absolute Lymphocyte Count 1.36 X10^3/uL (0.83-4.51); Absolute Neutrophil Count 3.8 X10^3/uL (2.0-7.7); Basophil# 0.09 X10^3/uL; Basophil% 1.4 % (0-1); Eosinophil# 0.32 X10^3/uL; Eosinophils% 5.1 % (0-5); Hematocrit 41.8 % (37-47); Hemoglobin 14.7 g/dL (12.0-15.0); Lymphocyte # 1.36 X10^3/ul (0.83-4.51); Lymphocyte % 21.7 % (19-41); Mean Corp Hgb Conc 35.2 g/dL (32-36); Mean Corpuscular Hgb 31.5 pg (27.0-32.0); Mean Corpuscular Volume 89.7 fL (81-99); Mean Platelet Vol. 9.4 fl (6.2-12.0); Monocyte# 0.64 X10^3/uL; Monocyte% 10.2 % (0-10); NRBC Flagged by Analyzer 0 % (0-5); Neutrophil # 3.83 X10^3/uL (2.7-7.7); Neutrophil % 61.1 % (47-70); Platelet Count 365 K/mm3 (150-450); RBC Distribution Width CV 11.4 % (11.6-14.6); RBC Distribution Width SD 37.1 fl (35.1-43.9); Red Blood Count 4.66 M/mm3 (4.2-5.4); White Blood Count 6.3 K/mm3 (4.4-11.0)
[2023-06-12 00:45] LABS: AST(SGOT) 16 U/L (15-37); Alanine Aminotransfer ALT/SGPT 28 U/L (13-56); Albumin, Serum 3.4 g/dL (3.2-5.0); Alkaline Phosphatase 86 U/L (45-117); Anion Gap 2 (5-15); BUN 24 mg/dL (7-18); BUN/Creat Ratio 18.8 RATIO (10-20); Bilirubin, Direct 0.08 mg/dL (0.00-0.30); Calcium,Total 9.1 mg/dL (8.5-10.1); Chloride 115 mmol/L (98-107); Creatinine, Serum 1.28 mg/dL (0.55-1.02); EST Glomerular Filtration Rate 47 mL/min (>60); Est Glom Filt Rate - Afr Amer 56 mL/min (>60); Globulin 2.9 g/dL (2.2-4.2); Glucose 93 mg/dL (74-106); Lipase 50 U/L (13-75); Potassium 3.7 mmol/L (3.5-5.1); Protein, Total 6.3 g/dL (6.4-8.2); Sodium Level 147 mmol/L (136-145)
[2023-06-12 00:49] VITALS: BP 92/56; PULSE 59; RESP 17; O2SAT 98
[2023-06-12 00:50] LABS: Internal QC Validated? YES +Cl - CLEAR BKGD; Pregnancy, Serum, hCG Quali. NEGATIVE Negative; Record Kit Lot#, Serum Preg. 718086
--- NOTE | 2023-06-12 01:50 | EX.ED.DYSGE1 ---
HPI History of Present Illness Chief Complaint: General Illness Informant: patient and EMS Narrative Narrative: Patient is a 52-year-old female with past medical history of traumatic brain injury. Reportedly she called EMS this evening complaining of pain in her head and abdomen and secondary to this was transported to the hospital for evaluation. The patient is able to write and responds to verbal questions but is not speaking and she will not disclose how EMS was contacted. She does have a power of deputy commonwealth's attorney and her mother and therefore her mother was contacted. Her mother states that the patient has a caregiver every day until roughly 10 PM. Mother states that the patient has informed multiple healthcare facilities or workers that she has cancer but that this is not true. Mother also states that the patient has been evaluated multiple times complaining of head and abdominal pain without any obvious findings. However as she has presented once again for similar complaint the mother does give consent to undergo a workup at this time [facility] Medical History Arthritis Back pain DVT (deep venous thrombosis) Gastric reflux Pulmonary embolism Seizure Smoker TBI (traumatic brain injury) Uses wheelchair Home Medications levothyroxine 100 mcg tablet 137 mcg PO DAILY thyroid 02/29/16 [History Last Taken 12/17/18 09:00] magnesium oxide 400 mg (241.3 mg magnesium) tablet 400 mg PO DAILY vitamin 02/29/16 [History Last Taken Unknown] potassium chloride 20 mEq tablet,extended release(part/cryst) (Klor-Con M) 20 meq PO 1600 vitamin 05/25/17 [History Last Taken Unknown] topiramate 200 mg tablet 200 mg PO BID nerve pain/ migraines 05/25/17 [History Last Taken 12/17/18 09:00] multivitamin (Multiple Vitamins tablet) 1 ea PO DAILY 08/09/17 [History Last Taken Unknown] rivaroxaban 20 mg tablet (Xarelto) 20 mg PO DAILY blood thinner 08/09/17 [History Last Taken 04/29/22 16:00] acidophilus 25 million cell-pectin, citrus 100 mg tablet 1 tab PO DAILY probiotic 02/15/18 [History Last Taken Unknown] furosemide 20 mg tablet 20 mg PO DAILY 12/14/18 [History Last Taken Unknown] acetaminophen 325 mg tablet 325 mg PO Q6H PRN Pain Or Fever 10/19/19 [History Last Taken Unknown] omeprazole 40 mg capsule,delayed release 40 mg PO DAILY 05/25/20 [History Last Taken Unknown] attjqxor-fcf-cjkkq acid 0.4 mg-lycopene 300 mcg-lutein 250 mcg tablet (CertaVite Senior) 1 tab PO DAILY 08/05/20 [History Last Taken Unknown] cetirizine 10 mg tablet (Zyrtec) 10 mg PO DAILY 10/07/21 [History Last Taken Unknown] carbamazepine 200 mg tablet 200 mg PO BID #60 tabs 01/31/23 [Rx Last Taken Unknown] clonidine HCl 0.1 mg tablet 0.1 mg PO QHS #30 tabs 01/31/23 [Rx Last Taken Unknown] doxepin 10 mg capsule 10 mg PO QHS #30 caps 01/31/23 [Rx Last Taken Unknown] fluvoxamine 50 mg tablet 50 mg PO BID depression #60 tabs 01/31/23 [Rx Last Taken Unknown] linaclotide 145 mcg capsule (Linzess) 145 mcg PO DAILY 05/02/23 [History Last Taken Unknown] oxybutynin chloride 10 mg tablet,extended release 24 hr 10 mg PO DAILY 05/02/23 [History Last Taken Unknown] polysaccharide iron complex 150 mg iron capsule (Ferrex) 150 mg PO DAILY 05/02/23 [History Last Taken Unknown] aripiprazole 5 mg tablet See Rx Instructions .Route .COMPLEX #28 tabs 05/25/23 [Rx Last Taken Unknown] Allergy/AdvReac Type Severity Reaction Status Date / Time amoxicillin [Amoxicillin] Allergy Unknown Verified 01/31/23 11:07 mold Allergy Shortness Verified 01/31/23 11:07 of breath naproxen Allergy Unknown Verified 01/31/23 11:07 NSAIDS (Non-Steroidal Allergy Unknown Verified 01/31/23 11:07 Anti-Inflamma phenytoin Allergy Unknown Verified 01/31/23 11:07 pineapple [Pineapple] Allergy Unknown Verified 01/31/23 11:07 Surgical History Hx of surgical procedure Hx of tubal ligation Social History household members: none Smoking Status: Smoker, status unknown tobacco type: cigarettes ROS ROS ED ROS Narrative Please note review of systems was obtained from writing and asking patient questions but based on her TBI may be unreliable Constitutional Constitutional ED: Denies chills or fever(s) Eyes Eyes: Reports other Details: Negative photophobia ENT ENT ED: Reports sore throat Cardiovascular Cardiovascular: Denies chest pain Respiratory/Chest Respiratory/Chest: Denies cough or dyspnea Gastrointestinal Gastrointestinal: Reports abdominal pain; Denies diarrhea, nausea or vomiting Genitourinary Genitourinary ED: Denies dysuria Musculoskeletal Musculoskeletal: Reports myalgias Integumentary Denies rash Neurologic Neurologic: Reports headache(s) Hematologic/Lymphatic Hematologic/Lymphatic: Denies easy bleeding or easy bruising EXAM Physical Exam Const Vital Signs: 06/11/23 22:49 06/12/23 00:49 06/12/23 02:00 Temperature 97.5 F L Temperature Source Axillary Pulse Rate 68 59 L 75 Respiratory Rate 17 17 17 Blood Pressure 96/80 92/56 L 90/55 L Blood Pressure Mean 85 68 66 Pulse Ox 92 98 91 Oxygen Delivery Method Room Air Room Air Room Air 06/12/23 04:00 Temperature Temperature Source Pulse Rate 77 Respiratory Rate 15 Blood Pressure 103/57 L Blood Pressure Mean 72 Pulse Ox 92 Oxygen Delivery Method Room Air Positive well nourished and well developed General Appearance ED: well developed; Negative for pallor HEENT HEENT Narrative: Mucous membranes are dry and tacky and there is erythema noted in the posterior pharynx. However there are no signs of airway edema or compromise No hard palate petechiae or obvious abscess formation noted. No trismus present No underlying signs of head trauma Eyes PERRL and EOMs intact bilaterally General Eye ED: Negative for scleral icterus Neck supple Neck Narrative: No nuchal rigidity or meningeal signs Chest Wall palpation of chest normal Chest Narrative: No bony deformity or crepitance of the chest wall Resp normal respiratory effort and clear to auscultation bilaterally Resp Narrative: Breath sounds are diminished throughout but overall clear to auscultation Cardio regular rate and regular rhythm GI normal to inspection, nondistended, normoactive bowel sounds, non-tender, non-distended and no masses GI Narrative: No voluntary guarding or rigidity or pulsatile mass No increased tympany noted Auscultation: normoactive bowel sounds Palpation: soft Extremity Extremity Narrative: Patient has chronic changes to her right forearm and hand from previous injury Otherwise no asymmetric edema or pitting edema No obvious signs of bony trauma Neuro CN's II-XII intact bilaterally Neuro Narrative: Patient is awake and alert. There are no obvious focal neurologic deficits No meningeal signs noted Sensorium / Orientation: alert Psych Psych Narrative: Patient has a flat affect Skin no rashes or lesions noted and no wounds General Skin Exam: Negative for jaundice or pallor MDM MDM MDM Narrative Medical decision making narrative: Patient arrived to the ER with stable vitals. History is difficult to obtain as patient is not speaking but just simply nodding yes and no or writing down answers to questions. Her mother who is power of deputy commonwealth's attorney reiterated that the patient has been evaluated multiple times for chronic head and abdominal pain without obvious findings. Her abdomen is soft and does not show signs of rigidity and bowel sounds are normal so therefore I do not feel there is need for a CT scan. However with her history of known TBI as well as report of headache I did elect to obtain a head CT to rule out spontaneous bleed or mass. Basic labs were obtained to check for potentially acute kidney injury or derangement to her liver enzymes potential biliary colic or acute cholecystitis or pancreatitis. As she has complained of myalgias there is concern for influenza versus COVID so viral swab will be ordered as well. With sore throat there is concern for strep pharyngitis so strep swab will be obtained. Patient's workup revealed no clinically significant findings and after treatment with Benadryl and Haldol she had resolution of her pain. Therefore at this time with overall negative workup and the fact the power of deputy commonwealth's attorney is reported multiple negative workups I do not feel there is need for any further evaluation in the ER and she can be discharged home History & Record Review Discussion w/independent historian: Patient and Family Lab Data Attestation: I reviewed the patient's lab results. Labs: Laboratory Results - last 24 hr 06/11/23 23:55 WBC 6.3 RBC 4.66 Hgb 14.7 Hct 41.8 MCV 89.7 MCH 31.5 MCHC 35.2 RDW Std Deviation 37.1 RDW Coeff of Tracy 11.4 L Plt Count 365 MPV 9.4 Immature Gran % (Auto) 0.500 Neut % (Auto) 61.1 Lymph % (Auto) 21.7 Pepin % (Auto) 10.2 H Eos % (Auto) 5.1 H Baso % (Auto) 1.4 H Absolute Neuts (auto) 3.8 Absolute Lymphs (auto) 1.36 Nucleated RBC % 0 Sodium 147 H Potassium 3.7 Chloride 115 H Carbon Dioxide 30.0 Anion Gap 2 L BUN 24 H Creatinine 1.28 H Estim Creat Clear Calc 45.80 Est GFR (MDRD) Af Amer 56 L Est GFR (MDRD) Non-Af 47 L BUN/Creatinine Ratio 18.8 Glucose 93 Calcium 9.1 Total Bilirubin 0.30 Direct Bilirubin 0.08 AST 16 ALT 28 Alkaline Phosphatase 86 Total Protein 6.3 L Albumin 3.4 Globulin 2.9 Lipase 50 Serum , Qual NEGATIVE Radiography Diagnostic Testing: Clinical Impression(s) from Imaging Studies Brain CT 06/11/23 23:37 IMPRESSION: 1. Stable exam 2. Remote LEFT parietal craniotomy, and areas of encephalomalacia status post remote bilateral infarcts. 3. No intracranial mass, hemorrhage or acute territorial infarct. 4. No radiographically significant sinus disease.. Electronically Signed: Oliverio Cobb MD at 0:45 EDT , Discharge Plan Triage Chief Complaint: General Illness ED Provider: Florentin Oglesby Dx/Rx/DC Orders Clinical Impression: Chronic pain, TBI (traumatic brain injury) Instructions: ED Chronic Pain Prescriptions: No Action carbamazepine 200 mg tablet 200 mg PO BID Qty: 60 0RF clonidine HCl 0.1 mg tablet 0.1 mg PO QHS Qty: 30 4RF doxepin 10 mg capsule 10 mg PO QHS Qty: 30 4RF fluvoxamine 50 mg tablet 50 mg PO BID Qty: 60 4RF levothyroxine 100 MCG tablet 137 mcg PO DAILY Patient Comments: THYROID magnesium oxide 400 MG tablet 400 mg PO DAILY Patient Comments: SUPPLEMENT potassium chloride [Klor-Con M20] 20 MEQ tablet 20 meq PO 1600 topiramate 200 MG tablet 200 mg PO BID multivitamin [Multiple Vitamins] 1 EACH tablet 1 ea PO DAILY Xarelto 20 MG tablet 20 mg PO DAILY Patient Comments: LAST DOSE 10/08/21 acidophilus-pectin, citrus 1 TABLET tablet 1 tab PO DAILY furosemide 20 MG tablet 20 mg PO DAILY acetaminophen 325 MG tablet 325 mg PO Q6H PRN (Reason: Pain Or Fever) omeprazole 40 MG capsule,delayed release(DR/EC) 40 mg PO DAILY CertaVite Senior 0.4-300-250 mg-mcg-mcg Tablet 1 tab PO DAILY cetirizine [Zyrtec] 10 mg Tablet 10 mg PO DAILY Linzess 145 mcg capsule 145 mcg PO DAILY oxybutynin chloride 10 mg tablet extended release 24hr 10 mg PO DAILY polysaccharide iron complex [Ferrex 150] 150 mg iron capsule 150 mg PO DAILY aripiprazole 5 mg tablet See Rx Instructions .ROUTE .COMPLEX Qty: 28 3RF Dose Instruction: TAKE 1 TABLET BY MOUTH DAILY Rx Instructions: TAKE 1 TABLET BY MOUTH DAILY Primary Care Provider: Stu Calderon Referrals: Stu Calderon MD [Primary Care Provider] - Disposition Disposition: Home, Self Care
[2023-06-12 02:00] VITALS: BP 90/55; PULSE 75; RESP 17; O2SAT 91
--- NOTE | 2023-06-12 02:00 | ED.RN ---
contacted legal guardian for discharge transport, guardian unable to leaf size picker pt.
[2023-06-12 04:00] VITALS: BP 103/57; PULSE 77; RESP 15; O2SAT 92
[2023-06-12 06:00] VITALS: BP 103/57; BP 94/61; PULSE 74; PULSE 77; RESP 15; RESP 17; TEMP 36.2; O2SAT 91; O2SAT 92
== END 2023-06-12 07:53 | disposition home or self-care (01) ==
PROVIDERS: Emergency Provider Emergency Medicine; PCP Family Medicine; Visit Provider Emergency Medicine
DX: S06.9X0A Unspecified intracranial injury without loss of consciousness, initial encounter (principal); J02.9 Acute pharyngitis, unspecified; F17.210 Nicotine dependence, cigarettes, uncomplicated; G89.29 Other chronic pain; M79.10 Myalgia, unspecified site; K21.9 Gastro-esophageal reflux disease without esophagitis; Z79.899 Other long term (current) drug therapy; R10.9 Unspecified abdominal pain; X58.XXXA Exposure to other specified factors, initial encounter
CPT/HCPCS: 70450; 80048; 80076; 83690; 84703; 85025; 87631; 87651; 99283; J7030; A4216

== ENCOUNTER 2023-06-16 09:01 | Emergency (ER) | payer MEDICARE, MEDICAID, SELFPAY ==
[2023-06-16 09:03] VITALS: BP 85/56; PULSE 47; RESP 18; TEMP 36; O2SAT 97; BMI 19.4
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
[2023-06-16 09:29] VITALS: BP 102/58; PULSE 45; RESP 12; O2SAT 97
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
--- NOTE | 2023-06-16 09:39 | CASEMGMT ---
NAVEED NINO: Call received from Toya Kc from the [facility] [employer] ([phone]). Pt is a current client of their services. Pt has a legal guardian Leidy Santoyo (confirmed contact information as list in EMR) and Toya has notified Leidy of pt being in the ED and has requested her to be at bedside. Pt lives in her own apartment and receives aide services from 9A to 9p daily from [facility]. Noemi Oconnor is the Knife Finisher at [facility] and can be contacted when pt is ready for discharge for aides to provide transportation home. Noemi can be reached at [phone]. This RN TRUNG or a SW will be available if additional assistance is needed. Salinas Foss RN ACM
[2023-06-16 09:51] LABS: Absolute Lymphocyte Count 1.63 X10^3/uL (0.83-4.51); Absolute Neutrophil Count 1.9 X10^3/uL (2.0-7.7); Basophil# 0.02 X10^3/uL; Basophil% 0.5 % (0-1); Eosinophils% 2.5 % (0-5); Hematocrit 38.6 % (37-47); Hemoglobin 12.1 g/dL (12.0-15.0); Lymphocyte # 1.63 X10^3/ul (0.83-4.51); Lymphocyte % 41.2 % (19-41); Mean Corp Hgb Conc 31.3 g/dL (32-36); Mean Corpuscular Volume 95.8 fL (81-99); Mean Platelet Vol. 9.9 fl (6.2-12.0); Monocyte% 7.6 % (0-10); NRBC Flagged by Analyzer 0 % (0-5); Neutrophil % 47.9 % (47-70); Platelet Count 159 K/mm3 (150-450); RBC Distribution Width CV 13.9 % (11.6-14.6); RBC Distribution Width SD 49.1 fl (35.1-43.9); Red Blood Count 4.03 M/mm3 (4.2-5.4)
[2023-06-16 10:04] VITALS: BP 90/57
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
[2023-06-16 10:11] LABS: ALB/GLOB Ratio 1.1 RATIO (0.9-2.4); AST(SGOT) 15 U/L (15-37); Alanine Aminotransfer ALT/SGPT 29 U/L (13-56); Albumin, Serum 3.1 g/dL (3.2-5.0); Alkaline Phosphatase 78 U/L (45-117); Anion Gap 3 (5-15); BUN 17 mg/dL (7-18); BUN/Creat Ratio 15.7 RATIO (10-20); Calcium,Total 8.9 mg/dL (8.5-10.1); Chloride 118 mmol/L (98-107); Creatinine, Serum 1.08 mg/dL (0.55-1.02); EST Glomerular Filtration Rate 57 mL/min (>60); Est Glom Filt Rate - Afr Amer 69 mL/min (>60); Estimated Creatinine Clearance 54.87 ml/min; Globulin 2.9 g/dL (2.2-4.2); Glucose 85 mg/dL (74-106); Potassium 3.9 mmol/L (3.5-5.1); Sodium Level 147 mmol/L (136-145)
--- NOTE | 2023-06-16 10:16 | ED.RN ---
THIS RN RECEIVES CALL FROM [facility] SKIP PIT WORKER REPORTS THAT SHE RECEIVED A PHONE CALL FROM THE STAFFING BREAKER OFF. REPORTS THE BREAKER OFF CONTACT INFORMATION HAS BEEN LISTED IN A NOTE. THIS RN INFORMED BY SKIP PIT WORKER TO READ NOTE.
[2023-06-16 10:45] VITALS: BP 99/60; PULSE 47; RESP 16; TEMP 36.4; O2SAT 99
--- NOTE | 2023-06-16 11:14 | ED.RN ---
THIS RN CONTACTED MOTHER INFORMED HER OF THE PATIENTS LAB RESULTS. MOTHER INFORMED PT WILL BE DISCHARGED HOME. MOTHER VERBALIZES UNDERSTANDING AND VOICES NO FURTHER QUESTIONS.
[2023-06-16 11:16] VITALS: BP 103/56; PULSE 53; RESP 14; TEMP 36.4; O2SAT 99
--- NOTE | 2023-06-16 11:22 | ED.RN ---
THIS RN CALLED JANEY FROM [facility] AND INFORMED HER THAT THE PATIENT IS READY FOR DISCHARGE. JANEY REPORTS THE SHE WILL CONTACT STAFF TO COME IN AND FLASH DESIGNER THE JORDAN.
== END 2023-06-16 11:47 | disposition home or self-care (01) ==
PROVIDERS: Emergency Provider Emergency Medicine; PCP Family Medicine; Visit Provider Emergency Medicine
DX: R53.1 Weakness (principal); R10.9 Unspecified abdominal pain; R51.9 Headache, unspecified; F17.210 Nicotine dependence, cigarettes, uncomplicated; K21.9 Gastro-esophageal reflux disease without esophagitis
CPT/HCPCS: 80053; 85025; 93005; 99284; A4216

== ENCOUNTER 2023-07-28 17:12 | Emergency (ER) | payer MEDICARE, MEDICAID, SELFPAY ==
[2023-07-28 17:12] VITALS: BP 104/58; PULSE 77; RESP 16; TEMP 36.2; O2SAT 97
--- NOTE | 2023-07-28 17:42 | EKG12_ITS ---
Test Reason : JULIO CESAR Blood Pressure : / mmHG Vent. Rate : 060 BPM Atrial Rate : 060 BPM P-R Int : 174 ms QRS Dur : 094 ms QT Int : 422 ms P-R-T Axes : 055 257 057 degrees QTc Int : 422 ms Normal sinus rhythm CAN NOT RULE OUT Inferior infarct (cited on or before 29-JUN-2018) Possible Anterolateral infarct , age undetermined Abnormal ECG BORDERLINE ARTIFACT Confirmed by Davis Holt ([id number]), photo editor HIREN ENCARNACION ([id number]) on 07/31/2023 8:57:23 AM Referred By: Confirmed By:Davis Holt
--- NOTE | 2023-07-28 17:50 | EX.ED.DYSGE1 ---
HPI <MIRELLA Walls - Last Filed: 07/28/23 20:01> History of Present Illness Chief Complaint: General Illness Narrative Narrative: Patient is a 52-year-old female with history of TBI, behavioral issues, lives in a fdc presenting to the emergency department for low heart rate. Patient was up in [place] today, she was scheduled to have a routine colonoscopy. She did the prep, while she was getting ready for the colonoscopy, her heart rate was 38. They then were told that the colonoscopy is canceled, and that they need to be seen. They called the primary care office, and the nurse said to go to the emergency department. Patient staff then drove from [place] here to [place]. Patient denies any chest pain, shortness of breath. [facility] <MIRELLA Walls - Last Filed: 07/28/23 20:01> [facility] Medical History Arthritis Back pain DVT (deep venous thrombosis) Gastric reflux Pulmonary embolism Seizure Smoker TBI (traumatic brain injury) Uses wheelchair Home Medications ?Medication ?Instructions ?Recorded ?Last Taken ?Type levothyroxine 100 mcg tablet 137 mcg PO DAILY thyroid 02/29/16 12/17/18 09:00 History magnesium oxide 400 mg (241.3 mg 400 mg PO DAILY vitamin 02/29/16 Unknown History magnesium) tablet potassium chloride 20 mEq 20 meq PO 1600 vitamin 05/25/17 Unknown History tablet,extended release(part/cryst) (Klor-Con M) topiramate 200 mg tablet 200 mg PO BID nerve pain/ migraines 05/25/17 12/17/18 09:00 History multivitamin (Multiple Vitamins 1 ea PO DAILY 08/09/17 Unknown History tablet) rivaroxaban 20 mg tablet (Xarelto) 20 mg PO DAILY blood thinner 08/09/17 04/29/22 16:00 History acidophilus 25 million 1 tab PO DAILY probiotic 02/15/18 Unknown History cell-pectin, citrus 100 mg tablet furosemide 20 mg tablet 20 mg PO DAILY 12/14/18 Unknown History acetaminophen 325 mg tablet 325 mg PO Q6H PRN Pain Or Fever 10/19/19 Unknown History omeprazole 40 mg capsule,delayed 40 mg PO DAILY 05/25/20 Unknown History release skvpxfrd-plb-iwwoh acid 0.4 1 tab PO DAILY 08/05/20 Unknown History mg-lycopene 300 mcg-lutein 250 mcg tablet (CertaVite Senior) cetirizine 10 mg tablet (Zyrtec) 10 mg PO DAILY 10/07/21 Unknown History carbamazepine 200 mg tablet 200 mg PO BID #60 tabs 01/31/23 Unknown Rx linaclotide 145 mcg capsule 145 mcg PO DAILY 05/02/23 Unknown History (Linzess) oxybutynin chloride 10 mg 10 mg PO DAILY 05/02/23 Unknown History tablet,extended release 24 hr polysaccharide iron complex 150 mg 150 mg PO DAILY 05/02/23 Unknown History iron capsule (Ferrex) aripiprazole 5 mg tablet See Rx Instructions .Route 05/25/23 Unknown Rx .COMPLEX #28 tabs clonidine HCl 0.1 mg tablet 0.1 mg PO QHS #30 tabs 06/22/23 Unknown Rx doxepin 10 mg capsule 10 mg PO QHS #30 caps 06/22/23 Unknown Rx fluvoxamine 50 mg tablet 50 mg PO BID depression #60 tabs 06/22/23 Unknown Rx Allergy/AdvReac Type Severity Reaction Status Date / Time amoxicillin (Amoxicillin) Allergy Unknown Verified 07/28/23 17:14 mold Allergy Shortness Verified 07/28/23 17:14 of breath naproxen Allergy Unknown Verified 07/28/23 17:14 NSAIDS (Non-Steroidal Allergy Unknown Verified 07/28/23 17:14 Anti-Inflamma phenytoin Allergy Unknown Verified 07/28/23 17:14 pineapple (Pineapple) Allergy Unknown Verified 07/28/23 17:14 Surgical History Hx of surgical procedure Hx of tubal ligation Social History household members: none Smoking Status: Smoker, status unknown tobacco type: cigarettes ROS <MIRELLA Walls - Last Filed: 07/28/23 20:01> ROS ED ROS Narrative Constitutional: Negative for fever, chills, weight loss, weakness Eyes: Negative for vision loss, vision change, double vision ENT: Negative for any sore throat, ear pain, congestion Cardiovascular: Negative for any chest pain, tightness, palpitations Respiratory: Negative for any cough, sputum production, hemoptysis, dyspnea, dyspnea on exertion, orthopnea Gastrointestinal: Negative for any abdominal pain, nausea, vomiting, diarrhea, constipation, blood in stool, blood in vomit : Negative for any urinary frequency, dysuria, retention, blood in urine Muscle skeletal: Negative for any neck pain, back pain Neurological: Negative for any headache, syncope, dizziness Skin: Negative for any rashes, itching, abrasions, lacerations Psychiatric: Negative for any depression, anxiety, stress, suicidal ideation, homicidal ideation Hematologic: Negative for any excessive bruising, easy bleeding EXAM <MIRELLA Walls - Last Filed: 07/28/23 20:01> Physical Exam Narrative Exam Narrative: Vital signs reviewed. HEET: Head normocephalic atraumatic, TMs clear bilaterally. Posterior pharynx is clear, moist mucous membranes. Nares clear bilaterally. Neck: Supple with no lymphadenopathy or tenderness. No signs of meningismus. Cardiac: Regular rate and rhythm no murmurs gallops or rubs, equal peripheral pulses bilaterally. Respiratory: Lungs clear to auscultation bilaterally. No chest tenderness. Abdomen: Soft, nontender, nondistended. No abdominal bruit or pulsatile masses. No hepatosplenomegaly Extremities: No peripheral edema, no signs of gross trauma or deformity. Active full range of motion of all extremities. Neuro: Cranial nerves II through XII intact, no focal neurological deficits. Skin: Clean dry and intact with no rash, purpura, petechiae, vesicles or pustules. Backs/flank: No CVA tenderness, no midline spinal tenderness, no deformity. Psych: Normal mood and affect. No SI, HI or acute psychosis. Const Vital Signs: 07/28/23 17:12 07/28/23 18:41 07/28/23 19:12 Temperature 97.2 F L Temperature Source Temporal Pulse Rate 77 78 Respiratory Rate 16 20 H Respiratory Effort Normal Non-Labored Respiratory Pattern Normal Blood Pressure 104/58 L 118/85 H Blood Pressure Mean 73 96 Pulse Ox 97 97 Oxygen Delivery Method Room Air Room Air 07/28/23 20:00 Temperature 98 F Temperature Source Pulse Rate 80 Respiratory Rate 18 Respiratory Effort Respiratory Pattern Blood Pressure 108/85 H Blood Pressure Mean 92 Pulse Ox 98 Oxygen Delivery Method <Dr. Luis A Sanchez DO - Last Filed: 07/28/23 22:11> Physical Exam Const Vital Signs: 07/28/23 17:12 07/28/23 18:41 07/28/23 19:12 Temperature 97.2 F L Temperature Source Temporal Pulse Rate 77 78 Respiratory Rate 16 20 H Respiratory Effort Normal Non-Labored Respiratory Pattern Normal Blood Pressure 104/58 L 118/85 H Blood Pressure Mean 73 96 Pulse Ox 97 97 Oxygen Delivery Method Room Air Room Air 07/28/23 20:00 Temperature 98 F Temperature Source Pulse Rate 80 Respiratory Rate 18 Respiratory Effort Respiratory Pattern Blood Pressure 108/85 H Blood Pressure Mean 92 Pulse Ox 98 Oxygen Delivery Method [facility] <MIRELLA Walls - Last Filed: 07/28/23 20:01> [facility] EKG Normal sinus rhythm: Attestation: I personally reviewed and interpreted this EKG as follows: Comments: Normal sinus rhythm, rate of 60 bpm, MI 174 ms, QRS duration 94 ms, no acute ST elevation, no acute infarct noted. Treatment and Re-Evaluation :: Patient appears to be in no obvious distress, vital signs are stable. Patient is not bradycardic at this time. Looking at the patient's past history, patient heart rate 1 month ago was 45, seems the patient over the last several years has had heart rates under 50. Patient is asymptomatic. Patient's heart rate is 77 at this time. Heart sounds normal. Patient received EKG. Patient is in no distress. Patient was observed here in the emergency department, patient remained stable. We did try to reach out to the patient's PCP however was unable to get an answer. However at this time, secondary to patient's history of bradycardia, patient acting appropriate this time, having normal vital signs, patient be stable for discharge will follow-up outpatient. Return precautions given to the staff member with the patient <Dr. Luis A Sanchez, DO - Last Filed: 07/28/23 22:11> [facility] Narrative Medical decision making narrative: Patient appears to be in no obvious distress, vital signs are stable. Patient is not bradycardic at this time. Looking at the patient's past history, patient heart rate 1 month ago was 45, seems the patient over the last several years has had heart rates under 50. Patient is asymptomatic. Patient's heart rate is 77 at this time. Heart sounds normal. Patient received EKG. Patient is in no distress. Patient was observed here in the emergency department, patient remained stable. We did try to reach out to the patient's PCP however was unable to get an answer. However at this time, secondary to patient's history of bradycardia, patient acting appropriate this time, having normal vital signs, patient be stable for discharge will follow-up outpatient. Return precautions given to the staff member with the patient. Patient presenting with bradycardia which is not a new symptom that she has had this since 2019 looking into the computer system. Apparently she was at a [facility] facility today and she will get a colonoscopy and upper endoscopy when they noted the bradycardia and it was unclear to the surgeon whether or not this was a new setting canceled the procedure I recommended taking her medication and following up as an outpatient however on the way home the providers for her care called her primary care physician's nurse line and they told her to come to the emergency room. Patient does not have any complaints. EKG was performed and shows sinus rhythm at 60 bpm without sign of ischemic change or ectopy. We attempted several times to call her primary care provider with no return call. The caregiver that is in the room for her states she cannot get a hold of her boss. I do not think the patient needs another workup given the bradycardia is not new. We will discharge her back to her facility. Discharge Plan Triage Chief Complaint: General Illness ED Midlevel Provider: Ronen Hayden ED Provider: Luis A aSnchez Dx/Rx/DC Orders Clinical Impression: Bradycardia Instructions: ED Bradycardia Prescriptions: No Action carbamazepine 200 mg tablet 200 mg PO BID Qty: 60 0RF levothyroxine 100 MCG tablet 137 mcg PO DAILY Patient Comments: THYROID magnesium oxide 400 MG tablet 400 mg PO DAILY Patient Comments: SUPPLEMENT potassium chloride [Klor-Con M20] 20 MEQ tablet 20 meq PO 1600 topiramate 200 MG tablet 200 mg PO BID multivitamin [Multiple Vitamins] 1 EACH tablet 1 ea PO DAILY Xarelto 20 MG tablet 20 mg PO DAILY Patient Comments: LAST DOSE 10/08/21 acidophilus-pectin, citrus 1 TABLET tablet 1 tab PO DAILY furosemide 20 MG tablet 20 mg PO DAILY acetaminophen 325 MG tablet 325 mg PO Q6H PRN (Reason: Pain Or Fever) omeprazole 40 MG capsule,delayed release(DR/EC) 40 mg PO DAILY CertaVite Senior 0.4-300-250 mg-mcg-mcg Tablet 1 tab PO DAILY cetirizine [Zyrtec] 10 mg Tablet 10 mg PO DAILY Linzess 145 mcg capsule 145 mcg PO DAILY oxybutynin chloride 10 mg tablet extended release 24hr 10 mg PO DAILY polysaccharide iron complex [Ferrex 150] 150 mg iron capsule 150 mg PO DAILY aripiprazole 5 mg tablet See Rx Instructions .ROUTE .COMPLEX Qty: 28 3RF Dose Instruction: TAKE 1 TABLET BY MOUTH DAILY Rx Instructions: TAKE 1 TABLET BY MOUTH DAILY clonidine HCl 0.1 mg tablet 0.1 mg PO QHS Qty: 30 4RF doxepin 10 mg capsule 10 mg PO QHS Qty: 30 4RF fluvoxamine 50 mg tablet 50 mg PO BID Qty: 60 4RF Primary Care Provider: Stu Calderon Referrals: Joshua Blair MD [Med Staff - Active Staff] - Stu Calderon MD [Primary Care Provider] - Activity Restrictions/Additional Instructions: You have a history of bradycardia. Normal EKG today. Please follow-up outpatient. Print Language: Lao Disposition Disposition: Home, Self Care Discharge Date/Time: 07/28/23 20:25
[2023-07-28 19:12] VITALS: BP 118/85; PULSE 78; RESP 20; O2SAT 97
[2023-07-28 20:00] VITALS: BP 108/85; PULSE 80; RESP 18; TEMP 36.6; O2SAT 98
== END 2023-07-28 20:25 | disposition home or self-care (01) ==
PROVIDERS: Emergency Provider Student in an Organized Health Care Education/Training Program; PCP Family Medicine; Visit Provider Student in an Organized Health Care Education/Training Program
DX: R00.1 Bradycardia, unspecified (principal); F17.210 Nicotine dependence, cigarettes, uncomplicated; K21.9 Gastro-esophageal reflux disease without esophagitis
CPT/HCPCS: 93005; 99282

== ENCOUNTER 2023-09-10 23:22 | Emergency (ER) | payer MEDICARE, MEDICAID, SELFPAY ==
[2023-09-10 23:24] VITALS: BP 112/60; PULSE 53; RESP 18; TEMP 36; O2SAT 98; BMI 18.4
[2023-09-10] MEDS: oxyCODONE 5 MG Tablet PO (23:58)
[2023-09-10] MEDS: Orphenadrine 100 MG Tablet PO (23:58)
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
[2023-09-11 01:33] VITALS: BP 105/55; PULSE 50; RESP 16; TEMP 36.6; O2SAT 100
== END 2023-09-11 01:58 | disposition home or self-care (01) ==
PROVIDERS: Emergency Provider Emergency Medicine; PCP Family Medicine; Visit Provider Emergency Medicine
DX: M79.18 Myalgia, other site (principal); G82.20 Paraplegia, unspecified; N18.31 Chronic kidney disease, stage 3a; M54.6 Pain in thoracic spine; E03.9 Hypothyroidism, unspecified; R47.9 Unspecified speech disturbances; Z87.820 Personal history of traumatic brain injury; K21.9 Gastro-esophageal reflux disease without esophagitis; M54.2 Cervicalgia; M25.512 Pain in left shoulder
CPT/HCPCS: 20552; 99282

== ENCOUNTER 2023-09-19 22:48 | Emergency (ER) | payer MEDICARE, MEDICAID, SELFPAY ==
[2023-09-19 22:49] VITALS: BP 110/54; PULSE 54; RESP 15; TEMP 36.6; O2SAT 93; BMI 20.4
--- NOTE | 2023-09-19 23:07 | RAD_ITS ---
EXAM: XR LEFT ANKLE COMPLETE, 3 OR MORE VIEWS CLINICAL INDICATION: pain TECHNIQUE: Frontal, lateral and oblique views of the left ankle. COMPARISON: No relevant prior studies available. FINDINGS: BONES/JOINTS: Spurring at the tip of the fibula and tibia the medial malleolus. Mild diffuse osteopenia. No acute fracture. No subluxation. Normal alignment. Preservation of the joint space. No sclerotic or destructive changes observed. SOFT TISSUES: No significant abnormality. No soft tissue swelling or gas. No radiopaque foreign body. RAD/Ankle min 3 Views IMPRESSION: Osteopenia and degenerative changes. No acute findings. Electronically Signed: Scott Epperson DO at 23:48 EDT ,
[2023-09-19] MEDS: oxyCODONE 5 MG Tablet PO (23:24)
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
[2023-09-20 00:30] VITALS: BP 110/54; PULSE 55; RESP 15; TEMP 36.6; O2SAT 93
== END 2023-09-20 01:06 | disposition home or self-care (01) ==
PROVIDERS: Emergency Provider Emergency Medicine; PCP Family Medicine; Visit Provider Emergency Medicine
DX: M25.572 Pain in left ankle and joints of left foot (principal); G82.20 Paraplegia, unspecified; N18.31 Chronic kidney disease, stage 3a; E03.9 Hypothyroidism, unspecified; S06.9X0S Unspecified intracranial injury without loss of consciousness, sequela; K21.9 Gastro-esophageal reflux disease without esophagitis
CPT/HCPCS: 73610; 99282

== ENCOUNTER → 2023-09-22 | Outpatient (CLI) | payer MEDICARE, MEDICAID, SELFPAY ==
--- NOTE | 2023-09-22 13:07 | ECHOD_ITS ---
Reason For Study: BRADYCARDIA Procedure This was a 2D Doppler, Color Flow transthoracic echocardiogram. Exam performed in department. Left Ventricle Normal left ventricle. Left ventricular systolic function is normal. The left ventricular ejection fraction is 60 %. Normal diastology for age. No regional wall motion abnormalities noted. Right Ventricle Normal RV size. Normal systolic function. Atria Normal left atrium. Normal right atrium. Mitral Valve Normal mitral valve. Tricuspid Valve Normal tricuspid valve. Aortic Valve Trisinus/trileaflet aortic valve. Pulmonic Valve Normal pulmonic valve. Great Vessels Normal aortic root. The pulmonary artery is normal size. Normal inferior vena cava. Pericardium/Pleural No pericardial effusion. MMode/2D Measurements & Calculations LVIDd: 3.7 cm IVSd: 0.88 cm Ao root diam: 2.6 cm LVIDs: 2.6 cm LVPWd: 0.99 cm RVDd: 3.2 cm FS: 30.9 % LAV(MOD-sp4): 12.8 ml LVAd ap4: 24.7 cm2 SV(MOD-sp4): 38.0 ml LVLd ap4: 7.5 cm EDV(MOD-sp4): 67.4 ml EDV(sp4-el): 69.1 ml LVAs ap4: 14.8 cm2 LVLs ap4: 6.3 cm ESV(MOD-sp4): 29.5 ml ESV(sp4-el): 29.5 ml EF(MOD-sp4): 56.3 % EF(sp4-el): 57.4 % SV(sp4-el): 39.6 ml LA A4 area: 7.5 cm2 LA dimension(2D): 2.7 cm RA A4 area: 13.5 cm2 TAPSE: 1.3 cm Time Measurements MV dec time: 0.28 sec Doppler Measurements & Calculations MV E max nirmal: 46.6 cm/sec Lat Peak E' Nirmal: 18.9 cm/sec Med Peak E' Nirmal: 11.8 cm/sec MV A max nirmal: 37.1 cm/sec E/E' lat: 2.5 E/E' med: 4.0 MV E/A: 1.3 MV V2 max: 60.1 cm/sec Ao V2 max: 82.6 cm/sec MV max P.4 mmHg MV dec slope: 168.3 cm/sec2 Ao max P.7 mmHg MV V2 mean: 30.7 cm/sec Ao V2 mean: 59.3 cm/sec MV mean P.47 mmHg Ao mean P.6 mmHg MV V2 VTI: 21.9 cm Ao V2 VTI: 17.9 cm AV (velocity ratio): 0.87 LV V1 max: 77.8 cm/sec PA V2 max: 68.4 cm/sec LV V1 max P.4 mmHg PA V2 mean: 50.9 cm/sec LV V1 mean P.3 mmHg LV V1 mean: 53.6 cm/sec LV V1 VTI: 15.5 cm ECHO/Echo Complete Interpretation Summary Normal left ventricle. Left ventricular systolic function is normal. The left ventricular ejection fraction is 60 %. Structurally normal valves. Ordering Physician: Joshua Blair Referring Physician: Joshua Blair Performed By: Vanessa Kingston RCS
== END | disposition home or self-care (01) ==
LOC: CVS 13:06
PROVIDERS: PCP Family Medicine; Referring Provider Internal Medicine Cardiovascular Disease; Visit Provider Internal Medicine Cardiovascular Disease
DX: S06.9X9A Unspecified intracranial injury with loss of consciousness of unspecified duration, initial encounter (principal); R56.9 Unspecified convulsions; R06.02 Shortness of breath; R00.1 Bradycardia, unspecified; X58.XXXA Exposure to other specified factors, initial encounter
CPT/HCPCS: 93306